=== PATIENT | female | born 1990 | race Caucasian/White ===

== ENCOUNTER 2020-06-15 08:11 | Emergency (ER) | payer MEDICAID ==
[~2020-06-15] VITALS: Ht 152.4 cm; Wt 44.0 kg
[2020-06-15] MEDS ORDERED: OFLOXACIN5 M1 OP (09:07)
== END 2020-06-15 09:15 | disposition home or self-care (01) ==
LOC: ED 08:11
DX: H66.91 Otitis media, unspecified, right ear (principal); H72.90 Unspecified perforation of tympanic membrane, unspecified ear; Z88.2 Allergy status to sulfonamides; Z88.5 Allergy status to narcotic agent; Z88.0 Allergy status to penicillin; Z88.8 Allergy status to other drugs, medicaments and biological substances
CPT/HCPCS: 99282

== ENCOUNTER 2021-02-14 11:44 | Emergency (ER) | payer SELFPAY ==
[~2021-02-14] VITALS: Ht 152.4 cm; Wt 45.4 kg
[~2021-02-14 11:44] MED LIST: OFLOXACIN5 M1 OP
[2021-02-14] MEDS ORDERED: ONDANSETRON ODT8 MG PO (12:28)
== END 2021-02-14 12:37 | disposition home or self-care (01) ==
LOC: ED 11:44
DX: K52.9 Noninfective gastroenteritis and colitis, unspecified (principal); Z88.2 Allergy status to sulfonamides; Z88.8 Allergy status to other drugs, medicaments and biological substances; Z88.0 Allergy status to penicillin; Z88.1 Allergy status to other antibiotic agents; Z88.5 Allergy status to narcotic agent
CPT/HCPCS: 80053; 83690; 84703; 85025; 96374; 96375; 99284-25; J0780; J1200; J7030

== ENCOUNTER 2021-02-18 09:30 | Emergency (ER) | payer SELFPAY ==
[~2021-02-18] VITALS: Ht 152.4 cm; Wt 45.4 kg
[~2021-02-18 09:30] MED LIST changes: +ONDANSETRON ODT8 MG PO
--- OUTSIDE RECORDS SUMMARY | 2021-02-18 09:32 | XMS ---
PreManage Notification: ASPEN HONG Security Philosophy Faculty Events No recent Security Events currently on file CRITERIA MET - [facility] - 2 Visits in 30 Days CARE PROVIDERS There are no care providers on record at this time. Jatin has no Care Guidelines for this patient. Le V[facility] (12 MO.) [facility] NOTE: Visits indicate total known visits. ED/C VISIT TRACKING (12 MO.) 02/18/2021 09:30 [facility] [facility] Emergency COMPLAINT: - VOMITING, UPPER LEFT QUAD PAIN 02/14/2021 11:45 [facility] [place] TYPE: Emergency COMPLAINT: - VOMITTING 06/15/2020 08:12 [facility] [place] TYPE: Emergency COMPLAINT: - EAR PAIN DIAGNOSES: - Allergy status to narcotic agent - Otitis media, unspecified, right ear - Allergy status to other drugs, medicaments and biological substances - Otalgia, right ear - Allergy status to sulfonamides - Unspecified perforation of tympanic membrane, unspecified ear - Allergy status to penicillin INPATIENT VISIT TRACKING (12 MO.) No inpatient visits to display in this time frame [id number]
[2021-02-18] MEDS ORDERED: ONDANSETRON ODT8 MG PO (13:05)
== END 2021-02-18 13:12 | disposition home or self-care (01) ==
LOC: ED 09:30
DX: R10.13 Epigastric pain (principal); R10.12 Left upper quadrant pain; R11.10 Vomiting, unspecified; Z88.2 Allergy status to sulfonamides; Z88.5 Allergy status to narcotic agent; Z88.0 Allergy status to penicillin; Z88.8 Allergy status to other drugs, medicaments and biological substances
CPT/HCPCS: 80053; 81001; 83690; 85025; 96365; 96375; 99284-25; J1200; J1790; J2060; J3411; J7030; J7121

== ENCOUNTER 2021-03-13 09:10 | Emergency (ER) | payer OTHER ==
[~2021-03-13] VITALS: Ht 152.4 cm; Wt 40.4 kg
--- OUTSIDE RECORDS SUMMARY | 2021-03-13 09:12 | XMS ---
PreManage Notification: ASPEN HONG Security Retail Sales Associate Seasonal Events No recent Security Events currently on file CRITERIA MET - Group Notification - [facility] - 2 Visits in 30 Days CARE PROVIDERS There are no care providers on record at this time. Jatin has no Care Guidelines for this patient. Le VISIT COUNT (12 MO.) 4 [facility] [facility]. TOTAL 4 NOTE: Visits indicate total known visits. ED/UCC VISIT TRACKING (12 MO.) 03/13/2021 09:10 [facility] TYPE: Emergency COMPLAINT: - NAUSEA, ABD PAIN 02/18/2021 09:30 [facility] [place] TYPE: Emergency COMPLAINT: - VOMITING, UPPER LEFT QUAD PAIN DIAGNOSES: - Allergy status to other drugs, medicaments and biological substances - Left upper quadrant pain - Allergy status to penicillin - Allergy status to sulfonamides - Allergy status to narcotic agent - Vomiting, unspecified - Epigastric pain 02/14/2021 11:[address] [facility] [address] TYPE: Emergency COMPLAINT: - VOMITTING DIAGNOSES: - Noninfective gastroenteritis and colitis, unspecified - Allergy status to narcotic agent - Vomiting, unspecified - Allergy status to other drugs, medicaments and biological substances - Allergy status to penicillin - Allergy status to sulfonamides - Allergy status to other antibiotic agents 06/15/2020 08:12 [facility] [address] [place] TYPE: Emergency COMPLAINT: - EAR PAIN [...] visits to display in this time frame [id number]
[2021-03-13] MEDS ORDERED: ONDANSETRON ODT8 MG PO (11:24)
== END 2021-03-13 11:55 | disposition home or self-care (01) ==
LOC: ED 09:10
DX: K29.00 Acute gastritis without bleeding (principal); Z88.2 Allergy status to sulfonamides; Z88.8 Allergy status to other drugs, medicaments and biological substances; Z88.0 Allergy status to penicillin; Z88.5 Allergy status to narcotic agent
CPT/HCPCS: 80053; 81001; 83690; 84703; 85025; 96374; 96375; 99284-25; C9113; J1200; J2405; J7030

== ENCOUNTER 2021-03-13 22:50 | Emergency (ER) | payer OTHER ==
[~2021-03-13] VITALS: Ht 152.4 cm; Wt 40.4 kg
--- OUTSIDE RECORDS SUMMARY | 2021-03-13 22:52 | XMS ---
PreManage Notification: ASPEN HONG Security Petrophysicist Events No recent Security Events currently on file CRITERIA MET - Group Notification - [facility] - 2 Visits in 30 Days CARE PROVIDERS There are no care providers on record at this time. Jatin has no Care Guidelines for this patient. [facility] NOTE: Visits indicate total known visits. ED/C VISIT TRACKING (12 MO.) 03/13/2021 22:50 [facility] [place] [facility] COMPLAINT: - VOMITING 03/13/2021 09:[address] [facility] [address] [facility] [place] TYPE: Emergency COMPLAINT: - NAUSEA, ABD PAIN 02/18/2021 09:30 [facility] [place] TYPE: Emergency COMPLAINT: - VOMITING, UPPER LEFT QUAD PAIN DIAGNOSES: - Allergy status to other drugs, medicaments and biological substances - Left upper quadrant pain - Allergy status to penicillin - Allergy status to sulfonamides - Allergy status to narcotic agent - Vomiting, unspecified - Epigastric pain 02/14/2021 11:45 [facility] [place] TYPE: Emergency COMPLAINT: - VOMITTING DIAGNOSES: - Noninfective gastroenteritis and colitis, unspecified - Allergy status to narcotic agent - Vomiting, unspecified - Allergy status to other drugs, medicaments and biological substances - Allergy status to penicillin - Allergy status to sulfonamides - Allergy status to other antibiotic agents 06/15/2020 08:[address] [facility] [address] [facility] [place] TYPE: Emergency COMPLAINT: [...] visits to display in this time frame [id number]
[2021-03-15] MEDS ORDERED: PEPCID20 MG PO (13:14)
== END 2021-03-14 00:54 | disposition home or self-care (01) ==
LOC: ED 22:50
DX: K29.50 Unspecified chronic gastritis without bleeding (principal); Z88.2 Allergy status to sulfonamides; Z88.5 Allergy status to narcotic agent; Z88.8 Allergy status to other drugs, medicaments and biological substances; Z88.0 Allergy status to penicillin
CPT/HCPCS: 80053; 96374; 96375; 96376; 99284-25; J1200; J2405; J7030

== ENCOUNTER 2021-03-15 09:54 | Emergency (ER) | payer OTHER ==
[~2021-03-15] VITALS: Ht 152.4 cm; Wt 40.4 kg
--- OUTSIDE RECORDS SUMMARY | 2021-03-15 09:56 | XMS ---
PreManage Notification: ASPEN HONG Security Office Machines Sales Representative Events No recent Security Events currently on file CRITERIA MET - Group Notification - [facility] - 2 Visits in 30 Days CARE PROVIDERS There are no care providers on record at this time. Jatin has no Care Guidelines for this patient. Care History Medical/Surgical 03/14/2021 [facility] - CONTACT NUMBER [phone] IS NOT A WORKING NUMBER FOR PATIENT- UNABLE TO CONTACT. - SENT NO PCP LETTER WITH PCP LIST TO PATIENT ON 02/19/21. - PLEASE REFER PATIENT TO WALK IN CLINIC TO ESTABLISH CARE FOR NON EMERGENT MEDICAL CONCERNS. E.D. VISIT COUNT (12 MO.) 6 [facility] TOTAL 6 NOTE: Visits indicate total known visits. ED/UCC VISIT TRACKING (12 MO.) 03/15/2021 09:55 [facility] [place] TYPE: Emergency COMPLAINT: - N/V 03/13/2021 22:50 [facility] [place] TYPE: Emergency COMPLAINT: - VOMITING 03/13/2021 09:10 [facility] [place] TYPE: Emergency COMPLAINT: - NAUSEA, ABD PAIN 02/18/2021 09:30 [facility] [place] TYPE: Emergency COMPLAINT: - VOMITING, UPPER LEFT QUAD PAIN DIAGNOSES: - Allergy status to other drugs, medicaments and biological substances - Left upper quadrant pain - Allergy status to penicillin - Allergy status to sulfonamides - Allergy status to narcotic agent - Vomiting, unspecified - Epigastric pain 02/14/2021 11:45 [facility] [place] TYPE: Emergency COMPLAINT: - VOMITTING DIAGNOSES: - Noninfective gastroenteritis and colitis, unspecified - Allergy status to narcotic agent - Vomiting, unspecified - Allergy status to other drugs, medicaments and biological substances - Allergy status to penicillin - Allergy status to sulfonamides - Allergy status to other antibiotic agents 06/15/2020 08:12 [facility] [place] TYPE: Emergency [...] visits to display in this time frame [id number]
[2021-03-15] MEDS ORDERED: PEPCID20 MG PO (13:14)
== END 2021-03-15 13:40 | disposition home or self-care (01) ==
LOC: ED 09:54
DX: K29.00 Acute gastritis without bleeding (principal); Z88.2 Allergy status to sulfonamides; Z88.5 Allergy status to narcotic agent; Z88.8 Allergy status to other drugs, medicaments and biological substances; Z88.0 Allergy status to penicillin
CPT/HCPCS: 74177; 80053; 83690; 85025; 96375; 96376; 99284-25; J1200; J2405; J7030; Q9967

== ENCOUNTER 2021-03-16 04:36 | Emergency (ER) | payer OTHER ==
[~2021-03-16] VITALS: Ht 152.4 cm; Wt 40.4 kg
[~2021-03-16 04:36] MED LIST changes: +PEPCID20 MG PO
--- OUTSIDE RECORDS SUMMARY | 2021-03-16 04:38 | XMS ---
PreManage Notification: ASPEN HONG Security Measurement And Verification Engineer Events No recent Security Events currently on file CRITERIA MET - Group Notification - 6 ED Visits in 6 Months - [facility] - 2 Visits in 30 Days CARE PROVIDERS There are no care providers on record at this time. Jatin has no Care Guidelines for this patient. Care History Medical/Surgical 03/14/2021 [facility] - CONTACT NUMBER [phone] IS NOT A WORKING NUMBER FOR PATIENT- UNABLE TO CONTACT. - SENT NO PCP LETTER WITH PCP LIST TO PATIENT ON 02/19/21. - PLEASE REFER PATIENT TO WALK IN CLINIC TO ESTABLISH CARE FOR NON EMERGENT MEDICAL CONCERNS. E.D. VISIT COUNT (12 MO.) 7 [facility] TOTAL 7 NOTE: Visits indicate total known visits. ED/UCC VISIT TRACKING (12 MO.) 03/16/2021 04:[address] [facility] [address] [facility] TYPE: Emergency COMPLAINT: - NAUSEA 03/15/2021 09:[address] [facility] [address] [facility] TYPE: Emergency COMPLAINT: - N/V 03/13/2021 22:[address] [facility] [address] [facility] TYPE: Emergency COMPLAINT: - VOMITING 03/13/2021 09:[address] [facility] [address] [facility] TYPE: Emergency COMPLAINT: - NAUSEA, ABD PAIN 02/18/2021 09:[address] [facility] [address] [facility] [place] TYPE: Emergency COMPLAINT: - VOMITING, UPPER LEFT QUAD PAIN DIAGNOSES: - Allergy status to other drugs, medicaments and biological substances - Left upper quadrant pain - Allergy status to penicillin - Allergy status to sulfonamides - Allergy status to narcotic agent - Vomiting, unspecified - Epigastric pain 02/14/2021 11:45 [facility] [place] TYPE: Emergency COMPLAINT: - VOMITTING DIAGNOSES: - Noninfective gastroenteritis and colitis, unspecified - Allergy status to narcotic agent - Vomiting, unspecified - Allergy status to other drugs, medicaments and biological substances - Allergy status to penicillin - Allergy status to sulfonamides - Allergy status to other antibiotic agents 06/15/2020 08:12 [facility] [place] TYPE: Emergency COMPLAINT: - EAR [...] visits to display in this time frame [email or web address]
== END 2021-03-16 07:38 | disposition home or self-care (01) ==
LOC: ED 04:36
DX: K29.50 Unspecified chronic gastritis without bleeding (principal); Z88.2 Allergy status to sulfonamides; Z88.5 Allergy status to narcotic agent; Z88.8 Allergy status to other drugs, medicaments and biological substances; Z88.0 Allergy status to penicillin; Z79.899 Other long term (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
CPT/HCPCS: 96374; 96375; 99284-25; J1200; J1630; J7030

== ENCOUNTER 2021-03-22 06:11 | Emergency (ER) | payer OTHER ==
[~2021-03-22] VITALS: Ht 152.4 cm; Wt 40.8 kg
--- OUTSIDE RECORDS SUMMARY | 2021-03-22 06:16 | XMS ---
PreManage Notification: ASPEN HONG Security Road Engineer Events No recent Security Events currently on file CRITERIA MET - 6 ED Visits in 6 Months - [facility] - Has Care Guidelines - [facility] - 2 Visits in 30 Days CARE PROVIDERS JEREMIAH VERA Nurse Practitioner Current PHONE: [phone] GRAHAM BANUELOS Family Medicine 03/19/2021-Current PHONE: [phone] Jatin has no Care Guidelines for this patient. Care History Medical/Surgical 03/19/2021 [facility] - W RECEIVED A PHONE CALL BACK FROM PATIENT- PATIENT WOULD LIKE ASSISTANCE WITH FINDING A LOCAL PCP. - CHW DISCUSSED LOCAL PRIMARY CARE OPTIONS IN THE AREA-PATIENT WOULD LIKE [facility] FOR PR[facility] CARE. - CHW CONTACTED [facility]- AN APT HAS BEEN SET TO ESTABLISH CARE WITH DR BANUELSO 03/22/2021Friday AT 11:30AM. - CHW PROVIDED [facility] TRANSPORTATION NUMBER TO PATIENT FOR FUTURE APTS AND PHARMACY MEDICATION CRISIS WORKER. 03/19/2021 [facility] - CHW CALLED PATIENT AT CONTACT NUMBER [phone] AND LEFT A VOICEMAIL. 03/14/2021 [facility] - CONTACT NUMBER [phone] IS NOT A WORKING NUMBER FOR PATIENT- UNABLE TO CONTACT. - SENT NO PCP LETTER WITH PCP LIST TO PATIENT ON 02/19/21. - PLEASE REFER PATIENT TO WALK IN CLINIC TO ESTABLISH CARE FOR NON EMERGENT MEDICAL CONCERNS. EChencho VISIT COUNT (12 MO.) 1 [facility] (ID) [address] [facility] [address] [facility] TOTAL 9 NOTE: Visits indicate total known visits. 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 - Allergy status to sulfonamides - Nausea with vomiting, unspecified - Allergy status to narcotic agent - Allergy status to other drugs, medicaments and biological substances - Unspecified chronic gastritis without bleeding - Allergy status to penicillin 03/15/2021 09:55 [facility] [place] TYPE: Emergency COMPLAINT: - N/V DIAGNOSES: - Nausea with vomiting, unspecified - Acute gastritis without bleeding - Allergy status to penicillin - Allergy status to other drugs, medicaments and biological substances - Allergy status to narcotic agent - Allergy status to sulfonamides 03/13/2021 22:50 [facility] [place] TYPE: Emergency COMPLAINT: - VOMITING DIAGNOSES: - Allergy status to narcotic agent - Unspecified chronic gastritis without bleeding - Allergy status to sulfonamides - Nausea with vomiting, unspecified - Allergy status to other drugs, medicaments and biological substances - Allergy status to penicillin 03/13/2021 09:[address] [facility] [address] [facility] TYPE: Emergency COMPLAINT: - NAUSEA, ABD PAIN DIAGNOSES: - Acute gastritis without bleeding - Allergy status to other drugs, medicaments and biological substances - Allergy status to narcotic agent - Allergy status to sulfonamides - Nausea with vomiting, unspecified - Allergy status to penicillin 02/18/2021 09:[address] [facility] [address] [facility] TYPE: Emergency COMPLAINT: - VOMITING, UPPER LEFT QUAD PAIN DIAGNOSES: - Allergy status to other drugs, medicaments and biological substances - Left upper quadrant pain - Allergy status to penicillin - Allergy status to sulfonamides - Allergy status to narcotic agent - Vomiting, unspecified - Epigastric pain 02/14/2021 11:[address] [facility] [address] [facility] [place] TYPE: [...] unspecified ear - Allergy status to penicillin 04/03/2020 11:28 [facility] ID (ID) TYPE: Emergency COMPLAINT: - VOMITING DIAGNOSES: 1. Nausea with vomiting, unspecified 2. Vomiting, unspecified INPATIENT VISIT TRACKING (12 MO.) No inpatient visits to display in this time frame [id number]
[2021-03-22] MEDS ORDERED: ZOFRAN4 MG PO (07:47)
== END 2021-03-22 08:02 | disposition home or self-care (01) ==
LOC: ED 06:11
DX: R11.15 Cyclical vomiting syndrome unrelated to migraine (principal); Z88.2 Allergy status to sulfonamides; Z88.8 Allergy status to other drugs, medicaments and biological substances; Z88.5 Allergy status to narcotic agent; Z88.0 Allergy status to penicillin; Z79.899 Other long term (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
CPT/HCPCS: 80053; 83690; 85025; 96374; 96375; 99284-25; J1200; J2405; J7030

== ENCOUNTER 2021-03-24 10:08 | Emergency (ER) | payer OTHER ==
[~2021-03-24] VITALS: Ht 152.4 cm; Wt 40.8 kg
[~2021-03-24 10:08] MED LIST changes: +ZOFRAN4 MG PO
--- OUTSIDE RECORDS SUMMARY | 2021-03-24 10:14 | XMS ---
PreManage Notification: ASPEN HONG Security Sanding Machine Tender Events No recent Security Events currently on file CRITERIA MET - 6 ED Visits in 6 Months - [facility] - Has Care Guidelines - [facility] - 2 Visits in 30 Days CARE PROVIDERS JEREMIAH VERA Nurse Practitioner Current PHONE: [phone] GRAHAM BANUELOS Family Medicine 03/19/2021-Current PHONE: [phone] Jatin has no Care Guidelines for this patient. Care History Medical/Surgical 03/19/2021 [facility] - W RECEIVED A PHONE CALL BACK FROM PATIENT- PATIENT WOULD LIKE ASSISTANCE WITH FINDING A LOCAL PCP. - CHW DISCUSSED LOCAL PRIMARY CARE OPTIONS IN THE AREA-PATIENT WOULD LIKE [facility] FOR PRIMARY CARE. - CHW CONTACTED [facility]- AN APT HAS BEEN SET TO ESTABLISH CARE WITH DR BANUELOS 03/22/2021Friday AT 11:30AM. - CHW PROVIDED [facility] TRANSPORTATION NUMBER TO PATIENT FOR FUTURE APTS AND PHARMACY MEDICATION ASSOCIATE FACULTY. 03/19/2021 [facility] - CHW CALLED PATIENT AT CONTACT NUMBER [phone] AND LEFT A VOICEMAIL. 03/14/2021 [facility] - CONTACT NUMBER [phone] IS NOT A WORKING NUMBER FOR PATIENT- UNABLE TO CONTACT. - SENT NO PCP LETTER WITH PCP LIST TO PATIENT ON 02/19/21. - PLEASE REFER PATIENT TO WALK IN CLINIC TO ESTABLISH CARE FOR NON EMERGENT MEDICAL CONCERNS. EChencho VISIT COUNT (12 MO.) 1 [facility] (ID) [address] [facility] [address] [facility] TOTAL 10 NOTE: Visits indicate total known visits. ED/UCC VISIT TRACKING (12 MO.) 03/24/2021 10:09 [facility] [place] TYPE: Emergency COMPLAINT: - VOMITING, DEHYDRATION 03/22/2021 06:11 [facility] [place] TYPE: Emergency COMPLAINT: - NAUSEA,VOMITING DIAGNOSES: - Allergy status to other drugs, medicaments and biological substances - Allergy status to narcotic agent - Allergy status to penicillin - Cyclical vomiting syndrome unrelated to migraine - Nausea with vomiting, unspecified - Other long term care social worker (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 - Allergy status to sulfonamides 03/16/2021 04:36 [facility] [place] TYPE: Emergency COMPLAINT: - NAUSEA DIAGNOSES: - Other long term care social worker (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 - Allergy status to sulfonamides - Nausea with vomiting, unspecified - Allergy status to narcotic agent - Allergy status to other drugs, medicaments and biological substances - Unspecified chronic gastritis without bleeding - Allergy status to penicillin 03/15/2021 09:55 [facility] [place] TYPE: Emergency COMPLAINT: - N/V DIAGNOSES: - Nausea with vomiting, unspecified - Acute gastritis without bleeding - Allergy status to penicillin - Allergy status to other drugs, medicaments and biological substances - Allergy status to narcotic agent - Allergy status to sulfonamides 03/13/2021 22:50 [facility] [place] TYPE: Emergency COMPLAINT: - VOMITING DIAGNOSES: - Allergy status to narcotic agent - Unspecified chronic gastritis without bleeding - Allergy status to sulfonamides - Nausea with vomiting, unspecified - Allergy status to other drugs, medicaments and biological substances - Allergy status to penicillin 03/13/2021 09:10 [facility] [place] TYPE: Emergency COMPLAINT: - NAUSEA, ABD PAIN DIAGNOSES: - Acute gastritis without bleeding - Allergy status to other drugs, medicaments and biological substances - Allergy status to narcotic agent - Allergy status to sulfonamides - Nausea with vomiting, unspecified - Allergy status to penicillin 02/18/2021 09:30 [facility] [place] TYPE: Emergency COMPLAINT: - VOMITING, UPPER LEFT QUAD PAIN DIAGNOSES: - Allergy status to other drugs, medicaments and biological substances - Left upper quadrant pain - Allergy status to penicillin - Allergy status to sulfonamides - Allergy status to narcotic agent - Vomiting, unspecified - Epigastric pain 02/14/2021 11:[address] [facility] [address] [facility] [place] TYPE: Emergency COMPLAINT: - VOMITTING DIAGNOSES: - Noninfective gastroenteritis and colitis, unspecified - Allergy status to narcotic agent - Vomiting, unspecified - Allergy status to other drugs, medicaments and biological substances - Allergy status to penicillin - Allergy status to sulfonamides - Allergy status to other antibiotic agents 06/15/2020 08:[address] [facility] [address] [facility] [place] TYPE: Emergency COMPLAINT: - EAR PAIN DIAGNOSES: - Allergy status to narcotic agent - Otitis media, unspecified, right ear - Allergy status to other drugs, medicaments and biological substances - Otalgia, right ear - Allergy status to sulfonamides - Unspecified perforation of tympanic membrane, unspecified ear - Allergy status to penicillin [facility]/03/2020 [facility] TYPE: Emergency COMPLAINT: - VOMITING DIAGNOSES: 1. Nausea with vomiting, unspecified 2. Vomiting, unspecified INPATIENT VISIT TRACKING (12 MO.) No inpatient visits to display in this time frame [id number]
[2021-03-24] MEDS ORDERED: PROTONIX20 MG PO (13:24)
[2021-03-24] MEDS ORDERED: CARAFATE1 GM PO (13:24)
== END 2021-03-24 13:40 | disposition home or self-care (01) ==
LOC: ED 10:08
DX: R11.2 Nausea with vomiting, unspecified (principal); E86.0 Dehydration; Z88.2 Allergy status to sulfonamides; Z88.5 Allergy status to narcotic agent; Z88.8 Allergy status to other drugs, medicaments and biological substances; Z88.0 Allergy status to penicillin
CPT/HCPCS: 51798; 80053; 81001; 82550; 83690; 84703; 85025; 99284-25; J2405; J7030

== ENCOUNTER 2021-11-18 09:13 | Emergency (ER) | payer OTHER ==
[~2021-11-18] VITALS: Ht 152.4 cm; Wt 40.8 kg
[~2021-11-18 09:13] MED LIST changes: +CARAFATE1 GM PO; +PROTONIX20 MG PO
--- OUTSIDE RECORDS SUMMARY | 2021-11-18 09:20 | XMS ---
PreManage Notification: ASPEN HONG Security Iron And Steel Work Supervisor Events No recent Security Events currently on file CRITERIA MET - [facility] CARE PROVIDERS JEREMIAH VERA Nurse Practitioner Current PHONE: [phone] [facility] Rohan SULLIVAN PHONE: Unknown [facility] Internal Medicine Current KIMBERLY PHONE: [phone] [facility]-Current PHONE: [phone] Jatin has no Care Guidelines for this patient. Care History Medical/Surgical 03/26/2021 [facility] - PATIENT NO SHOWED TO HER ESTABLISHING CARE APT SCHEDULED WITH DR BANUELOS. - CHW WILL CONTACT [facility] CASE MANAGEMENT TEAM TO DISCUSS FURTHER 03/19/2021 [facility] - CHW RECEIVED A PHONE CALL BACK FROM PATIENT- PATIENT WOULD LIKE ASSISTANCE WITH FINDING A LOCAL PCP. - CHW DISCUSSED LOCAL PRIMARY CARE OPTIONS IN THE AREA-PATIENT WOULD LIKE [facility] FOR PRIMARY CARE. - CHW CONTACTED [facility]- AN APT HAS BEEN SET TO ESTABLISH CARE WITH DR BANUELOS 03/22/2021Friday AT 11:30AM. - CHW PROVIDED [employer] TRANSPORTATION NUMBER TO PATIENT FOR FUTURE APTS AND PHARMACY MEDICATION CASH REGISTER REPAIRER. 03/19/2021 [facility] - CHW CALLED PATIENT AT CONTACT NUMBER [phone] AND LEFT A VOICEMAIL. E.D. VISIT COUNT (12 MO.) 9 [facility]. TOTAL 9 NOTE: Visits indicate total known visits. ED/UCC VISIT TRACKING (12 MO.) 11/18/2021 09:14 [facility] [place] TYPE: Emergency COMPLAINT: - BODY ACHE,SOB,FEVER 03/24/2021 10:09 [facility] [place] TYPE: Emergency COMPLAINT: - VOMITING, DEHYDRATION DIAGNOSES: - Allergy status to other drugs, medicaments and biological substances - Nausea with vomiting, unspecified - Allergy status to penicillin - Allergy status to sulfonamides - Dehydration - Allergy status to narcotic agent 03/22/2021 06:11 [facility] [place] TYPE: Emergency COMPLAINT: - NAUSEA,VOMITING DIAGNOSES: - Allergy status to other drugs, medicaments and biological substances - Allergy status to narcotic agent - Allergy status to penicillin - Cyclical vomiting syndrome unrelated to migraine - Nausea with vomiting, unspecified - Other police pilot (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 - Allergy status to sulfonamides 03/16/2021 04:36 [facility] [place] TYPE: Emergency COMPLAINT: - NAUSEA DIAGNOSES: - Other police pilot (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 - Allergy status to sulfonamides - Nausea with vomiting, unspecified - Allergy status to narcotic agent - Allergy status to other drugs, medicaments and biological substances - Unspecified chronic gastritis without bleeding - Allergy status to penicillin 03/15/2021 09:55 [facility] [place] TYPE: Emergency COMPLAINT: - N/V DIAGNOSES: - Nausea with vomiting, unspecified - Acute gastritis without bleeding - Allergy status to penicillin - Allergy status to other drugs, medicaments and biological substances - Allergy status to narcotic agent - Allergy status to sulfonamides 03/13/2021 22:50 [facility] [place] TYPE: Emergency COMPLAINT: - VOMITING DIAGNOSES: - Allergy status to narcotic agent - Unspecified chronic gastritis without bleeding - Allergy status to sulfonamides - Nausea with vomiting, unspecified - Allergy status to other drugs, medicaments and biological substances - Allergy status to penicillin 03/13/2021 09:10 [facility] Garcia[facility]ose [place] TYPE: Emergency [...] other drugs, medicaments and biological substances - Restlessness and agitation - Left upper quadrant pain - Allergy status to penicillin - Allergy status to sulfonamides - Tachycardia, unspecified - Nausea with vomiting, unspecified - Diarrhea, unspecified - Allergy status to narcotic agent [...] - Allergy status to other antibiotic agents INPATIENT VISIT TRACKING (12 MO.) No inpatient visits to display in this time frame [id number]
== END 2021-11-18 11:15 | disposition home or self-care (01) ==
LOC: ED 09:13
DX: U07.1 COVID-19 (principal); Z88.2 Allergy status to sulfonamides; Z88.5 Allergy status to narcotic agent; Z88.0 Allergy status to penicillin
CPT/HCPCS: 71045; 99285-25; C9803; U0003

== ENCOUNTER 2022-08-08 10:04 | Emergency (ER) | payer OTHER ==
[~2022-08-08] VITALS: Ht 152.4 cm; Wt 47.6 kg
--- OUTSIDE RECORDS SUMMARY | 2022-08-08 10:08 | XMS ---
PreManage Notification: ASPEN HONG Security Patternmaker Apprentice Wood Events No recent Security Events currently on file CRITERIA MET - [facility] – [place], [place] CARE PROVIDERS JEREMIAH VERA Nurse Practitioner Current PHONE: Unknown [facility] Rohan SULLIVAN PHONE: Unknown [facility] Internal Medicine Current KIMBERLY PHONE: [phone] [facility]Current PHONE: Unknown Jatin has no Care Guidelines for this patient. Care History Medical/Surgical 03/26/2021 [facility] - PATIENT NO SHOWED TO HER ESTABLISHING CARE APT SCHEDULED WITH DR BANUELOS. - CHW WILL CONTACT [facility] CASE MANAGEMENT TEAM TO DISCUSS FURTHER 03/19/2021 [facility] - CHW RECEIVED A PHONE CALL BACK FROM PATIENT- PATIENT WOULD LIKE ASSISTANCE WITH FINDING A LOCAL PCP. - CHW DISCUSSED LOCAL PRIMARY CARE OPTIONS IN THE AREA-PATIENT WOULD LIKE [facility] FOR PRIMARY CARE. - CHW CONTACTED [facility]- AN APT HAS BEEN SET TO ESTABLISH CARE WITH DR BANUELOS 03/22/2021Friday AT 11:30AM. - CHW PROVIDED [employer] TRANSPORTATION NUMBER TO PATIENT FOR FUTURE APTS AND PHARMACY MEDICATION IMPORT/EXPORT SPECIALIST. 03/19/2021 [facility] - CHW CALLED PATIENT AT CONTACT NUMBER [phone] AND LEFT A VOICEMAIL. E.D. VISIT COUNT (12 MO.) 2 [facility]. TOTAL 2 NOTE: Visits indicate total known visits. ED/UCC VISIT TRACKING (12 MO.) 08/08/2022 10:04 [facility] [place] TYPE: Emergency COMPLAINT: - VOMITING 11/18/2021 09:14 [facility] [place] TYPE: Emergency COMPLAINT: - BODY ACHE,SOB,FEVER DIAGNOSES: - Allergy status to penicillin - Allergy status to sulfonamides - Allergy status to narcotic agent - COVID-19 - Fever, unspecified INPATIENT VISIT TRACKING (12 MO.) No inpatient visits to display in this time frame [id number]
[2022-08-08] MEDS ORDERED: ONDANSETRON ODT8 MG PO (11:49)
== END 2022-08-08 11:55 | disposition home or self-care (01) ==
LOC: ED 10:04
DX: K29.00 Acute gastritis without bleeding (principal); Z88.2 Allergy status to sulfonamides; Z88.5 Allergy status to narcotic agent; Z88.0 Allergy status to penicillin
CPT/HCPCS: 36415; 80053; 83690; 84703; 85025; 96374; 96375; 99284-25; J2060; J2405; J7030

== ENCOUNTER 2022-08-31 15:22 | Emergency (ER) | payer OTHER ==
[~2022-08-31] VITALS: Ht 152.4 cm; Wt 45.4 kg
--- OUTSIDE RECORDS SUMMARY | 2022-08-31 15:30 | XMS ---
PreManage Notification: ASPEN HONG Security Wood Window And Door Craftsman Events No recent Security Events currently on file CRITERIA MET - [facility] - Has Care Guidelines - [facility] - 2 Visits in 30 Days CARE PROVIDERS JEREMIAH VERA Nurse Practitioner Current PHONE: Unknown [facility] Rohan SULLIVAN PHONE: Unknown [facility] Internal Medicine Rohan HARRIS PHONE: [phone] [facility]-Current PHONE: Unknown Jatin has no Care Guidelines for this patient. Care History Medical/Surgical 03/26/2021 [facility] - PATIENT NO SHOWED TO HER ESTABLISHING CARE APT SCHEDULED WITH DR BANUELOS. - CHW WILL CONTACT [facility] CASE MANAGEMENT TEAM TO DISCUSS FURTHER 03/19/2021 [facility] - CHW RECEIVED A PHONE CALL BACK FROM PATIENT- PATIENT WOULD LIKE ASSISTANCE WITH FINDING A LOCAL PCP. - CHW DISCUSSED LOCAL PRIMARY CARE OPTIONS IN THE AREA-PATIENT WOULD LIKE [facility] FOR PRIMARY CARE. - CHW CONTACTED [facility]- AN APT HAS BEEN SET TO ESTABLISH CARE WITH DR BANUELOS 03/22/2021Friday AT 11:30AM. - CHW PROVIDED [employer] TRANSPORTATION NUMBER TO PATIENT FOR FUTURE APTS AND PHARMACY MEDICATION ACCOUNTS RECEIVABLE ANALYST. 03/19/2021 [facility] - CHW CALLED PATIENT AT CONTACT NUMBER [phone] AND LEFT A VOICEMAIL. E.D. VISIT COUNT (12 MO.) 3 [facility]. TOTAL 3 NOTE: Visits indicate total known visits. ED/UCC VISIT TRACKING (12 MO.) 08/31/2022 15:24 [facility] [place] TYPE: Emergency COMPLAINT: - MULTI COMPLAINTS 08/08/2022 10:04 [facility] [place] TYPE: Emergency COMPLAINT: - VOMITING DIAGNOSES: - Acute gastritis without bleeding - Allergy status to penicillin - Allergy status to narcotic agent - Allergy status to sulfonamides - Vomiting, unspecified 11/18/2021 09:14 [facility] [place] TYPE: Emergency COMPLAINT: - BODY ACHE,SOB,FEVER DIAGNOSES: - Fever, unspecified - Allergy status to penicillin - Allergy status to sulfonamides - Allergy status to narcotic agent - COVID-19 INPATIENT VISIT TRACKING (12 MO.) No inpatient visits to display in this time frame [id number]
== END 2022-08-31 17:47 | disposition left against medical advice (07) ==
LOC: ED 15:22
DX: R11.2 Nausea with vomiting, unspecified (principal); R10.9 Unspecified abdominal pain; Z53.21 Procedure and treatment not carried out due to patient leaving prior to being seen by health care provider
CPT/HCPCS: 36415; 80053; 81001; 83735; 84703; 85025; J2405; J7040

== ENCOUNTER 2022-09-06 09:47 | Emergency (ER) | payer OTHER ==
[~2022-09-06] VITALS: Ht 152.4 cm; Wt 44.5 kg
--- OUTSIDE RECORDS SUMMARY | 2022-09-06 09:54 | XMS ---
PreManage Notification: ASPEN HONG Security Order Manager Events No recent Security Events currently on file CRITERIA MET - [facility] - 2 Visits in 30 Days - [facility] - Has Care Guidelines CARE PROVIDERS JEREMIAH VERA Nurse Practitioner Current PHONE: Unknown [facility] Rohan SULLIVAN PHONE: Unknown [facility] Internal Medicine Rohan HARRIS PHONE: [phone] [facility]-Current PHONE: Unknown Jatin has no Care Guidelines for this patient. Care History Medical/Surgical 03/26/2021 [facility] - PATIENT NO SHOWED TO HER ESTABLISHING CARE APT SCHEDULED WITH DR BANUELOS. - CHW WILL CONTACT [facility] CASE MANAGEMENT TEAM TO DISCUSS FURTHER 03/19/2021 [facility] - CHW RECEIVED A PHONE CALL BACK FROM PATIENT- PATIENT WOULD LIKE ASSISTANCE WITH FINDING A LOCAL PCP. - CHW DISCUSSED LOCAL PRIMARY CARE OPTIONS IN THE AREA-PATIENT WOULD LIKE [facility] FOR PRIMARY CARE. - CHW CONTACTED [facility]- AN APT HAS BEEN SET TO ESTABLISH CARE WITH DR BANUELOS 03/22/2021Friday AT 11:30AM. - CHW PROVIDED [employer] TRANSPORTATION NUMBER TO PATIENT FOR FUTURE APTS AND PHARMACY MEDICATION ORACLE PROGRAMMER ANALYST. 03/19/2021 [facility] - CHW CALLED PATIENT AT CONTACT NUMBER [phone] AND LEFT A VOICEMAIL. E.D. VISIT COUNT (12 MO.) 4 [facility]. TOTAL 4 NOTE: Visits indicate total known visits. ED/UCC VISIT TRACKING (12 MO.) 09/06/2022 09:48 [facility] [place] TYPE: Emergency COMPLAINT: - ABD PAIN 08/31/2022 15:24 [facility] [place] TYPE: Emergency COMPLAINT: - MULTI COMPLAINTS 08/08/2022 10:04 [facility] [place] TYPE: Emergency COMPLAINT: - VOMITING DIAGNOSES: - Allergy status to sulfonamides - Vomiting, unspecified - Acute gastritis without bleeding - Allergy status to penicillin - Allergy status to narcotic agent 11/18/2021 09:14 [facility] [place] TYPE: Emergency COMPLAINT: - BODY ACHE,SOB,FEVER DIAGNOSES: - Allergy status to narcotic agent - COVID-19 - Fever, unspecified - Allergy status to penicillin - Allergy status to sulfonamides INPATIENT VISIT TRACKING (12 MO.) No inpatient visits to display in this time frame [id number]
== END 2022-09-06 12:08 | disposition home or self-care (01) ==
LOC: ED 09:47
DX: N80.9 Endometriosis, unspecified (principal); Z88.2 Allergy status to sulfonamides; Z88.5 Allergy status to narcotic agent; Z88.8 Allergy status to other drugs, medicaments and biological substances; Z88.0 Allergy status to penicillin
CPT/HCPCS: 36415; 76830; 76856; 80048; 81001; 84703; 85025; 96374; 99284-25; J1885; J7030

== ENCOUNTER 2022-09-19 09:56 | Emergency (ER) | payer OTHER ==
[~2022-09-19] VITALS: Ht 152.4 cm; Wt 44.5 kg
--- OUTSIDE RECORDS SUMMARY | 2022-09-19 10:05 | XMS ---
PreManage Notification: ASPEN HONG Security Regulated Program Manager Events 1 event(s) in the past 18 months Most recent security events: Elopement at [facility] 09/06/2022 09:48 - Patient eloped before treatment completed. - Patient with suicidal and/or homicidal ideations eloped. - Patient eloped with IV in place. Details: PATIENT LWBS CRITERIA MET - [facility] - Has Care Guidelines - [facility] - 2 Visits in 30 Days CARE PROVIDERS JEREMIAH VERA Nurse Practitioner Current PHONE: Unknown [facility] Rohan SULLIVAN PHONE: Unknown [facility] Internal Medicine [facility] PHONE: [phone] GRAHAM BANUELOS [facility] 03/19/2021-Current PHONE: Unknown Jatin has no Care [...] CARE OPTIONS IN THE AREA-PATIENT WOULD LIKE [facility] FOR PRIMARY CARE. - CHW CONTACTED [facility]- AN APT HAS BEEN SET TO ESTABLISH CARE WITH DR BANUELOS 03/22/2021Friday AT 11:30AM. - CHW PROVIDED [employer] TRANSPORTATION NUMBER TO PATIENT FOR FUTURE APTS AND PHARMACY MEDICATION WEB ANALYTICS SPECIALIST. 03/19/2021 [facility] - CHW CALLED PATIENT AT CONTACT NUMBER [phone] AND LEFT A VOICEMAIL. E.D. VISIT COUNT (12 MO.) 5 [facility] TOTAL 5 NOTE: Visits indicate total known visits. ED/UCC VISIT TRACKING (12 MO.) 09/19/2022 09:57 [facility] [place] TYPE: Emergency COMPLAINT: - ABD PAIN 09/06/2022 09:48 [facility] [place] TYPE: Emergency COMPLAINT: - ABD PAIN DIAGNOSES: - Allergy status to sulfonamides - Lower abdominal pain, unspecified - Allergy status to other drugs, medicaments and biological substances - Allergy status to penicillin - Allergy status to narcotic agent - Endometriosis, unspecified 08/31/2022 15:24 [facility] [place] TYPE: Emergency COMPLAINT: - MULTI COMPLAINTS DIAGNOSES: - Nausea with vomiting, unspecified - Procedure and treatment not carried out due to patient leaving prior to being seen by health care provider - Unspecified abdominal pain 08/08/2022 10:04 [facility] [place] TYPE: Emergency COMPLAINT: - VOMITING DIAGNOSES: - Allergy status to penicillin - Allergy status to narcotic agent - Allergy status to sulfonamides - Vomiting, unspecified - Acute gastritis without bleeding 11/18/2021 09:14 [facility] [place] TYPE: Emergency COMPLAINT: - BODY ACHE,SOB,FEVER DIAGNOSES: - Allergy status to penicillin - Allergy status to sulfonamides - Allergy status to narcotic agent - COVID-19 - Fever, unspecified INPATIENT VISIT TRACKING (12 MO.) No inpatient visits to display in this time frame [id number]
[2022-09-19] MEDS ORDERED: ESCITALOPRAM OXA5 MG PO (10:30)
[2022-09-19] MEDS ORDERED: MEDROXYPRO150 MG/11 IM (10:30)
[2022-09-19] MEDS ORDERED: OXYCODONE HCL5 MG PO (13:40)
== END 2022-09-19 14:05 | disposition home or self-care (01) ==
LOC: ED 09:56
DX: R10.2 Pelvic and perineal pain (principal); Z88.0 Allergy status to penicillin; Z88.2 Allergy status to sulfonamides; Z88.5 Allergy status to narcotic agent; Z88.8 Allergy status to other drugs, medicaments and biological substances
CPT/HCPCS: 36415; 80048; 81001; 84703; 85025; 96374; 96375; 99284-25; J1885; J2270; J2405; J7030

== ENCOUNTER 2022-09-24 13:49 | Emergency (ER) | payer OTHER ==
[~2022-09-24] VITALS: Ht 152.4 cm; Wt 44.5 kg
[~2022-09-24 13:49] MED LIST changes: +ESCITALOPRAM OXA5 MG PO; +MEDROXYPRO150 MG/11 IM; +OXYCODONE HCL5 MG PO
--- OUTSIDE RECORDS SUMMARY | 2022-09-24 13:53 | XMS ---
PreManage Notification: ASPEN HONG Security Engine Inspector Events 1 event(s) in the past 18 months Most recent security events: Elopement at [facility] 09/06/2022 09:48 - Patient eloped before treatment completed. - Patient with suicidal and/or homicidal ideations eloped. - Patient eloped with IV in place. Details: PATIENT LWBS CRITERIA MET - [facility] - 2 Visits in 30 Days - [facility] - Has Care Guidelines CARE PROVIDERS JEREMIAH VERA Nurse Practitioner Current PHONE: Unknown [facility] Rohan SULLIVAN PHONE: Unknown [facility] Internal Medicine [facility] [employer] PHONE: [phone] GRAHAM BANUELOS [facility] 03/19/2021-Current PHONE: Unknown Jatin has no Care Guidelines for this patient. Care History Medical/Surgical 03/26/2021 [facility] - PATIENT NO SHOWED TO HER ESTABLISHING CARE APT SCHEDULED WITH DR BANUELOS. - CHW WILL CONTACT [facility] CASE MANAGEMENT TEAM TO DISCUSS FURTHER 03/19/2021 [facility] - CHW RECEIVED A PHONE CALL BACK FROM PATIENT- PATIENT WOULD LIKE ASSISTANCE WITH FINDING A LOCAL PCP. - CHW DISCUSSED LOCAL PRIMARY CARE OPTIONS IN THE AREA-PATIENT WOULD LIKE [facility] FOR PRIMARY CARE. - CHW CONTACTED [facility]- AN APT HAS BEEN SET TO ESTABLISH CARE WITH DR BANUELOS 03/22/2021Friday AT 11:30AM. - CHW PROVIDED [employer] TRANSPORTATION NUMBER TO PATIENT FOR FUTURE APTS AND PHARMACY MEDICATION MANAGER HARBOR. 03/19/2021 [facility] - CHW CALLED PATIENT AT CONTACT NUMBER [phone] AND LEFT A VOICEMAIL. E.D. VISIT COUNT (12 MO.) 6 [facility] TOTAL 6 NOTE: Visits indicate total known visits. ED/UCC VISIT TRACKING (12 MO.) 09/24/2022 13:49 [facility] [place] TYPE: Emergency COMPLAINT: - VAGINAL PAIN 09/19/2022 09:57 [facility] [place] TYPE: Emergency COMPLAINT: - ABD PAIN DIAGNOSES: - Lower abdominal pain, unspecified - Pelvic and perineal pain - Allergy status to narcotic agent - Allergy status to sulfonamides - Allergy status to other drugs, medicaments and biological substances - Allergy status to penicillin 09/06/2022 09:48 [facility] [place] TYPE: Emergency COMPLAINT: - ABD PAIN DIAGNOSES: - Endometriosis, unspecified - Allergy status to sulfonamides - Lower abdominal pain, unspecified - Allergy status to other drugs, medicaments and biological substances - Allergy status to penicillin - Allergy status to narcotic agent 08/31/2022 15:24 [facility] TYPE: Emergency COMPLAINT: - MULTI COMPLAINTS [...] sulfonamides - Vomiting, unspecified 11/18/2021 09:14 [facility] [place] TYPE: Emergency COMPLAINT: - BODY ACHE,SOB,FEVER DIAGNOSES: - Fever, unspecified - Allergy status to penicillin - Allergy status to sulfonamides - Allergy status to narcotic agent - COVID-19 INPATIENT VISIT TRACKING (12 MO.) No inpatient visits to display in this time frame [id number]
[2022-09-24] MEDS ORDERED: PROTONIX40 MG PO (20:43)
[2022-09-24] MEDS ORDERED: CARAFATE1 GM PO (20:43)
[2022-09-24] MEDS ORDERED: MACROBID 100 M100 MG PO (21:31)
== END 2022-09-24 21:31 | disposition home or self-care (01) ==
LOC: ED 13:49
DX: K29.70 Gastritis, unspecified, without bleeding (principal); Z88.0 Allergy status to penicillin; Z88.2 Allergy status to sulfonamides; Z88.8 Allergy status to other drugs, medicaments and biological substances; Z79.899 Other long term (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
CPT/HCPCS: 36415; 74177; 80053; 81001; 84703; 85025; 87088; 96375; 96376; 99284-25; A9270; J2270; J2405; J7030; Q9967; U0003

== ENCOUNTER 2022-09-26 06:15 | Emergency (ER) | payer OTHER ==
[~2022-09-26] VITALS: Ht 152.4 cm; Wt 44.5 kg
[~2022-09-26 06:15] MED LIST changes: +MACROBID 100 M100 MG PO; +PROTONIX40 MG PO
--- OUTSIDE RECORDS SUMMARY | 2022-09-26 06:16 | XMS ---
PreManage Notification: ASPEN HONG Security Switchgear Repairer Events 1 event(s) in the past 18 months Most recent security events: Elopement at [facility] 09/06/2022 09:48 - Patient eloped before treatment completed. - Patient with suicidal and/or homicidal ideations eloped. - Patient eloped with IV in place. Details: PATIENT LWBS CRITERIA MET - [facility] - 2 Visits in 30 Days - 6 ED Visits in 6 Months CARE PROVIDERS JEREMIAH VERA Nurse Practitioner Current PHONE: Unknown [facility] Rohan SULLIVAN PHONE: Unknown [facility] Internal Medicine [facility] [employer] PHONE: [phone] GRAHAM BANUELOS [facility] 03/19/2021-Current PHONE: Unknown Jatin has no Care Guidelines for this patient. Care History Medical/Surgical 03/26/2021 [facility] - PATIENT NO SHOWED TO HER ESTABLISHING CARE APT SCHEDULED WITH DR BANUELOS. - CHW WILL CONTACT [facility] CASE MANAGEMENT TEAM TO DISCUSS FURTHER 03/19/2021 [facility] - CHW RECEIVED A PHONE CALL BACK FROM PATIENT- PATIENT WOULD LIKE ASSISTANCE WITH FINDING A LOCAL PCP. - CHW DISCUSSED LOCAL PRIMARY CARE OPTIONS IN THE AREA-PATIENT WOULD LIKE [facility] FOR PRIMARY CARE. - CHW CONTACTED [facility]- AN APT HAS BEEN SET TO ESTABLISH CARE WITH DR BANUELOS 03/22/2021Friday AT 11:30AM. - CHW PROVIDED [employer] TRANSPORTATION NUMBER TO PATIENT FOR FUTURE APTS AND PHARMACY MEDICATION ENERGY MANAGEMENT SPECIALIST. 03/19/2021 [facility] - CHW CALLED PATIENT AT CONTACT NUMBER [phone] AND LEFT A VOICEMAIL. E.D. VISIT COUNT (12 MO.) 7 [facility] TOTAL 7 NOTE: Visits indicate total known visits. ED/UCC VISIT TRACKING (12 MO.) 09/26/2022 06:15 [facility] [place] TYPE: Emergency COMPLAINT: - ABD PAIN, VOMITING 09/24/2022 13:49 [facility] [place] TYPE: Emergency COMPLAINT: - VAGINAL PAIN 09/19/2022 09:57 [facility] [place] TYPE: Emergency COMPLAINT: - ABD PAIN DIAGNOSES: - Allergy status to other drugs, medicaments and biological substances - Allergy status to penicillin - Lower abdominal pain, unspecified - Pelvic and perineal pain - Allergy status to narcotic agent - Allergy status to sulfonamides 09/06/2022 09:48 [facility] [place] TYPE: Emergency COMPLAINT: - ABD PAIN DIAGNOSES: - Allergy status to penicillin - Allergy status to narcotic agent - Endometriosis, unspecified - Allergy status to sulfonamides - Lower abdominal pain, unspecified - Allergy status to other drugs, medicaments and biological substances 08/31/2022 15:24 [facility] [place] TYPE: Emergency COMPLAINT: - MULTI COMPLAINTS DIAGNOSES: - Unspecified abdominal pain - Nausea with vomiting, unspecified - Procedure and treatment not carried out due to patient leaving prior to being seen by health care provider 08/08/2022 10:04 [facility] [place] TYPE: Emergency COMPLAINT: - VOMITING DIAGNOSES: - Vomiting, unspecified - Acute gastritis without bleeding - Allergy status to penicillin - Allergy status to narcotic agent - Allergy status to sulfonamides 11/18/2021 09:[address] [facility] [place] TYPE: Emergency COMPLAINT: - BODY ACHE,SOB,FEVER DIAGNOSES: - COVID-19 - Fever, unspecified - Allergy status to penicillin - Allergy status to sulfonamides - Allergy status to narcotic agent INPATIENT VISIT TRACKING (12 MO.) No inpatient visits to display in this time frame [id number]
[2022-09-26] MEDS ORDERED: HYDROCODON-ACE1 EA10 PO (14:58)
[2022-09-26] MEDS ORDERED: CLEOCIN100 MG VAGINAL (15:02)
== END 2022-09-26 15:17 | disposition home or self-care (01) ==
LOC: ED 06:15
DX: N76.0 Acute vaginitis (principal); F12.10 Cannabis abuse, uncomplicated; K59.00 Constipation, unspecified; N99.85 Post endometrial ablation syndrome; R11.2 Nausea with vomiting, unspecified; Z88.0 Allergy status to penicillin; Z88.8 Allergy status to other drugs, medicaments and biological substances; Z88.2 Allergy status to sulfonamides; Z88.5 Allergy status to narcotic agent; Z79.899 Other long term (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
CPT/HCPCS: 36415; 74018; 80053; 83605; 83690; 85025; 87210; 87491; 96361; 96374; 96375; 96376; 99284-25; J1885; J2060; J2300; J2405; J3360; J7030; J7040

== ENCOUNTER 2022-10-01 07:27 | Emergency (ER) | payer OTHER ==
[~2022-10-01] VITALS: Ht 152.4 cm; Wt 45.4 kg
[~2022-10-01 07:27] MED LIST changes: +CLEOCIN100 MG VAGINAL; +HYDROCODON-ACE1 EA10 PO
--- OUTSIDE RECORDS SUMMARY | 2022-10-01 07:30 | XMS ---
PreManage Notification: ASPEN HONG Security Ammonia Refrigeration Worker Events 1 event(s) in the past 18 months Most recent security events: Elopement at [facility] 09/06/2022 09:48 - Patient eloped before treatment completed. - Patient with suicidal and/or homicidal ideations eloped. - Patient eloped with IV in place. Details: PATIENT LWBS CRITERIA MET - [facility] - 2 Visits in 30 Days - [facility] - 6 ED Visits in 6 Months CARE PROVIDERS JEREMIAH VERA Nurse Practitioner Current PHONE: Unknown [facility] Rohan SULLIVAN PHONE: Unknown [facility] Internal Medicine [facility] [employer] PHONE: [phone] GRAHAM BANUELOS [facility] 03/19/2021-Current PHONE: Unknown Jatin has no Care Guidelines for this patient. Care History Medical/Surgical 03/26/2021 [facility] - PATIENT NO SHOWED TO HER ESTABLISHING CARE APT SCHEDULED WITH DR BANUELOS. - CHW WILL CONTACT [facility] CASE MANAGEMENT TEAM TO DISCUSS FURTHER 03/19/2021 [facility] - CHW RECEIVED A PHONE CALL BACK FROM PATIENT- PATIENT WOULD LIKE ASSISTANCE WITH FINDING A LOCAL PCP. - CHW DISCUSSED LOCAL PRIMARY CARE OPTIONS IN THE AREA-PATIENT WOULD LIKE [facility] FOR PRIMARY CARE. - CHW CONTACTED [facility]- AN APT HAS BEEN SET TO ESTABLISH CARE WITH DR BANUELOS 03/22/2021Friday AT 11:30AM. - CHW PROVIDED [employer] TRANSPORTATION NUMBER TO PATIENT FOR FUTURE APTS AND PHARMACY MEDICATION WOODWORKING BENCH CARPENTER. 03/19/2021 [facility] - CHW CALLED PATIENT AT CONTACT NUMBER [phone] AND LEFT A VOICEMAIL. E.D. VISIT COUNT (12 MO.) [address] [place] [address] TOTAL 8 NOTE: Visits indicate total known visits. ED/UCC VISIT TRACKING (12 MO.) 10/01/2022 07:27 [facility] [place] TYPE: Emergency COMPLAINT: - ABD PAIN 09/26/2022 06:15 [facility] [place] TYPE: Emergency COMPLAINT: - ABD PAIN, VOMITING DIAGNOSES: - Cannabis abuse, uncomplicated - Allergy status to penicillin - Right lower quadrant pain - Allergy status to other drugs, medicaments and biological substances - Nausea with vomiting, unspecified - Constipation, unspecified - Acute vaginitis - Other custodial (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 - Allergy status to narcotic agent - Allergy status to sulfonamides - Post endometrial ablation syndrome 09/24/2022 13:49 [facility] [place] TYPE: Emergency COMPLAINT: - VAGINAL PAIN DIAGNOSES: - Other intermission coordinator (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 - Allergy status to penicillin - Allergy status to other drugs, medicaments and biological substances - Allergy status to sulfonamides - Gastritis, unspecified, without bleeding 09/19/2022 09:57 [facility] [place] TYPE: Emergency COMPLAINT: - ABD PAIN [...] - Allergy status to sulfonamides 11/18/2021 09:14 [facility] [place] TYPE: Emergency COMPLAINT: - BODY ACHE,SOB,FEVER DIAGNOSES: - COVID-19 - Fever, unspecified - Allergy status to penicillin - Allergy status to sulfonamides - Allergy status to narcotic agent INPATIENT VISIT TRACKING (12 MO.) No inpatient visits to display in this time frame [id number]
[2022-10-01] MEDS ORDERED: HYDROCODON-ACE1 EA10 PO (09:05)
[2022-10-02] MEDS ORDERED: ONDANSETRON ODT8 MG PO (23:17)
[2022-10-02] MEDS ORDERED: ESCITALOPRAM OXA5 MG PO (23:19)
[2022-10-02] MEDS ORDERED: MEDROXYPRO150 MG/11 IM (23:20)
== END 2022-10-01 09:16 | disposition home or self-care (01) ==
LOC: ED 07:27
DX: R10.2 Pelvic and perineal pain (principal)
CPT/HCPCS: 99284

== ENCOUNTER 2022-10-02 11:15 | Emergency (ER) | payer OTHER ==
[~2022-10-02] VITALS: Ht 152.4 cm; Wt 48.0 kg
--- OUTSIDE RECORDS SUMMARY | 2022-10-02 11:16 | XMS ---
PreManage Notification: ASPEN HONG Security Steel Barrel Reamer Events 1 event(s) in the past 18 months Most recent security events: Elopement at [facility] 09/06/2022 09:48 - Patient eloped before treatment completed. - Patient with suicidal and/or homicidal ideations eloped. - Patient eloped with IV in place. Details: PATIENT LWBS CRITERIA MET - [facility] - 2 Visits in 30 Days - 6 ED Visits [facility] Months [facility] CARE PROVIDERS JEREMIAH VERA Nurse Practitioner Current PHONE: Unknown [facility] Rohan SULLIVAN PHONE: Unknown [facility] Internal Medicine [facility] [employer] PHONE: [phone] GRAHAM BANUELOS [facility] 03/19/2021-Current PHONE: Unknown Jatin has no Care Guidelines for this patient. Care History Medical/Surgical 03/26/2021 [facility] - PATIENT NO SHOWED TO HER ESTABLISHING CARE APT SCHEDULED WITH DR BANUELOS. - CHW WILL CONTACT [facility] CASE MANAGEMENT TEAM TO DISCUSS FURTHER 03/19/2021 [facility] - CHW RECEIVED A PHONE CALL BACK FROM PATIENT- PATIENT WOULD LIKE ASSISTANCE WITH FINDING A LOCAL PCP. - CHW DISCUSSED LOCAL PRIMARY CARE OPTIONS IN THE AREA-PATIENT WOULD LIKE [facility] FOR PRIMARY CARE. - CHW CONTACTED [facility]- AN APT HAS BEEN SET TO ESTABLISH CARE WITH DR BANUELOS 03/22/2021Friday AT 11:30AM. - CHW PROVIDED [employer] TRANSPORTATION NUMBER TO PATIENT FOR FUTURE APTS AND PHARMACY MEDICATION NURSES AIDE. 03/19/2021 [facility] - CHW CALLED PATIENT AT CONTACT NUMBER [phone] AND LEFT A VOICEMAIL. E.D. VISIT COUNT (12 MO.) 9 [facility] TOTAL 9 NOTE: Visits indicate total known visits. ED/UCC VISIT TRACKING (12 MO.) 10/02/2022 11:15 [facility] [place] TYPE: Emergency COMPLAINT: - ABD/PELVIC PAIN 10/01/2022 07:27 [facility] [place] TYPE: Emergency COMPLAINT: - ABD PAIN 09/26/2022 06:15 [facility] [place] TYPE: Emergency COMPLAINT: - ABD PAIN, VOMITING DIAGNOSES: - Constipation, unspecified - Acute vaginitis - Other longterm (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 - Allergy status to narcotic agent - Allergy status to sulfonamides - Post endometrial ablation syndrome - Cannabis abuse, uncomplicated - Allergy status to penicillin - Right lower quadrant pain - Allergy status to other drugs, medicaments and biological substances - Nausea with vomiting, unspecified 09/24/2022 13:49 [facility] [place] TYPE: Emergency COMPLAINT: - VAGINAL PAIN DIAGNOSES: - Allergy status to other drugs, medicaments and biological substances - Allergy status to sulfonamides - Gastritis, unspecified, without bleeding - Other fee clerk (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 - Allergy status to penicillin 09/19/2022 09:57 [facility] [place] TYPE: Emergency COMPLAINT: - ABD PAIN DIAGNOSES: - Pelvic and perineal pain - Allergy status to narcotic agent - Allergy status to sulfonamides - Allergy status to other drugs, medicaments and biological substances - Allergy status to penicillin - Lower abdominal pain, unspecified 09/06/2022 09:48 [facility] [place] TYPE: Emergency [...] visits to display in this time frame [id number]
[2022-10-02] MEDS ORDERED: ONDANSETRON ODT8 MG PO (23:17)
[2022-10-02] MEDS ORDERED: ESCITALOPRAM OXA5 MG PO (23:19)
[2022-10-02] MEDS ORDERED: MEDROXYPRO150 MG/11 IM (23:20)
[2022-10-03] MEDS ORDERED: SUCRALFATE1 GM PO (00:34)
== END 2022-10-02 15:00 | disposition left against medical advice (07) ==
LOC: ED 11:15
DX: R11.2 Nausea with vomiting, unspecified (principal); R10.32 Left lower quadrant pain
CPT/HCPCS: 36415; 80053; 81001; 83605; 83690; 83735; 84703; 85025; 96361; 96374; 96375; 96376; 99284-25; J1885; J2405; J7030

== ENCOUNTER 2022-10-02 22:22 | Emergency (ER) | payer OTHER ==
[~2022-10-02] VITALS: Ht 152.4 cm; Wt 41.9 kg
--- OUTSIDE RECORDS SUMMARY | 2022-10-02 22:25 | XMS ---
PreManage Notification: ASPEN HONG Security Staff Weapons Officer Events 1 event(s) in the past 18 months Most recent security events: Elopement at [facility] 09/06/2022 09:48 - Patient eloped before treatment completed. - Patient with suicidal and/or homicidal ideations eloped. - Patient eloped with IV in place. Details: PATIENT LWBS CRITERIA MET - [facility] - 2 Visits in 30 Days - PDMP - 6 ED Visits in 6 Months CARE PROVIDERS JEREMIAH VERA Nurse Practitioner Current PHONE: Unknown [facility] Rohan SULLIVAN PHONE: Unknown [facility] Internal Medicine [facility] [employer] PHONE: [phone] GRAHAM BANUELOS [facility] 03/19/2021-Current PHONE: Unknown Jatin has no Care Guidelines for this patient. Care History Medical/Surgical 03/26/2021 [facility] - PATIENT NO SHOWED TO HER ESTABLISHING CARE APT SCHEDULED WITH DR BANUELOS. - CHW WILL CONTACT [facility] CASE MANAGEMENT TEAM TO DISCUSS FURTHER 03/19/2021 [facility] - CHW RECEIVED A PHONE CALL BACK FROM PATIENT- PATIENT WOULD LIKE ASSISTANCE WITH FINDING A LOCAL PCP. - CHW DISCUSSED LOCAL PRIMARY CARE OPTIONS IN THE AREA-PATIENT WOULD LIKE [facility] FOR PRIMARY CARE. - CHW CONTACTED [facility]- AN APT HAS BEEN SET TO ESTABLISH CARE WITH DR BANUELOS 03/22/2021Friday AT 11:30AM. - CHW PROVIDED [employer] TRANSPORTATION NUMBER TO PATIENT FOR FUTURE APTS AND PHARMACY MEDICATION HAND KNITTER. 03/19/2021 [facility] - CHW CALLED PATIENT AT CONTACT NUMBER [phone] AND LEFT A VOICEMAIL. E.D. VISIT COUNT (12 MO.) [address] [place] [address] TOTAL 10 NOTE: Visits indicate total known visits. ED/UCC VISIT TRACKING (12 MO.) 10/02/2022 22:23 [facility] [place] TYPE: Emergency COMPLAINT: - ABDOMINAL PAIN 10/02/2022 11:15 [facility] [place] TYPE: Emergency COMPLAINT: - ABD/PELVIC PAIN 10/01/2022 07:27 [facility] [place] TYPE: Emergency COMPLAINT: - ABD PAIN 09/26/2022 06:15 [facility] [place] TYPE: Emergency COMPLAINT: - ABD PAIN, VOMITING DIAGNOSES: - Allergy status to sulfonamides - Post endometrial ablation syndrome - Cannabis abuse, uncomplicated - Allergy status to penicillin - Right lower quadrant pain - Allergy status to other drugs, medicaments and biological substances - Nausea with vomiting, unspecified - Constipation, unspecified - Acute vaginitis - Other chcf (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 - Allergy status to narcotic agent 09/24/2022 13:49 [facility] [place] TYPE: Emergency COMPLAINT: - VAGINAL PAIN DIAGNOSES: - Gastritis, unspecified, without bleeding - Other terminal operator (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 - Allergy status to penicillin - Allergy status to other drugs, medicaments and biological substances - Allergy status to sulfonamides 09/19/2022 09:57 [facility] [place] TYPE: Emergency COMPLAINT: - ABD PAIN DIAGNOSES: - Allergy status to sulfonamides - Allergy status to other drugs, medicaments and biological substances - Allergy status to penicillin - Lower abdominal pain, unspecified - Pelvic and perineal pain - Allergy status to narcotic agent 09/06/2022 09:48 [facility] [place] TYPE: Emergency COMPLAINT: - ABD PAIN DIAGNOSES: - Allergy status to other drugs, medicaments and biological substances - Allergy status to penicillin - Allergy status to narcotic agent - Endometriosis, unspecified - Allergy status to sulfonamides - Lower abdominal pain, unspecified 08/31/2022 15:24 [facility] [place] TYPE: Emergency COMPLAINT: - MULTI COMPLAINTS DIAGNOSES: - Procedure and treatment not carried out due to patient leaving prior to being seen by health care provider - Unspecified abdominal pain - Nausea with vomiting, unspecified 08/08/2022 10:04 [facility] [place] TYPE: Emergency [...] visits to display in this time frame [email or web address]
[2022-10-02] MEDS ORDERED: ONDANSETRON ODT8 MG PO (23:17)
[2022-10-02] MEDS ORDERED: ESCITALOPRAM OXA5 MG PO (23:19)
[2022-10-02] MEDS ORDERED: MEDROXYPRO150 MG/11 IM (23:20)
[2022-10-03] MEDS ORDERED: SUCRALFATE1 GM PO (00:34)
== END 2022-10-03 00:54 | disposition home or self-care (01) ==
LOC: ED 22:22
DX: K29.70 Gastritis, unspecified, without bleeding (principal); R11.15 Cyclical vomiting syndrome unrelated to migraine; Z88.0 Allergy status to penicillin; Z88.8 Allergy status to other drugs, medicaments and biological substances; Z88.5 Allergy status to narcotic agent; Z88.2 Allergy status to sulfonamides; Z79.899 Other long term (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
CPT/HCPCS: 36415; 80053; 83690; 85025; 96374; 99284-25; J2060

== ENCOUNTER 2022-12-10 05:56 | Day surgery (SDC) | payer OTHER ==
[~2022-12-10] VITALS: Ht 152.4 cm; Wt 43.1 kg
--- NOTE | ~2022-12-10 | OR ---
[facility] [address], [place] [address] Draft DATE OF OPERATION: 12/10/2022 SURGEON: Todd Marsh DO MARINE ELECTRONICS TECHNICIAN: None. PREOPERATIVE DIAGNOSES: Endometriosis, pelvic pain, history of left oophorectomy, cyclic vomiting syndrome. POSTOPERATIVE DIAGNOSES: Endometriosis, history of left oophorectomy. FINDINGS: Normal-appearing uterus, bilateral tubes. Right ovary appears normal with a simple appearing cyst. Left ovary surgically absent, consistent with prior report. Two shannon from prior surgery, likely appendix present, and left ovarian fossa. No evidence of adhesions or the patient's reported chronic pelvic inflammatory disease. Scattered endometriosis, lesions in posterior cul-de-sac between uterosacral ligaments and overlying left ureter. No other endometriosis, lesions visualized. BLOOD LOSS: 25 mL. INDICATIONS: The patient is a 32-year-old female with reported history of chronic pelvic pain. Risks, benefits, alternatives to diagnostic laparoscopy were discussed and she elected to proceed. DESCRIPTION OF PROCEDURE: The patient was taken to the operating room, where she was placed under general anesthesia and positioned in dorsal lithotomy. She was prepped and draped in normal sterile fashion. Weighted speculum was placed in the vagina. Anterior lip of the cervix was grasped with an Allis clamp and Hulka uterine manipulator was placed without difficulty. Surgeons gloves were changed. Attention was turned to the abdomen, where a prior infraumbilical incision, which had scarred poorly was excised with scalpel and carried down to the underlying layer of fascia with blunt and sharp dissection with Metzenbaum scissors. Fascia was grasped with hemostats, elevated and incised with Metzenbaum scissors. Each lip of the fascia was tagged with 0 Vicryl. The peritoneum was entered bluntly. Finger sweep confirmed intraabdominal location free of bowel or PATIENT NAME: ASPEN HONG OPERATIVE REPORT DATE OF : [birth year] REPORT #: [id number] PHYSICIAN: TODD MARSH DO PCP: GRAHAM BANUELOS MD REPORT IS CONFIDENTIAL AND NOT TO BE RELEASED WITHOUT AUTHORIZATION [facility] [address], [place] [address] Draft other adhesions. Mario Alberto trocar was placed without difficulty and pneumoperitoneum was achieved with CO2 gas. Right lateral trocar was placed under direct visualization at the time of placement. Small fluid collection was noted to form without any bleeding. This was monitored and did not continue to expand further nor did it resolve spontaneously. Pelvis was surveyed with generally normal findings as noted above. The patient was placed in Trendelenburg for facilitated visualization. Pelvis was suction irrigated with warm sterile saline. Endometriosis lesions in the posterior cul-de-sac were fulgurated with monopolar spatula device. Endometriosis lesions overlying left ureter were not excised or fulgurated. Instrumentation was removed from the abdomen. Right lateral trocar was removed and several seconds after removal persistent oozing dark red blood was noted at the trocar site. A Mitchell-Mayuri needle was used to pass 0 Vicryl, which was used to close fascia at this location with significant improvement and hemostasis noted. Superficial tissues within the trocar site were cauterized with Bovie cautery with resulting hemostasis. Mario Alberto trocar was then removed. Fascia was closed with 0 Vicryl in a running fashion. Stay sutures on the fascial margins were tied over top of fascial closure. Skin was closed with 4-0 Monocryl. Hulka clamp was removed. Sponge and instrument counts were correct and the patient was taken to recovery in stable and satisfactory condition. Todd Marsh DO EMSonya/MODL /[id number] Copies: ~ PATIENT NAME: ASPEN HONG OPERATIVE REPORT DATE OF : [birth year] REPORT #: [id number] PHYSICIAN: TODD MARSH DO PCP: GRAHAM BANUELOS MD REPORT IS CONFIDENTIAL AND NOT TO BE RELEASED WITHOUT AUTHORIZATION
[~2022-12-10 05:56] MED LIST changes: +SUCRALFATE1 GM PO
[2022-12-10] MEDS ORDERED: NAPROXEN250 MG PO (06:18)
--- NOTE | 2022-12-10 09:00 | NUR ---
12/10/22 0900 Nita Heck 0863-PATIENT ARRIVED TO PACU ON RA RR EVEN. PATIENT IN HIGH FOWLERS POSITION EYES CLOSED. SHAKING WARM BLANKETS PROVIDED. PATIENT ORIENTED TO PACU. ST HR 115. RA 100% RR EVEN. TERE PAWS WARMER PLACED. 2 LAP SITES TO ABDOMEN CDI. IVF INFUSING
--- NOTE | 2022-12-10 09:43 | NUR ---
0930: PT ARRIVES BACK TO DS TREATMENT ROOM FROM PACU VIA STRETCHER WITH EYES CLOSED. PT AROUSES WITH VERBAL STIMULATION AND STATES "I AM IN A LOT OF PAIN, THE WORST CRAMPS EVER." PT DOES NOT GIVE NUMERICAL RATING OF PAIN AND EDUCATED ABOUT EATING PRIOR TO PO PAIN MEDS, PT AGREEABLE NODDING HEAD YES. PT SIGNIFICANT OTHER AT BEDSIDE ON ARRIVAL. TERE HUGGER PLACED ON WARM, CALL LIGHT WITHIN REACH. PT REQUESTS TO HAVE SCD'D REMOVED THEY "ITCH." PT PROVIDED ICED WATER AND PUDDING.
--- NOTE | 2022-12-10 10:34 | NUR ---
[id number]: PT USES CALL LIGHT TO STATE SHE FEELS NAUSEATED AND WOULD LIKE SOMETHING VIA IV FOR PAIN. THIS RN CONTACTS Geraldo AUSTIN CRNA WHO VISITS WITH PT AND WRITES ORDERS, SEE EMAR.
--- NOTE | 2022-12-10 10:46 | NUR ---
1020: PT RESTING IN BED AWAKE AND ALERT WITH SIG OTHER AT BEDSIDE. PT AWARE OF DC CRITERIA AND WILL USE CALL LIGHT WITH ANY FURTHER NEEDS. DR. PARIS CALLED REGARDING IV TORADOL ORDER WHO STATES PT MAY RECEIVE BLEEDING HAS DISSIPATED AT THIS TIME. WILL ASSESS PAIN ONCE IV OFIRMEV IS COMPLETE. CALL LIGHT WITHIN REACH.
--- NOTE | 2022-12-10 11:38 | NUR ---
1123: PT RESTING IN BED SHAKING, STATES "I FEEL SO NAUSEATED... EVERYTIME I GET BILE IN MY STOMACH I FEEL SICK UNTIL I THROW UP." PT ASKS THIS RN "I USE MEDICIANL MARIJUANA AND I THINK JUST GOING HOME AND SMOKING WILL HELP ME." PT STATES URGE TO VOID, AMBULATES TO BATHROOM WITH RN ASSIST AND ABLE TO VOID 150 MLS PINK URINE WITH NO CLOTS. DR. PARIS CALLED WHO IS OKAY WITH PT DC HOME PER HER WISHES.
--- NOTE | 2022-12-10 13:30 | NUR ---
[id number]: DC INSTRUCTIONS PRESENTED VERBALLY AND WRITTEN TO PT AND SIGNIFICANT OTHER. PT TRANSFERRED TO PERSONAL VEHICLE VIA WC TO HOME.
--- NOTE | 2022-12-11 12:54 | NUR ---
12/11/22 AT 1253: CALLBACK PHONE CALL PLACED TO PT. PT REPORTS RETURNING TO ED FOR NAUSEA AFTER DC. RESOLVED TODAY AND ROSMERY PO WELL. REPORTS PAIN, PICKED UP PAIN RX AND HAS TAKEN ONE DOSE. ENCGD TO CONTACT MD OFFICE IF PAIN IS UNCONTROLLED. NO FURTHER QUESTIONS OR CONCERNS AT THIS TIME
--- NOTE | 2022-12-11 13:55 | EKG ---
[facility] [address] [facility] [place], [place] [address] Signed Sinus bradycardia Otherwise normal ECG No previous ECGs available Confirmed by JASON DE LA ROSA MD ([id number]) on 12/11/2022 1:54:45 PM Electronically Signed By: JASON DE LA ROSA MD 12/11/22 1355 PATIENT NAME: ASPEN HONG Electrocardiogram DATE OF : [birth year] PHYSICIAN: JASON DE LA ROSA MD REPORT #: [id number] REPORT IS CONFIDENTIAL AND NOT TO BE RELEASED WITHOUT AUTHORIZATION
== END 2022-12-10 12:00 | disposition home or self-care (01) ==
LOC: OPS 05:56 → DS 05:56 → OPS 07:30
PROVIDERS: ATTEND Obstetrics & Gynecology
PROC: 0W3H4ZZ Control Bleeding in Retroperitoneum, Percutaneous Endoscopic Approach (ICD-10-PCS; principal; 2022-12-10 07:30)
DX: N80.329 Endometriosis of the posterior cul-de-sac, unspecified depth (principal); N80.A62 Endometriosis of left ureter, unspecified depth; R11.15 Cyclical vomiting syndrome unrelated to migraine; Z90.721 Acquired absence of ovaries, unilateral; Z87.42 Personal history of other diseases of the female genital tract; Z79.899 Other long term (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; Z88.0 Allergy status to penicillin; Z88.2 Allergy status to sulfonamides; Z88.8 Allergy status to other drugs, medicaments and biological substances
CPT/HCPCS: 93005; 93010; J0131; J1100; J1200; J2001; J2405; J2704; J3010; J7121

== ENCOUNTER 2022-12-10 15:23 | Emergency (ER) | payer OTHER ==
[~2022-12-10] VITALS: Ht 152.4 cm; Wt 43.3 kg
[~2022-12-10 15:23] MED LIST changes: +NAPROXEN250 MG PO
--- OUTSIDE RECORDS SUMMARY | 2022-12-10 15:26 | XMS ---
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 - Patient with suicidal and/or homicidal ideations eloped. - Patient eloped with IV in place. Details: Patient left AMA. Returned to ED same day. Elopement at [facility] 09/06/2022 09:48 - Patient eloped before treatment completed. - Patient with suicidal and/or homicidal ideations eloped. - Patient eloped with IV in place. Details: PATIENT LWBS CRITERIA MET - 6 ED Visits in 6 Months CARE PROVIDERS JEREMIAH VERA Nurse Practitioner Current PHONE: Unknown [facility] Rohan ONEILLIANA PHONE: Unknown [facility] Internal Medicine [facility] [employer] PHONE: [phone] GRAHAM BANUELOS [facility] 03/19/2021-Current PHONE: Unknown Jatin has no Care Guidelines for this patient. Care History Medical/Surgical 03/26/2021 [facility] - PATIENT NO SHOWED TO HER ESTABLISHING CARE APT SCHEDULED WITH DR BANUELOS. - CHW WILL CONTACT [facility] CASE MANAGEMENT TEAM TO DISCUSS FURTHER 03/19/2021 [facility] - CHW RECEIVED A PHONE CALL BACK FROM PATIENT- PATIENT WOULD LIKE ASSISTANCE WITH FINDING A LOCAL PCP. - CHW DISCUSSED LOCAL PRIMARY CARE OPTIONS IN THE AREA-PATIENT WOULD LIKE [facility] FOR PRIMARY CARE. - CHW CONTACTED [facility]- AN APT HAS BEEN SET TO ESTABLISH CARE WITH DR BANUELOS 03/22/2021Friday AT 11:30AM. - CHW PROVIDED [employer] TRANSPORTATION NUMBER TO PATIENT FOR FUTURE APTS AND PHARMACY MEDICATION COTTON GINNER. 03/19/2021 [facility] - CHW CALLED PATIENT AT CONTACT NUMBER [phone] AND LEFT A VOICEMAIL. E.D. VISIT COUNT (12 MO.) 10 [facility] TOTAL 10 NOTE: Visits indicate total known visits. ED/UCC VISIT TRACKING (12 MO.) 12/10/2022 15:[address] [facility] [place] TYPE: Emergency COMPLAINT: - ABDOMINAL PAIN 10/02/2022 22:[address] [facility] [place] TYPE: Emergency COMPLAINT: - ABDOMINAL PAIN DIAGNOSES: - Allergy status to sulfonamides - Nausea with vomiting, unspecified - Allergy status to other drugs, medicaments and biological substances - Gastritis, unspecified, without bleeding - Cyclical vomiting syndrome unrelated to migraine - Other halfway (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 - Allergy status to narcotic agent - Allergy status to penicillin 10/02/2022 11:15 [facility] [place] TYPE: Emergency COMPLAINT: - ABD/PELVIC PAIN DIAGNOSES: - Left lower quadrant pain - Nausea with vomiting, unspecified 10/01/2022 07:27 [facility] [place] TYPE: Emergency COMPLAINT: - ABD PAIN DIAGNOSES: - Pelvic and perineal pain - Left lower quadrant pain 09/26/2022 06:15 [facility] [place] TYPE: Emergency COMPLAINT: - ABD PAIN, VOMITING DIAGNOSES: - Right lower quadrant pain - Allergy status to other drugs, medicaments and biological substances - Nausea with vomiting, unspecified - Constipation, unspecified - Acute vaginitis - Other halfway (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 - Allergy status to narcotic agent - Allergy status to sulfonamides - Post endometrial ablation syndrome - Cannabis abuse, uncomplicated - Allergy status to penicillin 09/24/2022 13:49 [facility] [place] TYPE: Emergency COMPLAINT: - VAGINAL PAIN DIAGNOSES: - Allergy status to sulfonamides - Gastritis, unspecified, without bleeding - Other halfway (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 - Allergy status to penicillin - Allergy status to other drugs, medicaments and biological substances - Contact with and (suspected) exposure to COVID-19 09/19/2022 09:57 [facility] [place] TYPE: Emergency COMPLAINT: - ABD PAIN DIAGNOSES: - Allergy status to penicillin - Lower abdominal pain, unspecified - Pelvic and perineal pain - Allergy status to narcotic agent - Allergy status to sulfonamides - Allergy status to other drugs, medicaments and biological substances 09/06/2022 09:48 [facility] [place] TYPE: Emergency COMPLAINT: - ABD PAIN DIAGNOSES: - Allergy status to narcotic agent - Endometriosis, unspecified - Allergy status to sulfonamides - Lower abdominal pain, unspecified - Allergy status to other drugs, medicaments and biological substances - Allergy status to penicillin 08/31/2022 15:24 [facility] [place] TYPE: Emergency [...] Allergy status to sulfonamides - Vomiting, unspecified INPATIENT VISIT TRACKING (12 MO.) No inpatient visits to display in this time frame [id number]
== END 2022-12-10 23:17 | disposition home or self-care (01) ==
LOC: ED 15:23
DX: R11.15 Cyclical vomiting syndrome unrelated to migraine (principal); R10.31 Right lower quadrant pain; Z90.49 Acquired absence of other specified parts of digestive tract; Z88.0 Allergy status to penicillin; Z88.2 Allergy status to sulfonamides; Z88.8 Allergy status to other drugs, medicaments and biological substances; Z88.5 Allergy status to narcotic agent; Z79.899 Other long term (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
CPT/HCPCS: 36415; 80053; 85025; 96361; 96374; 96375; 96376; 99284-25; J1200; J2060; J2270; J2405; J7030

== ENCOUNTER 2022-12-24 07:46 | Emergency (ER) | payer OTHER ==
[~2022-12-24] VITALS: Ht 152.4 cm; Wt 43.3 kg
--- OUTSIDE RECORDS SUMMARY | 2022-12-24 07:49 | XMS ---
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 - Patient with suicidal and/or homicidal ideations eloped. - Patient eloped with IV in place. Details: Patient left AMA. Returned to ED same day. Elopement at [facility] 09/06/2022 09:48 - Patient eloped before treatment completed. - Patient with suicidal and/or homicidal ideations eloped. - Patient eloped with IV in place. Details: PATIENT LWBS CRITERIA MET - [facility] [place] [facility] - 2 Visits in 30 Days - PDMP - 6 ED Visits in 6 Months CARE PROVIDERS JEREMIAH VERA Nurse Practitioner Current PHONE: Unknown [facility] Rohan SULLIVAN PHONE: Unknown [facility] Internal Medicine [facility] PHONE: [phone] GRAHAM BANUELOS [facility] 03/19/2021-Current PHONE: Unknown Jatin has no Care Guidelines for this patient. Care History Medical/Surgical 03/26/2021 [facility] - PATIENT NO SHOWED TO HER ESTABLISHING CARE APT SCHEDULED WITH DR BANUELOS. - CHW WILL CONTACT [facility] CASE MANAGEMENT TEAM TO DISCUSS FURTHER 03/19/2021 [facility] - CHW RECEIVED A PHONE CALL BACK FROM PATIENT- PATIENT WOULD LIKE ASSISTANCE WITH FINDING A LOCAL PCP. - CHW DISCUSSED LOCAL PRIMARY CARE OPTIONS IN THE AREA-PATIENT WOULD LIKE [facility] FOR PRIMARY CARE. - CHW CONTACTED [facility]- AN APT HAS BEEN SET TO ESTABLISH CARE WITH DR BANUELOS 03/22/2021Friday AT 11:30AM. 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 03/19/2021 [facility] - CHW CALLED PATIENT AT CONTACT NUMBER [phone] AND LEFT A VOICEMAIL. E.D. VISIT COUNT (12 MO.) [address] [place] [address] TOTAL 11 NOTE: Visits indicate total known visits. ED/UCC VISIT TRACKING (12 MO.) 12/24/2022 07:[address] [facility] [place] TYPE: Emergency COMPLAINT: - N/V 12/10/2022 15:[address] [facility] [place] TYPE: Emergency COMPLAINT: - ABDOMINAL PAIN DIAGNOSES: - Allergy status to sulfonamides - Allergy status to narcotic agent - Right lower quadrant pain - Cyclical vomiting syndrome unrelated to migraine - Acquired absence of other specified parts of digestive tract - Other senior care (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 - Allergy status to penicillin - Allergy status to other drugs, medicaments and biological substances 10/02/2022 22:23 [facility] [place] TYPE: Emergency COMPLAINT: - ABDOMINAL PAIN DIAGNOSES: - Allergy status to other drugs, medicaments and biological substances - Gastritis, unspecified, without bleeding - Cyclical vomiting syndrome unrelated to migraine - Other senior care (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 - Allergy status to narcotic agent - Allergy status to penicillin - Allergy status to sulfonamides - Nausea with vomiting, unspecified 10/02/2022 11:15 [facility] [place] TYPE: Emergency COMPLAINT: - ABD/PELVIC PAIN DIAGNOSES: - Left lower quadrant pain - Nausea with vomiting, unspecified 10/01/2022 07:27 [facility] [place] TYPE: Emergency COMPLAINT: - ABD PAIN DIAGNOSES: - Pelvic and perineal pain - Left lower quadrant pain 09/26/2022 06:[address] [facility] [place] TYPE: Emergency COMPLAINT: - ABD PAIN, VOMITING DIAGNOSES: - Constipation, unspecified - Acute vaginitis - Other watermaster (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 - Allergy status to narcotic agent - Allergy status to sulfonamides - Post endometrial ablation syndrome - Cannabis abuse, uncomplicated - Allergy status to penicillin - Right lower quadrant pain - Allergy status to other drugs, medicaments and biological substances - Nausea with vomiting, unspecified 09/24/2022 13:49 [facility] [place] TYPE: Emergency COMPLAINT: - VAGINAL PAIN DIAGNOSES: - Other senior care (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 - Allergy status to penicillin - Allergy status to other drugs, medicaments and biological substances - Contact with and (suspected) exposure to COVID-19 - Allergy status to sulfonamides - Gastritis, unspecified, without bleeding 09/19/2022 09:[address] [facility] [place] TYPE: Emergency COMPLAINT: - ABD [...] Vomiting, unspecified - Acute gastritis without bleeding INPATIENT VISIT TRACKING (12 MO.) No inpatient visits to display in this time frame [email or web address]
== END 2022-12-24 12:13 | disposition home or self-care (01) ==
LOC: ED 07:46
DX: R11.15 Cyclical vomiting syndrome unrelated to migraine (principal); Z88.0 Allergy status to penicillin; Z88.2 Allergy status to sulfonamides; Z88.8 Allergy status to other drugs, medicaments and biological substances
CPT/HCPCS: 36415; 80053; 83690; 83735; 84703; 85025; 96361; 96374; 96375; 96376; 99284-25; J1200; J2405; J3475; J7030

== ENCOUNTER 2022-12-28 09:38 | Emergency (ER) | payer OTHER ==
[~2022-12-28] VITALS: Ht 152.4 cm; Wt 41.0 kg
--- OUTSIDE RECORDS SUMMARY | 2022-12-28 09:40 | XMS ---
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 - Patient with suicidal and/or homicidal ideations eloped. - Patient eloped with IV in place. Details: Patient left AMA. Returned to ED same day. Elopement at [facility] 09/06/2022 09:48 - Patient eloped before treatment completed. - Patient with suicidal and/or homicidal ideations eloped. - Patient eloped with IV in place. Details: PATIENT LWBS CRITERIA MET - PDMP - 6 ED Visits in 6 Months - [facility] - 2 Visits in 30 Days CARE PROVIDERS JEREMIAH VERA Nurse Practitioner Current PHONE: Unknown REINA Internal Medicine Rohan SULLIVAN PHONE: Unknown [facility] Internal Medicine [facility] PHONE: [phone] GRAHAM BANUELOS [facility] 03/19/2021-Current PHONE: Unknown Jatin has no Care Guidelines for this patient. Care History Medical/Surgical 03/26/2021 [facility] - PATIENT NO SHOWED TO HER ESTABLISHING CARE APT SCHEDULED WITH DR BANUELOS. - CHW WILL CONTACT [facility] CASE MANAGEMENT TEAM TO DISCUSS FURTHER 03/19/2021 [facility] - CHW RECEIVED A PHONE CALL BACK FROM PATIENT- PATIENT WOULD LIKE ASSISTANCE WITH FINDING A LOCAL PCP. - CHW DISCUSSED LOCAL PRIMARY CARE OPTIONS IN THE AREA-PATIENT WOULD LIKE [facility] FOR PRIMARY CARE. - CHW CONTACTED [facility]- AN APT HAS BEEN SET TO ESTABLISH CARE WITH DR BANUELOS 03/22/2021Friday AT 11:30AM. 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 03/19/2021 [facility] - CHW CALLED PATIENT AT CONTACT NUMBER [phone] AND LEFT A VOICEMAIL. E.D. VISIT COUNT (12 MO[address] 12 [facility] TOTAL 12 NOTE: Visits indicate total known visits. ED/UCC VISIT TRACKING (12 MO.) 12/28/2022 09:39 [facility] [place] TYPE: Emergency COMPLAINT: - VOMITING 12/24/2022 07:46 [facility] [place] TYPE: Emergency COMPLAINT: - N/V DIAGNOSES: - Allergy status to other drugs, medicaments and biological substances - Cyclical vomiting syndrome unrelated to migraine - Allergy status to sulfonamides - Nausea with vomiting, unspecified - Allergy status to penicillin 12/10/2022 15:24 [facility] [place] TYPE: Emergency COMPLAINT: - ABDOMINAL PAIN DIAGNOSES: - Right lower quadrant pain - Cyclical vomiting syndrome unrelated to migraine - Acquired absence of other specified parts of digestive tract - Other rodent exterminator (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 - Allergy status to penicillin - Allergy status to other drugs, medicaments and biological substances - Allergy status to sulfonamides - Allergy status to narcotic agent 10/02/2022 22:23 [facility] [place] TYPE: Emergency COMPLAINT: - ABDOMINAL PAIN DIAGNOSES: - Cyclical vomiting syndrome unrelated to migraine - Other rodent exterminator (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 - Allergy status to narcotic agent - Allergy status to penicillin - Allergy status to sulfonamides - Nausea with vomiting, unspecified - Allergy status to other drugs, medicaments and biological substances - Gastritis, unspecified, without bleeding 10/02/2022 11:15 [facility] [place] TYPE: Emergency COMPLAINT: - ABD/PELVIC PAIN DIAGNOSES: - Nausea with vomiting, unspecified - Left lower quadrant pain 10/01/2022 07:27 [facility] [place] TYPE: Emergency COMPLAINT: - ABD PAIN DIAGNOSES: - Left lower quadrant pain - Pelvic and perineal pain 09/26/2022 06:15 [facility] [place] TYPE: Emergency COMPLAINT: - ABD PAIN, VOMITING DIAGNOSES: - Allergy status to narcotic agent - Allergy status to sulfonamides - Post endometrial ablation syndrome - Cannabis abuse, uncomplicated - Allergy status to penicillin - Right lower quadrant pain - Allergy status to other drugs, medicaments and biological substances - Nausea with vomiting, unspecified - Constipation, unspecified - Acute vaginitis - Other snf (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 09/24/2022 13:49 [facility] [place] TYPE: Emergency COMPLAINT: - VAGINAL PAIN DIAGNOSES: - Allergy status to penicillin - Allergy status to other drugs, medicaments and biological substances - Contact with and (suspected) exposure to COVID-19 - Allergy status to sulfonamides - Gastritis, unspecified, without bleeding - Other rodent exterminator (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 09/19/2022 09:57 [facility] [place] TYPE: Emergency COMPLAINT: - ABD PAIN DIAGNOSES: - Allergy status to narcotic agent - Allergy status to sulfonamides - Allergy status to other drugs, medicaments and biological substances - Allergy status to penicillin - Lower abdominal pain, unspecified - Pelvic and perineal pain 09/06/2022 09:48 [facility] [place] TYPE: Emergency COMPLAINT: - ABD PAIN DIAGNOSES: - Lower abdominal pain, unspecified - Allergy status to other drugs, medicaments and biological substances - Allergy status to penicillin - Allergy status to narcotic agent - Endometriosis, unspecified - Allergy status to sulfonamides 08/31/2022 15:24 [facility] [place] TYPE: Emergency COMPLAINT: - MULTI COMPLAINTS DIAGNOSES: - Procedure and treatment not carried out due to patient leaving prior to being seen by health care provider - Unspecified abdominal pain - Nausea with vomiting, unspecified 08/08/2022 10:04 [facility] TYPE: Emergency COMPLAINT: - VOMITING DIAGNOSES: - Allergy status to narcotic agent - Allergy status to sulfonamides - Vomiting, unspecified - Acute gastritis without bleeding - Allergy status to penicillin INPATIENT VISIT TRACKING (12 MO.) No inpatient visits to display in this time frame [id number]
[2022-12-28] MEDS ORDERED: ONDANSETRON ODT8 MG PO (15:15)
== END 2022-12-28 15:32 | disposition home or self-care (01) ==
LOC: ED 09:38
DX: R11.15 Cyclical vomiting syndrome unrelated to migraine (principal); Z88.0 Allergy status to penicillin; Z88.2 Allergy status to sulfonamides; Z88.8 Allergy status to other drugs, medicaments and biological substances
CPT/HCPCS: 36415; 80053; 83690; 83735; 84703; 85025; 96361; 96365; 96375; 99284-25; J1200; J1885; J2060; J2405; J3475; J7121

== ENCOUNTER 2023-01-16 02:27 | Emergency (ER) | payer OTHER ==
[~2023-01-16] VITALS: Ht 152.4 cm; Wt 40.8 kg
--- OUTSIDE RECORDS SUMMARY | 2023-01-16 02:31 | XMS ---
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 - Patient with suicidal and/or homicidal ideations eloped. - Patient eloped with IV in place. Details: Patient left AMA. Returned to ED same day. Elopement at [facility] 09/06/2022 09:48 - Patient eloped before treatment completed. - Patient with suicidal and/or homicidal ideations eloped. - Patient eloped with IV in place. Details: PATIENT LWBS CRITERIA MET - [facility] - 2 Visits in 30 Days - PDMP - 6 ED Visits in 6 Months CARE PROVIDERS -Jesika- Dentist: Criminal Researcher [facility] PHONE: [phone] JEREMIAH VERA Nurse Practitioner Current PHONE: Unknown REINA, Internal Medicine Current LAURIE PHONE: Unknown [facility] PH[facility]: [phone] [facility]Current PHONE: Unknown Jatin has no Care Guidelines for this patient. Care History Medical/Surgical 03/26/2021 [facility] - PATIENT NO SHOWED TO HER ESTABLISHING CARE APT SCHEDULED WITH DR BANUELOS. - CHW WILL CONTACT [facility] CASE MANAGEMENT TEAM TO DISCUSS FURTHER 03/19/2021 [facility] - CHW RECEIVED A PHONE CALL BACK FROM PATIENT- PATIENT WOULD LIKE ASSISTANCE WITH FINDING A LOCAL PCP. - CHW DISCUSSED LOCAL PRIMARY CARE OPTIONS IN THE AREA-PATIENT WOULD LIKE [facility] FOR PRIMARY CARE. - CHW CONTACTED [facility]- AN APT HAS BEEN SET TO ESTABLISH CARE WITH DR BANUELOS 03/22/2021Friday AT 11:30AM. - CHW PROVIDED [employer]HI TRANSPORTATION NUMBER TO PATIENT FOR FUTURE APTS AND PHARMACY MEDICATION WEALTH MANAGEMENT ADVISOR. 03/19/2021 [facility] - CHW CALLED PATIENT AT CONTACT NUMBER [phone] AND LEFT A VOICEMAIL. E.D. VISIT COUNT (12 MO.) 13 [facility] TOTAL 13 NOTE: Visits indicate total known visits. ED/UCC VISIT TRACKING (12 MO.) 01/16/2023 02:29 [facility] [place] TYPE: Emergency COMPLAINT: - ABD PAIN AND VAGINAL PAIN 12/28/2022 09:39 [facility] [place] TYPE: Emergency COMPLAINT: - VOMITING DIAGNOSES: - Vomiting, unspecified - Allergy status to sulfonamides - Allergy status to penicillin - Cyclical vomiting syndrome unrelated to migraine - Allergy status to other drugs, medicaments and biological substances 12/24/2022 07:[address] [facility] [place] TYPE: Emergency COMPLAINT: - N/V DIAGNOSES: - Allergy status to other drugs, medicaments and biological substances - Cyclical vomiting syndrome unrelated to migraine - Allergy status to sulfonamides - Nausea with vomiting, unspecified - Allergy status to penicillin 12/10/2022 15:[address] 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 [place] TYPE: Emergency COMPLAINT: - ABDOMINAL PAIN DIAGNOSES: - Cyclical vomiting syndrome unrelated to migraine - Other group home (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 - Allergy status to narcotic agent - Allergy status to penicillin - Allergy status to sulfonamides - Nausea with vomiting, unspecified - Allergy status to other drugs, medicaments and biological substances - Gastritis, unspecified, without bleeding 10/02/2022 11:15 [facility] [place] TYPE: Emergency COMPLAINT: - ABD/PELVIC PAIN DIAGNOSES: - Nausea with vomiting, unspecified - Left lower quadrant pain 10/01/2022 07:27 [facility] [place] TYPE: Emergency [...] Constipation, unspecified - Acute vaginitis - Other group home (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 09/24/2022 13:49 [facility] [place] TYPE: Emergency COMPLAINT: - VAGINAL PAIN DIAGNOSES: - Allergy status to penicillin - Allergy status to other drugs, medicaments and biological substances - Contact with and (suspected) exposure to COVID-19 - Allergy status to sulfonamides - Gastritis, unspecified, without bleeding - Other group home (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 09/19/2022 09:57 [facility] [place] TYPE: Emergency COMPLAINT: - ABD PAIN DIAGNOSES: - Allergy status to narcotic agent - Allergy status to sulfonamides - Allergy status to other drugs, medicaments and biological substances - Allergy status to penicillin - Lower abdominal pain, unspecified - Pelvic and perineal pain 09/06/2022 09:48 [facility] [place] TYPE: Emergency [...] visits to display in this time frame [email or web address]
[2023-01-16] MEDS ORDERED: NAPROXEN375 MG PO (02:48)
[2023-01-16] MEDS ORDERED: MEDROXYPRO150 MG/11 IM (02:49)
== END 2023-01-16 03:40 | disposition home or self-care (01) ==
LOC: ED 02:27
DX: N80.9 Endometriosis, unspecified (principal); Z88.0 Allergy status to penicillin; Z88.2 Allergy status to sulfonamides; Z88.8 Allergy status to other drugs, medicaments and biological substances; Z79.899 Other long term (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
CPT/HCPCS: 36415; 84703; 99284; A9270

== ENCOUNTER 2023-01-16 08:56 | Emergency (ER) | payer OTHER ==
[~2023-01-16] VITALS: Ht 152.4 cm; Wt 41.0 kg
[~2023-01-16 08:56] MED LIST changes: +NAPROXEN375 MG PO
--- OUTSIDE RECORDS SUMMARY | 2023-01-16 08:58 | XMS ---
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 - Patient with suicidal and/or homicidal ideations eloped. - Patient eloped with IV in place. Details: Patient left AMA. Returned to ED same day. Elopement at [facility] 09/06/2022 09:48 - Patient eloped before treatment completed. - Patient with suicidal and/or homicidal ideations eloped. - Patient eloped with IV in place. Details: PATIENT LWBS CRITERIA MET - [facility] - 2 Visits in 30 Days - 6 ED Visits in 6 Months - [facility] CARE PROVIDERS -Jesika- Dentist: Fiber Glass Worker [facility] PHONE: [phone] JEREMIAH VERA Nurse Practitioner Current PHONE: Unknown REINA, Internal Medicine Current LAURIE PHONE: Unknown [facility]: [phone] [facility]Current PHONE: Unknown Jatin has no Care Guidelines for this patient. Care History Medical/Surgical 03/26/2021 [facility] - PATIENT NO SHOWED TO HER ESTABLISHING CARE APT SCHEDULED WITH DR BANUELOS. - CHW WILL CONTACT [facility] CASE MANAGEMENT TEAM TO DISCUSS FURTHER 03/19/2021 [facility] - CHW RECEIVED A PHONE CALL BACK FROM PATIENT- PATIENT WOULD LIKE ASSISTANCE WITH FINDING A LOCAL PCP. - CHW DISCUSSED LOCAL PRIMARY CARE OPTIONS IN THE AREA-PATIENT WOULD LIKE [facility] FOR PRIMARY CARE. - CHW CONTACTED [facility]- AN APT HAS BEEN SET TO ESTABLISH CARE WITH DR BANUELOS 03/22/2021Friday AT 11:30AM. 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 03/19/2021 [facility] - CHW CALLED PATIENT AT CONTACT NUMBER [phone] AND LEFT A VOICEMAIL. E.D. VISIT COUNT (12 MO.) [address] [facility] TOTAL 14 NOTE: Visits indicate total known visits. ED/UCC VISIT TRACKING (12 MO.) 01/16/2023 08:56 [facility] [place] TYPE: Emergency COMPLAINT: - VOMITING 01/16/2023 02:29 [facility] [place] TYPE: Emergency COMPLAINT: - ABD PAIN AND VAGINAL PAIN 12/28/2022 09:39 [facility] [place] TYPE: Emergency COMPLAINT: - VOMITING DIAGNOSES: - Allergy status to penicillin - Cyclical vomiting syndrome unrelated to migraine - Allergy status to other drugs, medicaments and biological substances - Vomiting, unspecified - Allergy status to sulfonamides 12/24/2022 07:46 [facility] [place] TYPE: Emergency COMPLAINT: - N/V DIAGNOSES: - Allergy status to sulfonamides - Nausea with vomiting, unspecified - Allergy status to penicillin - Allergy status to other drugs, medicaments and biological substances - Cyclical vomiting syndrome unrelated to migraine 12/10/2022 15:24 [facility] [place] TYPE: Emergency COMPLAINT: - ABDOMINAL PAIN DIAGNOSES: - Acquired absence of other specified parts of digestive tract - Other snf (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 - Allergy status to penicillin - Allergy status to other drugs, medicaments and biological substances - Allergy status to sulfonamides - Allergy status to narcotic agent - Right lower quadrant pain - Cyclical vomiting syndrome unrelated to migraine 10/02/2022 22:23 [facility] [place] TYPE: Emergency COMPLAINT: - ABDOMINAL PAIN DIAGNOSES: - Allergy status to narcotic agent - Allergy status to penicillin - Allergy status to sulfonamides - Nausea with vomiting, unspecified - Allergy status to other drugs, medicaments and biological substances - Gastritis, unspecified, without bleeding - Cyclical vomiting syndrome unrelated to migraine - Other snf (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 10/02/2022 11:15 [facility] [place] TYPE: Emergency COMPLAINT: - ABD/PELVIC PAIN DIAGNOSES: - Nausea with vomiting, unspecified - Left lower quadrant pain 10/01/2022 07:27 [facility] [place] TYPE: Emergency COMPLAINT: - ABD PAIN DIAGNOSES: - Left lower quadrant pain - Pelvic and perineal pain 09/26/2022 06:15 [facility] [place] [facility] COMPLAINT: - ABD PAIN, VOMITING DIAGNOSES: - Post endometrial ablation syndrome - Cannabis abuse, uncomplicated - Allergy status to penicillin - Right lower quadrant pain - Allergy status to other drugs, medicaments and biological substances - Nausea with vomiting, unspecified - Constipation, unspecified - Acute vaginitis - Other snf (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 - Allergy status to narcotic agent - Allergy status to sulfonamides 09/24/2022 13:[address] [facility] [place] TYPE: Emergency COMPLAINT: - VAGINAL PAIN DIAGNOSES: - Contact with and (suspected) exposure to COVID-19 - Allergy status to sulfonamides - Gastritis, unspecified, without bleeding - Other snf (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 - Allergy status to penicillin - Allergy status to other drugs, medicaments and biological substances 09/19/2022 09:57 [facility] [place] [place] [facility] COMPLAINT: - ABD [...] narcotic agent - Allergy status to sulfonamides INPATIENT VISIT TRACKING (12 MO.) 12/10/2022 05:56 [facility] [place] TYPE: Surgery COMPLAINT: - DISGNOSTIC LAPAROSCOPY DIAGNOSES: - Allergy status to penicillin - Other terminal carman (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 - Cyclical vomiting syndrome unrelated to migraine - Endometriosis of the posterior cul-de-sac, unspecified depth - Endometriosis, unspecified - Other ovarian cyst, right side - Personal history of other diseases of the female genital tract - Dysmenorrhea, unspecified - Endometriosis of left ureter, unspecified depth - Acquired absence of ovaries, unilateral - Allergy status to other drugs, medicaments and biological substances - Allergy status to sulfonamides [email or web address]
== END 2023-01-16 12:21 | disposition home or self-care (01) ==
LOC: ED 08:56
DX: R11.2 Nausea with vomiting, unspecified (principal); R10.2 Pelvic and perineal pain; G89.29 Other chronic pain; Z88.0 Allergy status to penicillin; Z88.2 Allergy status to sulfonamides; Z88.5 Allergy status to narcotic agent; Z88.8 Allergy status to other drugs, medicaments and biological substances
CPT/HCPCS: 36415; 80053; 81001; 83690; 85025; 96361; 96374; 96375; 99284-25; J1200; J1885; J2405; J7121

== ENCOUNTER 2023-01-21 22:28 | Emergency (ER) | payer OTHER ==
[~2023-01-21] VITALS: Ht 152.4 cm; Wt 43.3 kg
--- OUTSIDE RECORDS SUMMARY | 2023-01-21 22:31 | XMS ---
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 - Patient with suicidal and/or homicidal ideations eloped. - Patient eloped with IV in place. Details: Patient left AMA. Returned to ED same day. Elopement at [facility] 09/06/2022 09:48 - Patient eloped before treatment completed. - Patient with suicidal and/or homicidal ideations eloped. - Patient eloped with IV in place. Details: PATIENT LWBS CRITERIA MET - 6 ED Visits in 6 Months - [facility] - 2 Visits in 30 Days CARE PROVIDERS -Jesika- Dentist: Research Scientist [facility] Dental [facility] PHONE: [phone] JEREMIAH VERA Nurse Practitioner Current PHONE: Unknown REINA, Internal Medicine Current ALURIE PHONE: Unknown [facility] PHONE: [phone] [facility]Current PHONE: Unknown Jatin has no Care Guidelines for this patient. Care History Medical/Surgical 03/26/2021 [facility] - PATIENT NO SHOWED TO HER ESTABLISHING CARE APT SCHEDULED WITH DR BANUELOS. - CHW WILL CONTACT [facility] CASE MANAGEMENT TEAM TO DISCUSS FURTHER 03/19/2021 [facility] - CHW RECEIVED A PHONE CALL BACK FROM PATIENT- PATIENT WOULD LIKE ASSISTANCE WITH FINDING A LOCAL PCP. - CHW DISCUSSED LOCAL PRIMARY CARE OPTIONS IN THE AREA-PATIENT WOULD LIKE [facility] FOR PRIMARY CARE. - CHW CONTACTED [facility]- AN APT HAS BEEN SET TO ESTABLISH CARE WITH DR BANUELOS 03/22/2021Friday AT 11:30AM. - CHW PROVIDED [employer] TRANSPORTATION NUMBER TO PATIENT FOR FUTURE APTS AND PHARMACY MEDICATION MANUFACTURING TECHNOLOGIST. 03/19/2021 [facility] - CHW CALLED PATIENT AT CONTACT NUMBER [phone] AND LEFT A VOICEMAIL. E.D. VISIT COUNT (12 MO.) [address] [facility] TOTAL 15 NOTE: Visits indicate total known visits. ED/UCC VISIT TRACKING (12 MO.) 01/21/2023 22:28 [facility] [place] TYPE: Emergency COMPLAINT: - ABDOMINAL PAIN 01/16/2023 08:56 [facility] [place] TYPE: Emergency COMPLAINT: - VOMITING DIAGNOSES: - Pelvic and perineal pain - Allergy status to sulfonamides - Allergy status to other drugs, medicaments and biological substances - Nausea with vomiting, unspecified - Allergy status to penicillin - Other chronic pain - Allergy status to narcotic agent 01/16/2023 02:29 [facility] [place] TYPE: Emergency COMPLAINT: - ABD PAIN AND VAGINAL PAIN DIAGNOSES: - Abnormal uterine and vaginal bleeding, unspecified - Endometriosis, unspecified - Allergy status to penicillin - Other sales systems engineer (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 - Allergy status to other drugs, medicaments and biological substances - Allergy status to sulfonamides 12/28/2022 09:39 [facility] [place] TYPE: Emergency COMPLAINT: - VOMITING DIAGNOSES: - Cyclical vomiting syndrome unrelated to migraine - Allergy status to other drugs, medicaments and biological substances - Vomiting, unspecified - Allergy status to sulfonamides - Allergy status to penicillin 12/24/2022 07:46 [facility] [place] TYPE: Emergency COMPLAINT: - N/V DIAGNOSES: - Nausea with vomiting, unspecified - Allergy status to penicillin - Allergy status to other drugs, medicaments and biological substances - Cyclical vomiting syndrome unrelated to migraine - Allergy status to sulfonamides 12/10/2022 15:[address] [facility] [place] TYPE: Emergency COMPLAINT: - ABDOMINAL PAIN DIAGNOSES: - Allergy status to other drugs, medicaments and biological substances - Allergy status to sulfonamides - Allergy status to narcotic agent - Right lower quadrant pain - Cyclical vomiting syndrome unrelated to migraine - Acquired absence of other specified parts of digestive tract - Other [place] [facility] (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 - Allergy status to penicillin 10/02/2022 22:23 [facility] [place] TYPE: Emergency COMPLAINT: - ABDOMINAL PAIN DIAGNOSES: - Nausea with vomiting, unspecified - Allergy status to other drugs, medicaments and biological substances - Gastritis, unspecified, without bleeding - Cyclical vomiting syndrome unrelated to migraine - Other sales systems engineer (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 - Allergy status to narcotic agent - Allergy status to penicillin - Allergy status to sulfonamides 10/02/2022 11:[address] [facility] [place] TYPE: Emergency COMPLAINT: - ABD/PELVIC PAIN DIAGNOSES: - Left lower quadrant pain - Nausea with vomiting, unspecified 10/01/2022 07:27 [facility] [place] TYPE: Emergency COMPLAINT: - ABD PAIN DIAGNOSES: - Pelvic and perineal pain - Left lower quadrant pain 09/26/2022 06:15 [facility] [place] TYPE: Emergency COMPLAINT: - ABD PAIN, VOMITING DIAGNOSES: - Allergy status to other drugs, medicaments and biological substances - Nausea with vomiting, unspecified - Constipation, unspecified - Acute vaginitis - Other [place] [facility] (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 - Allergy status to narcotic agent - Allergy status to sulfonamides - Post endometrial ablation syndrome - Cannabis abuse, uncomplicated - Allergy status to penicillin - Right lower quadrant pain 09/24/2022 13:49 [facility] [place] TYPE: Emergency COMPLAINT: - VAGINAL PAIN DIAGNOSES: - Gastritis, unspecified, without bleeding - Other sales systems engineer (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 - Allergy status to penicillin - Allergy status to other drugs, medicaments and biological substances - Contact with and (suspected) exposure to COVID-19 - Allergy status to sulfonamides 09/19/2022 09:57 [...] status to narcotic agent 08/31/2022 15:24 [facility] [place] TYPE: Emergency [...] visits to display in this time frame [email or web address]
[2023-01-21] MEDS ORDERED: BENADRYL25 MG PO (22:36)
[2023-01-22] MEDS ORDERED: ONDANSETRON ODT8 MG PO (19:26)
== END 2023-01-22 01:11 | disposition home or self-care (01) ==
LOC: ED 22:28
DX: K59.00 Constipation, unspecified (principal); R10.32 Left lower quadrant pain; Z88.0 Allergy status to penicillin; Z88.2 Allergy status to sulfonamides; Z88.8 Allergy status to other drugs, medicaments and biological substances; Z88.5 Allergy status to narcotic agent; Z79.899 Other long term (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
CPT/HCPCS: 36415; 74177; 80053; 81003; 83690; 84703; 85025; 99284-25; Q9967

== ENCOUNTER 2023-01-22 05:36 | Emergency (ER) | payer OTHER ==
[~2023-01-22] VITALS: Ht 152.4 cm; Wt 43.3 kg
[~2023-01-22 05:36] MED LIST changes: +BENADRYL25 MG PO
--- OUTSIDE RECORDS SUMMARY | 2023-01-22 05:38 | XMS ---
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 - Patient with suicidal and/or homicidal ideations eloped. - Patient eloped with IV in place. Details: Patient left AMA. Returned to ED same day. Elopement at [facility] 09/06/2022 09:48 - Patient eloped before treatment completed. - Patient with suicidal and/or homicidal ideations eloped. - Patient eloped with IV in place. Details: PATIENT LWBS CRITERIA MET - 6 ED Visits in 6 Months - [facility] - 2 Visits in 30 Days - [facility] CARE PROVIDERS -Jesika- Dentist: Shower Attendant [facility] PHONE: [phone] JEREMIAH VERA Nurse Practitioner Current PHONE: Unknown REINA, Internal Medicine Current LAURIE PHONE: Unknown [facility] PHONE: [phone] [facility] PHONE: Unknown Jatin has no Care Guidelines for this patient. Care History Medical/Surgical 03/26/2021 [facility] - PATIENT NO SHOWED TO HER ESTABLISHING CARE APT SCHEDULED WITH DR BANUELOS. - CHW WILL CONTACT [facility] CASE MANAGEMENT TEAM TO DISCUSS FURTHER 03/19/2021 [facility] - CHW RECEIVED A PHONE CALL BACK FROM PATIENT- PATIENT WOULD LIKE ASSISTANCE WITH FINDING A LOCAL PCP. - CHW DISCUSSED LOCAL PRIMARY CARE OPTIONS IN THE AREA-PATIENT WOULD LIKE [facility] FOR PRIMARY CARE. - CHW CONTACTED [facility]- AN APT HAS BEEN SET TO ESTABLISH CARE WITH DR BANUELOS 03/22/2021Friday AT 11:30AM. 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 03/19/2021 [facility] - CHW CALLED PATIENT AT CONTACT NUMBER [phone] AND LEFT A VOICEMAIL. E.D. VISIT COUNT (12 MO.) [address] [facility] TOTAL 16 NOTE: Visits indicate total known visits. ED/UCC VISIT TRACKING (12 MO.) 01/22/2023 05:36 [facility] [place] TYPE: Emergency COMPLAINT: - ABD PAIN,NAUSEA 01/21/2023 22:28 [facility] [place] TYPE: Emergency COMPLAINT: - ABDOMINAL PAIN 01/16/2023 08:56 [facility] [place] [facility] [place] TYPE: Emergency COMPLAINT: - VOMITING DIAGNOSES: - Allergy status to sulfonamides - Allergy status to other drugs, medicaments and biological substances - Nausea with vomiting, unspecified - Allergy status to penicillin - Other chronic pain - Allergy status to narcotic agent - Pelvic and perineal pain 01/16/2023 02:29 [facility] [place] [facility] [place] TYPE: Emergency COMPLAINT: - ABD PAIN AND VAGINAL PAIN DIAGNOSES: - Endometriosis, unspecified - Allergy status to penicillin - Other fpc (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 - Allergy status to other drugs, medicaments and biological substances - Allergy status to sulfonamides - Abnormal uterine and vaginal bleeding, unspecified 12/28/2022 09:39 [facility] [place] [facility] [place] TYPE: Emergency COMPLAINT: - VOMITING DIAGNOSES: - Allergy status to other drugs, medicaments and biological substances - Vomiting, unspecified - Allergy status to sulfonamides - Allergy status to penicillin - Cyclical vomiting syndrome unrelated to migraine 12/24/2022 07:46 [facility] [place] TYPE: Emergency COMPLAINT: - N/V DIAGNOSES: - Allergy status to penicillin - Allergy status to other drugs, medicaments and biological substances - Cyclical vomiting syndrome unrelated to migraine - Allergy status to sulfonamides - Nausea with vomiting, unspecified 12/10/2022 15:24 [facility] [place] TYPE: Emergency COMPLAINT: - ABDOMINAL PAIN DIAGNOSES: - Allergy status to sulfonamides - Allergy status to narcotic agent - Right lower quadrant pain - Cyclical vomiting syndrome unrelated to migraine - Acquired absence of other specified parts of digestive tract - Other fpc (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 - Allergy status to penicillin - Allergy status to other drugs, medicaments and biological substances 10/02/2022 22:23 [facility] [place] TYPE: Emergency COMPLAINT: - ABDOMINAL PAIN DIAGNOSES: - Allergy status to other drugs, medicaments and biological substances - Gastritis, unspecified, without bleeding - Cyclical vomiting syndrome unrelated to migraine - Other fpc (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 - Allergy status to narcotic agent - Allergy status to penicillin - Allergy status to sulfonamides - Nausea with vomiting, unspecified 10/02/2022 11:15 [facility] [place] TYPE: Emergency COMPLAINT: - ABD/PELVIC PAIN DIAGNOSES: - Left lower quadrant pain - Nausea with vomiting, unspecified 10/01/2022 07:27 [facility] [place] TYPE: Emergency COMPLAINT: - ABD PAIN DIAGNOSES: - Pelvic and perineal pain - Left lower quadrant pain 09/26/2022 06:15 [facility] [place] TYPE: Emergency COMPLAINT: - ABD PAIN, VOMITING DIAGNOSES: - Constipation, unspecified - Acute vaginitis - Other fpc (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 - Allergy status to narcotic agent - Allergy status to sulfonamides - Post endometrial ablation syndrome - Cannabis abuse, uncomplicated - Allergy status to penicillin - Right lower quadrant pain - Allergy status to other drugs, medicaments and biological substances - Nausea with vomiting, unspecified 09/24/2022 13:49 [facility] [place] TYPE: Emergency COMPLAINT: - VAGINAL PAIN DIAGNOSES: - Other fpc (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 - Allergy status to penicillin - Allergy status to other drugs, medicaments and biological substances - Contact with and (suspected) exposure to COVID-19 - Allergy status to sulfonamides - Gastritis, unspecified, without bleeding 09/19/2022 09:57 [facility] [place] TYPE: Emergency [...] visits to display in this time frame [id number]
[2023-01-22] MEDS ORDERED: ONDANSETRON ODT8 MG PO (19:26)
== END 2023-01-22 06:03 | disposition home or self-care (01) ==
LOC: ED 05:36
DX: R10.32 Left lower quadrant pain (principal); R11.2 Nausea with vomiting, unspecified; Z88.0 Allergy status to penicillin; Z88.8 Allergy status to other drugs, medicaments and biological substances; Z88.5 Allergy status to narcotic agent; Z88.2 Allergy status to sulfonamides; Z79.899 Other long term (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
CPT/HCPCS: 99283; A9270; Q0163

== ENCOUNTER 2023-01-22 14:54 | Emergency (ER) | payer OTHER ==
[~2023-01-22] VITALS: Ht 152.4 cm; Wt 43.3 kg
--- OUTSIDE RECORDS SUMMARY | 2023-01-22 14:57 | XMS ---
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 - Patient with suicidal and/or homicidal ideations eloped. - Patient eloped with IV in place. Details: Patient left AMA. Returned to ED same day. Elopement at [facility] 09/06/2022 09:48 - Patient eloped before treatment completed. - Patient with suicidal and/or homicidal ideations eloped. - Patient eloped with IV in place. Details: PATIENT LWBS CRITERIA MET - 6 ED Visits in 6 Months - [facility] - 2 Visits in 30 Days - [facility] CARE PROVIDERS -Jesika- Dentist: Load Mixer [facility] PHONE: [phone] JEREMIAH VERA Nurse Practitioner Current PHONE: Unknown REINA, Internal Medicine Current LAURIE PHONE: Unknown [facility] PHONE: [phone] [facility]Current PHONE: Unknown Jatin has no Care Guidelines for this patient. Care History Medical/Surgical 03/26/2021 [facility] - PATIENT NO SHOWED TO HER ESTABLISHING CARE APT SCHEDULED WITH DR BANUELOS. - CHW WILL CONTACT [facility] CASE MANAGEMENT TEAM TO DISCUSS FURTHER 03/19/2021 [facility] - CHW RECEIVED A PHONE CALL BACK FROM PATIENT- PATIENT WOULD LIKE ASSISTANCE WITH FINDING A LOCAL PCP. - CHW DISCUSSED LOCAL PRIMARY CARE OPTIONS IN THE AREA-PATIENT WOULD LIKE [facility] FOR PRIMARY CARE. - CHW CONTACTED [facility]- AN APT HAS BEEN SET TO ESTABLISH CARE WITH DR BANUELOS 03/22/2021Friday AT 11:30AM. 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 03/19/2021 [facility] - CHW CALLED PATIENT AT CONTACT NUMBER [phone] AND LEFT A VOICEMAIL. E.D. VISIT COUNT ([address] [facility] TOTAL 17 NOTE: Visits indicate total known visits. ED/UCC VISIT TRACKING (12 MO.) 01/22/2023 14:54 [facility] [place] TYPE: Emergency COMPLAINT: - VOMITING 01/22/2023 05:36 [facility] [place] TYPE: Emergency COMPLAINT: - ABD PAIN,NAUSEA 01/21/2023 22:[address] [facility] [address] [place] TYPE: Emergency COMPLAINT: - ABDOMINAL PAIN 01/16/2023 08:56 [facility] [place] TYPE: Emergency COMPLAINT: - VOMITING DIAGNOSES: - Pelvic and perineal pain - Allergy status to sulfonamides - Allergy status to other drugs, medicaments and biological substances - Nausea with vomiting, unspecified - Allergy status to penicillin - Other chronic pain - Allergy status to narcotic agent 01/16/2023 02:29 [facility] [place] [facility] [place] [place] TYPE: Emergency COMPLAINT: - ABD PAIN AND VAGINAL PAIN DIAGNOSES: - Abnormal uterine and vaginal bleeding, unspecified - Endometriosis, unspecified - Allergy status to penicillin - Other longterm (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 - Allergy status to other drugs, medicaments and biological substances - Allergy status to sulfonamides 12/28/2022 09:39 [facility] [place] [place] TYPE: Emergency COMPLAINT: - VOMITING [...] - Allergy status to sulfonamides 12/10/2022 15:24 [facility] [place] TYPE: Emergency COMPLAINT: - ABDOMINAL PAIN DIAGNOSES: - Allergy status to other drugs, medicaments and biological substances - Allergy status to sulfonamides - Allergy status to narcotic agent - Right lower quadrant pain - Cyclical vomiting syndrome unrelated to migraine - Acquired absence of other specified parts of digestive tract - Other longterm (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 - Allergy status to penicillin 10/02/2022 22:23 [facility] [place] TYPE: Emergency COMPLAINT: - ABDOMINAL PAIN DIAGNOSES: - Nausea with vomiting, unspecified - Allergy status to other drugs, medicaments and biological substances - Gastritis, unspecified, without bleeding - Cyclical vomiting syndrome unrelated to migraine - Other longterm (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 - Allergy status to narcotic agent - Allergy status to penicillin - Allergy status to sulfonamides 10/02/2022 11:15 [facility] [place] TYPE: Emergency [...] Right lower quadrant pain 09/24/2022 13:49 [facility] [place] [place] TYPE: Emergency COMPLAINT: - VAGINAL PAIN DIAGNOSES: - Gastritis, unspecified, without bleeding - Other intermodal customer service (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 - Allergy status to penicillin - Allergy status to other drugs, medicaments and biological substances - Contact with and (suspected) exposure to COVID-19 - Allergy status to sulfonamides 09/19/2022 09:57 [facility] [place] TYPE: Emergency COMPLAINT: - ABD PAIN DIAGNOSES: - Lower abdominal pain, unspecified - Pelvic and perineal pain - Allergy status to narcotic agent - Allergy status to sulfonamides - Allergy status to other drugs, medicaments and biological substances - Allergy status to penicillin 09/06/2022 09:48 [facility] [place] TYPE: Emergency COMPLAINT: - ABD [...] visits to display in this time frame [id number]
[2023-01-22] MEDS ORDERED: ONDANSETRON ODT8 MG PO (19:26)
== END 2023-01-22 19:34 | disposition home or self-care (01) ==
LOC: ED 14:54
DX: R11.15 Cyclical vomiting syndrome unrelated to migraine (principal); Z88.0 Allergy status to penicillin; Z88.2 Allergy status to sulfonamides; Z88.8 Allergy status to other drugs, medicaments and biological substances; Z88.5 Allergy status to narcotic agent; Z79.899 Other long term (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
CPT/HCPCS: 36415; 80048; 85025; 96361; 96374; 96375; 96376; 99284-25; J1200; J2405; J7121

== ENCOUNTER 2023-03-21 20:38 | Emergency (ER) | payer OTHER ==
[~2023-03-21] VITALS: Ht 152.4 cm; Wt 44.6 kg
[~2023-03-21 20:38] MED LIST changes: +OLANZAPINE ODT10 MG PO
--- OUTSIDE RECORDS SUMMARY | 2023-03-21 20:40 | XMS ---
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 - Patient with suicidal and/or homicidal ideations eloped. - Patient eloped with IV in place. Details: Patient left AMA. Returned to ED same day. Elopement at [facility] 09/06/2022 09:48 - Patient eloped before treatment completed. - Patient with suicidal and/or homicidal ideations eloped. - Patient eloped with IV in place. Details: PATIENT LWBS CRITERIA MET - 6 ED Visits in 6 Months - [facility] CARE PROVIDERS -, Jesika- Dentist: Concreting Supervisor [facility] PHONE: [phone] JEREMIAH VERA Nurse Practitioner Current PHONE: Unknown REINA Internal Medicine [facility] PHONE: Unknown [facility] Internal Medicine Current [facility] PHONE: [phone] [facility]Current PHONE: Unknown Jatin has no Care Guidelines for this patient. Care History Medical/Surgical 03/26/2021 [facility] - PATIENT NO SHOWED TO HER ESTABLISHING CARE APT SCHEDULED WITH DR BANUELOS. - CHW WILL CONTACT [facility] CASE MANAGEMENT TEAM TO DISCUSS FURTHER 03/19/2021 [facility] - CHW RECEIVED A PHONE CALL BACK FROM PATIENT- PATIENT WOULD LIKE ASSISTANCE WITH FINDING A LOCAL PCP. - CHW DISCUSSED LOCAL PRIMARY CARE OPTIONS IN THE AREA-PATIENT WOULD LIKE [facility] FOR PRIMARY CARE. - CHW CONTACTED [facility]- AN APT HAS BEEN SET TO ESTABLISH CARE WITH DR BANUELOS 03/22/2021Friday AT 11:30AM. 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 03/19/2021 [facility] - CHW CALLED PATIENT AT CONTACT NUMBER [phone] AND LEFT A VOICEMAIL. E.D. VISIT COUNT (12 MO.) [address] [facility] TOTAL 19 NOTE: Visits indicate total known visits. ED/UCC VISIT TRACKING (12 MO.) 03/21/2023 20:39 [facility] [place] TYPE: Emergency COMPLAINT: - VOMITING BLOOD 01/23/2023 15:34 [facility] [place] TYPE: Emergency COMPLAINT: - VOMITING 01/22/2023 14:[address] [facility] [facility] [place] TYPE: Emergency COMPLAINT: - VOMITING DIAGNOSES: - Allergy status to narcotic agent - Allergy status to other drugs, medicaments and biological substances - Allergy status to penicillin - Allergy status to sulfonamides - Cyclical vomiting syndrome unrelated to migraine - Dehydration - Other predatory animal exterminator (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 01/22/2023 05:36 [facility] [place] TYPE: Emergency COMPLAINT: - ABD PAIN,NAUSEA DIAGNOSES: - Allergy status to narcotic agent - Allergy status to other drugs, medicaments and biological substances - Allergy status to penicillin - Allergy status to sulfonamides - Left lower quadrant pain - Nausea with vomiting, unspecified - Other penitentiary (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 01/21/2023 22:[address] [facility] [place] TYPE: Emergency COMPLAINT: - ABDOMINAL PAIN DIAGNOSES: - Allergy status to narcotic agent - Allergy status to other drugs, medicaments and biological substances - Allergy status to penicillin - Allergy status to sulfonamides - Constipation, unspecified - Left lower quadrant pain - Other predatory animal exterminator (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 - Pelvic and perineal pain 01/16/2023 08:56 [facility] [place] TYPE: Emergency COMPLAINT: - VOMITING DIAGNOSES: - Allergy status to narcotic agent - Allergy status to other drugs, medicaments and biological substances - Allergy status to penicillin - Allergy status to sulfonamides - Nausea with vomiting, unspecified - Other chronic pain - Pelvic and perineal pain 01/16/2023 02:29 [facility] [place] TYPE: Emergency COMPLAINT: - ABD PAIN AND VAGINAL PAIN DIAGNOSES: - Abnormal uterine and vaginal bleeding, unspecified - Allergy status to other drugs, medicaments and biological substances - Allergy status to penicillin - Allergy status to sulfonamides - Endometriosis, unspecified - Other predatory animal exterminator (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 12/28/2022 09:39 [facility] [place] [place] TYPE: Emergency COMPLAINT: - VOMITING DIAGNOSES: - Allergy status to other drugs, medicaments and biological substances - Allergy status to penicillin - Allergy status to sulfonamides - Cyclical vomiting syndrome unrelated to migraine - Vomiting, unspecified 12/24/2022 07:46 [facility] [place] TYPE: Emergency COMPLAINT: - N/V DIAGNOSES: - Allergy status to other drugs, medicaments and biological substances - Allergy status to penicillin - Allergy status to sulfonamides - Cyclical vomiting syndrome unrelated to migraine - Nausea with vomiting, unspecified 12/10/2022 15:24 [facility] [place] TYPE: Emergency COMPLAINT: - ABDOMINAL PAIN DIAGNOSES: - Acquired absence of other specified parts of digestive tract - Allergy status to narcotic agent - Allergy status to other drugs, medicaments and biological substances - Allergy status to penicillin - Allergy status to sulfonamides - Cyclical vomiting syndrome unrelated to migraine - Other penitentiary (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 - Right lower quadrant pain 10/02/2022 22:23 [facility] [place] TYPE: Emergency COMPLAINT: - ABDOMINAL PAIN DIAGNOSES: - Allergy status to narcotic agent - Allergy status to other drugs, medicaments and biological substances - Allergy status to penicillin - Allergy status to sulfonamides - Cyclical vomiting syndrome unrelated to migraine - Gastritis, unspecified, without bleeding - Nausea with vomiting, unspecified - Other penitentiary (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 10/02/2022 11:15 [facility] [place] TYPE: Emergency COMPLAINT: - ABD/PELVIC PAIN DIAGNOSES: - Left lower quadrant pain - Nausea with vomiting, unspecified 10/01/2022 07:27 [facility] [place] TYPE: Emergency COMPLAINT: - ABD PAIN DIAGNOSES: - Left lower quadrant pain - Pelvic and perineal pain 09/26/2022 06:15 [facility] [place] TYPE: Emergency COMPLAINT: - ABD PAIN, VOMITING DIAGNOSES: - Acute vaginitis - Allergy status to narcotic agent - Allergy status to other drugs, medicaments and biological substances - Allergy status to penicillin - Allergy status to sulfonamides - Cannabis abuse, uncomplicated - Constipation, unspecified - Nausea with vomiting, unspecified - Other penitentiary (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 - Post endometrial ablation syndrome - Right lower quadrant pain 09/24/2022 13:49 [facility] COMPLAINT: - VAGINAL PAIN DIAGNOSES: - Allergy status to other drugs, medicaments and biological substances - Allergy status to penicillin - Allergy status to sulfonamides - Contact with and (suspected) exposure to COVID-19 - Gastritis, unspecified, without bleeding - Other penitentiary (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 09/19/2022 09:57 [facility] [place] [facility] COMPLAINT: - ABD PAIN DIAGNOSES: - Allergy status to narcotic agent - Allergy status to other drugs, medicaments and biological substances - Allergy status to penicillin - Allergy status to sulfonamides - Lower abdominal pain, unspecified - Pelvic and perineal pain 09/06/2022 09:48 [facility] COMPLAINT: - ABD PAIN DIAGNOSES: - Allergy status to narcotic agent - Allergy status to other drugs, medicaments and biological substances - Allergy status to penicillin - Allergy status to sulfonamides - Endometriosis, unspecified - Lower abdominal pain, unspecified 08/31/2022 15:24 [...] gastritis without bleeding - Allergy status to narcotic agent - Allergy status to penicillin - Allergy status to sulfonamides - Vomiting, unspecified INPATIENT VISIT TRACKING (12 MO.) 01/25/2023 12:53 [facility] [place] TYPE: Medical Surgical COMPLAINT: - CANNABIS INDUCED HYPEREMESIS SYNDROME DIAGNOSES: - Acidosis, unspecified - Acidosis, unspecified - Acquired absence of other specified parts of digestive tract - Acquired absence of other specified parts of digestive tract - Allergy status to other antibiotic agents - Allergy status to other antibiotic agents - Allergy status to other drugs, medicaments and biological substances - Allergy status to other drugs, medicaments and biological substances - Allergy status to penicillin - Allergy status to penicillin - Allergy status to sulfonamides - Allergy status to sulfonamides - Cannabis use, unspecified, uncomplicated - Cannabis use, unspecified, uncomplicated - Cyclical vomiting syndrome unrelated to migraine - Dehydration - Dehydration - Nausea with vomiting, unspecified - Nausea with vomiting, unspecified - Other predatory animal exterminator (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 - Other predatory animal exterminator (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 - Other specified postprocedural states - Other specified postprocedural states - Vomiting, unspecified [email or web address]
[2023-03-22 00:55] VITALS: BP 110/74
== END 2023-03-22 00:40 | disposition home or self-care (01) ==
LOC: ED 20:38
DX: R11.11 Vomiting without nausea (principal); F12.90 Cannabis use, unspecified, uncomplicated; Z88.0 Allergy status to penicillin; Z88.2 Allergy status to sulfonamides; Z88.5 Allergy status to narcotic agent; Z88.8 Allergy status to other drugs, medicaments and biological substances
CPT/HCPCS: 36415; 80053; 84703; 85025; 96361; 96374; 96375; 96376; 99284-25; J1200; J2405; J7030

== ENCOUNTER 2023-03-22 13:54 | Emergency (ER) | payer OTHER ==
[~2023-03-22] VITALS: Ht 152.4 cm; Wt 41.5 kg
--- OUTSIDE RECORDS SUMMARY | 2023-03-22 13:56 | XMS ---
PreManage Notification: ASPEN HONG Security Leadership Program Internship Events 2 event(s) in the past 18 months Most recent security events: Elopement at [facility] 10/02/2022 11:15 - Patient eloped before treatment completed. - Patient with suicidal and/or homicidal ideations eloped. - Patient eloped with IV in place. Details: Patient left AMA. Returned to ED same day. Elopement at [facility] 09/06/2022 09:48 - Patient eloped before treatment completed. - Patient with suicidal and/or homicidal ideations eloped. - Patient eloped with IV in place. Details: PATIENT LWBS CRITERIA MET - [facility] - 2 Visits in 30 Days - 6 ED Visits in 6 Months - [facility] CARE PROVIDERS -Jesika- Dentist: Children'S Nursery Assistant Replaced By [facility] PHONE: [phone] JEREMIAH VREA Nurse Practitioner Current PHONE: Unknown REINA, Internal Medicine Current LAURIE PHONE: Unknown [facility] PHONE: [phone] [facility] PHONE: Unknown Jatin has no Care Guidelines for this patient. Care History Medical/Surgical 03/26/2021 [facility] - PATIENT NO SHOWED TO HER ESTABLISHING CARE APT SCHEDULED WITH DR BANUELOS. - CHW WILL CONTACT [facility] CASE MANAGEMENT TEAM TO DISCUSS FURTHER 03/19/2021 [facility] - CHW RECEIVED A PHONE CALL BACK FROM PATIENT- PATIENT WOULD LIKE ASSISTANCE WITH FINDING A LOCAL PCP. - CHW DISCUSSED LOCAL PRIMARY CARE OPTIONS IN THE AREA-PATIENT WOULD LIKE [facility] FOR PRIMARY CARE. - CHW CONTACTED [facility]- AN APT HAS BEEN SET TO ESTABLISH CARE WITH DR BANUELOS 03/22/2021Friday AT 11:30AM. - CHW PROVIDED [email or web address] TRANSPORTATION NUMBER TO PATIENT FOR FUTURE APTS AND PHARMACY MEDICATION CARROT HARVESTER. 03/19/2021 [facility] - CHW CALLED PATIENT AT CONTACT NUMBER [phone] AND LEFT A VOICEMAIL. E.D. VISIT COUNT (12 MO.) [address] [facility] TOTAL 20 NOTE: Visits indicate total known visits. ED/UCC VISIT TRACKING (12 MO.) 03/22/2023 13:54 [facility] [place] TYPE: Emergency COMPLAINT: - VOMITING BLOOD, NAUSEA, VOMITING 03/21/2023 20:39 [facility] [place] TYPE: Emergency COMPLAINT: - VOMITING BLOOD 01/23/2023 15:34 [facility] [place] TYPE: Emergency COMPLAINT: - VOMITING 01/22/2023 14:54 [facility] [place] TYPE: Emergency COMPLAINT: - VOMITING DIAGNOSES: - Allergy status to narcotic agent - Allergy status to other drugs, medicaments and biological substances - Allergy status to penicillin - Allergy status to sulfonamides - Cyclical vomiting syndrome unrelated to migraine - Dehydration - Other long-term (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 01/22/2023 05:36 [facility] [place] TYPE: Emergency COMPLAINT: - ABD PAIN,NAUSEA DIAGNOSES: - Allergy status to narcotic agent - Allergy status to other drugs, medicaments and biological substances - Allergy status to penicillin - Allergy status to sulfonamides - Left lower quadrant pain - Nausea with vomiting, unspecified - Other long-term (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 01/21/2023 22:28 [facility] [place] TYPE: Emergency COMPLAINT: - ABDOMINAL PAIN DIAGNOSES: - Allergy status to narcotic agent - Allergy status to other drugs, medicaments and biological substances - Allergy status to penicillin - Allergy status to sulfonamides - Constipation, unspecified - Left lower quadrant pain - Other long-term (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 - Pelvic and perineal pain 01/16/2023 08:56 [facility] [place] TYPE: Emergency COMPLAINT: - VOMITING DIAGNOSES: - Allergy status to narcotic agent - Allergy status to other drugs, medicaments and biological substances - Allergy status to penicillin - Allergy status to sulfonamides - Nausea with vomiting, unspecified - Other chronic pain - Pelvic and perineal pain 01/16/2023 02:29 [facility] [place] TYPE: Emergency COMPLAINT: - ABD PAIN AND VAGINAL PAIN DIAGNOSES: - Abnormal uterine and vaginal bleeding, unspecified - Allergy status to other drugs, medicaments and biological substances - Allergy status to penicillin - Allergy status to sulfonamides - Endometriosis, unspecified - Other terminal operator (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 12/28/2022 09:39 [facility] [place] TYPE: Emergency [...] vomiting syndrome unrelated to migraine - Other long-term (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 - Right lower quadrant [...] - Nausea with vomiting, unspecified - Other terminal operator (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 10/02/2022 11:15 [facility] [...] - Nausea with vomiting, unspecified - Other terminal operator (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 - Post endometrial ablation [...] - Other terminal operator (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 09/19/2022 09:57 [facility] [...] INPATIENT VISIT TRACKING (12 MO.) 01/25/2023 12:[address] [facility] [place] TYPE: Medical Surgical COMPLAINT: - CANNABIS [...] - Nausea with vomiting, unspecified - Other long-term (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 - Other terminal operator (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 - Other specified postprocedural states - Other specified postprocedural states - Vomiting, unspecified [email or web address]
[2023-03-22 21:12] VITALS: BP 119/83
== END 2023-03-22 21:12 | disposition home or self-care (01) ==
LOC: ED 13:54
DX: R11.2 Nausea with vomiting, unspecified (principal); Z88.0 Allergy status to penicillin; Z88.2 Allergy status to sulfonamides; Z88.5 Allergy status to narcotic agent; Z88.8 Allergy status to other drugs, medicaments and biological substances
CPT/HCPCS: 36415; 80053; 81001; 83690; 84703; 85025; C9113; J1200; J2060; J2405; J7121

== ENCOUNTER 2023-04-10 04:44 | Emergency (ER) | payer OTHER ==
[~2023-04-10] VITALS: Ht 152.4 cm; Wt 43.1 kg
[~2023-04-10 04:44] MED LIST changes: +MAGNESIUM250 MG PO
--- OUTSIDE RECORDS SUMMARY | 2023-04-10 04:48 | XMS ---
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 - Patient with suicidal and/or homicidal ideations eloped. - Patient eloped with IV in place. Details: Patient left AMA. Returned to ED same day. Elopement at [facility] 09/06/2022 09:48 - Patient eloped before treatment completed. - Patient with suicidal and/or homicidal ideations eloped. - Patient eloped with IV in place. Details: PATIENT LWBS CRITERIA MET - 6 ED Visits in 6 Months - [facility] - 2 Visits in 30 Days CARE PROVIDERS -Jesika- Dentist: Imaging Technologist [facility] PHONE: [phone] JEREMIAH VERA Nurse Practitioner Current PHONE: Unknown REINA, Internal Medicine Current LAURIE PHONE: Unknown [facility] PHONE: [phone] [facility]-Current PHONE: Unknown Jatin has no Care Guidelines for this patient. Care History Medical/Surgical 03/26/2021 [facility] - PATIENT NO SHOWED TO HER ESTABLISHING CARE APT SCHEDULED WITH DR BANUELOS. - CHW WILL CONTACT [facility] CASE MANAGEMENT TEAM TO DISCUSS FURTHER 03/19/2021 [facility] - CHW RECEIVED A PHONE CALL BACK FROM PATIENT- PATIENT WOULD LIKE ASSISTANCE WITH FINDING A LOCAL PCP. - CHW DISCUSSED LOCAL PRIMARY CARE OPTIONS IN THE AREA-PATIENT WOULD LIKE [facility] FOR PRIMARY CARE. - CHW CONTACTED [facility]- AN APT HAS BEEN SET TO ESTABLISH CARE WITH DR BANUELOS 03/22/2021Friday AT 11:30AM. 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 03/19/2021 [facility] - CHW CALLED PATIENT AT CONTACT NUMBER [phone] AND LEFT A VOICEMAIL. E.D. VISIT COUNT ([address] [facility] TOTAL 22 NOTE: Visits indicate total known visits. ED/UCC VISIT TRACKING (12 MO.) 04/10/2023 04:45 [facility] [place] TYPE: Emergency COMPLAINT: - NAUSEA,VOMITING 04/09/2023 06:27 [facility] [place] TYPE: Emergency COMPLAINT: - ABD PAIN 03/22/2023 13:54 [facility] [place] TYPE: Emergency COMPLAINT: - VOMITING BLOOD, NAUSEA, VOMITING DIAGNOSES: - Allergy status to narcotic agent - Allergy status to other drugs, medicaments and biological substances - Allergy status to penicillin - Allergy status to sulfonamides - Hematemesis - Nausea with vomiting, unspecified 03/21/2023 20:39 [facility] [place] TYPE: Emergency COMPLAINT: - VOMITING BLOOD DIAGNOSES: - Allergy status to narcotic agent - Allergy status to other drugs, medicaments and biological substances - Allergy status to penicillin - Allergy status to sulfonamides - Cannabis use, unspecified, uncomplicated - Vomiting without nausea - Vomiting, unspecified 01/23/2023 15:34 [facility] [place] TYPE: Emergency COMPLAINT: - VOMITING 01/22/2023 14:[address] [facility] [place] TYPE: Emergency COMPLAINT: - VOMITING DIAGNOSES: - Allergy status to narcotic agent - Allergy status to other drugs, medicaments and biological substances - Allergy status to penicillin - Allergy status to sulfonamides - Cyclical vomiting syndrome unrelated to migraine - Dehydration - Other ocean transportation intermediary (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 01/22/2023 05:36 [facility] [place] TYPE: Emergency COMPLAINT: - ABD PAIN,NAUSEA DIAGNOSES: - Allergy status to narcotic agent - Allergy status to other drugs, medicaments and biological substances - Allergy status to penicillin - Allergy status to sulfonamides - Left lower quadrant pain - Nausea with vomiting, unspecified - Other detention (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 01/21/2023 22:[address] [facility] [place] TYPE: Emergency COMPLAINT: - ABDOMINAL PAIN DIAGNOSES: - Allergy status to narcotic agent - Allergy status to other drugs, medicaments and biological substances - Allergy status to penicillin - Allergy status to sulfonamides - Constipation, unspecified - Left lower quadrant pain - Other ocean transportation intermediary (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 - Pelvic and perineal pain 01/16/2023 08:56 [facility] [place] TYPE: Emergency COMPLAINT: - VOMITING DIAGNOSES: - Allergy status to narcotic agent - Allergy status to other drugs, medicaments and biological substances - Allergy status to penicillin - Allergy status to sulfonamides - Nausea with vomiting, unspecified - Other chronic pain - Pelvic and perineal pain 01/16/2023 02:29 [facility] [place] TYPE: Emergency COMPLAINT: - ABD PAIN AND VAGINAL PAIN DIAGNOSES: - Abnormal uterine and vaginal bleeding, unspecified - Allergy status to other drugs, medicaments and biological substances - Allergy status to penicillin - Allergy status to sulfonamides - Endometriosis, unspecified - Other ocean transportation intermediary (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 12/28/2022 09:39 [facility] [place] TYPE: Emergency COMPLAINT: - VOMITING DIAGNOSES: - Allergy status to other drugs, medicaments and biological substances - Allergy status to penicillin - Allergy status to sulfonamides - Cyclical vomiting syndrome unrelated to migraine - Vomiting, unspecified 12/24/2022 07:46 [facility] [place] TYPE: Emergency COMPLAINT: - N/V DIAGNOSES: - Allergy status to other drugs, medicaments and biological substances - Allergy status to penicillin - Allergy status to sulfonamides - Cyclical vomiting syndrome unrelated to migraine - Nausea with vomiting, unspecified 12/10/2022 15:[address] [facility] [place] TYPE: Emergency COMPLAINT: - ABDOMINAL PAIN DIAGNOSES: - Acquired absence of other specified parts of digestive tract - Allergy status to narcotic agent - Allergy status to other drugs, medicaments and biological substances - Allergy status to penicillin - Allergy status to sulfonamides - Cyclical vomiting syndrome unrelated to migraine - Other detention (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 - Right lower quadrant pain 10/02/2022 22:[address] [facility] [place] TYPE: Emergency COMPLAINT: - ABDOMINAL PAIN DIAGNOSES: - Allergy status to narcotic agent - Allergy status to other drugs, medicaments and biological substances - Allergy status to penicillin - Allergy status to sulfonamides - Cyclical vomiting syndrome unrelated to migraine - Gastritis, unspecified, without bleeding - Nausea with vomiting, unspecified - Other detention (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 10/02/2022 11:15 [facility] [...] - Nausea with vomiting, unspecified - Other ocean transportation intermediary (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 - Post endometrial ablation syndrome - Right lower quadrant pain 09/24/2022 13:49 [facility] [place] TYPE: Emergency COMPLAINT: - VAGINAL PAIN DIAGNOSES: - Allergy status to other drugs, medicaments and biological substances - Allergy status to penicillin - Allergy status to sulfonamides - Contact with and (suspected) exposure to COVID-19 - Gastritis, unspecified, without bleeding - Other ocean transportation intermediary (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 09/19/2022 09:57 [facility] [...] Endometriosis, unspecified - Lower abdominal pain, unspecified Plus 2 More Visits INPATIENT VISIT TRACKING (12 MO.) 01/25/2023 12:53 [...] - Nausea with vomiting, unspecified - Other ocean transportation intermediary (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 - Other ocean transportation intermediary (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 - Other specified postprocedural states - Other specified postprocedural states - Vomiting, unspecified [email or web address]
[2023-04-10 06:15] VITALS: BP 115/71
[2023-04-10] MEDS ORDERED: AMITRIPTYLINE H25 MG PO (20:09)
[2023-04-10] MEDS ORDERED: ONDANSETRON ODT8 MG PO ×2 (20:48)
== END 2023-04-10 06:15 | disposition home or self-care (01) ==
LOC: ED 04:44
DX: R11.2 Nausea with vomiting, unspecified (principal); Z88.0 Allergy status to penicillin; Z88.2 Allergy status to sulfonamides; Z88.5 Allergy status to narcotic agent; Z88.8 Allergy status to other drugs, medicaments and biological substances
CPT/HCPCS: 96374; 96375; 99284-25; J1200; J2060; J2405

== ENCOUNTER 2023-04-10 15:40 | Emergency (ER) | payer OTHER ==
[~2023-04-10] VITALS: Ht 152.4 cm; Wt 43.1 kg
--- OUTSIDE RECORDS SUMMARY | 2023-04-10 15:42 | XMS ---
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 - Patient with suicidal and/or homicidal ideations eloped. - Patient eloped with IV in place. Details: Patient left AMA. Returned to ED same day. Elopement at [facility] 09/06/2022 09:48 - Patient eloped before treatment completed. - Patient with suicidal and/or homicidal ideations eloped. - Patient eloped with IV in place. Details: PATIENT LWBS CRITERIA MET - 6 ED Visits in 6 Months - [facility] - 2 Visits in 30 Days CARE PROVIDERS -Jesika- Dentist: Director Diabetes [facility] PHONE: [phone] JEREMIAH VERA Nurse Practitioner Current PHONE: Unknown REINA, Internal Medicine Current LAURIE PHONE: Unknown [facility] PH[facility]: [phone] [facility]-Current PHONE: Unknown Jatin has no Care Guidelines for this patient. Care History Medical/Surgical 03/26/2021 [facility] - PATIENT NO SHOWED TO HER ESTABLISHING CARE APT SCHEDULED WITH DR BANUELOS. - CHW WILL CONTACT [facility] CASE MANAGEMENT TEAM TO DISCUSS FURTHER 03/19/2021 [facility] - CHW RECEIVED A PHONE CALL BACK FROM PATIENT- PATIENT WOULD LIKE ASSISTANCE WITH FINDING A LOCAL PCP. - CHW DISCUSSED LOCAL PRIMARY CARE OPTIONS IN THE AREA-PATIENT WOULD LIKE [facility] FOR PRIMARY CARE. - CHW CONTACTED [facility]- AN APT HAS BEEN SET TO ESTABLISH CARE WITH DR BANUELOS 03/22/2021Friday AT 11:30AM. 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 03/19/2021 [facility] - CHW CALLED PATIENT AT CONTACT NUMBER [phone] AND LEFT A VOICEMAIL. E.D. VISIT COUNT (12 MO.) [address] [facility] TOTAL 23 NOTE: Visits indicate total known visits. ED/UCC VISIT TRACKING (12 MO.) 04/10/2023 15:40 [facility] [place] TYPE: Emergency COMPLAINT: - ABD PAIN, VOMITING BLOOD 04/10/2023 04:45 [facility] [place] TYPE: Emergency COMPLAINT: - NAUSEA,VOMITING 04/09/2023 06:[address] [facility] [facility] [place] TYPE: Emergency COMPLAINT: - ABD PAIN 03/22/2023 13:[address] [facility] [address] [facility] [place] TYPE: Emergency COMPLAINT: - VOMITING BLOOD, NAUSEA, VOMITING DIAGNOSES: - Allergy status to narcotic agent - Allergy status to other drugs, medicaments and biological substances - Allergy status to penicillin - Allergy status to sulfonamides - Hematemesis - Nausea with vomiting, unspecified 03/21/2023 20:[address] [facility] [place] TYPE: Emergency COMPLAINT: - VOMITING BLOOD DIAGNOSES: - Allergy status to narcotic agent - Allergy status to other drugs, medicaments and biological substances - Allergy status to penicillin - Allergy status to sulfonamides - Cannabis use, unspecified, uncomplicated - Vomiting without nausea - Vomiting, unspecified 01/23/2023 15:[address] [place] TYPE: Emergency COMPLAINT: - VOMITING 01/22/2023 14:54 [facility] [place] TYPE: Emergency COMPLAINT: - VOMITING DIAGNOSES: - Allergy status to narcotic agent - Allergy status to other drugs, medicaments and biological substances - Allergy status to penicillin - Allergy status to sulfonamides - Cyclical vomiting syndrome unrelated to migraine - Dehydration - Other exterminator termite (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 01/22/2023 05:36 [facility] [place] TYPE: Emergency COMPLAINT: - ABD PAIN,NAUSEA DIAGNOSES: - Allergy status to narcotic agent - Allergy status to other drugs, medicaments and biological substances - Allergy status to penicillin - Allergy status to sulfonamides - Left lower quadrant pain - Nausea with vomiting, unspecified - Other longterm (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 01/21/2023 22:28 [facility] [place] TYPE: Emergency COMPLAINT: - ABDOMINAL PAIN DIAGNOSES: - Allergy status to narcotic agent - Allergy status to other drugs, medicaments and biological substances - Allergy status to penicillin - Allergy status to sulfonamides - Constipation, unspecified - Left lower quadrant pain - Other longterm (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 - Pelvic and perineal pain 01/16/2023 08:56 [facility] [place] TYPE: Emergency COMPLAINT: - VOMITING DIAGNOSES: - Allergy status to narcotic agent - Allergy status to other drugs, medicaments and biological substances - Allergy status to penicillin - Allergy status to sulfonamides - Nausea with vomiting, unspecified - Other chronic pain - Pelvic and perineal pain 01/16/2023 02:29 [facility] [place] TYPE: Emergency COMPLAINT: - ABD PAIN AND VAGINAL PAIN DIAGNOSES: - Abnormal uterine and vaginal bleeding, unspecified - Allergy status to other drugs, medicaments and biological substances - Allergy status to penicillin - Allergy status to sulfonamides - Endometriosis, unspecified - Other longterm (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 12/28/2022 09:39 [facility] [place] TYPE: Emergency COMPLAINT: - VOMITING DIAGNOSES: - Allergy status to other drugs, medicaments and biological substances - Allergy status to penicillin - Allergy status to sulfonamides - Cyclical vomiting syndrome unrelated to migraine - Vomiting, unspecified 12/24/2022 07:[address] [facility] [facility] [place] TYPE: Emergency COMPLAINT: - N/V DIAGNOSES: - Allergy status to other drugs, medicaments and biological substances - Allergy status to penicillin - Allergy status to sulfonamides - Cyclical vomiting syndrome unrelated to migraine - Nausea with vomiting, unspecified 12/10/2022 15:[address] [facility] [facility] [place] TYPE: Emergency COMPLAINT: - ABDOMINAL PAIN DIAGNOSES: - Acquired absence of other specified parts of digestive tract - Allergy status to narcotic agent - Allergy status to other drugs, medicaments and biological substances - Allergy status to penicillin - Allergy status to sulfonamides - Cyclical vomiting syndrome unrelated to migraine - Other exterminator termite (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 - Right lower quadrant pain 10/02/2022 22:[address] [facility] [place] TYPE: Emergency COMPLAINT: - ABDOMINAL PAIN DIAGNOSES: - Allergy status to narcotic agent - Allergy status to other drugs, medicaments and biological substances - Allergy status to penicillin - Allergy status to sulfonamides - Cyclical vomiting syndrome unrelated to migraine - Gastritis, unspecified, without bleeding - Nausea with vomiting, unspecified - Other longterm (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 10/02/2022 11:15 [facility] [place] TYPE: Emergency COMPLAINT: - ABD/PELVIC PAIN DIAGNOSES: - Left lower quadrant pain - Nausea with vomiting, unspecified 10/01/2022 07:27 [facility] [place] TYPE: Emergency COMPLAINT: - ABD PAIN DIAGNOSES: - Left lower quadrant pain - Pelvic and perineal pain 09/26/2022 06:15 [facility] [place] TYPE: Emergency COMPLAINT: - ABD PAIN, VOMITING DIAGNOSES: - Acute vaginitis - Allergy status to narcotic agent - Allergy status to other drugs, medicaments and biological substances - Allergy status to penicillin - Allergy status to sulfonamides - Cannabis abuse, uncomplicated - Constipation, unspecified - Nausea with vomiting, unspecified - Other longterm (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 - Post endometrial ablation syndrome - Right lower quadrant pain 09/24/2022 13:[address] [facility] [place] TYPE: Emergency COMPLAINT: - VAGINAL PAIN DIAGNOSES: - Allergy status to other drugs, medicaments and biological substances - Allergy status to penicillin - Allergy status to sulfonamides - Contact with and (suspected) exposure to COVID-19 - Gastritis, unspecified, without bleeding - Other longterm (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 09/19/2022 09:[address] [facility] [place] TYPE: Emergency COMPLAINT: - ABD PAIN DIAGNOSES: - Allergy status to narcotic agent - Allergy status to other drugs, medicaments and biological substances - Allergy status to penicillin - Allergy status to sulfonamides - Lower abdominal pain, unspecified - Pelvic and perineal pain Plus 3 More Visits INPATIENT VISIT TRACKING (12 MO.) [...] - Nausea with vomiting, unspecified - Other longterm (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 - Other exterminator termite (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 - Other specified postprocedural states - Other specified postprocedural states - Vomiting, unspecified [email or web address]
[2023-04-10] MEDS ORDERED: AMITRIPTYLINE H25 MG PO (20:09)
[2023-04-10] MEDS ORDERED: ONDANSETRON ODT8 MG PO ×2 (20:48)
[2023-04-10 21:00] VITALS: BP 143/104
== END 2023-04-10 21:00 | disposition home or self-care (01) ==
LOC: ED 15:40
DX: R11.2 Nausea with vomiting, unspecified (principal); F12.90 Cannabis use, unspecified, uncomplicated; K22.6 Gastro-esophageal laceration-hemorrhage syndrome; Z88.0 Allergy status to penicillin; Z88.2 Allergy status to sulfonamides; Z88.5 Allergy status to narcotic agent; Z88.8 Allergy status to other drugs, medicaments and biological substances; Z79.899 Other long term (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
CPT/HCPCS: 36415; 80053; 83690; 83735; 85025; 96361; 96374; 96375; 96376; 99284-25; A9270; J1200; J2060; J2405; J7030

== ENCOUNTER 2023-04-11 15:04 | Inpatient (IN) | payer OTHER ==
[~2023-04-11] VITALS: Ht 152.4 cm; Wt 41.2 kg
[~2023-04-11 15:04] MED LIST changes: +AMITRIPTYLINE H25 MG PO
--- OUTSIDE RECORDS SUMMARY | 2023-04-11 15:06 | XMS ---
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 - Patient with suicidal and/or homicidal ideations eloped. - Patient eloped with IV in place. Details: Patient left AMA. Returned to ED same day. Elopement at [facility] 09/06/2022 09:48 - Patient eloped before treatment completed. - Patient with suicidal and/or homicidal ideations eloped. - Patient eloped with IV in place. Details: PATIENT LWBS CRITERIA MET - 6 ED Visits in 6 Months - [facility] - 2 Visits in 30 Days CARE PROVIDERS -Jesika- Dentist: Real Estate Broker Associate [facility] PHONE: [phone] JEREMIAH VERA Nurse Practitioner Current PHONE: Unknown REINA, Internal Medicine Current LAURIE PHONE: Unknown [facility] PH[facility]: [phone] [facility] PHONE: Unknown Jatin has no Care Guidelines for this patient. Care History Medical/Surgical 03/26/2021 [facility] - PATIENT NO SHOWED TO HER ESTABLISHING CARE APT SCHEDULED WITH DR BANUELOS. - CHW WILL CONTACT [facility] CASE MANAGEMENT TEAM TO DISCUSS FURTHER 03/19/2021 [facility] - CHW RECEIVED A PHONE CALL BACK FROM PATIENT- PATIENT WOULD LIKE ASSISTANCE WITH FINDING A LOCAL PCP. - CHW DISCUSSED LOCAL PRIMARY CARE OPTIONS IN THE AREA-PATIENT WOULD LIKE [facility] FOR PRIMARY CARE. - CHW CONTACTED [facility]- AN APT HAS BEEN SET TO ESTABLISH CARE WITH DR BANUELOS 03/22/2021Friday AT 11:30AM. - CHW PROVIDED [employer] TRANSPORTATION NUMBER TO PATIENT FOR FUTURE APTS AND PHARMACY MEDICATION CLINICAL OB. 03/19/2021 [facility] - CHW CALLED PATIENT AT CONTACT NUMBER [phone] AND LEFT A VOICEMAIL. E.D. VISIT COUNT (12 MO.) [address] [facility] TOTAL 24 NOTE: Visits indicate total known visits. ED/UCC VISIT TRACKING (12 MO.) 04/11/2023 15:05 [facility] [place] TYPE: Emergency COMPLAINT: - VOMITING 04/10/2023 15:40 [facility] [place] TYPE: Emergency COMPLAINT: - ABD PAIN, VOMITING BLOOD 04/10/2023 04:[address] [facility] [place] TYPE: Emergency COMPLAINT: - NAUSEA,VOMITING 04/09/2023 06:[address] [facility] [place] TYPE: Emergency COMPLAINT: - ABD PAIN DIAGNOSES: - Allergy status to narcotic agent - Allergy status to other drugs, medicaments and biological substances - Allergy status to penicillin - Allergy status to sulfonamides - Cyclical vomiting syndrome unrelated to migraine - Hypomagnesemia - Nausea with vomiting, unspecified - Other snf (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 03/22/2023 13:[address] [facility] [place] TYPE: Emergency COMPLAINT: - VOMITING BLOOD, [...] Emergency COMPLAINT: - VOMITING 01/22/2023 14:54 [facility] [place] TYPE: Emergency COMPLAINT: - VOMITING DIAGNOSES: - Allergy status to narcotic agent - Allergy status to other drugs, medicaments and biological substances - Allergy status to penicillin - Allergy status to sulfonamides - Cyclical vomiting syndrome unrelated to migraine - Dehydration - Other snf (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 01/22/2023 05:36 [facility] [place] TYPE: Emergency COMPLAINT: - ABD PAIN,NAUSEA DIAGNOSES: - Allergy status to narcotic agent - Allergy status to other drugs, medicaments and biological substances - Allergy status to penicillin - Allergy status to sulfonamides - Left lower quadrant pain - Nausea with vomiting, unspecified - Other long term care administrator (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 01/21/2023 22:28 [facility] [place] TYPE: Emergency COMPLAINT: - ABDOMINAL PAIN DIAGNOSES: - Allergy status to narcotic agent - Allergy status to other drugs, medicaments and biological substances - Allergy status to penicillin - Allergy status to sulfonamides - Constipation, unspecified - Left lower quadrant pain - Other long term care administrator (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 - Pelvic and perineal pain 01/16/2023 08:56 [facility] [place] TYPE: Emergency COMPLAINT: - VOMITING DIAGNOSES: - Allergy status to narcotic agent - Allergy status to other drugs, medicaments and biological substances - Allergy status to penicillin - Allergy status to sulfonamides - Nausea with vomiting, unspecified - Other chronic pain - Pelvic and perineal pain 01/16/2023 02:29 [facility] [place] TYPE: Emergency COMPLAINT: - ABD PAIN AND VAGINAL PAIN DIAGNOSES: - Abnormal uterine and vaginal bleeding, unspecified - Allergy status to other drugs, medicaments and biological substances - Allergy status to penicillin - Allergy status to sulfonamides - Endometriosis, unspecified - Other snf (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 12/28/2022 09:39 [facility] [...] migraine - Other snf (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 - Right lower quadrant pain 10/02/2022 22:23 [facility] [place] COMPLAINT: - ABDOMINAL PAIN DIAGNOSES: - Allergy status to narcotic agent - Allergy status to other drugs, medicaments and biological substances - Allergy status to penicillin - Allergy status to sulfonamides - Cyclical vomiting syndrome unrelated to migraine - Gastritis, unspecified, without bleeding - Nausea with vomiting, unspecified - Other snf (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 10/02/2022 11:15 [facility] [place] COMPLAINT: - ABD/PELVIC PAIN DIAGNOSES: - Left lower quadrant pain - Nausea with vomiting, unspecified 10/01/2022 07:27 [facility] [place] COMPLAINT: - ABD [...] - Nausea with vomiting, unspecified - Other snf (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 - Post endometrial ablation [...] bleeding - Other snf (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 Plus 4 More Visits INPATIENT VISIT TRACKING (12 MO.) [...] - Nausea with vomiting, unspecified - Other snf (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 - Other long term care administrator (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 - Other specified postprocedural states - Other specified postprocedural states - Vomiting, unspecified [email or web address]
[2023-04-11 18:44] VITALS: BP 145/96
[2023-04-11 20:13] VITALS: BP 150/93
[2023-04-12 01:30] VITALS: BP 149/88
[2023-04-12 05:23] VITALS: BP 140/76
[2023-04-12 09:52] VITALS: BP 127/75
[2023-04-12 13:40] VITALS: BP 130/93
[2023-04-12 18:08] VITALS: BP 119/80
[2023-04-12 19:53] VITALS: BP 153/97
[2023-04-13 05:12] VITALS: BP 11/70; BP 111/71
[2023-04-13 09:42] VITALS: BP 147/95
[2023-04-13 10:17] VITALS: BP 118/78
[2023-04-13 13:24] VITALS: BP 118/86
[2023-04-13 18:17] VITALS: BP 147/93
[2023-04-13 20:53] VITALS: BP 161/98
[2023-04-14 05:40] VITALS: BP 146/101
[2023-04-14 10:08] VITALS: BP 141/99
[2023-04-14] MEDS ORDERED: ONDANSETRON ODT8 MG PO (10:08)
[2023-04-14] MEDS ORDERED: MEDROXYPRO150 MG/11 IM (10:08)
[2023-04-14 18:07] VITALS: BP 130/89
[2023-04-14 21:49] VITALS: BP 132/94
[2023-04-15 06:06] VITALS: BP 132/94
[2023-04-15 10:00] VITALS: BP 130/93
[2023-04-15 13:55] VITALS: BP 113/78
[2023-04-15 17:57] VITALS: BP 127/89
[2023-04-15 21:51] VITALS: BP 95/64
[2023-04-16 04:24] VITALS: BP 157/91
[2023-04-16] MEDS ORDERED: ONDANSETRON ODT8 MG PO (08:53)
[2023-04-16 11:49] VITALS: BP 117/98
== END 2023-04-16 11:55 | disposition home or self-care (01) | DRG 392 ==
LOC: ED 15:04 → MS 15:06
PROVIDERS: ADMIT Family Medicine; ATTEND Internal Medicine
DX: R11.2 Nausea with vomiting, unspecified (principal); F12.988 Cannabis use, unspecified with other cannabis-induced disorder; F41.8 Other specified anxiety disorders; K59.00 Constipation, unspecified; K91.5 Postcholecystectomy syndrome; K58.9 Irritable bowel syndrome, unspecified; N80.9 Endometriosis, unspecified; Z88.0 Allergy status to penicillin; Z88.2 Allergy status to sulfonamides; Z88.8 Allergy status to other drugs, medicaments and biological substances; Z79.899 Other long term (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; Z90.49 Acquired absence of other specified parts of digestive tract; Z98.890 Other specified postprocedural states; Z86.69 Personal history of other diseases of the nervous system and sense organs; Z90.721 Acquired absence of ovaries, unilateral
CPT/HCPCS: 36415; 80048; 80053; 81003; 83690; 83735; 84100; 84703; 85025; 96365; 96366; 96367; 96374; 96375; 96376; 99285-25; A9270; C9113; G0378; J1200; J2060; J2405; J3475; J3480; J3490; J7060; J7121

== ENCOUNTER 2023-06-30 22:33 | Emergency (ER) | payer OTHER ==
[~2023-06-30] VITALS: Ht 152.4 cm; Wt 43.3 kg
--- OUTSIDE RECORDS SUMMARY | ~2023-06-30 | XMS | Continuity of Care Document ---
Demographics + + + | Address | [address] [facility] [address] [facility] [address] | | | [place] [address] | + + + | Preferred Language | Unknown | + + + | Marital Status | Polygamous | + + + | Religion Affiliation | Unknown | + + + | Race | White | + + + | Ethnic Group | Not or | + + + Author + + + | Author | [facility] | + + + | Organization | [facility] | + + + | Address | [address] [facility] 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 | Role | Phone | + [...] + | 2022-09-19 00:00 | MEDROXYPROGESTERONE | [facility] | | | ACETATE | | + + + + | 2022-09-24 00:00 | MEDROXYPROGESTERONE | [facility] | | | ACETATE | | + + + + | 2022-09-26 00:00 | MEDROXYPROGESTERONE | [facility] | | | ACETATE | | + + + + | 2022-10-01 00:00 | MEDROXYPROGESTERONE | [facility] | | | ACETATE | | + + + + | 2022-10-03 00:00 | MEDROXYPROGESTERONE | [facility] | | | ACETATE | | + + + + | 2022-12-17 00:00 | MEDROXYPROGESTERONE | [facility] | | | ACETATE | | + + + + | 2022-12-24 00:00 | MEDROXYPROGESTERONE | [facility] | | | ACETATE | | + + + + | 2022-12-28 00:00 | MEDROXYPROGESTERONE | [facility] | | | ACETATE | | + + + + | 2023-01-16 00:00 | MEDROXYPROGESTERONE | [facility] | | | ACETATE | | + + + + | 2023-01-16 00:00 | MEDROXYPROGESTERONE | [facility] | | | ACETATE | | + + + + | 2023-01-22 00:00 | MEDROXYPROGESTERONE | [facility] | | | ACETATE | | + + + + | 2023-01-22 00:00 | MEDROXYPROGESTERONE | [facility] | | | ACETATE | | + + + + | 2023-01-27 00:00 | MEDROXYPROGESTERONE | [facility] | | | ACETATE | | + + + + | 2023-03-22 00:00 | MEDROXYPROGESTERONE | [facility] | | | ACETATE | | + + + + | 2023-03-22 00:00 | MEDROXYPROGESTERONE | [facility] | | | ACETATE | | + + + + | 2023-04-09 00:00 | MEDROXYPROGESTERONE | [facility] | | | ACETATE | | + + + + | 2023-04-10 00:00 | MEDROXYPROGESTERONE | [facility] | | | ACETATE | | + + + + | 2023-04-10 00:00 | MEDROXYPROGESTERONE | [facility] | | | ACETATE | | + + + + | 2021-03-15 00:00 | FAMOTIDINE | [facility] | + + + + | 2021-03-15 00:00 | FAMOTIDINE | [facility] | + + + + | 2021-03-15 00:00 | FAMOTIDINE | [facility] | + + + + | 2021-03-15 00:00 | FAMOTIDINE | [facility] | + + + + | 2021-03-15 00:00 | FAMOTIDINE | [facility] | + + + + | 2021-03-15 00:00 | FAMOTIDINE | [facility] | + + + + | 2021-03-15 00:00 | FAMOTIDINE | [facility] | + + + + | 2021-03-15 00:00 | FAMOTIDINE | [facility] | + + + + | 2021-03-15 00:00 | FAMOTIDINE | [facility] | + + + + | 2021-03-15 00:00 | FAMOTIDINE | [facility] | + + + + | 2021-03-22 00:00 | ONDANSETRON HCL | [facility] | + + + + | 2021-03-22 00:00 | ONDANSETRON HCL | [facility] | + + + + | 2021-03-22 00:00 | ONDANSETRON HCL | [facility] | + + + + | 2021-03-22 00:00 | ONDANSETRON HCL | [facility] | + + + + | 2021-03-22 00:00 | ONDANSETRON HCL | [facility] | + + + + | 2021-03-22 00:00 | ONDANSETRON HCL | [facility] | + + + + | 2021-03-22 00:00 | ONDANSETRON HCL | [facility] | + + + + | 2021-03-22 00:00 | ONDANSETRON HCL | [facility] | + + + + | 2021-03-22 00:00 | ONDANSETRON HCL | [facility] | + + + + | 2021-03-22 00:00 | ONDANSETRON HCL | [facility] | + + + + | 2022-09-19 00:00 | OXYCODONE HCL | [facility] | + + + + | 2022-09-19 00:00 | OXYCODONE HCL | [facility] | + + + + | 2022-09-19 00:00 | OXYCODONE HCL | [facility] | + + + + | 2022-09-19 00:00 | OXYCODONE HCL | [facility] | + + + + | 2022-09-19 00:00 | OXYCODONE HCL | [facility] | + + + + | 2022-09-19 00:00 | OXYCODONE HCL | [facility] | + + + + | 2022-09-19 00:00 | OXYCODONE HCL | [facility] | + + + + | 2022-09-19 00:00 | OXYCODONE HCL | [facility] | + + + + | 2022-09-19 00:00 | OXYCODONE HCL | [facility] | + + + + | 2022-09-19 00:00 | OXYCODONE HCL | [facility] | + + + + | 2023-01-22 00:00 | DIPHENHYDRAMINE HCL | [facility] | + + + + | 2023-01-22 00:00 | DIPHENHYDRAMINE HCL | [facility] | + + + + | 2023-01-27 00:00 | DIPHENHYDRAMINE HCL | [facility] | + + + + | 2023-03-22 00:00 | DIPHENHYDRAMINE HCL | [facility] | + + + + | 2023-03-22 00:00 | DIPHENHYDRAMINE HCL | [facility] | + + + + | 2023-04-09 00:00 | DIPHENHYDRAMINE HCL | [facility] | + + + + | 2023-04-10 00:00 | DIPHENHYDRAMINE HCL | [facility] | + + + + | 2023-04-10 00:00 | DIPHENHYDRAMINE HCL | [facility] | + + + + | 2023-01-16 00:00 | NAPROXEN | [facility] | + + + + | 2023-01-16 00:00 | NAPROXEN | [facility] | + + + + | 2023-01-22 00:00 | NAPROXEN | [facility] | + + + + | 2023-01-22 00:00 | NAPROXEN | [facility] | + + + + | 2022-12-17 00:00 | NAPROXEN | [facility] | + + + + | 2021-03-24 00:00 | SUCRALFATE | [facility] | + + + + | 2021-03-24 00:00 | SUCRALFATE | [facility] | + + + + | 2021-03-24 00:00 | SUCRALFATE | [facility] | + + + + | 2021-03-24 00:00 | SUCRALFATE | [facility] | + + + + | 2021-03-24 00:00 | SUCRALFATE | [facility] | + + + + | 2021-03-24 00:00 | SUCRALFATE | [facility] | + + + + | 2021-03-24 00:00 | SUCRALFATE | [facility] | + + + + | 2021-03-24 00:00 | SUCRALFATE | [facility] | + + + + | 2021-03-24 00:00 | SUCRALFATE | [facility] | + + + + | 2021-03-24 00:00 | SUCRALFATE | [facility] | + + + + | 2022-09-24 00:00 | SUCRALFATE | [facility] | + + + + | 2022-09-24 00:00 | SUCRALFATE | [facility] | + + + + | 2022-09-24 00:00 | PANTOPRAZOLE SODIUM | [facility] | + + + + | 2022-09-24 00:00 | PANTOPRAZOLE SODIUM | [facility] | + + + + | 2023-04-09 00:00 | MAGNESIUM OXIDE | [facility] | + + + + | 2023-04-09 00:00 | MAGNESIUM OXIDE | [facility] | + + + + | 2020-06-15 00:00 | Ofloxacin | [facility] | + + + + | 2020-06-15 00:00 | Ofloxacin | [facility] | + + + + | 2020-06-15 00:00 | Ofloxacin | [facility] | + + + + | 2020-06-15 00:00 | Ofloxacin | [facility] | + + + + | 2020-06-15 00:00 | Ofloxacin | [facility] | + + + + | 2020-06-15 00:00 | Ofloxacin | [facility] | + + + + | 2020-06-15 00:00 | Ofloxacin | [facility] | + + + + | 2020-06-15 00:00 | Ofloxacin | [facility] | + + + + | 2020-06-15 00:00 | Ofloxacin | [facility] | + + + + 2020-06-15 00:00 | Ofloxacin | [facility] | + + + + | 2023-01-27 00:00 | OLANZAPINE | [facility] | + + + + | 2023-01-27 00:00 | OLANZAPINE | [facility] | + + + + | 2023-01-27 00:00 | OLANZAPINE | [facility] | + + + + | 2023-01-27 00:00 | OLANZAPINE | [facility] | + + + + | 2023-01-27 00:00 | OLANZAPINE | [facility] | + + + + | 2021-02-14 00:00 | ONDANSETRON | [facility] | + + + + | 2021-02-14 00:00 | ONDANSETRON | [facility] | + + + + | 2021-02-14 00:00 | ONDANSETRON | [facility] | + + + + | 2021-02-14 00:00 | ONDANSETRON | [facility] | + + + + | 2021-02-14 00:00 | ONDANSETRON | [facility] | + + + + | 2021-02-14 00:00 | ONDANSETRON | [facility] | + + + + | 2021-02-14 00:00 | ONDANSETRON | [facility] | + + + + | 2021-02-14 00:00 | ONDANSETRON | [facility] | + + + + | 2021-02-14 00:00 | ONDANSETRON | [facility] | + + + + | 2021-02-14 00:00 | ONDANSETRON | [facility] | + + + + | 2021-02-18 00:00 | ONDANSETRON | [facility] | + + + + | 2021-02-18 00:00 | ONDANSETRON | [facility] | + + + + | 2021-02-18 00:00 | ONDANSETRON | [facility] | + + + + | 2021-02-18 00:00 | ONDANSETRON | [facility] | + + + + | 2021-02-18 00:00 | ONDANSETRON | [facility] | + + + + | 2021-02-18 00:00 | ONDANSETRON | [facility] | + + + + | 2021-02-18 00:00 | ONDANSETRON | [facility] | + + + + | 2021-02-18 00:00 | ONDANSETRON | [facility] | + + + + | 2021-02-18 00:00 | ONDANSETRON | [facility] | + + + + | 2021-02-18 00:00 | ONDANSETRON | [facility] | + + + + | 2021-03-13 00:00 | ONDANSETRON | [facility] | + + + + | 2021-03-13 00:00 | ONDANSETRON | [facility] | + + + + | 2021-03-13 00:00 | ONDANSETRON | [facility] | + + + + | 2021-03-13 00:00 | ONDANSETRON | [facility] | + + + + | 2021-03-13 00:00 | ONDANSETRON | [facility] | + + + + | 2021-03-13 00:00 | ONDANSETRON | [facility] | + + + + | 2021-03-13 00:00 | ONDANSETRON | [facility] | + + + + | 2021-03-13 00:00 | ONDANSETRON | [facility] | + + + + | 2021-03-13 00:00 | ONDANSETRON | [facility] | + + + + | 2021-03-13 00:00 | ONDANSETRON | [facility] | + + + + | 2022-08-08 00:00 | ONDANSETRON | [facility] | + + + + | 2022-08-08 00:00 | ONDANSETRON | [facility] | + + + + | 2022-10-03 00:00 | ONDANSETRON | [facility] | + + + + | 2022-12-17 00:00 | ONDANSETRON | [facility] | + + + + | 2022-12-24 00:00 | ONDANSETRON | [facility] | + + + + | 2022-12-28 00:00 | ONDANSETRON | [facility] | + + + + | 2022-12-28 00:00 | ONDANSETRON | [facility] | + + + + | 2022-12-28 00:00 | ONDANSETRON | [facility] | + + + + | 2022-12-28 00:00 | ONDANSETRON | [facility] | + + + + | 2022-12-28 00:00 | ONDANSETRON | [facility] | + + + + | 2022-12-28 00:00 | ONDANSETRON | [facility] | + + + + | 2022-12-28 00:00 | ONDANSETRON | [facility] | + + + + | 2023-01-16 00:00 | ONDANSETRON | [facility] | + + + + | 2023-01-16 00:00 | ONDANSETRON | [facility] | + + + + | 2023-01-22 00:00 | ONDANSETRON | [facility] | + + + + | 2023-04-10 00:00 | ONDANSETRON | [facility] | + + + + | 2022-10-03 00:00 | SUCRALFATE | [facility] | + + + + | 2022-10-03 00:00 | SUCRALFATE | [facility] | + + + + | 2022-10-03 00:00 | SUCRALFATE | [facility] | + + + + | 2022-10-03 00:00 | SUCRALFATE | [facility] | + + + + | 2022-10-03 00:00 | SUCRALFATE | [facility] | + + + + | 2022-10-03 00:00 | SUCRALFATE | [facility] | + + + + | 2022-10-03 00:00 | SUCRALFATE | [facility] | + + + + | 2022-10-03 00:00 | SUCRALFATE | [facility] | + + + + | 2022-10-03 00:00 | SUCRALFATE | [facility] | + + + + | 2022-09-19 00:00 | ESCITALOPRAM OXALATE | [facility] | + + + + | 2022-09-24 00:00 | ESCITALOPRAM OXALATE | [facility] | + + + + | 2022-09-26 00:00 | ESCITALOPRAM OXALATE | [facility] | + + + + 2022-10-01 00:00 | ESCITALOPRAM OXALATE | [facility] | + + + + | 2022-10-03 00:00 | ESCITALOPRAM OXALATE | [facility] | + + + + | 2022-12-17 00:00 | ESCITALOPRAM OXALATE | [facility] | + + + + | 2022-12-24 00:00 | ESCITALOPRAM OXALATE | [facility] | + + + + | 2022-12-28 00:00 | ESCITALOPRAM OXALATE | [facility] | + + + + | 2023-01-16 00:00 | ESCITALOPRAM OXALATE | [facility] | + + + + | 2023-01-16 00:00 | ESCITALOPRAM OXALATE | [facility] | + + + + | 2023-01-22 00:00 | ESCITALOPRAM OXALATE | [facility] | + + + + | 2023-01-22 00:00 | ESCITALOPRAM OXALATE | [facility] | + + + + | 2023-01-27 00:00 | ESCITALOPRAM OXALATE | [facility] | + + + + | 2023-03-22 00:00 | ESCITALOPRAM OXALATE | [facility] | + + + + | 2023-03-22 00:00 | ESCITALOPRAM OXALATE | [facility] | + + + + | 2023-04-09 00:00 | ESCITALOPRAM OXALATE | [facility] | + + + + | 2023-04-10 00:00 | ESCITALOPRAM OXALATE | [facility] | + + + + | 2023-04-10 00:00 | ESCITALOPRAM OXALATE | [facility] | + + + + | 2021-03-24 00:00 | PANTOPRAZOLE SODIUM | [facility] | + + + + | 2021-03-24 00:00 | PANTOPRAZOLE SODIUM | [facility] | + + + + | 2021-03-24 00:00 | PANTOPRAZOLE SODIUM | [facility] | + + + + | 2021-03-24 00:00 | PANTOPRAZOLE SODIUM | [facility] | + + + + | 2021-03-24 00:00 | PANTOPRAZOLE SODIUM | [facility] | + + + + | 2021-03-24 00:00 | PANTOPRAZOLE SODIUM | [facility] | + + + + | 2021-03-24 00:00 | PANTOPRAZOLE SODIUM | [facility] | + + + + | 2021-03-24 00:00 | PANTOPRAZOLE SODIUM | [facility] | + + + + | 2021-03-24 00:00 | PANTOPRAZOLE SODIUM | [facility] | + + + + | 2021-03-24 00:00 | PANTOPRAZOLE SODIUM | [facility] | + + + + | 2022-09-24 00:00 | NITROFURANTOIN MONOHYD | [facility] | | | MACROCR | | + + + + | 2022-09-24 00:00 | NITROFURANTOIN MONOHYD | [facility] | | | MACROCR | | + + + + | 2023-04-10 00:00 | AMITRIPTYLINE HCL | [facility] | + + + + | 2022-09-26 00:00 | HYDROCODONE | [facility] | | | BIT/ACETAMINOPHEN | | + + + + | 2022-10-01 00:00 | HYDROCODONE | [facility] | | | BIT/ACETAMINOPHEN | | + + + + | 2022-10-01 00:00 | HYDROCODONE | [facility] | | | BIT/ACETAMINOPHEN | | + + + + | 2022-10-01 00:00 | HYDROCODONE | [facility] | | | BIT/ACETAMINOPHEN | | + + + + | 2022-10-01 00:00 | HYDROCODONE | [facility] | | | BIT/ACETAMINOPHEN | | + + + + | 2022-10-01 00:00 | HYDROCODONE | [facility] | | | BIT/ACETAMINOPHEN | | + + + + | 2022-10-01 00:00 | HYDROCODONE | [facility] | | | BIT/ACETAMINOPHEN | | + + + + | 2022-10-01 00:00 | HYDROCODONE | [facility] | | | BIT/ACETAMINOPHEN | | + + + + | 2022-10-01 00:00 | HYDROCODONE | [facility] | | | BIT/ACETAMINOPHEN | | + + + + | 2022-10-01 00:00 | HYDROCODONE | [facility] | | | BIT/ACETAMINOPHEN | | + + + + | 2022-10-01 00:00 | HYDROCODONE | [facility] | | | BIT/ACETAMINOPHEN | | + + + + | 2022-09-26 00:00 | CLINDAMYCIN PHOSPHATE | [facility] | + + + + | 2022-09-26 00:00 | CLINDAMYCIN PHOSPHATE | [facility] | + + + + Problems + + + + | date | description | facility | + + + + | 2020-06-15 00:00 | Otitis | [facility] | + + + + | 2020-06-15 00:00 | Otitis | [facility] | + + + + | 2020-06-15 00:00 | Otitis | [facility] | + + + + | 2020-06-15 00:00 | Otitis | [facility] | + + + + | 2020-06-15 00:00 | Otitis | [facility] | + + + + | 2020-06-15 00:00 | Otitis | [facility] | + + + + 2020-06-15 00:00 | Otitis | [facility] | + + + + 2020-06-15 00:00 | Otitis | [facility] | + + + + | 2020-06-15 00:00 | Otitis | [facility] | + + + + | 2020-06-15 00:00 | Otitis | [facility] | + + + + | 2020-06-15 00:00 | Encounter for medical | [facility] | | | screening examination | | + + + + | 2020-06-15 00:00 | Encounter for medical | [facility] | | | screening examination | | + + + + | 2020-06-15 00:00 | Encounter for medical | [facility] | | | screening examination | | + + + + | 2020-06-15 00:00 | Encounter for medical | [facility] | | | screening examination | | + + + + | 2020-06-15 00:00 | Encounter for medical | [facility] | | | screening examination | | + + + + | 2020-06-15 00:00 | Encounter for medical | [facility] | | | screening examination | | + + + + | 2020-06-15 00:00 | Encounter for medical | [facility] | | | screening examination | | + + + + | 2020-06-15 00:00 | Encounter for medical | [facility] | | | screening examination | | + + + + | 2020-06-15 00:00 | Encounter for medical | [facility] | | | screening examination | | + + + + | 2020-06-15 00:00 | Encounter for medical | [facility] | | | screening examination | | + + + + | 2021-02-14 00:00 | Acute gastroenteritis | [facility] | + + + + | 2021-02-14 00:00 | Acute gastroenteritis | [facility] | + + + + | 2021-02-14 00:00 | Acute gastroenteritis | [facility] | + + + + | 2021-02-14 00:00 | Acute gastroenteritis | [facility] | + + + + | 2021-02-14 00:00 | Acute gastroenteritis | [facility] | + + + + | 2021-02-14 00:00 | Acute gastroenteritis | [facility] | + + + + | 2021-02-14 00:00 | Acute gastroenteritis | [facility] | + + + + | 2021-02-14 00:00 | Acute gastroenteritis | [facility] | + + + + | 2021-02-14 00:00 | Acute gastroenteritis | [facility] | + + + + | 2021-02-14 00:00 | Acute gastroenteritis | [facility] | + + + + | 2021-03-13 00:00 | Acute gastritis | [facility] | + + + + | 2021-03-13 00:00 | Acute gastritis | [facility] | + + + + | 2021-03-13 00:00 | Acute gastritis | [facility] | + + + + | 2021-03-13 00:00 | Acute gastritis | [facility] | + + + + | 2021-03-13 00:00 | Acute gastritis | [facility] | + + + + | 2021-03-13 00:00 | Acute gastritis | [facility] | + + + + | 2021-03-13 00:00 | Acute gastritis | [facility] | + + + + | 2021-03-13 00:00 | Acute gastritis | [facility] | + + + + | 2021-03-13 00:00 | Acute gastritis | [facility] | + + + + | 2021-03-13 00:00 | Acute gastritis | [facility] | + + + + | 2021-03-22 00:00 | Cyclic vomiting syndrome | [facility] | + + + + | 2021-03-22 00:00 | Cyclic vomiting syndrome | [facility] | + + + + | 2021-03-22 00:00 | Cyclic vomiting syndrome | [facility] | + + + + | 2021-03-22 00:00 | Cyclic vomiting syndrome | [facility] | + + + + | 2021-03-22 00:00 | Cyclic vomiting syndrome | [facility] | + + + + | 2021-03-22 00:00 | Cyclic vomiting syndrome | [facility] | + + + + | 2021-03-22 00:00 | Cyclic vomiting syndrome | [facility] | + + + + | 2021-03-22 00:00 | Cyclic vomiting syndrome | [facility] | + + + + | 2021-03-22 00:00 | Cyclic vomiting syndrome | [facility] | + + + + | 2021-03-22 00:00 | Cyclic vomiting syndrome | [facility] | + + + + | 2021-11-18 00:00 | Infection due to severe | [facility] | | | acute respiratory syndrome | | | | coronavirus 2 (SARS-CoV-2) | | + + + + | 2021-11-18 00:00 | Infection due to severe | [facility] | | | acute respiratory syndrome | | | | coronavirus 2 (SARS-CoV-2) | | + + + + | 2021-11-18 00:00 | Infection due to severe | [facility] | | | acute respiratory syndrome | | | | coronavirus 2 (SARS-CoV-2) | | + + + + | 2021-11-18 00:00 | Infection due to severe | [facility] | | | acute respiratory syndrome | | | | coronavirus 2 (SARS-CoV-2) | | + + + + | 2021-11-18 00:00 | Infection due to severe | [facility] | | | acute respiratory syndrome | | | | coronavirus 2 (SARS-CoV-2) | | + + + + | 2021-11-18 00:00 | Infection due to severe | [facility] | | | acute respiratory syndrome | | | | coronavirus 2 (SARS-CoV-2) | | + + + + | 2021-11-18 00:00 | Infection due to severe | [facility] | | | acute respiratory syndrome | | | | coronavirus 2 (SARS-CoV-2) | | + + + + | 2021-11-18 00:00 | Infection due to severe | [facility] | | | acute respiratory syndrome | | | | coronavirus 2 (SARS-CoV-2) | | + + + + | 2021-11-18 00:00 | Infection due to severe | [facility] | | | acute respiratory syndrome | | | | coronavirus 2 (SARS-CoV-2) | | + + + + | 2021-11-18 00:00 | Infection due to severe | [facility] | | | acute respiratory syndrome | | | | coronavirus 2 (SARS-CoV-2) | | + + + + | 2022-08-31 00:00 | Vomiting | [facility] | + + + + | 2022-08-31 00:00 | Vomiting | [facility] | + + + + | 2022-08-31 00:00 | Vomiting | [facility] | + + + + | 2022-08-31 00:00 | Vomiting | [facility] | + + + + | 2022-08-31 00:00 | Vomiting | [facility] | + + + + | 2022-08-31 00:00 | Vomiting | [facility] | + + + + | 2022-08-31 00:00 | Vomiting | [facility] | + + + + | 2022-08-31 00:00 | Vomiting | [facility] | + + + + | 2022-08-31 00:00 | Vomiting | [facility] | + + + + | 2022-08-31 00:00 | Vomiting | [facility] | + + + + | 2022-09-06 00:00 | Endometriosis | [facility] | + + + + | 2022-09-06 00:00 | Endometriosis | [facility] | + + + + | 2022-09-06 00:00 | Endometriosis | [facility] | + + + + | 2022-09-06 00:00 | Endometriosis | [facility] | + + + + | 2022-09-06 00:00 | Endometriosis | [facility] | + + + + | 2022-09-06 00:00 | Endometriosis | [facility] | + + + + | 2022-09-06 00:00 | Endometriosis | [facility] | + + + + | 2022-09-06 00:00 | Endometriosis | [facility] | + + + + | 2022-09-06 00:00 | Endometriosis | [facility] | + + + + | 2022-09-06 00:00 | Endometriosis | [facility] | + + + + | 2022-09-06 00:00 | Acute pelvic pain | [facility] | + + + + | 2022-09-06 00:00 | Acute pelvic pain | [facility] | + + + + | 2022-09-06 00:00 | Acute pelvic pain | [facility] | + + + + | 2022-09-06 00:00 | Acute pelvic pain | [facility] | + + + + | 2022-09-06 00:00 | Acute pelvic pain | [facility] | + + + + | 2022-09-06 00:00 | Acute pelvic pain | [facility] | + + + + | 2022-09-06 00:00 | Acute pelvic pain | [facility] | + + + + | 2022-09-06 00:00 | Acute pelvic pain | [facility] | + + + + | 2022-09-06 00:00 | Acute pelvic pain | [facility] | + + + + | 2022-09-06 00:00 | Acute pelvic pain | [facility] | + + + + | 2022-09-24 00:00 | Gastritis | [facility] | + + + + | 2022-09-24 00:00 | Gastritis | [facility] | + + + + | 2022-09-24 00:00 | Gastritis | [facility] | + + + + | 2022-09-24 00:00 | Gastritis | [facility] | + + + + | 2022-09-24 00:00 | Gastritis | [facility] | + + + + | 2022-09-24 00:00 | Gastritis | [facility] | + + + + | 2022-09-24 00:00 | Gastritis | [facility] | + + + + | 2022-09-24 00:00 | Gastritis | [facility] | + + + + | 2022-09-24 00:00 | Gastritis | [facility] | + + + + | 2022-09-24 00:00 | Gastritis | [facility] | + + + + | 2022-09-26 00:00 | Cannabis hyperemesis | [facility] | | | syndrome concurrent with | | | | and due to cannabis abuse | | + + + + | 2022-09-26 00:00 | Cannabis hyperemesis | [facility] | | | syndrome concurrent with | | | | and due to cannabis abuse | | + + + + | 2022-09-26 00:00 | Cannabis hyperemesis | [facility] | | | syndrome concurrent with | | | | and due tocannabis abuse | | + + + + | 2022-09-26 00:00 | Cannabis hyperemesis | [facility] | | | syndrome concurrent with | | | | and due tocannabis abuse | | + + + + | 2022-09-26 00:00 | Cannabis hyperemesis | [facility] | | | syndrome concurrent with | | | | and due tocannabis abuse | | + + + + | 2022-09-26 00:00 | Cannabis hyperemesis | [facility] | | | syndrome concurrent with | | | | and due tocannabis abuse | | + + + + | 2022-09-26 00:00 | Cannabis hyperemesis | [facility] | | | syndrome concurrent with | | | | and due tocannabis abuse | | + + + + | 2022-09-26 00:00 | Cannabis hyperemesis | [facility] | | | syndrome concurrent with | | | | and due tocannabis abuse | | + + + + | 2022-09-26 00:00 | Cannabis hyperemesis | [facility] | | | syndrome concurrent with | | | | and due tocannabis abuse | | + + + + | 2022-09-26 00:00 | Cannabis hyperemesis | [facility] | | | syndrome concurrent with | | | | and due tocannabis abuse | | + + + + | 2022-09-26 00:00 | Constipation | [facility] | + + + + | 2022-09-26 00:00 | Constipation | [facility] | + + + + | 2022-09-26 00:00 | Constipation | [facility] | + + + + | 2022-09-26 00:00 | Constipation | [facility] | + + + + | 2022-09-26 00:00 | Constipation | [facility] | + + + + | 2022-09-26 00:00 | Constipation | [facility] | + + + + | 2022-09-26 00:00 | Constipation | [facility] | + + + + | 2022-09-26 00:00 | Constipation | [facility] | + + + + | 2022-09-26 00:00 | Constipation | [facility] | + + + + | 2022-09-26 00:00 | Constipation | [facility] | + + + + | 2022-09-26 00:00 | Bacterial vaginosis | [facility] | + + + + | 2022-09-26 00:00 | Bacterial vaginosis | [facility] | + + + + | 2022-09-26 00:00 | Bacterial vaginosis | [facility] | + + + + | 2022-09-26 00:00 | Bacterial vaginosis | [facility] | + + + + | 2022-09-26 00:00 | Bacterial vaginosis | [facility] | + + + + | 2022-09-26 00:00 | Bacterial vaginosis | [facility] | + + + + | 2022-09-26 00:00 | Bacterial vaginosis | [facility] | + + + + | 2022-09-26 00:00 | Bacterial vaginosis | [facility] | + + + + | 2022-09-26 00:00 | Bacterial vaginosis | [facility] | + + + + | 2022-09-26 00:00 | Bacterial vaginosis | [facility] | + + + + | 2022-09-26 00:00 | Post endometrial ablation | [facility] | | | syndrome | | + + + + | 2022-09-26 00:00 | Post endometrial ablation | [facility] | | | syndrome | | + + + + | 2022-09-26 00:00 | Post endometrial ablation | [facility] | | | syndrome | | + + + + | 2022-09-26 00:00 | Post endometrial ablation | [facility] | | | syndrome | | + + + + | 2022-09-26 00:00 | Post endometrial ablation | [facility] | | | syndrome | | + + + + | 2022-09-26 00:00 | Post endometrial ablation | [facility] | | | syndrome | | + + + + | 2022-09-26 00:00 | Post endometrial ablation | [facility] | | | syndrome | | + + + + | 2022-09-26 00:00 | Post endometrial ablation | [facility] | | | syndrome | | + + + + | 2022-09-26 00:00 | Post endometrial ablation | [facility] | | | syndrome | | + + + + | 2022-09-26 00:00 | Post endometrial ablation | [facility] | | | syndrome | | + + + + | 2022-10-01 00:00 | Pain in pelvis | [facility] | + + + + | 2022-10-01 00:00 | Pain in pelvis | [facility] | + + + + | 2022-10-01 00:00 | Pain in pelvis | [facility] | + + + + | 2022-10-01 00:00 | Pain in pelvis | [facility] | + + + + | 2022-10-01 00:00 | Pain in pelvis | [facility] | + + + + | 2022-10-01 00:00 | Pain in pelvis | [facility] | + + + + | 2022-10-01 00:00 | Pain in pelvis | [facility] | + + + + | 2022-10-01 00:00 | Pain in pelvis | [facility] | + + + + | 2022-10-01 00:00 | Pain in pelvis | [facility] | + + + + | 2022-10-01 00:00 | Pain in pelvis | [facility] | + + + + | 2022-10-01 [...] + + | 2022-10-02 22:23 | OTHER HALF-WAY (CURRENT) | [facility] | | | DRUG [...] | 2022-12-10 00:00 | Abdominal pain | [facility] | + + + + | 2022-12-10 00:00 | Abdominal pain | [facility] | + + + + | 2022-12-10 00:00 | Abdominal pain | [facility] | + + + + | 2022-12-10 00:00 | Abdominal pain | [facility] | + + + + | 2022-12-10 00:00 | Abdominal pain | [facility] | + + + + | 2022-12-10 00:00 | Abdominal pain | [facility] | + + + + | 2022-12-10 00:00 | Abdominal pain | [facility] | + + + + | 2022-12-10 00:00 | Abdominal pain | [facility] | + + + + | 2022-12-10 [...] + + | 2022-12-10 05:56 | 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 (CURRENT) | [facility] | | | DRUG [...] + + | 2022-12-10 15:24 | OTHER HALF-WAY (CURRENT) | [facility] | | | DRUG [...] 2022-12-11 00:00 | Status post laparoscopy | [facility] | + + + + | 2022-12-11 00:00 | Status post laparoscopy | [facility] | + + + + | 2022-12-11 00:00 | Status post laparoscopy | [facility] | + + + + | 2022-12-11 00:00 | Status post laparoscopy | [facility] | + + + + | 2022-12-11 00:00 | Status post laparoscopy | [facility] | + + + + | 2022-12-11 00:00 | Status post laparoscopy | [facility] | + + + + | 2022-12-11 00:00 | Status post laparoscopy | [facility] | + + + + | 2022-12-11 00:00 | Status post laparoscopy | [facility] | + + + + | 2022-12-24 [...] 00:00 | Chronic pelvic pain in | [facility] | | | female | | + + + + | 2023-01-16 00:00 | Chronic pelvic pain in | [facility] | | | female | | + + + + | 2023-01-16 00:00 | Chronic pelvic pain in | [facility] | | | female | | + + + + | 2023-01-16 00:00 | Chronic pelvic pain in | [facility] | | | female | | + + + + | 2023-01-16 00:00 | Chronic pelvic pain in | [facility] | | | female | | + + + + | 2023-01-16 00:00 | Chronic pelvic pain in | [facility] | | | female | | + + + + | 2023-01-16 00:00 | Chronic abdominal pain | [facility] | + + + + | 2023-01-16 00:00 | Chronic abdominal pain | [facility] | + + + + | 2023-01-16 00:00 | Chronic abdominal pain | [facility] | + + + + | 2023-01-16 00:00 | Chronic abdominal pain | [facility] | + + + + | 2023-01-16 00:00 | Chronic abdominal pain | [facility] | + + + + | 2023-01-16 00:00 | Chronic abdominal pain | [facility] | + + + + | 2023-01-16 00:00 | Nausea and vomiting | [facility] | + + + + | 2023-01-16 00:00 | Nausea and vomiting | [facility] | + + + + | 2023-01-16 00:00 | Nausea and vomiting | [facility] | + + + + | 2023-01-16 00:00 | Nausea and vomiting | [facility] | + + + + | 2023-01-16 00:00 | Nausea and vomiting | [facility] | + + + + | 2023-01-16 00:00 | Nausea and vomiting | [facility] | + + + + | 2023-01-16 02:29 | ENDOMETRIOSIS, UNSPECIFIED | [facility] | | | | | + + + + | 2023-01-16 02:29 | ABNORMAL UTERINE AND | [facility] | | | VAGINAL BLEEDING, | | | | UNSPECIFIED | | + + + + | 2023-01-16 02:29 | 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 (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) | [facility] | | | DRUG [...] + + | 2023-01-21 22:28 | OTHER HALF-WAY (CURRENT) | [facility] | | | DRUG [...] + | 2023-01-22 00:00 | Nausea | [facility] | + + + + | 2023-01-22 00:00 | Nausea | [facility] | + + + + | 2023-01-22 00:00 | Nausea | [facility] | + + + + | 2023-01-22 00:00 | Nausea | [facility] | + + + + | 2023-01-22 00:00 | Nausea | [facility] | + + + + | 2023-01-22 00:00 | Nausea | [facility] | + + + + | 2023-01-22 05:36 | LEFT LOWER QUADRANT PAIN | [facility] | + + + + | 2023-01-22 05:36 | NAUSEA WITH VOMITING, | [facility] | | | UNSPECIFIED | | + + + + | 2023-01-22 05:36 | 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 (CURRENT) | [facility] | | | DRUG [...] + + | 2023-01-22 14:54 | 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 (CURRENT) | [facility] | | | DRUG [...] | 2023-01-23 00:00 | Cannabis abuse | [facility] | + + + + | 2023-01-23 00:00 | Cannabis abuse | [facility] | + + + + | 2023-01-23 00:00 | Cannabis abuse | [facility] | + + + + | 2023-01-23 00:00 | Cannabis abuse | [facility] | + + + + | 2023-01-23 00:00 | Cannabis abuse | [facility] | + + + + | 2023-01-23 00:00 | Intractable vomiting with | [facility] | | | nausea | | + + + + | 2023-01-23 00:00 | Intractable vomiting with | [facility] | | | nausea | | + + + + | 2023-01-23 00:00 | Intractable vomiting with | [facility] | | | nausea | | + + + + | 2023-01-23 00:00 | Intractable vomiting with | [facility] | | | nausea | | + + + + | 2023-01-23 00:00 | Intractable vomiting with | [facility] | | | nausea | | + [...] + + | 2023-01-25 12:53 | 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 (CURRENT) | [facility] | | | DRUG [...] | 2023-03-22 00:00 | Cannabinoid hyperemesis | [facility] | | | syndrome | | + + + + | 2023-03-22 00:00 | Cannabinoid hyperemesis | [facility] | | | syndrome | | + + + + | 2023-03-22 00:00 | Cannabinoid hyperemesis | [facility] | | | syndrome | | + + + + | 2023-03-22 00:00 | Cannabinoid hyperemesis | [facility] | | | syndrome | | + [...] + | 2023-04-09 00:00 | Hypomagnesemia | [facility] | + + + + | 2023-04-09 00:00 | Hypomagnesemia | [facility] | + + + + [...] + + | 2023-04-09 06:27 | OTHER HALF-WAY (CURRENT) | [facility] | | | DRUG [...] 2023-04-10 00:00 | 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[facility] | + + + + [...] + + | 2023-04-10 15:40 | OTHER HALF-WAY (CURRENT) | [facility] | | | DRUG [...] + + | 2023-04-13 10:53 | OTHER HALF-WAY (CURRENT) | [facility] | | | DRUG [...] + + | 2023-06-22 02:41 | 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 (CURRENT) | [facility] | | | DRUG [...] + + | 2023-06-22 22:44 | 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 (CURRENT) | [facility] | | | DRUG [...] + + | 2023-06-23 17:38 | OTHER HALF-WAY (CURRENT) | [facility] | | | DRUG [...] + + | 2023-06-27 01:00 | 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 (CURRENT) | [facility] | | | DRUG [...] 2022-12-10 00:00 | CONTROL BLEEDING IN | [facility] | | | RETROPERITONEUM, PERC ENDO | | | | APPROACH | | + + + + | 2022-12-10 00:00 | CONTROL BLEEDING IN | [facility] | | | RETROPERITONEUM, PERC ENDO | | | | APPROACH | | + + + + | 2022-12-10 00:00 | CONTROL BLEEDING IN | [facility] | | | RETROPERITONEUM, PERC ENDO | | | | APPROACH | | + + + + | 2022-12-10 00:00 | LAPAROSCOPY EXCISE LESIONS | [facility] | | | | | + + + + | 2022-12-10 00:00 | LAPAROSCOPY EXCISE LESIONS | [facility] | | | | | + + + + | 2022-12-10 00:00 | LAPAROSCOPY EXCISE LESIONS | [facility] | | | | | + + + + Results/Labs +--------+--------+ +---------+--------+---------+ | test | date | facility | value | unit | notes | +--------+--------+ +---------+--------+---------+ + + | Result panel 1 | + + + + + +-------+ + + | | 2022-08-08 | [facility] | 7.4 | (missing) | (missing) | | (unavailable | 10:40 | [facility] | | | | | ) | [...] (missing) | | (unavailable | 18:25 | [facility] | | | | | [...] (missing) | | (unavailable | 13:00 | [facility] | | | | | [...] (missing) | | (unavailable | 08:07:08 | [facility] | | | | | [...] (missing) | | (unavailable | 16:21:07 | [facility] | | | | | [...]
[~2023-06-30 22:33] MED LIST changes: +ATIVAN0.5 MG PO; +CYCLOBENZAPRINE5 MG PO; +HYDROXYZINE HCL25 MG PO
--- OUTSIDE RECORDS SUMMARY | 2023-06-30 22:37 | XMS ---
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 - Patient with suicidal and/or homicidal ideations eloped. - Patient eloped with IV in place. Details: Patient left AMA Elopement at [facility] 10/02/2022 11:15 - Patient eloped before treatment completed. - Patient with suicidal and/or homicidal ideations eloped. - Patient eloped with IV in place. Details: Patient left AMA. Returned to ED same day. Elopement at [facility] 09/06/2022 09:48 - Patient eloped before treatment completed. - Patient with suicidal and/or homicidal ideations eloped. - Patient eloped with IV in place. 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 Care History Medical/Surgical 03/26/2021 [facility] - PATIENT NO SHOWED TO HER ESTABLISHING CARE APT SCHEDULED WITH DR BANUELOS. - W WILL CONTACT [facility] CASE MANAGEMENT TEAM TO DISCUSS FURTHER 03/19/2021 [facility] - CHW RECEIVED A PHONE CALL BACK FROM PATIENT- PATIENT WOULD LIKE ASSISTANCE WITH FINDING A LOCAL PCP. - CHW DISCUSSED LOCAL PRIMARY CARE OPTIONS IN THE AREA-PATIENT WOULD LIKE [facility] FOR PRIMARY CARE. - CHW CONTACTED [facility]- AN APT HAS BEEN SET TO ESTABLISH CARE WITH DR BANUELOS 03/22/2021Friday AT 11:30AM. 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 03/19/2021 [facility] - CHW CALLED PATIENT AT CONTACT NUMBER [phone] AND LEFT A VOICEMAIL. E.D. VISIT COUNT (12 MO.) [address] T[address] 32 NOTE: Visits indicate total known visits. ED/UCC VISIT TRACKING (12 MO.) 06/30/2023 22:34 [facility] [place] TYPE: Emergency COMPLAINT: - ABDOMINAL PAIN 06/30/2023 03:[address] [facility] [place]: Emergency COMPLAINT: - ABD PAIN 06/27/2023 01:00 [facility] [place] TYPE: Emergency COMPLAINT: - ABDOMINAL PAIN DIAGNOSES: - Allergy status to narcotic agent - Allergy status to other antibiotic agents - Allergy status to other drugs, medicaments and biological substances - Allergy status to penicillin - Allergy status to sulfonamides - Left lower quadrant pain - Other usp (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 06/26/2023 07:53 [facility] [place] TYPE: Emergency COMPLAINT: - LOWER ABD PAIN, VAGINAL BLEEDING DIAGNOSES: - Abnormal uterine and vaginal bleeding, unspecified - Allergy status to analgesic agent - Allergy status to narcotic agent - Allergy status to other drugs, medicaments and biological substances - Allergy status to penicillin - Allergy status to sulfonamides - Pelvic and perineal pain - Unspecified abdominal pain 06[facility]23/2023 17:38 [facility] [place] COMPLAINT: - VOMITING/ABD PAIN DIAGNOSES: - Allergy status to other antibiotic agents - Allergy status to other drugs, medicaments and biological substances - Allergy status to penicillin - Allergy status to sulfonamides - Cannabis use, unspecified, uncomplicated - 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 [place] TYPE: Emergency COMPLAINT: - VOMITING BLOOD DIAGNOSES: - Allergy status to narcotic agent - Allergy status to other drugs, medicaments and biological substances - Allergy status to penicillin - Allergy status to sulfonamides - Cannabis use, unspecified, uncomplicated - Nausea with vomiting, unspecified - Other usp (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 - Patient's noncompliance with other medical treatment and regimen for other reason - Vomiting without nausea [facility] [place] [facility] DIAGNOSES: - Unspecified abdominal pain - constipation 06/22/2023 02:41 [facility] [place] TYPE: Emergency COMPLAINT: - CONSTIPATED DIAGNOSES: - Allergy status to narcotic agent - Allergy status to other drugs, medicaments and biological substances - Allergy status to penicillin - Allergy status to sulfonamides - Constipation, unspecified - Other usp (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 - Procedure and treatment not carried out because of patient's decision for other reasons 04/11/2023 15:05 [facility] [place] TYPE: Emergency COMPLAINT: - VOMITING 04/10/2023 15:40 [facility] [place] TYPE: Emergency COMPLAINT: - ABD PAIN, VOMITING BLOOD DIAGNOSES: - Allergy status to narcotic agent - Allergy status to other drugs, medicaments and biological substances - Allergy status to penicillin - Allergy status to sulfonamides - Cannabis use, unspecified, uncomplicated - Gastro-esophageal laceration-hemorrhage syndrome - Nausea with vomiting, unspecified - 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 04/10/2023 04:45 [facility] [place] TYPE: Emergency COMPLAINT: - NAUSEA,VOMITING DIAGNOSES: - Allergy status to narcotic agent - Allergy status to other drugs, medicaments and biological substances - Allergy status to penicillin - Allergy status to sulfonamides - Nausea with vomiting, unspecified 04/09/2023 06:27 [facility] [place] TYPE: Emergency COMPLAINT: - ABD PAIN DIAGNOSES: - Allergy status to narcotic agent - Allergy status to other drugs, medicaments and biological substances - Allergy status to penicillin - Allergy status to sulfonamides - Cyclical vomiting syndrome unrelated to migraine - Hypomagnesemia - Nausea with vomiting, unspecified - Other usp (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 03/22/2023 13:[address] 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 01/21/2023 22:28 [facility] [place] TYPE: Emergency COMPLAINT: - ABDOMINAL PAIN DIAGNOSES: - Allergy status to narcotic agent - Allergy status to other drugs, medicaments and biological substances - Allergy status to penicillin - Allergy status to sulfonamides - Constipation, unspecified - Left lower quadrant pain - Other usp (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 - Pelvic and perineal pain 01/16/2023 08:56 [facility] [place] COMPLAINT: - VOMITING DIAGNOSES: - Allergy status to narcotic agent - Allergy status to other drugs, medicaments and biological substances - Allergy status to penicillin - Allergy status to sulfonamides - Nausea with vomiting, unspecified - Other chronic pain - Pelvic and perineal pain 01/16/2023 02:29 [facility] [place] TYPE: Emergency COMPLAINT: - ABD PAIN AND VAGINAL PAIN DIAGNOSES: - Abnormal uterine and vaginal bleeding, unspecified - Allergy status to other drugs, medicaments and biological substances - Allergy status to penicillin - Allergy status to sulfonamides - Endometriosis, unspecified - Other usp (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 Plus 12 More Visits INPATIENT VISIT TRACKING (12 MO.) 04/13/2023 10:53 [facility] [place] TYPE: Medical Surgical COMPLAINT: - CANNABIS INDUCED HYPEREMESIS SYNDROME DIAGNOSES: - Acquired absence of other specified parts of digestive tract - Acquired absence of other specified parts of digestive tract - Acquired absence of ovaries, unilateral - Acquired absence of ovaries, unilateral - Allergy status to other drugs, medicaments and biological substances - Allergy status to other drugs, medicaments and biological substances - Allergy status to penicillin - Allergy status to penicillin - Allergy status to sulfonamides - Allergy status to sulfonamides - Cannabis use, unspecified with other cannabis-induced disorder - Cannabis use, unspecified with other cannabis-induced disorder - Constipation, unspecified - Constipation, unspecified - Endometriosis, unspecified - Endometriosis, unspecified - Hematemesis - Irritable bowel syndrome without diarrhea - Irritable bowel syndrome without diarrhea - Nausea with vomiting, unspecified - 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
[2023-07-01 00:17] LABS: BILIRUBIN, URINE POSITIVE (negative); BLOOD/HGB, URINE NEGATIVE (Negative); KETONE, URINE >=80 (Negative); LEUK ESTERASE, URINE NEGATIVE (negative); NITRITE, URINE NEGATIVE (negative); PH, URINE 5.5 (5-7)
[2023-07-01 00:29] LABS: BASOPHILS 0.7 % (0-2); EOSINOPHILS 1.1 % (0-6); HEMATOCRIT 36.9 % (35.0-50.0); HEMOGLOBIN 12.5 g/dL (12.0-18.0); LYMPHOCYTES 23.7 % (24-44); MCH 28.8 (27-36); MCHC 33.8 g/dl (30-36); MCV 85.4 fl (81-99); MONOCYTES 7.2 % (0-12); NEUTROPHILS 67.3 % (39-80); PLATELET COUNT 195 K/uL (140-440); RBC 4.32 M/ul (4.3-5.7); RDW 13.3 (10.5-15.0)
[2023-07-01 00:44] LABS: ALBUMIN 3.9 g/dL (3.4-5.0); ALBUMIN/GLOBULIN RATIO 1.11 (1.1-2.4); ANION GAP 17.7 (7-21); BUN/CREATININE RATIO 17.18 (6.0-28.6); CALCIUM 8.8 mg/dL (8.5-10.1); CREATININE, SERUM 0.64 mg/dL (0.55-1.02); POTASSIUM 3.7 mmol/L (3.5-5.1); PROTEIN, TOTAL 7.4 g/dL (6.4-8.2)
--- OUTSIDE RECORDS SUMMARY | 2023-07-01 03:07 | XMS | Continuity of Care Document ---
Demographics + + + | Address | [address] [facility] [address] | | | [place] [address] | + + + | Preferred Language | Unknown | + + + | Marital Status | Polygamous | + + + | Restorationist Affiliation | Unknown | + + + | Race | White | + + + | Ethnic Group | Not or | + + + Author + + + | Author | [facility] | + + + | Organization | [facility] | + + + | Address | [address] | | | [place] [address] | + + + | Phone | | + + + Care Team Providers + + + + | Care Adaptive Physical Educator Name | Role | Phone | + + + + Unavailable | Unavailable | + + + + Unavailable | Unavailable | + + + + Unavailable | Unavailable | + + + + Unavailable | Unavailable | + + + + Unavailable | Unavailable | + + + + Unavailable | Unavailable | + + + + Unavailable | Unavailable | + + + + Unavailable | Unavailable | + + + + Unavailable | Unavailable | + + + + Unavailable | Unavailable | + + + + Unavailable | Unavailable | + + + + Unavailable | Unavailable | + + + + Allergies and Intolerances + + + + + + | date | description | facility | reaction | severity | + + + + + + | (no date) | Haloperidol | [facility] | (no reaction) | (no severity) | | | [facility] | | | + + + + + + | (no date) | Metronidazole | [facility] | (no reaction) | (no severity) | | | | [facility] | | | + + + + + + | (no date) | Metronidazole | [facility] | (no reaction) | (no severity) | | | | [facility] | | | + + + + + + | (no date) | Abdominal | [facility] | (no reaction) | (no severity) | | | cramps | [facility] | | | + + + + + + | (no date) | Mild | [facility] | (no reaction) | (no severity) | | | | [facility] | | | + + + + + + | (no date) | Hydromorphone | [facility] | (no reaction) | (no severity) | | | | [facility] | | | + + + + + + | (no date) | Metoclopramide | [facility] | (no reaction) | (no severity) | | | | [facility] | | | + + + + + + | (no date) | | [facility] | (no reaction) | (no severity) | | | Prochlorperazin | [facility] | | | + + + + + + | (no date) | Promethazine | [facility] | (no reaction) | (no severity) | | | | [facility] | | | + + + + + + | (no date) | Anaphylaxis | [facility] | (no reaction) | (no severity) | | | | [facility] | | | + + + + + + | (no date) | Hydromorphone | [facility] | (no reaction) | (no severity) | | | | [facility] | | | + + + + + + | (no date) | Vomiting | [facility] | (no reaction) | (no severity) | | | | [facility] | | | + + + + + + | (no date) | Nausea alone | [facility] | (no reaction) | (no severity) | | | | [facility] | | | + + + + + + | (no date) | Anxiety | [facility] | (no reaction) | (no severity) | | | | [facility] | | | + + + + + + | (no date) | Haloperidol | [facility] | (no reaction) | (no severity) | | | | [facility] | | | + + + + + + | (no date) | Metoclopramide | [facility] | (no reaction) | (no severity) | | | | [facility] | | | + + + + + + | (no date) | Metronidazole | [facility] | (no reaction) | (no severity) | | | | [facility] | | | + + + + + + | (no date) | Penicillin | [facility] | (no reaction) | (no severity) | | | | [facility] | | | + + + + + + | (no date) | Penicillin | [facility] | (no reaction) | (no severity) | | | | [facility] | | | + + + + + + | (no date) | | [facility] | (no reaction) | (no severity) | | | Prochlorperazin | [facility] | | | [facility] e | [facility] | | | + + + + + + | (no date) | Promethazine | [facility] | (no reaction) | (no severity) | | | | [facility] | | | + + + + + + | (no date) | Penicillins | [facility] | (no reaction) | (no severity) | + + + + + + | (no date) | Sulfa | [facility] | (no reaction) | (no severity) | | | (Sulfonamide | | | | | | Antibiotics) | | | | + + + + + + | (no date) | | [facility] | (no reaction) | (no severity) | | | prochlorperazin | | | | | | e | | | | + + + + + + | (no date) | haloperidol | [facility] | (no reaction) | (no severity) | + + + + + + | (no date) | metronidazole | [facility] | (no reaction) | (no severity) | + + + + + + | (no date) | promethazine | [facility] | (no reaction) | (no severity) | + + + + + + | (no date) | hydromorphone | [facility] | (no reaction) | (no severity) | + + + + + + | (no date) | metoclopramide | [facility] | (no reaction) | (no severity) | | | | | | | + + + + + + | (no date) | Promethazine | [facility] | (no reaction) | (no severity) | | | | [facility] | | | + + + + + + | (no date) | Haloperidol | [facility] | (no reaction) | (no severity) | | | | [facility] | | | + + + + + + | (no date) | Metoclopramide | [facility] | (no reaction) | (no severity) | | | | [facility] | | | + + + + + + | (no date) | Penicillin | [facility] | (no reaction) | (no severity) | | | | [facility] | | | + + + + + + | (no date) | Penicillin | [facility] | (no reaction) | (no severity) | | | | [facility] | | | + + + + + + | (no date) | Hydromorphone | [facility] | (no reaction) | (no severity) | | | | [facility] | | | + + + + + + | (no date) | | [facility] | (no reaction) | (no severity) | | | Prochlorperazin | [facility] | [facility] | | | + + + + + + Encounters No information. Functional Status No information. Immunizations No information. Medications + + + + | date | description | facility | + + + + | 2022-09-19 00:00 | MEDROXYPROGESTERONE | [facility] | | | ACETATE | | + + + + | 2022-09-24 00:00 | MEDROXYPROGESTERONE | [facility] | | | ACETATE | | + + + + | 2022-09-26 00:00 | MEDROXYPROGESTERONE | [facility] | | | ACETATE | | + + + + | 2022-10-01 00:00 | MEDROXYPROGESTERONE | [facility] | | | ACETATE | | + + + + | 2022-10-03 00:00 | MEDROXYPROGESTERONE | [facility] | | | ACETATE | | + + + + | 2022-12-17 00:00 | MEDROXYPROGESTERONE | [facility] | | | ACETATE | | + + + + | 2022-12-24 00:00 | MEDROXYPROGESTERONE | [facility] | | | ACETATE | | + + + + | 2022-12-28 00:00 | MEDROXYPROGESTERONE | [facility] | | | ACETATE | | + + + + | 2023-01-16 00:00 | MEDROXYPROGESTERONE | [facility] | | | ACETATE | | + + + + | 2023-01-16 00:00 | MEDROXYPROGESTERONE | [facility] | | | ACETATE | | + + + + | 2023-01-22 00:00 | MEDROXYPROGESTERONE | [facility] | | | ACETATE | | + + + + | 2023-01-22 00:00 | MEDROXYPROGESTERONE | [facility] | | | ACETATE | | + + + + | 2023-01-27 00:00 | MEDROXYPROGESTERONE | [facility] | | | ACETATE | | + + + + | 2023-03-22 00:00 | MEDROXYPROGESTERONE | [facility] | | | ACETATE | | + + + + | 2023-03-22 00:00 | MEDROXYPROGESTERONE | [facility] | | | ACETATE | | + + + + | 2023-04-09 00:00 | MEDROXYPROGESTERONE | [facility] | | | ACETATE | | + + + + | 2023-04-10 00:00 | MEDROXYPROGESTERONE | [facility] | | | ACETATE | | + + + + | 2023-04-10 00:00 | MEDROXYPROGESTERONE | [facility] | | | ACETATE | | + + + + | 2021-03-15 00:00 | FAMOTIDINE | [facility] | + + + + | 2021-03-15 00:00 | FAMOTIDINE | [facility] | + + + + | 2021-03-15 00:00 | FAMOTIDINE | [facility] | + + + + | 2021-03-15 00:00 | FAMOTIDINE | [facility] | + + + + | 2021-03-15 00:00 | FAMOTIDINE | [facility] | + + + + | 2021-03-15 00:00 | FAMOTIDINE | [facility] | + + + + | 2021-03-15 00:00 | FAMOTIDINE | [facility] | + + + + | 2021-03-15 00:00 | FAMOTIDINE | [facility] | + + + + | 2021-03-15 00:00 | FAMOTIDINE | [facility] | + + + + | 2021-03-15 00:00 | FAMOTIDINE | [facility] | + + + + | 2021-03-22 00:00 | ONDANSETRON HCL | [facility] | + + + + | 2021-03-22 00:00 | ONDANSETRON HCL | [facility] | + + + + | 2021-03-22 00:00 | ONDANSETRON HCL | [facility] | + + + + | 2021-03-22 00:00 | ONDANSETRON HCL | [facility] | + + + + | 2021-03-22 00:00 | ONDANSETRON HCL | [facility] | + + + + | 2021-03-22 00:00 | ONDANSETRON HCL | [facility] | + + + + | 2021-03-22 00:00 | ONDANSETRON HCL | [facility] | + + + + | 2021-03-22 00:00 | ONDANSETRON HCL | [facility] | + + + + | 2021-03-22 00:00 | ONDANSETRON HCL | [facility] | + + + + | 2021-03-22 00:00 | ONDANSETRON HCL | [facility] | + + + + | 2022-09-19 00:00 | OXYCODONE HCL | [facility] | + + + + | 2022-09-19 00:00 | OXYCODONE HCL | [facility] | + + + + | 2022-09-19 00:00 | OXYCODONE HCL | [facility] | + + + + | 2022-09-19 00:00 | OXYCODONE HCL | [facility] | + + + + | 2022-09-19 00:00 | OXYCODONE HCL | [facility] | + + + + | 2022-09-19 00:00 | OXYCODONE HCL | [facility] | + + + + | 2022-09-19 00:00 | OXYCODONE HCL | [facility] | + + + + | 2022-09-19 00:00 | OXYCODONE HCL | [facility] | + + + + | 2022-09-19 00:00 | OXYCODONE HCL | [facility] | + + + + | 2022-09-19 00:00 | OXYCODONE HCL | [facility] | + + + + | 2023-01-22 00:00 | DIPHENHYDRAMINE HCL | [facility] | + + + + | 2023-01-22 00:00 | DIPHENHYDRAMINE HCL | [facility] | + + + + | 2023-01-27 00:00 | DIPHENHYDRAMINE HCL | [facility] | + + + + | 2023-03-22 00:00 | DIPHENHYDRAMINE HCL | [facility] | + + + + | 2023-03-22 00:00 | DIPHENHYDRAMINE HCL | [facility] | + + + + | 2023-04-09 00:00 | DIPHENHYDRAMINE HCL | [facility] | + + + + | 2023-04-10 00:00 | DIPHENHYDRAMINE HCL | [facility] | + + + + | 2023-04-10 00:00 | DIPHENHYDRAMINE HCL | [facility] | + + + + | 2023-01-16 00:00 | NAPROXEN | [facility] | + + + + | 2023-01-16 00:00 | NAPROXEN | [facility] | + + + + | 2023-01-22 00:00 | NAPROXEN | [facility] | + + + + | 2023-01-22 00:00 | NAPROXEN | [facility] | + + + + | 2022-12-17 00:00 | NAPROXEN | [facility] | + + + + | 2021-03-24 00:00 | SUCRALFATE | [facility] | + + + + | 2021-03-24 00:00 | SUCRALFATE | [facility] | + + + + | 2021-03-24 00:00 | SUCRALFATE | [facility] | + + + + | 2021-03-24 00:00 | SUCRALFATE | [facility] | + + + + | 2021-03-24 00:00 | SUCRALFATE | [facility] | + + + + | 2021-03-24 00:00 | SUCRALFATE | [facility] | + + + + | 2021-03-24 00:00 | SUCRALFATE | [facility] | + + + + | 2021-03-24 00:00 | SUCRALFATE | [facility] | + + + + | 2021-03-24 00:00 | SUCRALFATE | [facility] | + + + + | 2021-03-24 00:00 | SUCRALFATE | [facility] | + + + + | 2022-09-24 00:00 | SUCRALFATE | [facility] | + + + + | 2022-09-24 00:00 | SUCRALFATE | [facility] | + + + + | 2022-09-24 00:00 | PANTOPRAZOLE SODIUM | [facility] | + + + + | 2022-09-24 00:00 | PANTOPRAZOLE SODIUM | [facility] | + + + + | 2023-04-09 00:00 | MAGNESIUM OXIDE | [facility] | + + + + | 2023-04-09 00:00 | MAGNESIUM OXIDE | [facility] | + + + + | 2020-06-15 00:00 | Ofloxacin | [facility] | + + + + | 2020-06-15 00:00 | Ofloxacin | [facility] | + + + + | 2020-06-15 00:00 | Ofloxacin | [facility] | + + + + | 2020-06-15 00:00 | Ofloxacin | [facility] | + + + + | 2020-06-15 00:00 | Ofloxacin | [facility] | + + + + | 2020-06-15 00:00 | Ofloxacin | [facility] | + + + + | 2020-06-15 00:00 | Ofloxacin | [facility] | + + + + | 2020-06-15 00:00 | Ofloxacin | [facility] | + + + + | 2020-06-15 00:00 | Ofloxacin | [facility] | + + + + 2020-06-15 00:00 | Ofloxacin | [facility] | + + + + | 2023-01-27 00:00 | OLANZAPINE | [facility] | + + + + | 2023-01-27 00:00 | OLANZAPINE | [facility] | + + + + | 2023-01-27 00:00 | OLANZAPINE | [facility] | + + + + | 2023-01-27 00:00 | OLANZAPINE | [facility] | + + + + | 2023-01-27 00:00 | OLANZAPINE | [facility] | + + + + | 2021-02-14 00:00 | ONDANSETRON | [facility] | + + + + | 2021-02-14 00:00 | ONDANSETRON | [facility] | + + + + | 2021-02-14 00:00 | ONDANSETRON | [facility] | + + + + | 2021-02-14 00:00 | ONDANSETRON | [facility] | + + + + | 2021-02-14 00:00 | ONDANSETRON | [facility] | + + + + | 2021-02-14 00:00 | ONDANSETRON | [facility] | + + + + | 2021-02-14 00:00 | ONDANSETRON | [facility] | + + + + | 2021-02-14 00:00 | ONDANSETRON | [facility] | + + + + | 2021-02-14 00:00 | ONDANSETRON | [facility] | + + + + | 2021-02-14 00:00 | ONDANSETRON | [facility] | + + + + | 2021-02-18 00:00 | ONDANSETRON | [facility] | + + + + | 2021-02-18 00:00 | ONDANSETRON | [facility] | + + + + | 2021-02-18 00:00 | ONDANSETRON | [facility] | + + + + | 2021-02-18 00:00 | ONDANSETRON | [facility] | + + + + | 2021-02-18 00:00 | ONDANSETRON | [facility] | + + + + | 2021-02-18 00:00 | ONDANSETRON | [facility] | + + + + | 2021-02-18 00:00 | ONDANSETRON | [facility] | + + + + | 2021-02-18 00:00 | ONDANSETRON | [facility] | + + + + | 2021-02-18 00:00 | ONDANSETRON | [facility] | + + + + | 2021-02-18 00:00 | ONDANSETRON | [facility] | + + + + | 2021-03-13 00:00 | ONDANSETRON | [facility] | + + + + | 2021-03-13 00:00 | ONDANSETRON | [facility] | + + + + | 2021-03-13 00:00 | ONDANSETRON | [facility] | + + + + | 2021-03-13 00:00 | ONDANSETRON | [facility] | + + + + | 2021-03-13 00:00 | ONDANSETRON | [facility] | + + + + | 2021-03-13 00:00 | ONDANSETRON | [facility] | + + + + | 2021-03-13 00:00 | ONDANSETRON | [facility] | + + + + | 2021-03-13 00:00 | ONDANSETRON | [facility] | + + + + | 2021-03-13 00:00 | ONDANSETRON | [facility] | + + + + | 2021-03-13 00:00 | ONDANSETRON | [facility] | + + + + | 2022-08-08 00:00 | ONDANSETRON | [facility] | + + + + | 2022-08-08 00:00 | ONDANSETRON | [facility] | + + + + | 2022-10-03 00:00 | ONDANSETRON | [facility] | + + + + | 2022-12-17 00:00 | ONDANSETRON | [facility] | + + + + | 2022-12-24 00:00 | ONDANSETRON | [facility] | + + + + | 2022-12-28 00:00 | ONDANSETRON | [facility] | + + + + | 2022-12-28 00:00 | ONDANSETRON | [facility] | + + + + | 2022-12-28 00:00 | ONDANSETRON | [facility] | + + + + | 2022-12-28 00:00 | ONDANSETRON | [facility] | + + + + | 2022-12-28 00:00 | ONDANSETRON | [facility] | + + + + | 2022-12-28 00:00 | ONDANSETRON | [facility] | + + + + | 2022-12-28 00:00 | ONDANSETRON | [facility] | + + + + | 2023-01-16 00:00 | ONDANSETRON | [facility] | + + + + | 2023-01-16 00:00 | ONDANSETRON | [facility] | + + + + | 2023-01-22 00:00 | ONDANSETRON | [facility] | + + + + | 2023-04-10 00:00 | ONDANSETRON | [facility] | + + + + | 2022-10-03 00:00 | SUCRALFATE | [facility] | + + + + | 2022-10-03 00:00 | SUCRALFATE | [facility] | + + + + | 2022-10-03 00:00 | SUCRALFATE | [facility] | + + + + | 2022-10-03 00:00 | SUCRALFATE | [facility] | + + + + | 2022-10-03 00:00 | SUCRALFATE | [facility] | + + + + | 2022-10-03 00:00 | SUCRALFATE | [facility] | + + + + | 2022-10-03 00:00 | SUCRALFATE | [facility] | + + + + | 2022-10-03 00:00 | SUCRALFATE | [facility] | + + + + | 2022-10-03 00:00 | SUCRALFATE | [facility] | + + + + | 2022-09-19 00:00 | ESCITALOPRAM OXALATE | [facility] | + + + + | 2022-09-24 00:00 | ESCITALOPRAM OXALATE | [facility] | + + + + | 2022-09-26 00:00 | ESCITALOPRAM OXALATE | [facility] | + + + + 2022-10-01 00:00 | ESCITALOPRAM OXALATE | [facility] | + + + + | 2022-10-03 00:00 | ESCITALOPRAM OXALATE | [facility] | + + + + | 2022-12-17 00:00 | ESCITALOPRAM OXALATE | [facility] | + + + + | 2022-12-24 00:00 | ESCITALOPRAM OXALATE | [facility] | + + + + | 2022-12-28 00:00 | ESCITALOPRAM OXALATE | [facility] | + + + + | 2023-01-16 00:00 | ESCITALOPRAM OXALATE | [facility] | + + + + | 2023-01-16 00:00 | ESCITALOPRAM OXALATE | [facility] | + + + + | 2023-01-22 00:00 | ESCITALOPRAM OXALATE | [facility] | + + + + | 2023-01-22 00:00 | ESCITALOPRAM OXALATE | [facility] | + + + + | 2023-01-27 00:00 | ESCITALOPRAM OXALATE | [facility] | + + + + | 2023-03-22 00:00 | ESCITALOPRAM OXALATE | [facility] | + + + + | 2023-03-22 00:00 | ESCITALOPRAM OXALATE | [facility] | + + + + | 2023-04-09 00:00 | ESCITALOPRAM OXALATE | [facility] | + + + + | 2023-04-10 00:00 | ESCITALOPRAM OXALATE | [facility] | + + + + | 2023-04-10 00:00 | ESCITALOPRAM OXALATE | [facility] | + + + + | 2021-03-24 00:00 | PANTOPRAZOLE SODIUM | [facility] | + + + + | 2021-03-24 00:00 | PANTOPRAZOLE SODIUM | [facility] | + + + + | 2021-03-24 00:00 | PANTOPRAZOLE SODIUM | [facility] | + + + + | 2021-03-24 00:00 | PANTOPRAZOLE SODIUM | [facility] | + + + + | 2021-03-24 00:00 | PANTOPRAZOLE SODIUM | [facility] | + + + + | 2021-03-24 00:00 | PANTOPRAZOLE SODIUM | [facility] | + + + + | 2021-03-24 00:00 | PANTOPRAZOLE SODIUM | [facility] | + + + + | 2021-03-24 00:00 | PANTOPRAZOLE SODIUM | [facility] | + + + + | 2021-03-24 00:00 | PANTOPRAZOLE SODIUM | [facility] | + + + + | 2021-03-24 00:00 | PANTOPRAZOLE SODIUM | [facility] | + + + + | 2022-09-24 00:00 | NITROFURANTOIN MONOHYD | [facility] | | | MACROCR | | + + + + | 2022-09-24 00:00 | NITROFURANTOIN MONOHYD | [facility] | | | MACROCR | | + + + + | 2023-04-10 00:00 | AMITRIPTYLINE HCL | [facility] | + + + + | 2022-09-26 00:00 | HYDROCODONE | [facility] | | | BIT/ACETAMINOPHEN | | + + + + | 2022-10-01 00:00 | HYDROCODONE | [facility] | | | BIT/ACETAMINOPHEN | | + + + + | 2022-10-01 00:00 | HYDROCODONE | [facility] | | | BIT/ACETAMINOPHEN | | + + + + | 2022-10-01 00:00 | HYDROCODONE | [facility] | | | BIT/ACETAMINOPHEN | | + + + + | 2022-10-01 00:00 | HYDROCODONE | [facility] | | | BIT/ACETAMINOPHEN | | + + + + | 2022-10-01 00:00 | HYDROCODONE | [facility] | | | BIT/ACETAMINOPHEN | | + + + + | 2022-10-01 00:00 | HYDROCODONE | [facility] | | | BIT/ACETAMINOPHEN | | + + + + | 2022-10-01 00:00 | HYDROCODONE | [facility] | | | BIT/ACETAMINOPHEN | | + + + + | 2022-10-01 00:00 | HYDROCODONE | [facility] | | | BIT/ACETAMINOPHEN | | + + + + | 2022-10-01 00:00 | HYDROCODONE | [facility] | | | BIT/ACETAMINOPHEN | | + + + + | 2022-10-01 00:00 | HYDROCODONE | [facility] | | | BIT/ACETAMINOPHEN | | + + + + | 2022-09-26 00:00 | CLINDAMYCIN PHOSPHATE | [facility] | + + + + | 2022-09-26 00:00 | CLINDAMYCIN PHOSPHATE | [facility] | + + + + Problems + + + + | date | description | facility | + + + + | 2020-06-15 00:00 | Otitis | [facility] | + + + + | 2020-06-15 00:00 | Otitis | [facility] | + + + + | 2020-06-15 00:00 | Otitis | [facility] | + + + + | 2020-06-15 00:00 | Otitis | [facility] | + + + + | 2020-06-15 00:00 | Otitis | [facility] | + + + + | 2020-06-15 00:00 | Otitis | [facility] | + + + + 2020-06-15 00:00 | Otitis | [facility] | + + + + 2020-06-15 00:00 | Otitis | [facility] | + + + + | 2020-06-15 00:00 | Otitis | [facility] | + + + + | 2020-06-15 00:00 | Otitis | [facility] | + + + + | 2020-06-15 00:00 | Encounter for medical | [facility] | | | screening examination | | + + + + | 2020-06-15 00:00 | Encounter for medical | [facility] | | | screening examination | | + + + + | 2020-06-15 00:00 | Encounter for medical | [facility] | | | screening examination | | + + + + | 2020-06-15 00:00 | Encounter for medical | [facility] | | | screening examination | | + + + + | 2020-06-15 00:00 | Encounter for medical | [facility] | | | screening examination | | + + + + | 2020-06-15 00:00 | Encounter for medical | [facility] | | | screening examination | | + + + + | 2020-06-15 00:00 | Encounter for medical | [facility] | | | screening examination | | + + + + | 2020-06-15 00:00 | Encounter for medical | [facility] | | | screening examination | | + + + + | 2020-06-15 00:00 | Encounter for medical | [facility] | | | screening examination | | + + + + | 2020-06-15 00:00 | Encounter for medical | [facility] | | | screening examination | | + + + + | 2021-02-14 00:00 | Acute gastroenteritis | [facility] | + + + + | 2021-02-14 00:00 | Acute gastroenteritis | [facility] | + + + + | 2021-02-14 00:00 | Acute gastroenteritis | [facility] | + + + + | 2021-02-14 00:00 | Acute gastroenteritis | [facility] | + + + + | 2021-02-14 00:00 | Acute gastroenteritis | [facility] | + + + + | 2021-02-14 00:00 | Acute gastroenteritis | [facility] | + + + + | 2021-02-14 00:00 | Acute gastroenteritis | [facility] | + + + + | 2021-02-14 00:00 | Acute gastroenteritis | [facility] | + + + + | 2021-02-14 00:00 | Acute gastroenteritis | [facility] | + + + + | 2021-02-14 00:00 | Acute gastroenteritis | [facility] | + + + + | 2021-03-13 00:00 | Acute gastritis | [facility] | + + + + | 2021-03-13 00:00 | Acute gastritis | [facility] | + + + + | 2021-03-13 00:00 | Acute gastritis | [facility] | + + + + | 2021-03-13 00:00 | Acute gastritis | [facility] | + + + + | 2021-03-13 00:00 | Acute gastritis | [facility] | + + + + | 2021-03-13 00:00 | Acute gastritis | [facility] | + + + + | 2021-03-13 00:00 | Acute gastritis | [facility] | + + + + | 2021-03-13 00:00 | Acute gastritis | [facility] | + + + + | 2021-03-13 00:00 | Acute gastritis | [facility] | + + + + | 2021-03-13 00:00 | Acute gastritis | [facility] | + + + + | 2021-03-22 00:00 | Cyclic vomiting syndrome | [facility] | + + + + | 2021-03-22 00:00 | Cyclic vomiting syndrome | [facility] | + + + + | 2021-03-22 00:00 | Cyclic vomiting syndrome | [facility] | + + + + | 2021-03-22 00:00 | Cyclic vomiting syndrome | [facility] | + + + + | 2021-03-22 00:00 | Cyclic vomiting syndrome | [facility] | + + + + | 2021-03-22 00:00 | Cyclic vomiting syndrome | [facility] | + + + + | 2021-03-22 00:00 | Cyclic vomiting syndrome | [facility] | + + + + | 2021-03-22 00:00 | Cyclic vomiting syndrome | [facility] | + + + + | 2021-03-22 00:00 | Cyclic vomiting syndrome | [facility] | + + + + | 2021-03-22 00:00 | Cyclic vomiting syndrome | [facility] | + + + + | 2021-11-18 00:00 | Infection due to severe | [facility] | | | acute respiratory syndrome | | | | coronavirus 2 (SARS-CoV-2) | | + + + + | 2021-11-18 00:00 | Infection due to severe | [facility] | | | acute respiratory syndrome | | | | coronavirus 2 (SARS-CoV-2) | | + + + + | 2021-11-18 00:00 | Infection due to severe | [facility] | | | acute respiratory syndrome | | | | coronavirus 2 (SARS-CoV-2) | | + + + + | 2021-11-18 00:00 | Infection due to severe | [facility] | | | acute respiratory syndrome | | | | coronavirus 2 (SARS-CoV-2) | | + + + + | 2021-11-18 00:00 | Infection due to severe | [facility] | | | acute respiratory syndrome | | | | coronavirus 2 (SARS-CoV-2) | | + + + + | 2021-11-18 00:00 | Infection due to severe | [facility] | | | acute respiratory syndrome | | | | coronavirus 2 (SARS-CoV-2) | | + + + + | 2021-11-18 00:00 | Infection due to severe | [facility] | | | acute respiratory syndrome | | | | coronavirus 2 (SARS-CoV-2) | | + + + + | 2021-11-18 00:00 | Infection due to severe | [facility] | | | acute respiratory syndrome | | | | coronavirus 2 (SARS-CoV-2) | | + + + + | 2021-11-18 00:00 | Infection due to severe | [facility] | | | acute respiratory syndrome | | | | coronavirus 2 (SARS-CoV-2) | | + + + + | 2021-11-18 00:00 | Infection due to severe | [facility] | | | acute respiratory syndrome | | | | coronavirus 2 (SARS-CoV-2) | | + + + + | 2022-08-31 00:00 | Vomiting | [facility] | + + + + | 2022-08-31 00:00 | Vomiting | [facility] | + + + + | 2022-08-31 00:00 | Vomiting | [facility] | + + + + | 2022-08-31 00:00 | Vomiting | [facility] | + + + + | 2022-08-31 00:00 | Vomiting | [facility] | + + + + | 2022-08-31 00:00 | Vomiting | [facility] | + + + + | 2022-08-31 00:00 | Vomiting | [facility] | + + + + | 2022-08-31 00:00 | Vomiting | [facility] | + + + + | 2022-08-31 00:00 | Vomiting | [facility] | + + + + | 2022-08-31 00:00 | Vomiting | [facility] | + + + + | 2022-09-06 00:00 | Endometriosis | [facility] | + + + + | 2022-09-06 00:00 | Endometriosis | [facility] | + + + + | 2022-09-06 00:00 | Endometriosis | [facility] | + + + + | 2022-09-06 00:00 | Endometriosis | [facility] | + + + + | 2022-09-06 00:00 | Endometriosis | [facility] | + + + + | 2022-09-06 00:00 | Endometriosis | [facility] | + + + + | 2022-09-06 00:00 | Endometriosis | [facility] | + + + + | 2022-09-06 00:00 | Endometriosis | [facility] | + + + + | 2022-09-06 00:00 | Endometriosis | [facility] | + + + + | 2022-09-06 00:00 | Endometriosis | [facility] | + + + + | 2022-09-06 00:00 | Acute pelvic pain | [facility] | + + + + | 2022-09-06 00:00 | Acute pelvic pain | [facility] | + + + + | 2022-09-06 00:00 | Acute pelvic pain | [facility] | + + + + | 2022-09-06 00:00 | Acute pelvic pain | [facility] | + + + + | 2022-09-06 00:00 | Acute pelvic pain | [facility] | + + + + | 2022-09-06 00:00 | Acute pelvic pain | [facility] | + + + + | 2022-09-06 00:00 | Acute pelvic pain | [facility] | + + + + | 2022-09-06 00:00 | Acute pelvic pain | [facility] | + + + + | 2022-09-06 00:00 | Acute pelvic pain | [facility] | + + + + | 2022-09-06 00:00 | Acute pelvic pain | [facility] | + + + + | 2022-09-24 00:00 | Gastritis | [facility] | + + + + | 2022-09-24 00:00 | Gastritis | [facility] | + + + + | 2022-09-24 00:00 | Gastritis | [facility] | + + + + | 2022-09-24 00:00 | Gastritis | [facility] | + + + + | 2022-09-24 00:00 | Gastritis | [facility] | + + + + | 2022-09-24 00:00 | Gastritis | [facility] | + + + + | 2022-09-24 00:00 | Gastritis | [facility] | + + + + | 2022-09-24 00:00 | Gastritis | [facility] | + + + + | 2022-09-24 00:00 | Gastritis | [facility] | + + + + | 2022-09-24 00:00 | Gastritis | [facility] | + + + + | 2022-09-26 00:00 | Cannabis hyperemesis | [facility] | | | syndrome concurrent with | | | | and due to cannabis abuse | | + + + + | 2022-09-26 00:00 | Cannabis hyperemesis | [facility] | | | syndrome concurrent with | | | | and due to cannabis abuse | | + + + + | 2022-09-26 00:00 | Cannabis hyperemesis | [facility] | | | syndrome concurrent with | | | | and due tocannabis abuse | | + + + + | 2022-09-26 00:00 | Cannabis hyperemesis | [facility] | | | syndrome concurrent with | | | | and due tocannabis abuse | | + + + + | 2022-09-26 00:00 | Cannabis hyperemesis | [facility] | | | syndrome concurrent with | | | | and due tocannabis abuse | | + + + + | 2022-09-26 00:00 | Cannabis hyperemesis | [facility] | | | syndrome concurrent with | | | | and due tocannabis abuse | | + + + + | 2022-09-26 00:00 | Cannabis hyperemesis | [facility] | | | syndrome concurrent with | | | | and due tocannabis abuse | | + + + + | 2022-09-26 00:00 | Cannabis hyperemesis | [facility] | | | syndrome concurrent with | | | | and due tocannabis abuse | | + + + + | 2022-09-26 00:00 | Cannabis hyperemesis | [facility] | | | syndrome concurrent with | | | | and due tocannabis abuse | | + + + + | 2022-09-26 00:00 | Cannabis hyperemesis | [facility] | | | syndrome concurrent with | | | | and due tocannabis abuse | | + + + + | 2022-09-26 00:00 | Constipation | [facility] | + + + + | 2022-09-26 00:00 | Constipation | [facility] | + + + + | 2022-09-26 00:00 | Constipation | [facility] | + + + + | 2022-09-26 00:00 | Constipation | [facility] | + + + + | 2022-09-26 00:00 | Constipation | [facility] | + + + + | 2022-09-26 00:00 | Constipation | [facility] | + + + + | 2022-09-26 00:00 | Constipation | [facility] | + + + + | 2022-09-26 00:00 | Constipation | [facility] | + + + + | 2022-09-26 00:00 | Constipation | [facility] | + + + + | 2022-09-26 00:00 | Constipation | [facility] | + + + + | 2022-09-26 00:00 | Bacterial vaginosis | [facility] | + + + + | 2022-09-26 00:00 | Bacterial vaginosis | [facility] | + + + + | 2022-09-26 00:00 | Bacterial vaginosis | [facility] | + + + + | 2022-09-26 00:00 | Bacterial vaginosis | [facility] | + + + + | 2022-09-26 00:00 | Bacterial vaginosis | [facility] | + + + + | 2022-09-26 00:00 | Bacterial vaginosis | [facility] | + + + + | 2022-09-26 00:00 | Bacterial vaginosis | [facility] | + + + + | 2022-09-26 00:00 | Bacterial vaginosis | [facility] | + + + + | 2022-09-26 00:00 | Bacterial vaginosis | [facility] | + + + + | 2022-09-26 00:00 | Bacterial vaginosis | [facility] | + + + + | 2022-09-26 00:00 | Post endometrial ablation | [facility] | | | syndrome | | + + + + | 2022-09-26 00:00 | Post endometrial ablation | [facility] | | | syndrome | | + + + + | 2022-09-26 00:00 | Post endometrial ablation | [facility] | | | syndrome | | + + + + | 2022-09-26 00:00 | Post endometrial ablation | [facility] | | | syndrome | | + + + + | 2022-09-26 00:00 | Post endometrial ablation | [facility] | | | syndrome | | + + + + | 2022-09-26 00:00 | Post endometrial ablation | [facility] | | | syndrome | | + + + + | 2022-09-26 00:00 | Post endometrial ablation | [facility] | | | syndrome | | + + + + | 2022-09-26 00:00 | Post endometrial ablation | [facility] | | | syndrome | | + + + + | 2022-09-26 00:00 | Post endometrial ablation | [facility] | | | syndrome | | + + + + | 2022-09-26 00:00 | Post endometrial ablation | [facility] | | | syndrome | | + + + + | 2022-10-01 00:00 | Pain in pelvis | [facility] | + + + + | 2022-10-01 00:00 | Pain in pelvis | [facility] | + + + + | 2022-10-01 00:00 | Pain in pelvis | [facility] | + + + + | 2022-10-01 00:00 | Pain in pelvis | [facility] | + + + + | 2022-10-01 00:00 | Pain in pelvis | [facility] | + + + + | 2022-10-01 00:00 | Pain in pelvis | [facility] | + + + + | 2022-10-01 00:00 | Pain in pelvis | [facility] | + + + + | 2022-10-01 00:00 | Pain in pelvis | [facility] | + + + + | 2022-10-01 00:00 | Pain in pelvis | [facility] | + + + + | 2022-10-01 00:00 | Pain in pelvis | [facility] | + + + + | 2022-10-01 07:27 | PELVIC AND PERINEAL PAIN | [facility] | + + + + | 2022-10-01 07:27 | LEFT LOWER QUADRANT PAIN | [facility] | + + + + | 2022-10-02 22:23 | GASTRITIS, UNSPECIFIED, | [facility] | | | WITHOUT BLEEDING | | + + + + | 2022-10-02 22:23 | CYCLICAL VOMITING SYNDROME | [facility] | | | UNRELATED TO MIGRAINE | | + + + + | 2022-10-02 22:23 | NAUSEA WITH VOMITING, | [facility] | | | UNSPECIFIED | | + + + + | 2022-10-02 22:23 | OTHER INTERMEDIATE (CURRENT) | [facility] | | | DRUG THERAPY | | + + + + | 2022-10-02 22:23 | ALLERGY STATUS TO | [facility] | | | PENICILLIN | | + + + + | 2022-10-02 22:23 | ALLERGY STATUS TO | [facility] | | | SULFONAMIDES STATUS | | + + + + | 2022-10-02 22:23 | ALLERGY STATUS TO NARCOTIC | [facility] | | | AGENT STATUS | | + + + + | 2022-10-02 22:23 | ALLERGY STATUS TO OTH | [facility] | | | DRUG/MEDS/BIOL SUBST STATUS | | | | | | + + + + | 2022-12-02 13:20 | PELVIC AND PERINEAL PAIN | [facility] | + + + + | 2022-12-02 13:20 | ENCOUNTER FOR | [facility] | | | PREPROCEDURAL LABORATORY | | | | EXAMINATION | | + + + + | 2022-12-10 00:00 | Abdominal pain | [facility] | + + + + | 2022-12-10 00:00 | Abdominal pain | [facility] | + + + + | 2022-12-10 00:00 | Abdominal pain | [facility] | + + + + | 2022-12-10 00:00 | Abdominal pain | [facility] | + + + + | 2022-12-10 00:00 | Abdominal pain | [facility] | + + + + | 2022-12-10 00:00 | Abdominal pain | [facility] | + + + + | 2022-12-10 00:00 | Abdominal pain | [facility] | + + + + | 2022-12-10 00:00 | Abdominal pain | [facility] | + + + + | 2022-12-10 05:56 | ENDOMETRIOSIS OF THE | [facility] | | | POSTERIOR CUL-DE-SAC, | | | | UNSPECI | | + + + + | 2022-12-10 05:56 | ENDOMETRIOSIS, UNSPECIFIED | [facility] | | | | | + + + + | 2022-12-10 05:56 | ENDOMETRIOSIS OF LEFT | [facility] | | | URETER, UNSPECIFIED DEPTH | | + + + + | 2022-12-10 05:56 | OTHER OVARIAN CYST, RIGHT | [facility] | | | SIDE | | + + + + | 2022-12-10 05:56 | DYSMENORRHEA, UNSPECIFIED | [facility] | + + + + | 2022-12-10 05:56 | CYCLICAL VOMITING SYNDROME | [facility] | | | UNRELATED TO MIGRAINE | | + + + + | 2022-12-10 05:56 | OTHER [employer]ATIONS ASSOCIATE (CURRENT) | [facility] | | | DRUG THERAPY | | + + + + | 2022-12-10 05:56 | PERSONAL HISTORY OF OTH | [facility] | | | DISEASES OF THE FEMALE GEN | | + + + + | 2022-12-10 05:56 | ALLERGY STATUS TO | [facility] | | | PENICILLIN | | + + + + | 2022-12-10 05:56 | ALLERGY STATUS TO | [facility] | | | SULFONAMIDES STATUS | | + + + + | 2022-12-10 05:56 | ALLERGY STATUS TO OTH | [facility] | | | DRUG/MEDS/BIOL SUBST STATUS | | | | | | + + + + | 2022-12-10 05:56 | ACQUIRED ABSENCE OF | [facility] | | | OVARIES, UNILATERAL | | + + + + | 2022-12-10 15:24 | RIGHT LOWER QUADRANT PAIN | [facility] | + + + + | 2022-12-10 15:24 | CYCLICAL VOMITING SYNDROME | [facility] | | | UNRELATED TO MIGRAINE | | + + + + | 2022-12-10 15:24 | OTHER INTERMEDIATE (CURRENT) | [facility] | | | DRUG THERAPY | | + + + + | 2022-12-10 15:24 | ALLERGY STATUS TO | [facility] | | | PENICILLIN | | + + + + | 2022-12-10 15:24 | ALLERGY STATUS TO | [facility] | | | SULFONAMIDES STATUS | | + + + + | 2022-12-10 15:24 | ALLERGY STATUS TO NARCOTIC | [facility] | | | AGENT STATUS | | + + + + | 2022-12-10 15:24 | ALLERGY STATUS TO OTH | [facility] | | | DRUG/MEDS/BIOL SUBST STATUS | | | | | | + + + + | 2022-12-10 15:24 | ACQUIRED ABSENCE OF OTHER | [facility] | | | SPECIFIED PARTS OF DIGES | | + + + + | 2022-12-11 00:00 | Status post laparoscopy | [facility] | + + + + | 2022-12-11 00:00 | Status post laparoscopy | [facility] | + + + + | 2022-12-11 00:00 | Status post laparoscopy | [facility] | + + + + | 2022-12-11 00:00 | Status post laparoscopy | [facility] | + + + + | 2022-12-11 00:00 | Status post laparoscopy | [facility] | + + + + | 2022-12-11 00:00 | Status post laparoscopy | [facility] | + + + + | 2022-12-11 00:00 | Status post laparoscopy | [facility] | + + + + | 2022-12-11 00:00 | Status post laparoscopy | [facility] | + + + + | 2022-12-24 07:46 | CYCLICAL VOMITING SYNDROME | [facility] | | | UNRELATED TO MIGRAINE | | + + + + | 2022-12-24 07:46 | NAUSEA WITH VOMITING, | [facility] | | | UNSPECIFIED | | + + + + | 2022-12-24 07:46 | ALLERGY STATUS TO | [facility] | | | PENICILLIN | | + + + + | 2022-12-24 07:46 | ALLERGY STATUS TO | [facility] | | | SULFONAMIDES STATUS | | + + + + | 2022-12-24 07:46 | ALLERGY STATUS TO OTH | [facility] | | | DRUG/MEDS/BIOL SUBST STATUS | | | | | | + + + + | 2022-12-28 09:39 | VOMITING, UNSPECIFIED | [facility] | + + + + | 2022-12-28 09:39 | CYCLICAL VOMITING SYNDROME | [facility] | | | UNRELATED TO MIGRAINE | | + + + + | 2022-12-28 09:39 | ALLERGY STATUS TO | [facility] | | | PENICILLIN | | + + + + | 2022-12-28 09:39 | ALLERGY STATUS TO | [facility] | | | SULFONAMIDES STATUS | | + + + + | 2022-12-28 09:39 | ALLERGY STATUS TO OTH | [facility] | | | DRUG/MEDS/BIOL SUBST STATUS | | | | | | + + + + | 2023-01-16 00:00 | Chronic pelvic pain in | [facility] | | | female | | + + + + | 2023-01-16 00:00 | Chronic pelvic pain in | [facility] | | | female | | + + + + | 2023-01-16 00:00 | Chronic pelvic pain in | [facility] | | | female | | + + + + | 2023-01-16 00:00 | Chronic pelvic pain in | [facility] | | | female | | + + + + | 2023-01-16 00:00 | Chronic pelvic pain in | [facility] | | | female | | + + + + | 2023-01-16 00:00 | Chronic pelvic pain in | [facility] | | | female | | + + + + | 2023-01-16 00:00 | Chronic abdominal pain | [facility] | + + + + | 2023-01-16 00:00 | Chronic abdominal pain | [facility] | + + + + | 2023-01-16 00:00 | Chronic abdominal pain | [facility] | + + + + | 2023-01-16 00:00 | Chronic abdominal pain | [facility] | + + + + | 2023-01-16 00:00 | Chronic abdominal pain | [facility] | + + + + | 2023-01-16 00:00 | Chronic abdominal pain | [facility] | + + + + | 2023-01-16 00:00 | Nausea and vomiting | [facility] | + + + + | 2023-01-16 00:00 | Nausea and vomiting | [facility] | + + + + | 2023-01-16 00:00 | Nausea and vomiting | [facility] | + + + + | 2023-01-16 00:00 | Nausea and vomiting | [facility] | + + + + | 2023-01-16 00:00 | Nausea and vomiting | [facility] | + + + + | 2023-01-16 00:00 | Nausea and vomiting | [facility] | + + + + | 2023-01-16 02:29 | ENDOMETRIOSIS, UNSPECIFIED | [facility] | | | | | + + + + | 2023-01-16 02:29 | ABNORMAL UTERINE AND | [facility] | | | VAGINAL BLEEDING, | | | | UNSPECIFIED | | + + + + | 2023-01-16 02:29 | OTHER [employer] ASSOCIATE (CURRENT) | [facility] | | | DRUG THERAPY | | + + + + | 2023-01-16 02:29 | ALLERGY STATUS TO | [facility] | | | PENICILLIN | | + + + + | 2023-01-16 02:29 | ALLERGY STATUS TO | [facility] | | | SULFONAMIDES STATUS | | + + + + | 2023-01-16 02:29 | ALLERGY STATUS TO OTH | [facility] | | | DRUG/MEDS/BIOL SUBST STATUS | | | | | | + + + + | 2023-01-16 08:56 | OTHER CHRONIC PAIN | [facility] | + + + + | 2023-01-16 08:56 | PELVIC AND PERINEAL PAIN | [facility] | + + + + | 2023-01-16 08:56 | NAUSEA WITH VOMITING, | [facility] | | | UNSPECIFIED | | + + + + | 2023-01-16 08:56 | ALLERGY STATUS TO | [facility] | | | PENICILLIN | | + + + + | 2023-01-16 08:56 | ALLERGY STATUS TO | [facility] | | | SULFONAMIDES STATUS | | + + + + | 2023-01-16 08:56 | ALLERGY STATUS TO NARCOTIC | [facility] | | | AGENT STATUS | | + + + + | 2023-01-16 08:56 | ALLERGY STATUS TO OTH | [facility] | | | DRUG/MEDS/BIOL SUBST STATUS | | | | | | + + + + | 2023-01-21 22:28 | CONSTIPATION, UNSPECIFIED | [facility] | + + + + | 2023-01-21 22:28 | PELVIC AND PERINEAL PAIN | [facility] | + + + + | 2023-01-21 22:28 | LEFT LOWER QUADRANT PAIN | [facility] | + + + + | 2023-01-21 22:28 | OTHER INTERMEDIATE (CURRENT) | [facility] | | | DRUG THERAPY | | + + + + | 2023-01-21 22:28 | ALLERGY STATUS TO | [facility] | | | PENICILLIN | | + + + + | 2023-01-21 22:28 | ALLERGY STATUS TO | [facility] | | | SULFONAMIDES STATUS | | + + + + | 2023-01-21 22:28 | ALLERGY STATUS TO NARCOTIC | [facility] | | | AGENT STATUS | | + + + + | 2023-01-21 22:28 | ALLERGY STATUS TO OTH | [facility] | | | DRUG/MEDS/BIOL SUBST STATUS | | | | | | + + + + | 2023-01-22 00:00 | Nausea | [facility] | + + + + | 2023-01-22 00:00 | Nausea | [facility] | + + + + | 2023-01-22 00:00 | Nausea | [facility] | + + + + | 2023-01-22 00:00 | Nausea | [facility] | + + + + | 2023-01-22 00:00 | Nausea | [facility] | + + + + | 2023-01-22 00:00 | Nausea | [facility] | + + + + | 2023-01-22 05:36 | LEFT LOWER QUADRANT PAIN | [facility] | + + + + | 2023-01-22 05:36 | NAUSEA WITH VOMITING, | [facility] | | | UNSPECIFIED | | + + + + | 2023-01-22 05:36 | OTHER [employer] ASSOCIATE (CURRENT) | [facility] | | | DRUG THERAPY | | + + + + | 2023-01-22 05:36 | ALLERGY STATUS TO | [facility] | | | PENICILLIN | | + + + + | 2023-01-22 05:36 | ALLERGY STATUS TO | [facility] | | | SULFONAMIDES STATUS | | + + + + | 2023-01-22 05:36 | ALLERGY STATUS TO NARCOTIC | [facility] | | | AGENT STATUS | | + + + + | 2023-01-22 05:36 | ALLERGY STATUS TO OTH | [facility] | | | DRUG/MEDS/BIOL SUBST STATUS | | | | | | + + + + | 2023-01-22 14:54 | DEHYDRATION | [facility] | + + + + | 2023-01-22 14:54 | CYCLICAL VOMITING SYNDROME | [facility] | | | UNRELATED TO MIGRAINE | | + + + + | 2023-01-22 14:54 | OTHER [employer] ASSOCIATE (CURRENT) | [facility] | | | DRUG THERAPY | | + + + + | 2023-01-22 14:54 | ALLERGY STATUS TO | [facility] | | | PENICILLIN | | + + + + | 2023-01-22 14:54 | ALLERGY STATUS TO | [facility] | | | SULFONAMIDES STATUS | | + + + + | 2023-01-22 14:54 | ALLERGY STATUS TO NARCOTIC | [facility] | | | AGENT STATUS | | + + + + | 2023-01-22 14:54 | ALLERGY STATUS TO OTH | [facility] | | | DRUG/MEDS/BIOL SUBST STATUS | | | | | | + + + + | 2023-01-23 00:00 | Cannabis abuse | [facility] | + + + + | 2023-01-23 00:00 | Cannabis abuse | [facility] | + + + + | 2023-01-23 00:00 | Cannabis abuse | [facility] | + + + + | 2023-01-23 00:00 | Cannabis abuse | [facility] | + + + + | 2023-01-23 00:00 | Cannabis abuse | [facility] | + + + + | 2023-01-23 00:00 | Intractable vomiting with | [facility] | | | nausea | | + + + + | 2023-01-23 00:00 | Intractable vomiting with | [facility] | | | nausea | | + + + + | 2023-01-23 00:00 | Intractable vomiting with | [facility] | | | nausea | | + + + + | 2023-01-23 00:00 | Intractable vomiting with | [facility] | | | nausea | | + + + + | 2023-01-23 00:00 | Intractable vomiting with | [facility] | | | nausea | | + + + + | 2023-01-25 12:53 | DEHYDRATION | [facility] | + + + + | 2023-01-25 12:53 | ACIDOSIS, UNSPECIFIED | [facility] | + + + + | 2023-01-25 12:53 | CANNABIS USE, UNSPECIFIED, | [facility] | | | UNCOMPLICATED | | + + + + | 2023-01-25 12:53 | VOMITING, UNSPECIFIED | [facility] | + + + + | 2023-01-25 12:53 | NAUSEA WITH VOMITING, | [facility] | | | UNSPECIFIED | | + + + + | 2023-01-25 12:53 | OTHER [employer] ASSOCIATE (CURRENT) | [facility] | | | DRUG THERAPY | | + + + + | 2023-01-25 12:53 | ALLERGY STATUS TO | [facility] | | | PENICILLIN | | + + + + | 2023-01-25 12:53 | ALLERGY STATUS TO OTHER | [facility] | | | ANTIBIOTIC AGENTS STATUS | | + + + + | 2023-01-25 12:53 | ALLERGY STATUS TO | [facility] | | | SULFONAMIDES STATUS | | + + + + | 2023-01-25 12:53 | ALLERGY STATUS TO OTH | [facility] | | | DRUG/MEDS/BIOL SUBST STATUS | | | | | | + + + + | 2023-01-25 12:53 | ACQUIRED ABSENCE OF OTHER | [facility] | | | SPECIFIED PARTS OF DIGES | | + + + + | 2023-01-25 12:53 | OTHER SPECIFIED | [facility] | | | POSTPROCEDURAL STATES | | + + + + | 2023-03-21 20:39 | CANNABIS USE, UNSPECIFIED, | [facility] | | | UNCOMPLICATED | | + + + + | 2023-03-21 20:39 | VOMITING, UNSPECIFIED | [facility] | + + + + | 2023-03-21 20:39 | VOMITING WITHOUT NAUSEA | [facility] | + + + + | 2023-03-21 20:39 | ALLERGY STATUS TO | [facility] | | | PENICILLIN | | + + + + | 2023-03-21 20:39 | ALLERGY STATUS TO | [facility] | | | SULFONAMIDES STATUS | | + + + + | 2023-03-21 20:39 | ALLERGY STATUS TO NARCOTIC | [facility] | | | AGENT STATUS | | + + + + | 2023-03-21 20:39 | ALLERGY STATUS TO OTH | [facility] | | | DRUG/MEDS/BIOL SUBST STATUS | | | | | | + + + + | 2023-03-22 00:00 | Cannabinoid hyperemesis | [facility] | | | syndrome | | + + + + | 2023-03-22 00:00 | Cannabinoid hyperemesis | [facility] | | | syndrome | | + + + + | 2023-03-22 00:00 | Cannabinoid hyperemesis | [facility] | | | syndrome | | + + + + | 2023-03-22 00:00 | Cannabinoid hyperemesis | [facility] | | | syndrome | | + + + + | 2023-03-22 13:54 | HEMATEMESIS | [facility] | + + + + | 2023-03-22 13:54 | NAUSEA WITH VOMITING, | [facility] | | | UNSPECIFIED | | + + + + | 2023-03-22 13:54 | ALLERGY STATUS TO | [facility] | | | PENICILLIN | | + + + + | 2023-03-22 13:54 | ALLERGY STATUS TO | [facility] | | | SULFONAMIDES STATUS | | + + + + | 2023-03-22 13:54 | ALLERGY STATUS TO NARCOTIC | [facility] | | | AGENT STATUS | | + + + + | 2023-03-22 13:54 | ALLERGY STATUS TO OTH | [facility] | | | DRUG/MEDS/BIOL SUBST STATUS | | | | | | + + + + | 2023-04-09 00:00 | Hypomagnesemia | [facility] | + + + + | 2023-04-09 00:00 | Hypomagnesemia | [facility] | + + + + | 2023-04-09 06:27 | HYPOMAGNESEMIA | [facility] | + + + + | 2023-04-09 06:27 | CYCLICAL VOMITING SYNDROME | [facility] | | | UNRELATED TO MIGRAINE | | + + + + | 2023-04-09 06:27 | NAUSEA WITH VOMITING, | [facility] | | | UNSPECIFIED | | + + + + | 2023-04-09 06:27 | OTHER INTERMEDIATE (CURRENT) | [facility] | | | DRUG THERAPY | | + + + + | 2023-04-09 06:27 | ALLERGY STATUS TO | [facility] | | | PENICILLIN | | + + + + | 2023-04-09 06:27 | ALLERGY STATUS TO | [facility] | | | SULFONAMIDES STATUS | | + + + + | 2023-04-09 06:27 | ALLERGY STATUS TO NARCOTIC | [facility] | | | AGENT STATUS | | + + + + | 2023-04-09 06:27 | ALLERGY STATUS TO OTH | [facility] | | | DRUG/MEDS/BIOL SUBST STATUS | | | | | | + + + + | 2023-04-10 00:00 | 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[facility] | + + + + | 2023-04-10 04:45 | NAUSEA WITH VOMITING, | [facility] | | | UNSPECIFIED | | + + + + | 2023-04-10 04:45 | ALLERGY STATUS TO | [facility] | | | PENICILLIN | | + + + + | 2023-04-10 04:45 | ALLERGY STATUS TO | [facility] | | | SULFONAMIDES STATUS | | + + + + | 2023-04-10 04:45 | ALLERGY STATUS TO NARCOTIC | [facility] | | | AGENT STATUS | | + + + + | 2023-04-10 04:45 | ALLERGY STATUS TO OTH | [facility] | | | DRUG/MEDS/BIOL SUBST STATUS | | | | | | + + + + | 2023-04-10 15:40 | CANNABIS USE, UNSPECIFIED, | [facility] | | | UNCOMPLICATED | | + + + + | 2023-04-10 15:40 | 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 | | + + + + | 2023-04-10 15:40 | NAUSEA WITH VOMITING, | [facility] | | | UNSPECIFIED | | + + + + | 2023-04-10 15:40 | OTHER INTERMEDIATE (CURRENT) | [facility] | | | DRUG THERAPY | | + + + + | 2023-04-10 15:40 | ALLERGY STATUS TO | [facility] | | | PENICILLIN | | + + + + | 2023-04-10 15:40 | ALLERGY STATUS TO | [facility] | | | SULFONAMIDES STATUS | | + + + + | 2023-04-10 15:40 | ALLERGY STATUS TO NARCOTIC | [facility] | | | AGENT STATUS | | + + + + | 2023-04-10 15:40 | ALLERGY STATUS TO OTH | [facility] | | | DRUG/MEDS/BIOL SUBST STATUS | | | | | | + + + + | 2023-04-13 10:53 | CANNABIS USE, UNSP WITH | [facility] | | | OTHER CANNABIS-INDUCED DIS | | + + + + | 2023-04-13 10:53 | OTHER SPECIFIED ANXIETY | [facility] | | | DISORDERS | | + + + + | 2023-04-13 10:53 | 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 | | + + + + | 2023-04-13 10:53 | CONSTIPATION, UNSPECIFIED | [facility] | + + + + | 2023-04-13 10:53 | POSTCHOLECYSTECTOMY | [facility] | | | SYNDROME | | + + + + | 2023-04-13 10:53 | ENDOMETRIOSIS, UNSPECIFIED | [facility] | | | | | + + + + | 2023-04-13 10:53 | NAUSEA WITH VOMITING, | [facility] | | | UNSPECIFIED | | + + + + | 2023-04-13 10:53 | OTHER INTERMEDIATE (CURRENT) | [facility] | | | DRUG THERAPY | | + + + + | 2023-04-13 10:53 | PERSONAL HISTORY OF DIS OF | [facility] | | | THE NERVOUS SYS AND SEN | | + + + + | 2023-04-13 10:53 | ALLERGY STATUS TO | [facility] | | | PENICILLIN | | + + + + | 2023-04-13 10:53 | ALLERGY STATUS TO | [facility] | | | SULFONAMIDES STATUS | | + + + + | 2023-04-13 10:53 | ALLERGY STATUS TO OTH | [facility] | | | DRUG/MEDS/BIOL SUBST STATUS | | | | | | + + + + | 2023-04-13 10:53 | ACQUIRED ABSENCE OF OTHER | [facility] | | | SPECIFIED PARTS OF DIGES | | + + + + | 2023-04-13 10:53 | ACQUIRED ABSENCE OF | [facility] | | | OVARIES, UNILATERAL | | + + + + | 2023-04-13 10:53 | OTHER SPECIFIED | [facility] | | | POSTPROCEDURAL STATES | | + + + + | 2023-06-03 09:00 | HYPOMAGNESEMIA | [facility] | + + + + | 2023-06-03 09:00 | OTH DISORDERS OF | [facility] | | | ELECTROLYTE AND FLUID B | | + + + + | 2023-06-03 09:00 | UNDERWEIGHT | [facility] | + + + + | 2023-06-03 09:00 | DIETARY COUNSELING AND | [facility] | | | SURVEILLANCE | | + + + + | 2023-06-22 02:41 | CONSTIPATION, UNSPECIFIED | [facility] | + + + + | 2023-06-22 02:41 | PROC/TRTMT NOT CRD OUT BEC | [facility] | | | PT DECISION FOR OTH AL | | + + + + | 2023-06-22 02:41 | OTHER [employer] ASSOCIATE (CURRENT) | [facility] | | | DRUG THERAPY | | + + + + | 2023-06-22 02:41 | ALLERGY STATUS TO | [facility] | | | PENICILLIN | | + + + + | 2023-06-22 02:41 | ALLERGY STATUS TO | [facility] | | | SULFONAMIDES STATUS | | + + + + | 2023-06-22 02:41 | ALLERGY STATUS TO NARCOTIC | [facility] | | | AGENT STATUS | | + + + + | 2023-06-22 02:41 | ALLERGY STATUS TO OTH | [facility] | | | DRUG/MEDS/BIOL SUBST STATUS | | | | | | + + + + | 2023-06-22 22:44 | CANNABIS USE, UNSPECIFIED, | [facility] | | | UNCOMPLICATED | | + + + + | 2023-06-22 22:44 | VOMITING WITHOUT NAUSEA | [facility] | + + + + | 2023-06-22 22:44 | NAUSEA WITH VOMITING, | [facility] | | | UNSPECIFIED | | + + + + | 2023-06-22 22:44 | OTHER [employer] ASSOCIATE (CURRENT) | [facility] | | | DRUG THERAPY | | + + + + | 2023-06-22 22:44 | ALLERGY STATUS TO | [facility] | | | PENICILLIN | | + + + + | 2023-06-22 22:44 | ALLERGY STATUS TO | [facility] | | | SULFONAMIDES STATUS | | + + + + | 2023-06-22 22:44 | ALLERGY STATUS TO NARCOTIC | [facility] | | | AGENT STATUS | | + + + + | 2023-06-22 22:44 | ALLERGY STATUS TO OTH | [facility] | | | DRUG/MEDS/BIOL SUBST STATUS | | | | | | + + + + | 2023-06-22 22:44 | PT NONCOMPL WITH OTHER MED | [facility] | | | TRTMT AND REGIMEN FOR O | | + + + + | 2023-06-23 17:38 | CANNABIS USE, UNSPECIFIED, | [facility] | | | UNCOMPLICATED | | + + + + | 2023-06-23 17:38 | VOMITING, UNSPECIFIED | [facility] | + + + + | 2023-06-23 17:38 | VOMITING WITHOUT NAUSEA | [facility] | + + + + | 2023-06-23 17:38 | OTHER INTERMEDIATE (CURRENT) | [facility] | | | DRUG THERAPY | | + + + + | 2023-06-23 17:38 | ALLERGY STATUS TO | [facility] | | | PENICILLIN | | + + + + | 2023-06-23 17:38 | ALLERGY STATUS TO OTHER | [facility] | | | ANTIBIOTIC AGENTS STATUS | | + + + + | 2023-06-23 17:38 | ALLERGY STATUS TO | [facility] | | | SULFONAMIDES STATUS | | + + + + | 2023-06-23 17:38 | ALLERGY STATUS TO OTH | [facility] | | | DRUG/MEDS/BIOL SUBST STATUS | | | | | | + + + + | 2023-06-23 17:38 | PT NONCOMPL WITH OTHER MED | [facility] | | | TRTMT AND REGIMEN FOR O | | + + + + | 2023-06-26 07:53 | ABNORMAL UTERINE AND | [facility] | | | VAGINAL BLEEDING, | | | | UNSPECIFIED | | + + + + | 2023-06-26 07:53 | PELVIC AND PERINEAL PAIN | [facility] | + + + + | 2023-06-26 07:53 | UNSPECIFIED ABDOMINAL PAIN | [facility] | | | | | + + + + | 2023-06-26 07:53 | ALLERGY STATUS TO | [facility] | | | PENICILLIN | | + + + + | 2023-06-26 07:53 | ALLERGY STATUS TO | [facility] | | | SULFONAMIDES STATUS | | + + + + | 2023-06-26 07:53 | ALLERGY STATUS TO NARCOTIC | [facility] | | | AGENT STATUS | | + + + + | 2023-06-26 07:53 | ALLERGY STATUS TO | [facility] | | | ANALGESIC AGENT STATUS | | + + + + | 2023-06-26 07:53 | ALLERGY STATUS TO OTH | [facility] | | | DRUG/MEDS/BIOL SUBST STATUS | | | | | | + + + + | 2023-06-27 01:00 | LEFT LOWER QUADRANT PAIN | [facility] | + + + + | 2023-06-27 01:00 | OTHER [employer] ASSOCIATE (CURRENT) | [facility] | | | DRUG THERAPY | | + + + + | 2023-06-27 01:00 | ALLERGY STATUS TO | [facility] | | | PENICILLIN | | + + + + | 2023-06-27 01:00 | ALLERGY STATUS TO OTHER | [facility] | | | ANTIBIOTIC AGENTS STATUS | | + + + + | 2023-06-27 01:00 | ALLERGY STATUS TO | [facility] | | | SULFONAMIDES STATUS | | + + + + | 2023-06-27 01:00 | ALLERGY STATUS TO NARCOTIC | [facility] | | | AGENT STATUS | | + + + + | 2023-06-27 01:00 | ALLERGY STATUS TO OTH | [facility] | | | DRUG/MEDS/BIOL SUBST STATUS | | | | | | + + + + Procedures + + + + | date | description | facility | + + + + | 2022-12-10 00:00 | CONTROL BLEEDING IN | [facility] | | | RETROPERITONEUM, PERC ENDO | | | | APPROACH | | + + + + | 2022-12-10 00:00 | CONTROL BLEEDING IN | [facility] | | | RETROPERITONEUM, PERC ENDO | | | | APPROACH | | + + + + | 2022-12-10 00:00 | CONTROL BLEEDING IN | [facility] | | | RETROPERITONEUM, PERC ENDO | | | | APPROACH | | + + + + | 2022-12-10 00:00 | LAPAROSCOPY EXCISE LESIONS | [facility] | | | | | + + + + | 2022-12-10 00:00 | LAPAROSCOPY EXCISE LESIONS | [facility] | | | | | + + + + | 2022-12-10 00:00 | [facility] LES[facility] | | | | | + + + + Results/Labs +--------+--------+ +---------+--------+---------+ | test | date | facility | value | unit | notes | +--------+--------+ +---------+--------+---------+ + + | Result panel 1 | + + + + + +-------+ + + | | 2022-08-08 | [facility] | 7.4 | (missing) | (missing) | | (unavailable | 10:40 | [place] [facility] | | | | + + + +-------+ + + + + | Result panel 2 | + + + + + +--------+ + + | | 2022-08-08 | [facility] | 4.43 | (missing) | (missing) | | (unavailable | 10:40 | [facility] | [facility] | | | | + + + +--------+ + + + + | Result panel 3 | + + + + + +--------+ + + | | 2022-08-08 | [facility] | 12.7 | (missing) | (missing) | | (unavailable | 10:40 | [facility] | | | [facility] ) | | [facility] | | | | + + + +--------+ + + + + | Result panel 4 | + + + + + +--------+ + + | | 2022-08-08 | [facility] | 38.6 | (missing) | (missing) | | (unavailable | 10:40 | [facility] ) [facility] | | | | + + + +--------+ + + + + | Result panel 5 | + + + + + +--------+ + + | | 2022-08-08 | [facility] | 87.0 | (missing) | (missing) | | (unavailable | 10:40 | [facility] | | [facility] ) | | [facility] | | | | + + + +--------+ + + + + | Result panel 6 | + + + + + +--------+ + + | | 2022-08-08 | [facility] | 28.6 | (missing) | (missing) | | (unavailable | 10:40 | [facility] | | [facility] ) | | [facility] | | | | + + + +--------+ + + + + | Result panel 7 | + + + + + +--------+ + + | | 2022-08-08 | [facility] | 32.9 | (missing) | (missing) | | (unavailable | 10:40 | [facility] | | | | + + + +--------+ + + + + | Result panel 8 | + + + + + +--------+ + + | | 2022-08-08 | [facility] | 13.3 | (missing) | (missing) | | (unavailable | 10:40 | [facility] | | | | + + + +--------+ + + + + | Result panel 9 | + + + + + +-------+ + + | | 2022-08-08 | [facility] | 174 | (missing) | (missing) | | (unavailable | 10:40 | [facility] | | | | + + + +-------+ + + + + | Result panel 10 | + + + + + +--------+ + + | | 2022-08-08 | [facility] | 82.2 | (missing) | (missing) | | (unavailable | 10:40 | [facility] | | | | + + + +--------+ + + + + | Result panel 11 | + + + + + +--------+ + + | | 2022-08-08 | [facility] | 12.4 | (missing) | (missing) | | (unavailable | 10:40 | [facility] | | | | + + + +--------+ + + + + | Result panel 12 | + + + + + +-------+ + + | | 2022-08-08 | [facility] | 3.9 | (missing) | (missing) | | (unavailable | 10:40 | [facility] | | | | + + + +-------+ + + + + | Result panel 13 | + + + + + +-------+ + + | | 2022-08-08 | [facility] | 0.8 | (missing) | (missing) | | (unavailable | 10:40 | [facility] | | | | + + + +-------+ + + + + | Result panel 14 | + + + + + +-------+ + + | | 2022-08-08 | [facility] | 0.7 | (missing) | (missing) | | (unavailable | 10:40 | [facility] | | | | + + + +-------+ + + + + | Result panel 15 | + + + + + +-------+---------+ + | | 2022-08-08 | [facility] | 150 | mg/dL | (missing) | | (unavailable | 10:40 | [facility] | | | | + + + +-------+---------+ + + + | Result panel 16 | + + + + + +-----+---------+ + | | 2022-08-08 | [facility] | 7 | mg/dL | (missing) | | (unavailable | 10:40 | [facility] | | | | + + + +-----+---------+ + + + | Result panel 17 | + + + + + +--------+---------+ + | | 2022-08-08 | [facility] | 0.70 | mg/dL | (missing) | | (unavailable | 10:40 | [facility] | | | | + + + +--------+---------+ + + + | Result panel 18 | + + + + + +-------+ + + | | 2022-08-08 | [facility] | 119 | (missing) | (missing) | | (unavailable | 10:40 | [facility] | | | | + + + +-------+ + + + + | Result panel 19 | + + + + + +---------+ + + | | 2022-08-08 | [facility] | 10.00 | (missing) | (missing) | | (unavailable | 10:40 | [facility] | | | | + + + +---------+ + + + + | Result panel 20 | + + + + + +-------+ + + | | 2022-08-08 | [facility] | 139 | (missing) | (missing) | | (unavailable | 10:40 | [facility] | | | | + + + +-------+ + + + + | Result panel 21 | + + + + + +-------+ + + | | 2022-08-08 | [facility] | 3.2 | (missing) | (missing) | | (unavailable | 10:40 | [facility] | | | | + + + +-------+ + + + + | Result panel 22 | + + + + + +-------+ + + | | 2022-08-08 | [facility] | 104 | (missing) | (missing) | | (unavailable | 10:40 | [facility] | | | | + + + +-------+ + + + + | Result panel 23 | + + + + + +------+ + + | | 2022-08-08 | [facility] | 24 | (missing) | (missing) | | (unavailable | 10:40 | [facility] | | | | + + + +------+ + + + + | Result panel 24 | + + + + + +--------+ + + | | 2022-08-08 | [facility] | 14.2 | (missing) | (missing) | | (unavailable | 10:40 | [facility] | | | | + + + +--------+ + + + + | Result panel 25 | + + + + + +-------+---------+ + | | 2022-08-08 | [facility] | 8.2 | mg/dL | (missing) | | (unavailable | 10:40 | [facility] | | | | + + + +-------+---------+ + + + | Result panel 26 | + + + + + +-------+ + + | | 2022-08-08 | [facility] | 7.4 | (missing) | (missing) | | (unavailable | 10:40 | [facility] | | | | + + + +-------+ + + + + | Result panel 27 | + + + + + +-------+ + + | | 2022-08-08 | [facility] | 3.9 | (missing) | (missing) | | (unavailable | 10:40 | [facility] | | | | + + + +-------+ + + + + | Result panel 28 | + + + + + +-------+ + + | | 2022-08-08 | [facility] | 3.5 | (missing) | (missing) | | (unavailable | 10:40 | [facility] | | | | + + + +-------+ + + + + | Result panel 29 | + + + + + +--------+ + + | | 2022-08-08 | [facility] | 1.11 | (missing) | (missing) | | (unavailable | 10:40 | [facility] | | | | + + + +--------+ + + + + | Result panel 30 | + + + + + +------+ + + | | 2022-08-08 | [facility] | 11 | (missing) | (missing) | | (unavailable | 10:40 | [facility] | | | | + + + +------+ + + + + | Result panel 31 | + + + + + +------+ + + | | 2022-08-08 | [facility] | 14 | (missing) | (missing) | | (unavailable | 10:40 | [facility] | | | | + + + +------+ + + + + | Result panel 32 | + + + + + +------+ + + | | 2022-08-08 | [facility] | 34 | (missing) | (missing) | | (unavailable | 10:40 | [facility] | | | | + + + +------+ + + + + | Result panel 33 | + + + + + +------+ + + | | 2022-08-08 | [facility] | 68 | (missing) | (missing) | | (unavailable | 10:40 | [facility] | | | | + + + +------+ + + + + | Result panel 34 | + + + + + + + + + | | 2022-08-08 | [facility] | NEGATIVE | (missing) | (missing) | | (unavailable | 10:40 | [facility] | | | | + + + + + + + + + | Result panel 35 | + + + + + +------+ + + | | 2022-08-08 | [facility] | 68 | (missing) | (missing) | | (unavailable | 10:40 | [facility] | | | | + + + +------+ + + + + | Result panel 36 | + + + + + +------+ + + | | 2022-08-08 | [facility] | 68 | (missing) | (missing) | | (unavailable | 10:40 | [facility] | | | | + + + +------+ + + + + | Result panel 37 | + + + + + +-------+---------+ + | | 2022-08-31 | [facility] | 1.7 | mg/dL | (missing) | | (unavailable | 15:48 | [facility] | | | | + + + +-------+---------+ + + + | Result panel 38 | + + + + + +-------+---------+ + | | 2022-08-31 | [facility] | 1.7 | mg/dL | (missing) | | (unavailable | 15:48 | [facility] | | | | + + + +-------+---------+ + + + | Result panel 39 | + + + + + +-------+---------+ + | | 2022-08-31 | [facility] | 1.7 | mg/dL | (missing) | | (unavailable | 15:48 | [facility] | | | | + + + +-------+---------+ + + + | Result panel 40 | + + + + + +-------+ + + | | 2022-08-31 | [facility] | 8.4 | (missing) | (missing) | | (unavailable | 15:48 | [facility] | | | | + + + +-------+ + + + + | Result panel 41 | + + + + + +-------+ + + | | 2022-08-31 | [facility] | 4.4 | (missing) | (missing) | | (unavailable | 15:48 | [facility] | | | | + + + +-------+ + + + + | Result panel 42 | + + + + + +-------+ + + | | 2022-08-31 | [facility] | 4.0 | (missing) | (missing) | | (unavailable | 15:48 | [facility] | | | | + + + +-------+ + + + + | Result panel 43 | + + + + + +--------+ + + | | 2022-08-31 | [facility] | 1.10 | (missing) | (missing) | | (unavailable | 15:48 | [facility] | | | | + + + +--------+ + + + + | Result panel 44 | + + + + + +-------+ + + | | 2022-08-31 | [facility] | 0.8 | (missing) | (missing) | | (unavailable | 15:48 | [facility] | | | | + + + +-------+ + + + + | Result panel 45 | + + + + + +------+ + + | | 2022-08-31 | [facility] | 17 | (missing) | (missing) | | (unavailable | 15:48 | [facility] | | | | + + + +------+ + + + + | Result panel 46 | + + + + + +------+ + + | | 2022-08-31 | [facility] | 22 | (missing) | (missing) | | (unavailable | 15:48 | [facility] | | | | + + + +------+ + + + + | Result panel 47 | + + + + + +------+ + + | | 2022-08-31 | [facility] | 40 | (missing) | (missing) | | (unavailable | 15:48 | [facility] | | | | + + + +------+ + + + + | Result panel 48 | + + + + + +-------+---------+ + | | 2022-08-31 | [facility] | 1.7 | mg/dL | (missing) | | (unavailable | 15:48 | [facility] | | | | + + + +-------+---------+ + + + | Result panel 49 | + + + + + +-------+ + + | | 2022-08-31 | [facility] | 8.4 | (missing) | (missing) | | (unavailable | 15:48 | [facility] | | | | + + + +-------+ + + + + | Result panel 50 | + + + + + +-------+ + + | | 2022-08-31 | [facility] | 4.4 | (missing) | (missing) | | (unavailable | 15:48 | [facility] | | | | + + + +-------+ + + + + | Result panel 51 | + + + + + +-------+ + + | | 2022-08-31 | [facility] | 4.0 | (missing) | (missing) | | (unavailable | 15:48 | [facility] | | | | + + + +-------+ + + + + | Result panel 52 | + + + + + +--------+ + + | | 2022-08-31 | [facility] | 1.10 | (missing) | (missing) | | (unavailable | 15:48 | [facility] | | | | + + + +--------+ + + + + | Result panel 53 | + + + + + +-------+ + + | | 2022-08-31 | [facility] | 0.8 | (missing) | (missing) | | (unavailable | 15:48 | [facility] | | | | + + + +-------+ + + + + | Result panel 54 | + + + + + +------+ + + | | 2022-08-31 | [facility] | 17 | (missing) | (missing) | | (unavailable | 15:48 | [facility] | | | | + + + +------+ + + + + | Result panel 55 | + + + + + +------+ + + | | 2022-08-31 | [facility] | 22 | (missing) | (missing) | | (unavailable | 15:48 | [facility] | | | | + + + +------+ + + + + | Result panel 56 | + + + + + +------+ + + | | 2022-08-31 | [facility] | 40 | (missing) | (missing) | | (unavailable | 15:48 | [facility] | | | | + + + +------+ + + + + | Result panel 57 | + + + + + +--------+ + + | | 2022-08-31 | [facility] | 10.7 | (missing) | (missing) | | (unavailable | 15:48 | [facility] | | | | + + + +--------+ + + + + | Result panel 58 | + + + + + +--------+ + + | | 2022-08-31 | [facility] | 4.59 | (missing) | (missing) | | (unavailable | 15:48 | [facility] | | | | + + + +--------+ + + + + | Result panel 59 | + + + + + +--------+ + + | | 2022-08-31 | [facility] | 13.2 | (missing) | (missing) | | (unavailable | 15:48 | [facility] | | | | + + + +--------+ + + + + | Result panel 60 | + + + + + +--------+ + + | | 2022-08-31 | [facility] | 39.5 | (missing) | (missing) | | (unavailable | 15:48 | [facility] | | | | + + + +--------+ + + + + | Result panel 61 | + + + + + +--------+ + + | | 2022-08-31 | [facility] | 86.0 | (missing) | (missing) | | (unavailable | 15:48 | [facility] | | | | + + + +--------+ + + + + | Result panel 62 | + + + + + +--------+ + + | | 2022-08-31 | [facility] | 28.8 | (missing) | (missing) | | (unavailable | 15:48 | [facility] | | | | + + + +--------+ + + + + | Result panel 63 | + + + + + +--------+ + + | | 2022-08-31 | [facility] | 33.5 | (missing) | (missing) | | (unavailable | 15:48 | [facility] | | | | + + + +--------+ + + + + | Result panel 64 | + + + + + +--------+ + + | | 2022-08-31 | [facility] | 13.4 | (missing) | (missing) | | (unavailable | 15:48 | [facility] | | | | + + + +--------+ + + + + | Result panel 65 | + + + + + +-------+ + + | | 2022-08-31 | [facility] | 175 | (missing) | (missing) | | (unavailable | 15:48 | [facility] | | | | + + + +-------+ + + + + | Result panel 66 | + + + + + +--------+ + + | | 2022-08-31 | [facility] | 94.2 | (missing) | (missing) | | (unavailable | 15:48 | [facility] | | | | + + + +--------+ + + + + | Result panel 67 | + + + + + +-------+ + + | | 2022-08-31 | [facility] | 4.1 | (missing) | (missing) | | (unavailable | 15:48 | [facility] | | | | + + + +-------+ + + + + | Result panel 68 | + + + + + +-------+ + + | | 2022-08-31 | [facility] | 1.6 | (missing) | (missing) | | (unavailable | 15:48 | [facility] | | | | + + + +-------+ + + + + | Result panel 69 | + + + + + +-------+ + + | | 2022-08-31 | [facility] | 0.0 | (missing) | (missing) | | (unavailable | 15:48 | [facility] | | | | + + + +-------+ + + + + | Result panel 70 | + + + + + +-------+ + + | | 2022-08-31 | [facility] | 0.1 | (missing) | (missing) | | (unavailable | 15:48 | [facility] | | | | + + + +-------+ + + + + | Result panel 71 | + + + + + +-------+---------+ + | | 2022-08-31 | [facility] | 101 | mg/dL | (missing) | | (unavailable | 15:48 | [facility] | | | | + + + +-------+---------+ + + + | Result panel 72 | + + + + + +------+---------+ + | | 2022-08-31 | [facility] | 13 | mg/dL | (missing) | | (unavailable | 15:48 | [facility] | | | | + + + +------+---------+ + + + | Result panel 73 | + + + + + +--------+---------+ + | | 2022-08-31 | [facility] | 0.76 | mg/dL | (missing) | | (unavailable | 15:48 | [facility] | | | | + + + +--------+---------+ + + + | Result panel 74 | + + + + + +-------+ + + | | 2022-08-31 | [facility] | 108 | (missing) | (missing) | | (unavailable | 15:48 | [facility] | | | | + + + +-------+ + + + + | Result panel 75 | + + + + + +---------+ + + | | 2022-08-31 | [facility] | 17.10 | (missing) | (missing) | | (unavailable | 15:48 | [facility] | | | | + + + +---------+ + + + + | Result panel 76 | + + + + + +-------+ + + | | 2022-08-31 | [facility] | 137 | (missing) | (missing) | | (unavailable | 15:48 | [facility] | | | | + + + +-------+ + + + + | Result panel 77 | + + + + + +-------+ + + | | 2022-08-31 | [facility] | 3.6 | (missing) | (missing) | | (unavailable | 15:48 | [facility] | | | | + + + +-------+ + + + + | Result panel 78 | + + + + + +------+ + + | | 2022-08-31 | [facility] | 99 | (missing) | (missing) | | (unavailable | 15:48 | [facility] | | | | + + + +------+ + + + + | Result panel 79 | + + + + + +------+ + + | | 2022-08-31 | [facility] | 23 | (missing) | (missing) | | (unavailable | 15:48 | [facility] | | | | + + + +------+ + + + + | Result panel 80 | + + + + + +--------+ + + | | 2022-08-31 | [facility] | 18.6 | (missing) | (missing) | | (unavailable | 15:48 | [facility] | | | | + + + +--------+ + + + + | Result panel 81 | + + + + + +-------+---------+ + | | 2022-08-31 | [facility] | 8.6 | mg/dL | (missing) | | (unavailable | 15:48 | [facility] | | | | + + + +-------+---------+ + + + | Result panel 82 | + + + + + +-------+---------+ + | | 2022-08-31 | [facility] | 1.7 | mg/dL | (missing) | | (unavailable | 15:48 | [facility] | | | | + + + +-------+---------+ + + + | Result panel 83 | + + + + + +-------+ + + | | 2022-08-31 | [facility] | 8.4 | (missing) | (missing) | | (unavailable | 15:48 | [facility] | | | | + + + +-------+ + + + + | Result panel 84 | + + + + + +-------+ + + | | 2022-08-31 | [facility] | 4.4 | (missing) | (missing) | | (unavailable | 15:48 | [facility] | | | | + + + +-------+ + + + + | Result panel 85 | + + + + + +-------+ + + | | 2022-08-31 | [facility] | 4.0 | (missing) | (missing) | | (unavailable | 15:48 | [facility] | | | | + + + +-------+ + + + + | Result panel 86 | + + + + + +--------+ + + | | 2022-08-31 | [facility] | 1.10 | (missing) | (missing) | | (unavailable | 15:48 | [facility] | | | | + + + +--------+ + + + + | Result panel 87 | + + + + + +-------+ + + | | 2022-08-31 | [facility] | 0.8 | (missing) | (missing) | | (unavailable | 15:48 | [facility] | | | | + + + +-------+ + + + + | Result panel 88 | + + + + + +------+ + + | | 2022-08-31 | [facility] | 17 | (missing) | (missing) | | (unavailable | 15:48 | [facility] | | | | + + + +------+ + + + + | Result panel 89 | + + + + + +------+ + + | | 2022-08-31 | [facility] | 22 | (missing) | (missing) | | (unavailable | 15:48 | [facility] | | | | + + + +------+ + + + + | Result panel 90 | + + + + + +------+ + + | | 2022-08-31 | [facility] | 40 | (missing) | (missing) | | (unavailable | 15:48 | [facility] | | | | + + + +------+ + + + + | Result panel 91 | + + + + + + + + + | | 2022-08-31 | [facility] | NEGATIVE | (missing) | (missing) | | (unavailable | 15:48 | [facility] | | | | + + + + + + + + + | Result panel 92 | + + + + + + + + + | | 2022-08-31 | [facility] | YELLOW | (missing) | (missing) | | (unavailable | 16:37 | [facility] | | | | + + + + + + + + + | Result panel 93 | + + + + + +---------+ + + | | 2022-08-31 | [facility] | CLEAR | (missing) | (missing) | | (unavailable | 16:37 | [facility] | | | | + + + +---------+ + + + + | Result panel 94 | + + + + + + + + + | | 2022-08-31 | [facility] | NEGATIVE | (missing) | (missing) | | (unavailable | 16:37 | [facility] | | | | + + + + + + + + + | Result panel 95 | + + + + + + + + + | | 2022-08-31 | [facility] | POSITIVE | (missing) | (missing) | | (unavailable | 16:37 | [facility] | | | | + + + + + + + + + | Result panel 96 | + + + + + +--------+ + + | | 2022-08-31 | [facility] | >=80 | (missing) | (missing) | | (unavailable | 16:37 | [facility] | | | | + + + +--------+ + + + + | Result panel 97 | + + + + + + + + + | | 2022-08-31 | [facility] | >=1.030 | (missing) | (missing) | | (unavailable | 16:37 | [facility] | | | | + + + + + + + + + | Result panel 98 | + + + + + + + + + | | 2022-08-31 | [facility] | NEGATIVE | (missing) | (missing) | | (unavailable | 16:37 | [facility] | | | | + + + + + + + + + | Result panel 99 | + + + + + +-------+ + + | | 2022-08-31 | [facility] | 5.5 | (missing) | (missing) | | (unavailable | 16:37 | [facility] | | | | + + + +-------+ + + + + | Result panel 100 | + + + + + +------+ + + | | 2022-08-31 | [facility] | 30 | (missing) | (missing) | | (unavailable | 16:37 | [facility] | [facility] | | | | + + + +------+ + + + + | Result panel 101 | + + + + + + + + + | | 2022-08-31 | [facility] | NORMAL | (missing) | (missing) | | (unavailable | 16:37 | [facility] | | | | + + + + + + + + + | Result panel 102 | + + + + + + + + + | | 2022-08-31 | [facility] | NEGATIVE | (missing) | (missing) | | (unavailable | 16:37 | [facility] | | | | + + + + + + + + + | Result panel 103 | + + + + + + + + + | | 2022-08-31 | [facility] | NEGATIVE | (missing) | (missing) | | (unavailable | 16:37 | [facility] | | | | + + + + + + + + + | Result panel 104 | + + + + + +-------+ + + | | 2022-08-31 | [facility] | 0-1 | (missing) | (missing) | | (unavailable | 16:37 | [facility] | | | | + + + +-------+ + + + + | Result panel 105 | + + + + + +-------+ + + | | 2022-08-31 | [facility] | 4-6 | (missing) | (missing) | | (unavailable | 16:37 | [facility] | | | | + + + +-------+ + + + + | Result panel 106 | + + + + + +-----+ + + | | 2022-08-31 | [facility] | 0 | (missing) | (missing) | | (unavailable | 16:37 | [facility] | | | | + + + +-----+ + + + + | Result panel 107 | + + + + + + + + + | | 2022-08-31 | [facility] | NONE SEEN | (missing) | (missing) | | (unavailable | 16:37 | [facility] | | | | + + + + + + + + + | Result panel 108 | + + + + + +--------+ + + | | 2022-08-31 | [facility] | RARE | (missing) | (missing) | | (unavailable | 16:37 | [facility] | | | | + + + +--------+ + + + + | Result panel 109 | + + + + + + + + + | | 2022-08-31 | [facility] | NONE SEEN | (missing) | (missing) | | (unavailable | 16:37 | [facility] | | | | + + + + + + + + + | Result panel 110 | + + + + + + + + + | | 2022-08-31 | [facility] | CLEAN CATCH | (missing) | (missing) | | (unavailable | 16:37 | [facility] | | | | + + + + + + + + + | Result panel 111 | + + + + + + + + + | | 2022-09-06 | [facility] | YELLOW | (missing) | (missing) | | (unavailable | 10:35 | [facility] | | | | + + + + + + + + + | Result panel 112 | + + + + + +---------+ + + | | 2022-09-06 | [facility] | CLEAR | (missing) | (missing) | | (unavailable | 10:35 | [facility] | | | | + + + +---------+ + + + + | Result panel 113 | + + + + + + + + + | | 2022-09-06 | [facility] | NEGATIVE | (missing) | (missing) | | (unavailable | 10:35 | [facility] | | | | + + + + + + + + + | Result panel 114 | + + + + + + + + + | | 2022-09-06 | [facility] | POSITIVE | (missing) | (missing) | | (unavailable | 10:35 | [facility] | | | | + + + + + + + + + | Result panel 115 | + + + + + +--------+ + + | | 2022-09-06 | [facility] | >=80 | (missing) | (missing) | | (unavailable | 10:35 | [facility] | | | | + + + +--------+ + + + + | Result panel 116 | + + + + + + + + + | | 2022-09-06 | [facility] | >=1.030 | (missing) | (missing) | | (unavailable | 10:35 | [facility] | | | | + + + + + + + + + | Result panel 117 | + + + + + + + + + | | 2022-09-06 | [facility] | TRACE-L | (missing) | (missing) | | (unavailable | 10:35 | [facility] | | | | + + + + + + + + + | Result panel 118 | + + + + + +-------+ + + | | 2022-09-06 | [facility] | 6.0 | (missing) | (missing) | | (unavailable | 10:35 | [facility] | | | | + + + +-------+ + + + + | Result panel 119 | + + + + + + + + + | | 2022-09-06 | [facility] | NEGATIVE | (missing) | (missing) | | (unavailable | 10:35 | [facility] | | | | + + + + + + + + + | Result panel 120 | + + + + + + + + + | | 2022-09-06 | [facility] | NORMAL | (missing) | (missing) | | (unavailable | 10:35 | [facility] | | | | + + + + + + + + + | Result panel 121 | + + + + + + + + + | | 2022-09-06 | [facility] | NEGATIVE | (missing) | (missing) | | (unavailable | 10:35 | [facility] | | | | + + + + + + + + + | Result panel 122 | + + + + + + + + + | | 2022-09-06 | [facility] | NEGATIVE | (missing) | (missing) | | (unavailable | 10:35 | [facility] | | | | + + + + + + + + + | Result panel 123 | + + + + + +-------+ + + | | 2022-09-06 | [facility] | 2-3 | (missing) | (missing) | | (unavailable | 10:35 | [facility] | | | | + + + +-------+ + + + + | Result panel 124 | + + + + + +-------+ + + | | 2022-09-06 | [facility] | 2-3 | (missing) | (missing) | | (unavailable | 10:35 | [facility] | | | | + + + +-------+ + + + + | Result panel 125 | + + + + + + + + + | | 2022-09-06 | [facility] | SQUAMOUS 2+ | (missing) | (missing) | | (unavailable | 10:35 | [facility] | | | | + + + + + + + + + | Result panel 126 | + + + + + + + + + | | 2022-09-06 | [facility] | NONE SEEN | (missing) | (missing) | | (unavailable | 10:35 | [facility] | | | | + + + + + + + + + | Result panel 127 | + + + + + + + + + | | 2022-09-06 | [facility] | NONE SEEN | (missing) | (missing) | | (unavailable | 10:35 | [facility] | | | | + + + + + + + + + | Result panel 128 | + + + + + + + + + | | 2022-09-06 | [facility] | GRANULAR 1+ | (missing) | (missing) | | (unavailable | 10:35 | [facility] | | | | + + + + + + + + + | Result panel 129 | + + + + + + + + + | | 2022-09-06 | [facility] | FATTY 2+ | (missing) | (missing) | | (unavailable | 10:35 | [facility] | | | | + + + + + + + + + | Result panel 130 | + + + + + +------+ + + | | 2022-09-06 | [facility] | No | (missing) | (missing) | | (unavailable | 10:35 | [facility] | | | | + + + +------+ + + + + | Result panel 131 | + + + + + + + + + | | 2022-09-06 | [facility] | CLEAN CATCH | (missing) | (missing) | | (unavailable | 10:35 | [facility] | | | | + + + + + + + + + | Result panel 132 | + + + + + +-------+ + + | | 2022-09-06 | [facility] | 2-3 | (missing) | (missing) | | (unavailable | 10:35 | [facility] | | | | + + + +-------+ + + + + | Result panel 133 | + + + + + +-------+ + + | | 2022-09-06 | [facility] | 2-3 | (missing) | (missing) | | (unavailable | 10:35 | [facility] | | | | + + + +-------+ + + + + | Result panel 134 | + + + + + + + + + | | 2022-09-06 | [facility] | SQUAMOUS 2+ | (missing) | (missing) | | (unavailable | 10:35 | [facility] | | | | + + + + + + + + + | Result panel 135 | + + + + + + + + + | | 2022-09-06 | [facility] | NONE SEEN | (missing) | (missing) | | (unavailable | 10:35 | [facility] | | | | + + + + + + + + + | Result panel 136 | + + + + + + + + + | | 2022-09-06 | [facility] | NONE SEEN | (missing) | (missing) | | (unavailable | 10:35 | [facility] | | | | + + + + + + + + + | Result panel 137 | + + + + + + + + + | | 2022-09-06 | [facility] | GRANULAR 1+ | (missing) | (missing) | | (unavailable | 10:35 | [facility] | | | | + + + + + + + + + | Result panel 138 | + + + + + + + + + | | 2022-09-06 | [facility] | FATTY 2+ | (missing) | (missing) | | (unavailable | 10:35 | [facility] | | | | + + + + + + + + + | Result panel 139 | + + + + + +------+ + + | | 2022-09-06 | [facility] | No | (missing) | (missing) | | (unavailable | 10:35 | [facility] | | | | + + + +------+ + + + + | Result panel 140 | + + + + + + + + + | | 2022-09-06 | [facility] | CLEAN CATCH | (missing) | (missing) | | (unavailable | 10:35 | [facility] | | | | + + + + + + + + + | Result panel 141 | + + + + + +-------+ + + | | 2022-09-06 | [facility] | 7.0 | (missing) | (missing) | | (unavailable | 10:50 | [facility] | | | | + + + +-------+ + + + + | Result panel 142 | + + + + + +--------+ + + | | 2022-09-06 | [facility] | 5.19 | (missing) | (missing) | | (unavailable | 10:50 | [facility] | | | | + + + +--------+ + + + + | Result panel 143 | + + + + + +--------+ + + | | 2022-09-06 | [facility] | 15.1 | (missing) | (missing) | | (unavailable | 10:50 | [facility] | | | | + + + +--------+ + + + + | Result panel 144 | + + + + + +--------+ + + | | 2022-09-06 | [facility] | 43.4 | (missing) | (missing) | | (unavailable | 10:50 | [facility] | | | | + + + +--------+ + + + + | Result panel 145 | + + + + + +--------+ + + | | 2022-09-06 | [facility] | 83.6 | (missing) | (missing) | | (unavailable | 10:50 | [facility] | | | | + + + +--------+ + + + + | Result panel 146 | + + + + + +--------+ + + | | 2022-09-06 | [facility] | 29.2 | (missing) | (missing) | | (unavailable | 10:50 | [facility] | | | | + + + +--------+ + + + + | Result panel 147 | + + + + + +--------+ + + | | 2022-09-06 | [facility] | 34.9 | (missing) | (missing) | | (unavailable | 10:50 | [facility] | | | | + + + +--------+ + + + + | Result panel 148 | + + + + + +--------+ + + | | 2022-09-06 | [facility] | 13.2 | (missing) | (missing) | | (unavailable | 10:50 | [facility] | | | | + + + +--------+ + + + + | Result panel 149 | + + + + + +-------+ + + | | 2022-09-06 | [facility] | 208 | (missing) | (missing) | | (unavailable | 10:50 | [facility] | | | | + + + +-------+ + + + + | Result panel 150 | + + + + + +--------+ + + | | 2022-09-06 | [facility] | 67.9 | (missing) | (missing) | | (unavailable | 10:50 | [facility] | | | | + + + +--------+ + + + + | Result panel 151 | + + + + + +--------+ + + | | 2022-09-06 | [facility] | 22.8 | (missing) | (missing) | | (unavailable | 10:50 | [facility] | | | | + + + +--------+ + + + + | Result panel 152 | + + + + + +-------+ + + | | 2022-09-06 | [facility] | 8.6 | (missing) | (missing) | | (unavailable | 10:50 | [facility] | | | | + + + +-------+ + + + + | Result panel 153 | + + + + + +-------+ + + | | 2022-09-06 | [facility] | 0.3 | (missing) | (missing) | | (unavailable | 10:50 | [facility] | | | | + + + +-------+ + + + + | Result panel 154 | + + + + + +-------+ + + | | 2022-09-06 | [facility] | 0.4 | (missing) | (missing) | | (unavailable | 10:50 | [facility] | | | | + + + +-------+ + + + + | Result panel 155 | + + + + + +------+---------+ + | | 2022-09-06 | [facility] | 91 | mg/dL | (missing) | | (unavailable | 10:50 | [facility] | | | | + + + +------+---------+ + + + | Result panel 156 | + + + + + +------+---------+ + | | 2022-09-06 | [facility] | 12 | mg/dL | (missing) | | (unavailable | 10:50 | [facility] | | | | + + + +------+---------+ + + + | Result panel 157 | + + + + + +--------+---------+ + | | 2022-09-06 | [facility] | 0.54 | mg/dL | (missing) | | (unavailable | 10:50 | [facility] | | | | + + + +--------+---------+ + + + | Result panel 158 | + + + + + +-------+ + + | | 2022-09-06 | [facility] | 127 | (missing) | (missing) | | (unavailable | 10:50 | [facility] | | | | + + + +-------+ + + + + | Result panel 159 | + + + + + +---------+ + + | | 2022-09-06 | [facility] | 22.22 | (missing) | (missing) | | (unavailable | 10:50 | [facility] | | | | + + + +---------+ + + + + | Result panel 160 | + + + + + +-------+ + + | | 2022-09-06 | [facility] | 135 | (missing) | (missing) | | (unavailable | 10:50 | [facility] | | | | + + + +-------+ + + + + | Result panel 161 | + + + + + +-------+ + + | | 2022-09-06 | [facility] | 3.4 | (missing) | (missing) | | (unavailable | 10:50 | [facility] | | | | + + + +-------+ + + + + | Result panel 162 | + + + + + +------+ + + | | 2022-09-06 | [facility] | 96 | (missing) | (missing) | | (unavailable | 10:50 | [facility] | | | | + + + +------+ + + + + | Result panel 163 | + + + + + +------+ + + | | 2022-09-06 | [facility] | 22 | (missing) | (missing) | | (unavailable | 10:50 | [facility] | | | | + + + +------+ + + + + | Result panel 164 | + + + + + +--------+ + + | | 2022-09-06 | [facility] | 20.4 | (missing) | (missing) | | (unavailable | 10:50 | [facility] | | | | + + + +--------+ + + + + | Result panel 165 | + + + + + +-------+---------+ + | | 2022-09-06 | [facility] | 8.9 | mg/dL | (missing) | | (unavailable | 10:50 | [facility] | | | | + + + +-------+---------+ + + + | Result panel 166 | + + + + + + + + + | | 2022-09-06 | [facility] | NEGATIVE | (missing) | (missing) | | (unavailable | 10:50 | [facility] | | | | + + + + + + + + + | Result panel 167 | + + + + + +-------+ + + | | 2022-09-19 | [facility] | 7.7 | (missing) | (missing) | | (unavailable | 10:09 | [facility] | | | | + + + +-------+ + + + + | Result panel 168 | + + + + + +--------+ + + | | 2022-09-19 | [facility] | 4.49 | (missing) | (missing) | | (unavailable | 10:09 | [facility] | | | | + + + +--------+ + + + + | Result panel 169 | + + + + + +--------+ + + | | 2022-09-19 | [facility] | 12.9 | (missing) | (missing) | | (unavailable | 10:09 | [facility] | | | | + + + +--------+ + + + + | Result panel 170 | + + + + + +--------+ + + | | 2022-09-19 | [facility] | 38.7 | (missing) | (missing) | | (unavailable | 10:09 | [facility] | | | | + + + +--------+ + + + + | Result panel 171 | + + + + + +--------+ + + | | 2022-09-19 | [facility] | 86.2 | (missing) | (missing) | | (unavailable | 10:09 | [facility] | | | | + + + +--------+ + + + + | Result panel 172 | + + + + + +--------+ + + | | 2022-09-19 | [facility] | 28.6 | (missing) | (missing) | | (unavailable | 10:09 | [facility] | | | | + + + +--------+ + + + + | Result panel 173 | + + + + + +--------+ + + | | 2022-09-19 | [facility] | 33.2 | (missing) | (missing) | | (unavailable | 10:09 | [facility] | | | | + + + +--------+ + + + + | Result panel 174 | + + + + + +--------+ + + | | 2022-09-19 | [facility] | 13.7 | (missing) | (missing) | | (unavailable | 10:09 | [facility] | | | | + + + +--------+ + + + + | Result panel 175 | + + + + + +-------+ + + | | 2022-09-19 | [facility] | 157 | (missing) | (missing) | | (unavailable | 10:09 | [facility] | | | | + + + +-------+ + + + + | Result panel 176 | + + + + + +--------+ + + | | 2022-09-19 | [facility] | 88.0 | (missing) | (missing) | | (unavailable | 10:09 | [facility] | | | | + + + +--------+ + + + + | Result panel 177 | + + + + + +-------+ + + | | 2022-09-19 | [facility] | 8.4 | (missing) | (missing) | | (unavailable | 10:09 | [facility] | | | | + + + +-------+ + + + + | Result panel 178 | + + + + + +-------+ + + | | 2022-09-19 | [facility] | 2.9 | (missing) | (missing) | | (unavailable | 10:09 | [facility] | | | | + + + +-------+ + + + + | Result panel 179 | + + + + + +-------+ + + | | 2022-09-19 | [facility] | 0.3 | (missing) | (missing) | | (unavailable | 10:09 | [facility] | | | | + + + +-------+ + + + + | Result panel 180 | + + + + + +-------+ + + | | 2022-09-19 | [facility] | 0.4 | (missing) | (missing) | | (unavailable | 10:09 | [facility] | | | | + + + +-------+ + + + + | Result panel 181 | + + + + + +-------+---------+ + | | 2022-09-19 | [facility] | 112 | mg/dL | (missing) | | (unavailable | 10:09 | [facility] | | | | + + + +-------+---------+ + + + | Result panel 182 | + + + + + +-----+---------+ + | | 2022-09-19 | [facility] | 8 | mg/dL | (missing) | | (unavailable | 10:09 | [facility] | | | | + + + +-----+---------+ + + + | Result panel 183 | + + + + + +--------+---------+ + | | 2022-09-19 | [facility] | 0.70 | mg/dL | (missing) | | (unavailable | 10:09 | [facility] | | | | + + + +--------+---------+ + + + | Result panel 184 | + + + + + +-------+ + + | | 2022-09-19 | [facility] | 119 | (missing) | (missing) | | (unavailable | 10:09 | [facility] | | | | + + + +-------+ + + + + | Result panel 185 | + + + + + +---------+ + + | | 2022-09-19 | [facility] | 11.42 | (missing) | (missing) | | (unavailable | 10:09 | [facility] | | | | + + + +---------+ + + + + | Result panel 186 | + + + + + +-------+ + + | | 2022-09-19 | [facility] | 138 | (missing) | (missing) | | (unavailable | 10:09 | [facility] | | | | + + + +-------+ + + + + | Result panel 187 | + + + + + +-------+ + + | | 2022-09-19 | [facility] | 3.3 | (missing) | (missing) | | (unavailable | 10:09 | [facility] | | | | + + + +-------+ + + + + | Result panel 188 | + + + + + +-------+ + + | | 2022-09-19 | [facility] | 103 | (missing) | (missing) | | (unavailable | 10:09 | [facility] | | | | + + + +-------+ + + + + | Result panel 189 | + + + + + +------+ + + | | 2022-09-19 | [facility] | 21 | (missing) | (missing) | | (unavailable | 10:09 | [facility] | | | | + + + +------+ + + + + | Result panel 190 | + + + + + +--------+ + + | | 2022-09-19 | [facility] | 17.3 | (missing) | (missing) | | (unavailable | 10:09 | [facility] | | | | + + + +--------+ + + + + | Result panel 191 | + + + + + +-------+---------+ + | | 2022-09-19 | [facility] | 8.9 | mg/dL | (missing) | | (unavailable | 10:09 | [facility] | | | | + + + +-------+---------+ + + + | Result panel 192 | + + + + + + + + + | | 2022-09-19 | [facility] | NEGATIVE | (missing) | (missing) | | (unavailable | 10:09 | [facility] | | | | + + + + + + + + + | Result panel 193 | + + + + + + + + + | | 2022-09-19 | [facility] | YELLOW | (missing) | (missing) | | (unavailable | 11:35 | [facility] | | | | + + + + + + + + + | Result panel 194 | + + + + + +---------+ + + | | 2022-09-19 | [facility] | CLEAR | (missing) | (missing) | | (unavailable | 11:35 | [facility] | | | | + + + +---------+ + + + + | Result panel 195 | + + + + + + + + + | | 2022-09-19 | [facility] | NEGATIVE | (missing) | (missing) | | (unavailable | 11:35 | [facility] | | | | + + + + + + + + + | Result panel 196 | + + + + + + + + + | | 2022-09-19 | [facility] | NEGATIVE | (missing) | (missing) | | (unavailable | 11:35 | [facility] | | | | + + + + + + + + + | Result panel 197 | + + + + + +---------+ + + | | 2022-09-19 | [facility] | SMALL | (missing) | (missing) | | (unavailable | 11:35 | [facility] | | | | + + + +---------+ + + + + | Result panel 198 | + + + + + +---------+ + + | | 2022-09-19 | [facility] | 1.020 | (missing) | (missing) | | (unavailable | 11:35 | [facility] | | | | + + + +---------+ + + + + | Result panel 199 | + + + + + + + + + | | 2022-09-19 | [facility] | NEGATIVE | (missing) | (missing) | | (unavailable | 11:35 | [facility] | | | | + + + + + + + + + | Result panel 200 | + + + + + +-------+ + + | | 2022-09-19 | [facility] | 7.0 | (missing) | (missing) | | (unavailable | 11:35 | [facility] | | | | + + + +-------+ + + + + | Result panel 201 | + + + + + + + + + | | 2022-09-19 | [facility] | NEGATIVE | (missing) | (missing) | | (unavailable | 11:35 | [facility] | | | | + + + + + + + + + | Result panel 202 | + + + + + + + + + | | 2022-09-19 | [facility] | NORMAL | (missing) | (missing) | | (unavailable | 11:35 | [facility] | | | | + + + + + + + + + | Result panel 203 | + + + + + + + + + | | 2022-09-19 | [facility] | NEGATIVE | (missing) | (missing) | | (unavailable | 11:35 | [facility] | | | | + + + + + + + + + | Result panel 204 | + + + + + + + + + | | 2022-09-19 | [facility] | NEGATIVE | (missing) | (missing) | | (unavailable | 11:35 | [facility] | | | | + + + + + + + + + | Result panel 205 | + + + + + +--------+ + + | | 2022-09-24 | [facility] | 11.5 | (missing) | (missing) | | (unavailable | 17:25 | [facility] | | | | + + + +--------+ + + + + | Result panel 206 | + + + + + +--------+ + + | | 2022-09-24 | [facility] | 4.34 | (missing) | (missing) | | (unavailable | 17:25 | [facility] | | | | + + + +--------+ + + + + | Result panel 207 | + + + + + +--------+ + + | | 2022-09-24 | [facility] | 12.5 | (missing) | (missing) | | (unavailable | 17:25 | [facility] | | | | + + + +--------+ + + + + | Result panel 208 | + + + + + +--------+ + + | | 2022-09-24 | [facility] | 37.1 | (missing) | (missing) | | (unavailable | 17:25 | [facility] | | | | + + + +--------+ + + + + | Result panel 209 | + + + + + +--------+ + + | | 2022-09-24 | [facility] | 85.5 | (missing) | (missing) | | (unavailable | 17:25 | [facility] | | | | + + + +--------+ + + + + | Result panel 210 | + + + + + +--------+ + + | | 2022-09-24 | [facility] | 28.7 | (missing) | (missing) | | (unavailable | 17:25 | [facility] | | | | + + + +--------+ + + + + | Result panel 211 | + + + + + +--------+ + + | | 2022-09-24 | [facility] | 33.6 | (missing) | (missing) | | (unavailable | 17:25 | [facility] | | | | + + + +--------+ + + + + | Result panel 212 | + + + + + +--------+ + + | | 2022-09-24 | [facility] | 13.8 | (missing) | (missing) | | (unavailable | 17:25 | [facility] | | | | + + + +--------+ + + + + | Result panel 213 | + + + + + +-------+ + + | | 2022-09-24 | [facility] | 197 | (missing) | (missing) | | (unavailable | 17:25 | [facility] | | | | + + + +-------+ + + + + | Result panel 214 | + + + + + +--------+ + + | | 2022-09-24 | [facility] | 91.4 | (missing) | (missing) | | (unavailable | 17:25 | [facility] | | | | + + + +--------+ + + + + | Result panel 215 | + + + + + +-------+ + + | | 2022-09-24 | [facility] | 6.1 | (missing) | (missing) | | (unavailable | 17:25 | [facility] | | | | + + + +-------+ + + + + | Result panel 216 | + + + + + +-------+ + + | | 2022-09-24 | [facility] | 2.3 | (missing) | (missing) | | (unavailable | 17:25 | [facility] | | | | + + + +-------+ + + + + | Result panel 217 | + + + + + +-------+ + + | | 2022-09-24 | [facility] | 0.0 | (missing) | (missing) | | (unavailable | 17:25 | [facility] | | | | + + + +-------+ + + + + | Result panel 218 | + + + + + +-------+ + + | | 2022-09-24 | [facility] | 0.2 | (missing) | (missing) | | (unavailable | 17:25 | [facility] | | | | + + + +-------+ + + + + | Result panel 219 | + + + + + +-------+---------+ + | | 2022-09-24 | [facility] | 121 | mg/dL | (missing) | | (unavailable | 17:25 | [facility] | | | | + + + +-------+---------+ + + + | Result panel 220 | + + + + + +-----+---------+ + | | 2022-09-24 | [facility] | 7 | mg/dL | (missing) | | (unavailable | 17:25 | [facility] | | | | + + + +-----+---------+ + + + | Result panel 221 | + + + + + +--------+---------+ + | | 2022-09-24 | [facility] | 0.68 | mg/dL | (missing) | | (unavailable | 17:25 | [facility] | | | | + + + +--------+---------+ + + + | Result panel 222 | + + + + + +-------+ + + | | 2022-09-24 | [facility] | 120 | (missing) | (missing) | | (unavailable | 17:25 | [facility] | | | | + + + +-------+ + + + + | Result panel 223 | + + + + + +---------+ + + | | 2022-09-24 | [facility] | 10.29 | (missing) | (missing) | | (unavailable | 17:25 | [facility] | | | | + + + +---------+ + + + + | Result panel 224 | + + + + + +-------+ + + | | 2022-09-24 | [facility] | 139 | (missing) | (missing) | | (unavailable | 17:25 | [facility] | | | | + + + +-------+ + + + + | Result panel 225 | + + + + + +-------+ + + | | 2022-09-24 | [facility] | 3.7 | (missing) | (missing) | | (unavailable | 17:25 | [facility] | | | | + + + +-------+ + + + + | Result panel 226 | + + + + + +-------+ + + | | 2022-09-24 | [facility] | 104 | (missing) | (missing) | | (unavailable | 17:25 | [facility] | | | | + + + +-------+ + + + + | Result panel 227 | + + + + + +------+ + + | | 2022-09-24 | [facility] | 24 | (missing) | (missing) | | (unavailable | 17:25 | [facility] | | | | + + + +------+ + + + + | Result panel 228 | + + + + + +--------+ + + | | 2022-09-24 | [facility] | 14.7 | (missing) | (missing) | | (unavailable | 17:25 | [facility] | | | | + + + +--------+ + + + + | Result panel 229 | + + + + + +-------+---------+ + | | 2022-09-24 | [facility] | 8.4 | mg/dL | (missing) | | (unavailable | 17:25 | [facility] | | | | + + + +-------+---------+ + + + | Result panel 230 | + + + + + +-------+ + + | | 2022-09-24 | [facility] | 7.7 | (missing) | (missing) | | (unavailable | 17:25 | [facility] | | | | + + + +-------+ + + + + | Result panel 231 | + + + + + +-------+ + + | | 2022-09-24 | [facility] | 3.9 | (missing) | (missing) | | (unavailable | 17:25 | [facility] | | | | + + + +-------+ + + + + | Result panel 232 | + + + + + +-------+ + + | | 2022-09-24 | [facility] | 3.8 | (missing) | (missing) | | (unavailable | 17:25 | [facility] | | | | + + + +-------+ + + + + | Result panel 233 | + + + + + +--------+ + + | | 2022-09-24 | [facility] | 1.03 | (missing) | (missing) | | (unavailable | 17:25 | [facility] | | | | + + + +--------+ + + + + | Result panel 234 | + + + + + +-------+ + + | | 2022-09-24 | [facility] | 0.5 | (missing) | (missing) | | (unavailable | 17:25 | [facility] | | | | + + + +-------+ + + + + | Result panel 235 | + + + + + +------+ + + | | 2022-09-24 | [facility] | 22 | (missing) | (missing) | | (unavailable | 17:25 | [facility] | | | | + + + +------+ + + + + | Result panel 236 | + + + + + +------+ + + | | 2022-09-24 | [facility] | 26 | (missing) | (missing) | | (unavailable | 17:25 | [facility] | | | | + + + +------+ + + + + | Result panel 237 | + + + + + +------+ + + | | 2022-09-24 | [facility] | 39 | (missing) | (missing) | | (unavailable | 17:25 | [facility] | | | | + + + +------+ + + + + | Result panel 238 | + + + + + + + + + | | 2022-09-24 | [facility] | NEGATIVE | (missing) | (missing) | | (unavailable | 17:25 | [facility] | | | | + + + + + + + + + | Result panel 239 | + + + + + + + + + | | 2022-09-24 | [facility] | NEGATIVE | (missing) | (missing) | | (unavailable | 17:25 | [facility] | | | | + + + + + + + + + | Result panel 240 | + + + + + + + + + | | 2022-09-24 | [facility] | NEGATIVE | (missing) | (missing) | | (unavailable | 17:25 | [facility] | | | | + + + + + + + + + | Result panel 241 | + + + + + + + + + | | 2022-09-24 | [facility] | POSITIVE | (missing) | (missing) | | (unavailable | 17:30 | [facility] | | | | + + + + + + + + + | Result panel 242 | + + + + + + + + + | | 2022-09-24 | [facility] | POSITIVE | (missing) | (missing) | | (unavailable | 17:30 | [facility] | | | | + + + + + + + + + | Result panel 243 | + + + + + + + + + | | 2022-09-24 | [facility] | POSITIVE | (missing) | (missing) | | (unavailable | 17:30 | [facility] | | | | + + + + + + + + + | Result panel 244 | + + + + + + + + + | | 2022-09-24 | [facility] | POSITIVE | (missing) | (missing) | | (unavailable | 17:30 | [facility] | | | | + + + + + + + + + | Result panel 245 | + + + + + + + + + | | 2022-09-24 | [facility] | POSITIVE | (missing) | (missing) | | (unavailable | 17:30 | [facility] | | | | + + + + + + + + + | Result panel 246 | + + + + + + + + + | | 2022-09-24 | [facility] | YELLOW | (missing) | (missing) | | (unavailable | 18:25 | [facility] | | | | + + + + + + + + + | Result panel 247 | + + + + + +---------+ + + | | 2022-09-24 | [facility] | CLEAR | (missing) | (missing) | | (unavailable | 18:25 | [facility] | | | | + + + +---------+ + + + + | Result panel 248 | + + + + + + + + + | | 2022-09-24 | [facility] | NEGATIVE | (missing) | (missing) | | (unavailable | 18:25 | [facility] | | | | + + + + + + + + + | Result panel 249 | + + + + + + + + + | | 2022-09-24 | [facility] | NEGATIVE | (missing) | (missing) | | (unavailable | 18:25 | [facility] | | | | + + + + + + + + + | Result panel 250 | + + + + + +--------+ + + | | 2022-09-24 | [facility] | >=80 | (missing) | (missing) | | (unavailable | 18:25 | [facility] | | | | + + + +--------+ + + + + | Result panel 251 | + + + + + +---------+ + + | | 2022-09-24 | [facility] | 1.020 | (missing) | (missing) | | (unavailable | 18:25 | [facility] | | | | + + + +---------+ + + + + | Result panel 252 | + + + + + + + + + | | 2022-09-24 | [facility] | TRACE-I | (missing) | (missing) | | (unavailable | 18:25 | [facility] | | | | + + + + + + + + + | Result panel 253 | + + + + + +-------+ + + | | 2022-09-24 | [facility] | 5.5 | (missing) | (missing) | | (unavailable | 18:25 | [facility] | | | | + + + +-------+ + + + + | Result panel 254 | + + + + + + + + + | | 2022-09-24 | [facility] | NEGATIVE | (missing) | (missing) | | (unavailable | 18:25 | [facility] | | | | + + + + + + + + + | Result panel 255 | + + + + + + + + + | | 2022-09-24 | [facility] | NORMAL | (missing) | (missing) | | (unavailable | 18:25 | [facility] | | | | + + + + + + + + + | Result panel 256 | + + + + + + + + + | | 2022-09-24 | [facility] | NEGATIVE | (missing) | (missing) | | (unavailable | 18:25 | [facility] | | | | + + + + + + + + + | Result panel 257 | + + + + + + + + + | | 2022-09-24 | [facility] | NEGATIVE | (missing) | (missing) | | (unavailable | 18:25 | [facility] | | | | + + + + + + + + + | Result panel 258 | + + + + + +-------+ + + | | 2022-09-24 | [facility] | 2-3 | (missing) | (missing) | | (unavailable | 18:25 | [facility] | | | | + + + +-------+ + + + + | Result panel 259 | + + + + + +---------+ + + | | 2022-09-24 | [facility] | 12-20 | (missing) | (missing) | | (unavailable | 18:25 | [facility] | | | | + + + +---------+ + + + + | Result panel 260 | + + + + + + + + + | | 2022-09-24 | [facility] | SQUAMOUS 1+ | (missing) | (missing) | | (unavailable | 18:25 | [facility] | | | | + + + + + + + + + | Result panel 261 | + + + + + + + + + | | 2022-09-24 | [facility] | NONE SEEN | (missing) | (missing) | | (unavailable | 18:25 | [facility] | | | | + + + + + + + + + | Result panel 262 | + + + + + +------+ + + | | 2022-09-24 | [facility] | 1+ | (missing) | (missing) | | (unavailable | 18:25 | [facility] | | | | + + + +------+ + + + + | Result panel 263 | + + + + + + + + + | | 2022-09-24 | [facility] | NONE SEEN | (missing) | (missing) | | (unavailable | 18:25 | [facility] | | | | + + + + + + + + + | Result panel 264 | + + + + + +-------+ + + | | 2022-09-24 | [facility] | Yes | (missing) | (missing) | | (unavailable | 18:25 | [facility] | | | | + + + +-------+ + + + + | Result panel 265 | + + + + + + + + + | | 2022-09-24 | [facility] | CLEAN CATCH | (missing) | (missing) | | (unavailable | 18:25 | [facility] | | | | + + + + + + + + + | Result panel 266 | + + + + + + + + + | | 2022-09-24 | [facility] | YELLOW | (missing) | (missing) | | (unavailable | 18:25 | [facility] | | | | + + + + + + + + + | Result panel 267 | + + + + + +---------+ + + | | 2022-09-24 | [facility] | CLEAR | (missing) | (missing) | | (unavailable | 18:25 | [facility] | | | | + + + +---------+ + + + + | Result panel 268 | + + + + + + + + + | | 2022-09-24 | [facility] | NEGATIVE | (missing) | (missing) | | (unavailable | 18:25 | [facility] | | | | + + + + + + + + + | Result panel 269 | + + + + + + + + + | | 2022-09-24 | [facility] | NEGATIVE | (missing) | (missing) | | (unavailable | 18:25 | [facility] | | | | + + + + + + + + + | Result panel 270 | + + + + + +--------+ + + | | 2022-09-24 | [facility] | >=80 | (missing) | (missing) | | (unavailable | 18:25 | [facility] | | | | + + + +--------+ + + + + | Result panel 271 | + + + + + +---------+ + + | | 2022-09-24 | [facility] | 1.020 | (missing) | (missing) | | (unavailable | 18:25 | [facility] | | | | + + + +---------+ + + + + | Result panel 272 | + + + + + + + + + | | 2022-09-24 | [facility] | TRACE-I | (missing) | (missing) | | (unavailable | 18:25 | [facility] | | | | + + + + + + + + + | Result panel 273 | + + + + + +-------+ + + | | 2022-09-24 | [facility] | 5.5 | (missing) | (missing) | | (unavailable | 18:25 | [facility] | | | | + + + +-------+ + + + + | Result panel 274 | + + + + + + + + + | | 2022-09-24 | [facility] | NEGATIVE | (missing) | (missing) | | (unavailable | 18:25 | [facility] | | | | + + + + + + + + + | Result panel 275 | + + + + + + + + + | | 2022-09-24 | [facility] | NORMAL | (missing) | (missing) | | (unavailable | 18:25 | [facility] | | | | + + + + + + + + + | Result panel 276 | + + + + + + + + + | | 2022-09-24 | [facility] | NEGATIVE | (missing) | (missing) | | (unavailable | 18:25 | [facility] | | | | + + + + + + + + + | Result panel 277 | + + + + + + + + + | | 2022-09-24 | [facility] | NEGATIVE | (missing) | (missing) | | (unavailable | 18:25 | [facility] | | | | + + + + + + + + + | Result panel 278 | + + + + + +-------+ + + | | 2022-09-24 | [facility] | 2-3 | (missing) | (missing) | | (unavailable | 18:25 | [facility] | | | | + + + +-------+ + + + + | Result panel 279 | + + + + + +---------+ + + | | 2022-09-24 | [facility] | 12-20 | (missing) | (missing) | | (unavailable | 18:25 | [facility] | | | | + + + +---------+ + + + + | Result panel 280 | + + + + + + + + + | | 2022-09-24 | [facility] | SQUAMOUS 1+ | (missing) | (missing) | | (unavailable | 18:25 | [facility] | | | | + + + + + + + + + | Result panel 281 | + + + + + + + + + | | 2022-09-24 | [facility] | NONE SEEN | (missing) | (missing) | | (unavailable | 18:25 | [facility] | | | | + + + + + + + + + | Result panel 282 | + + + + + +------+ + + | | 2022-09-24 | [facility] | 1+ | (missing) | (missing) | | (unavailable | 18:25 | [facility] | | | | + + + +------+ + + + + | Result panel 283 | + + + + + + + + + | | 2022-09-24 | [facility] | NONE SEEN | (missing) | (missing) | | (unavailable | 18:25 | [facility] | | | | + + + + + + + + + | Result panel 284 | + + + + + +-------+ + + | | 2022-09-24 | [facility] | Yes | (missing) | (missing) | | (unavailable | 18:25 | [facility] | | | | + + + +-------+ + + + + | Result panel 285 | + + + + + + + + + | | 2022-09-24 | [facility] | CLEAN CATCH | (missing) | (missing) | | (unavailable | 18:25 | [facility] | | | | + + + + + + + + + | Result panel 286 | + + + + + + + + + | | 2022-09-24 | [facility] | YELLOW | (missing) | (missing) | | (unavailable | 18:25 | [facility] | | | | + + + + + + + + + | Result panel 287 | + + + + + +---------+ + + | | 2022-09-24 | [facility] | CLEAR | (missing) | (missing) | | (unavailable | 18:25 | [facility] | | | | + + + +---------+ + + + + | Result panel 288 | + + + + + + + + + | | 2022-09-24 | [facility] | NEGATIVE | (missing) | (missing) | | (unavailable | 18:25 | [facility] | | | | + + + + + + + + + | Result panel 289 | + + + + + + + + + | | 2022-09-24 | [facility] | NEGATIVE | (missing) | (missing) | | (unavailable | 18:25 | [facility] | | | | + + + + + + + + + | Result panel 290 | + + + + + +--------+ + + | | 2022-09-24 | [facility] | >=80 | (missing) | (missing) | | (unavailable | 18:25 | [facility] | | | | + + + +--------+ + + + + | Result panel 291 | + + + + + +---------+ + + | | 2022-09-24 | [facility] | 1.020 | (missing) | (missing) | | (unavailable | 18:25 | [facility] | | | | + + + +---------+ + + + + | Result panel 292 | + + + + + + + + + | | 2022-09-24 | [facility] | TRACE-I | (missing) | (missing) | | (unavailable | 18:25 | [facility] | | | | + + + + + + + + + | Result panel 293 | + + + + + +-------+ + + | | 2022-09-24 | [facility] | 5.5 | (missing) | (missing) | | (unavailable | 18:25 | [facility] | | | | + + + +-------+ + + + + | Result panel 294 | + + + + + + + + + | | 2022-09-24 | [facility] | NEGATIVE | (missing) | (missing) | | (unavailable | 18:25 | [facility] | | | | + + + + + + + + + | Result panel 295 | + + + + + + + + + | | 2022-09-24 | [facility] | NORMAL | (missing) | (missing) | | (unavailable | 18:25 | [facility] | | | | + + + + + + + + + | Result panel 296 | + + + + + + + + + | | 2022-09-24 | [facility] | NEGATIVE | (missing) | (missing) | | (unavailable | 18:25 | [facility] | | | | + + + + + + + + + | Result panel 297 | + + + + + + + + + | | 2022-09-24 | [facility] | NEGATIVE | (missing) | (missing) | | (unavailable | 18:25 | [facility] | | | | + + + + + + + + + | Result panel 298 | + + + + + +-------+ + + | | 2022-09-24 | [facility] | 2-3 | (missing) | (missing) | | (unavailable | 18:25 | [facility] | | | | + + + +-------+ + + + + | Result panel 299 | + + + + + +---------+ + + | | 2022-09-24 | [facility] | 12-20 | (missing) | (missing) | | (unavailable | 18:25 | [facility] | | | | + + + +---------+ + + + + | Result panel 300 | + + + + + + + + + | | 2022-09-24 | [facility] | SQUAMOUS 1+ | (missing) | (missing) | | (unavailable | 18:25 | [facility] | | | | + + + + + + + + + | Result panel 301 | + + + + + + + + + | | 2022-09-24 | [facility] | NONE SEEN | (missing) | (missing) | | (unavailable | 18:25 | [facility] | | | | + + + + + + + + + | Result panel 302 | + + + + + +------+ + + | | 2022-09-24 | [facility] | 1+ | (missing) | (missing) | | (unavailable | 18:25 | [facility] | | | | + + + +------+ + + + + | Result panel 303 | + + + + + + + + + | | 2022-09-24 | [facility] | NONE SEEN | (missing) | (missing) | | (unavailable | 18:25 | [facility] | | | | + + + + + + + + + | Result panel 304 | + + + + + +-------+ + + | | 2022-09-24 | [facility] | Yes | (missing) | (missing) | | (unavailable | 18:25 | [facility] | | | | + + + +-------+ + + + + | Result panel 305 | + + + + + + + + + | | 2022-09-24 | [facility] | CLEAN CATCH | (missing) | (missing) | | (unavailable | 18:25 | [facility] | | | | + + + + + + + + + | Result panel 306 | + + + + + + + + + | | 2022-09-24 | [facility] | YELLOW | (missing) | (missing) | | (unavailable | 18:25 | [facility] | | | | + + + + + + + + + | Result panel 307 | + + + + + +---------+ + + | | 2022-09-24 | [facility] | CLEAR | (missing) | (missing) | | (unavailable | 18:25 | [facility] | | | | + + + +---------+ + + + + | Result panel 308 | + + + + + + + + + | | 2022-09-24 | [facility] | NEGATIVE | (missing) | (missing) | | (unavailable | 18:25 | [facility] | | | | + + + + + + + + + | Result panel 309 | + + + + + + + + + | | 2022-09-24 | [facility] | NEGATIVE | (missing) | (missing) | | (unavailable | 18:25 | [facility] | | | | + + + + + + + + + | Result panel 310 | + + + + + +--------+ + + | | 2022-09-24 | [facility] | >=80 | (missing) | (missing) | | (unavailable | 18:25 | [facility] | | | | + + + +--------+ + + + + | Result panel 311 | + + + + + +---------+ + + | | 2022-09-24 | [facility] | 1.020 | (missing) | (missing) | | (unavailable | 18:25 | [facility] | | | | + + + +---------+ + + + + | Result panel 312 | + + + + + + + + + | | 2022-09-24 | [facility] | TRACE-I | (missing) | (missing) | | (unavailable | 18:25 | [facility] | | | | + + + + + + + + + | Result panel 313 | + + + + + +-------+ + + | | 2022-09-24 | [facility] | 5.5 | (missing) | (missing) | | (unavailable | 18:25 | [facility] | | | | + + + +-------+ + + + + | Result panel 314 | + + + + + + + + + | | 2022-09-24 | [facility] | NEGATIVE | (missing) | (missing) | | (unavailable | 18:25 | [facility] | | | | + + + + + + + + + | Result panel 315 | + + + + + + + + + | | 2022-09-24 | [facility] | NORMAL | (missing) | (missing) | | (unavailable | 18:25 | [facility] | | | | + + + + + + + + + | Result panel 316 | + + + + + + + + + | | 2022-09-24 | [facility] | NEGATIVE | (missing) | (missing) | | (unavailable | 18:25 | [facility] | | | | + + + + + + + + + | Result panel 317 | + + + + + + + + + | | 2022-09-24 | [facility] | NEGATIVE | (missing) | (missing) | | (unavailable | 18:25 | [facility] | | | | + + + + + + + + + | Result panel 318 | + + + + + +-------+ + + | | 2022-09-24 | [facility] | 2-3 | (missing) | (missing) | | (unavailable | 18:25 | [facility] | | | | + + + +-------+ + + + + | Result panel 319 | + + + + + +---------+ + + | | 2022-09-24 | [facility] | 12-20 | (missing) | (missing) | | (unavailable | 18:25 | [facility] | | | | + + + +---------+ + + + + | Result panel 320 | + + + + + + + + + | | 2022-09-24 | [facility] | SQUAMOUS 1+ | (missing) | (missing) | | (unavailable | 18:25 | [facility] | | | | + + + + + + + + + | Result panel 321 | + + + + + + + + + | | 2022-09-24 | [facility] | NONE SEEN | (missing) | (missing) | | (unavailable | 18:25 | [facility] | | | | + + + + + + + + + | Result panel 322 | + + + + + +------+ + + | | 2022-09-24 | [facility] | 1+ | (missing) | (missing) | | (unavailable | 18:25 | [facility] | | | | + + + +------+ + + + + | Result panel 323 | + + + + + + + + + | | 2022-09-24 | [facility] | NONE SEEN | (missing) | (missing) | | (unavailable | 18:25 | [facility] | | | | + + + + + + + + + | Result panel 324 | + + + + + +-------+ + + | | 2022-09-24 | [facility] | Yes | (missing) | (missing) | | (unavailable | 18:25 | [facility] | | | | + + + +-------+ + + + + | Result panel 325 | + + + + + + + + + | | 2022-09-24 | [facility] | CLEAN CATCH | (missing) | (missing) | | (unavailable | 18:25 | [facility] | | | | + + + + + + + + + | Result panel 326 | + + + + + + + + + | | 2022-09-24 | [facility] | YELLOW | (missing) | (missing) | | (unavailable | 18:25 | [facility] | | | | + + + + + + + + + | Result panel 327 | + + + + + +---------+ + + | | 2022-09-24 | [facility] | CLEAR | (missing) | (missing) | | (unavailable | 18:25 | [facility] | | | | + + + +---------+ + + + + | Result panel 328 | + + + + + + + + + | | 2022-09-24 | [facility] | NEGATIVE | (missing) | (missing) | | (unavailable | 18:25 | [facility] | | | | + + + + + + + + + | Result panel 329 | + + + + + + + + + | | 2022-09-24 | [facility] | NEGATIVE | (missing) | (missing) | | (unavailable | 18:25 | [facility] | | | | + + + + + + + + + | Result panel 330 | + + + + + +--------+ + + | | 2022-09-24 | [facility] | >=80 | (missing) | (missing) | | (unavailable | 18:25 | [facility] | | | | + + + +--------+ + + + + | Result panel 331 | + + + + + +---------+ + + | | 2022-09-24 | [facility] | 1.020 | (missing) | (missing) | | (unavailable | 18:25 | [facility] | | | | + + + +---------+ + + + + | Result panel 332 | + + + + + + + + + | | 2022-09-24 | [facility] | TRACE-I | (missing) | (missing) | | (unavailable | 18:25 | [facility] | | [facility] | | | | + + + + + + + + + | Result panel 333 | + + + + + +-------+ + + | | 2022-09-24 | [facility] | 5.5 | (missing) | (missing) | | (unavailable | 18:25 | [facility] | | | | + + + +-------+ + + + + | Result panel 334 | + + + + + + + + + | | 2022-09-24 | [facility] | NEGATIVE | (missing) | (missing) | | (unavailable | 18:25 | [facility] | | | | + + + + + + + + + | Result panel 335 | + + + + + + + + + | | 2022-09-24 | [facility] | NORMAL | (missing) | (missing) | | (unavailable | 18:25 | [facility] | | | | + + + + + + + + + | Result panel 336 | + + + + + + + + + | | 2022-09-24 | [facility] | NEGATIVE | (missing) | (missing) | | (unavailable | 18:25 | [facility] | | | | + + + + + + + + + | Result panel 337 | + + + + + + + + + | | 2022-09-24 | [facility] | NEGATIVE | (missing) | (missing) | | (unavailable | 18:25 | [facility] | | | | + + + + + + + + + | Result panel 338 | + + + + + +-------+ + + | | 2022-09-24 | [facility] | 2-3 | (missing) | (missing) | | (unavailable | 18:25 | [facility] | | | | + + + +-------+ + + + + | Result panel 339 | + + + + + +---------+ + + | | 2022-09-24 | [facility] | 12-20 | (missing) | (missing) | | (unavailable | 18:25 | [facility] | | | | + + + +---------+ + + + + | Result panel 340 | + + + + + + + + + | | 2022-09-24 | [facility] | SQUAMOUS 1+ | (missing) | (missing) | | (unavailable | 18:25 | [facility] | | | | + + + + + + + + + | Result panel 341 | + + + + + + + + + | | 2022-09-24 | [facility] | NONE SEEN | (missing) | (missing) | | (unavailable | 18:25 | [facility] | | | | + + + + + + + + + | Result panel 342 | + + + + + +------+ + + | | 2022-09-24 | [facility] | 1+ | (missing) | (missing) | | (unavailable | 18:25 | [facility] | | | | + + + +------+ + + + + | Result panel 343 | + + + + + + + + + | | 2022-09-24 | [facility] | NONE SEEN | (missing) | (missing) | | (unavailable | 18:25 | [facility] | | | | + + + + + + + + + | Result panel 344 | + + + + + +-------+ + + | | 2022-09-24 | [facility] | Yes | (missing) | (missing) | | (unavailable | 18:25 | [facility] | | | | + + + +-------+ + + + + | Result panel 345 | + + + + + + + + + | | 2022-09-24 | [facility] | CLEAN CATCH | (missing) | (missing) | | (unavailable | 18:25 | [facility] | | | | + + + + + + + + + | Result panel 346 | + + + + + +--------+ + + | | 2022-09-26 | [facility] | 13.7 | (missing) | (missing) | | (unavailable | 08:28 | [facility] | | | | + + + +--------+ + + + + | Result panel 347 | + + + + + +--------+ + + | | 2022-09-26 | [facility] | 4.13 | (missing) | (missing) | | (unavailable | 08:28 | [facility] | | | | + + + +--------+ + + + + | Result panel 348 | + + + + + +--------+ + + | | 2022-09-26 | [facility] | 11.8 | (missing) | (missing) | | (unavailable | 08:28 | [facility] | | | | + + + +--------+ + + + + | Result panel 349 | + + + + + +--------+ + + | | 2022-09-26 | [facility] | 35.3 | (missing) | (missing) | | (unavailable | 08:28 | [facility] | | | | + + + +--------+ + + + + | Result panel 350 | + + + + + +--------+ + + | | 2022-09-26 | [facility] | 85.4 | (missing) | (missing) | | (unavailable | 08:28 | [facility] | | | | + + + +--------+ + + + + | Result panel 351 | + + + + + +--------+ + + | | 2022-09-26 | [facility] | 28.6 | (missing) | (missing) | | (unavailable | 08:28 | [facility] | | | | + + + +--------+ + + + + | Result panel 352 | + + + + + +--------+ + + | | 2022-09-26 | [facility] | 33.5 | (missing) | (missing) | | (unavailable | 08:28 | [facility] | | | | + + + +--------+ + + + + | Result panel 353 | + + + + + +--------+ + + | | 2022-09-26 | [facility] | 13.8 | (missing) | (missing) | | (unavailable | 08:28 | [facility] | | | | + + + +--------+ + + + + | Result panel 354 | + + + + + +-------+ + + | | 2022-09-26 | [facility] | 219 | (missing) | (missing) | | (unavailable | 08:28 | [facility] | | | | + + + +-------+ + + + + | Result panel 355 | + + + + + +--------+ + + | | 2022-09-26 | [facility] | 91.0 | (missing) | (missing) | | (unavailable | 08:28 | [facility] | | | | + + + +--------+ + + + + | Result panel 356 | + + + + + +-------+ + + | | 2022-09-26 | [facility] | 4.5 | (missing) | (missing) | | (unavailable | 08:28 | [facility] | | | | + + + +-------+ + + + + | Result panel 357 | + + + + + +-------+ + + | | 2022-09-26 | [facility] | 4.5 | (missing) | (missing) | | (unavailable | 08:28 | [facility] | | | | + + + +-------+ + + + + | Result panel 358 | + + + + + +-------+ + + | | 2022-09-26 | [facility] | 0.0 | (missing) | (missing) | | (unavailable | 08:28 | [facility] | | | | + + + +-------+ + + + + | Result panel 359 | + + + + + +-------+ + + | | 2022-09-26 | [facility] | 0.0 | (missing) | (missing) | | (unavailable | 08:28 | [facility] | | | | + + + +-------+ + + + + | Result panel 360 | + + + + + +-------+---------+ + | | 2022-09-26 | [facility] | 146 | mg/dL | (missing) | | (unavailable | 08:28 | [facility] | | | | + + + +-------+---------+ + + + | Result panel 361 | + + + + + +-----+---------+ + | | 2022-09-26 | [facility] | 5 | mg/dL | (missing) | | (unavailable | 08:28 | [facility] | | | | + + + +-----+---------+ + + + | Result panel 362 | + + + + + +--------+---------+ + | | 2022-09-26 | [facility] | 0.68 | mg/dL | (missing) | | (unavailable | 08:28 | [facility] | | | | + + + +--------+---------+ + + + | Result panel 363 | + + + + + +-------+ + + | | 2022-09-26 | [facility] | 120 | (missing) | (missing) | | (unavailable | 08:28 | [facility] | | | | + + + +-------+ + + + + | Result panel 364 | + + + + + +--------+ + + | | 2022-09-26 | [facility] | 7.35 | (missing) | (missing) | | (unavailable | 08:28 | [facility] | | | | + + + +--------+ + + + + | Result panel 365 | + + + + + +-------+ + + | | 2022-09-26 | [facility] | 140 | (missing) | (missing) | | (unavailable | 08:28 | [facility] | | | | + + + +-------+ + + + + | Result panel 366 | + + + + + +-------+ + + | | 2022-09-26 | [facility] | 3.1 | (missing) | (missing) | | (unavailable | 08:28 | [facility] | | | | + + + +-------+ + + + + | Result panel 367 | + + + + + +-------+ + + | | 2022-09-26 | [facility] | 105 | (missing) | (missing) | | (unavailable | 08:28 | [facility] | | | | + + + +-------+ + + + + | Result panel 368 | + + + + + +------+ + + | | 2022-09-26 | [facility] | 23 | (missing) | (missing) | | (unavailable | 08:28 | [facility] | | | | + + + +------+ + + + + | Result panel 369 | + + + + + +--------+ + + | | 2022-09-26 | [facility] | 15.1 | (missing) | (missing) | | (unavailable | 08:28 | [facility] | | | | + + + +--------+ + + + + | Result panel 370 | + + + + + +-------+---------+ + | | 2022-09-26 | [facility] | 8.1 | mg/dL | (missing) | | (unavailable | 08:28 | [facility] | | | | + + + +-------+---------+ + + + | Result panel 371 | + + + + + +-------+ + + | | 2022-09-26 | [facility] | 7.4 | (missing) | (missing) | | (unavailable | 08:28 | [facility] | | | | + + + +-------+ + + + + | Result panel 372 | + + + + + +-------+ + + | | 2022-09-26 | [facility] | 4.0 | (missing) | (missing) | | (unavailable | 08:28 | [facility] | | | | + + + +-------+ + + + + | Result panel 373 | + + + + + +-------+ + + | | 2022-09-26 | [facility] | 3.4 | (missing) | (missing) | | (unavailable | 08:28 | [facility] | | | | + + + +-------+ + + + + | Result panel 374 | + + + + + +--------+ + + | | 2022-09-26 | [facility] | 1.18 | (missing) | (missing) | | (unavailable | 08:28 | [facility] | | | | + + + +--------+ + + + + | Result panel 375 | + + + + + +-------+ + + | | 2022-09-26 | [facility] | 0.5 | (missing) | (missing) | | (unavailable | 08:28 | [facility] | | | | + + + +-------+ + + + + | Result panel 376 | + + + + + +------+ + + | | 2022-09-26 | [facility] | 15 | (missing) | (missing) | | (unavailable | 08:28 | [facility] | | | | + + + +------+ + + + + | Result panel 377 | + + + + + +------+ + + | | 2022-09-26 | [facility] | 29 | (missing) | (missing) | | (unavailable | 08:28 | [facility] | | | | + + + +------+ + + + + | Result panel 378 | + + + + + +------+ + + | | 2022-09-26 | [facility] | 40 | (missing) | (missing) | | (unavailable | 08:28 | [facility] | | | | + + + +------+ + + + + | Result panel 379 | + + + + + +------+ + + | | 2022-09-26 | [facility] | 70 | (missing) | (missing) | | (unavailable | 08:28 | [facility] | | | | + + + +------+ + + + + | Result panel 380 | + + + + + +--------+ + + | | 2022-09-26 | [facility] | 13.7 | (missing) | (missing) | | (unavailable | 08:28 | [facility] | | | | + + + +--------+ + + + + | Result panel 381 | + + + + + +--------+ + + | | 2022-09-26 | [facility] | 4.13 | (missing) | (missing) | | (unavailable | 08:28 | [facility] | | | | + + + +--------+ + + + + | Result panel 382 | + + + + + +--------+ + + | | 2022-09-26 | [facility] | 11.8 | (missing) | (missing) | | (unavailable | 08:28 | [facility] | | | | + + + +--------+ + + + + | Result panel 383 | + + + + + +--------+ + + | | 2022-09-26 | [facility] | 35.3 | (missing) | (missing) | | (unavailable | 08:28 | [facility] | | | | + + + +--------+ + + + + | Result panel 384 | + + + + + +--------+ + + | | 2022-09-26 | [facility] | 85.4 | (missing) | (missing) | | (unavailable | 08:28 | [facility] | | | | + + + +--------+ + + + + | Result panel 385 | + + + + + +--------+ + + | | 2022-09-26 | [facility] | 28.6 | (missing) | (missing) | | (unavailable | 08:28 | [facility] | | | | + + + +--------+ + + + + | Result panel 386 | + + + + + +--------+ + + | | 2022-09-26 | [facility] | 33.5 | (missing) | (missing) | | (unavailable | 08:28 | [facility] | | | | + + + +--------+ + + + + | Result panel 387 | + + + + + +--------+ + + | | 2022-09-26 | [facility] | 13.8 | (missing) | (missing) | | (unavailable | 08:28 | [facility] | | | | + + + +--------+ + + + + | Result panel 388 | + + + + + +-------+ + + | | 2022-09-26 | [facility] | 219 | (missing) | (missing) | | (unavailable | 08:28 | [facility] | | | | + + + +-------+ + + + + | Result panel 389 | + + + + + +--------+ + + | | 2022-09-26 | [facility] | 91.0 | (missing) | (missing) | | (unavailable | 08:28 | [facility] | | | | + + + +--------+ + + + + | Result panel 390 | + + + + + +-------+ + + | | 2022-09-26 | [facility] | 4.5 | (missing) | (missing) | | (unavailable | 08:28 | [facility] | | | | + + + +-------+ + + + + | Result panel 391 | + + + + + +-------+ + + | | 2022-09-26 | [facility] | 4.5 | (missing) | (missing) | | (unavailable | 08:28 | [facility] | | | | + + + +-------+ + + + + | Result panel 392 | + + + + + +-------+ + + | | 2022-09-26 | [facility] | 0.0 | (missing) | (missing) | | (unavailable | 08:28 | [facility] | | | | + + + +-------+ + + + + | Result panel 393 | + + + + + +-------+ + + | | 2022-09-26 | [facility] | 0.0 | (missing) | (missing) | | (unavailable | 08:28 | [facility] | | | | + + + +-------+ + + + + | Result panel 394 | + + + + + +-------+---------+ + | | 2022-09-26 | [facility] | 146 | mg/dL | (missing) | | (unavailable | 08:28 | [facility] | | | | + + + +-------+---------+ + + + | Result panel 395 | + + + + + +-----+---------+ + | | 2022-09-26 | [facility] | 5 | mg/dL | (missing) | | (unavailable | 08:28 | [facility] | | | | + + + +-----+---------+ + + + | Result panel 396 | + + + + + +--------+---------+ + | | 2022-09-26 | [facility] | 0.68 | mg/dL | (missing) | | (unavailable | 08:28 | [facility] | | | | + + + +--------+---------+ + + + | Result panel 397 | + + + + + +-------+ + + | | 2022-09-26 | [facility] | 120 | (missing) | (missing) | | (unavailable | 08:28 | [facility] | | | | + + + +-------+ + + + + | Result panel 398 | + + + + + +--------+ + + | | 2022-09-26 | [facility] | 7.35 | (missing) | (missing) | | (unavailable | 08:28 | [facility] | | | | + + + +--------+ + + + + | Result panel 399 | + + + + + +-------+ + + | | 2022-09-26 | [facility] | 140 | (missing) | (missing) | | (unavailable | 08:28 | [facility] | | | | + + + +-------+ + + + + | Result panel 400 | + + + + + +-------+ + + | | 2022-09-26 | [facility] | 3.1 | (missing) | (missing) | | (unavailable | 08:28 | [facility] | | | | + + + +-------+ + + + + | Result panel 401 | + + + + + +-------+ + + | | 2022-09-26 | [facility] | 105 | (missing) | (missing) | | (unavailable | 08:28 | [facility] | | | | + + + +-------+ + + + + | Result panel 402 | + + + + + +------+ + + | | 2022-09-26 | [facility] | 23 | (missing) | (missing) | | (unavailable | 08:28 | [facility] | | | | + + + +------+ + + + + | Result panel 403 | + + + + + +--------+ + + | | 2022-09-26 | [facility] | 15.1 | (missing) | (missing) | | (unavailable | 08:28 | [facility] | | | | + + + +--------+ + + + + | Result panel 404 | + + + + + +-------+---------+ + | | 2022-09-26 | [facility] | 8.1 | mg/dL | (missing) | | (unavailable | 08:28 | [facility] | | | | + + + +-------+---------+ + + + | Result panel 405 | + + + + + +-------+ + + | | 2022-09-26 | [facility] | 7.4 | (missing) | (missing) | | (unavailable | 08:28 | [facility] | | | | + + + +-------+ + + + + | Result panel 406 | + + + + + +-------+ + + | | 2022-09-26 | [facility] | 4.0 | (missing) | (missing) | | (unavailable | 08:28 | [facility] | | | | + + + +-------+ + + + + | Result panel 407 | + + + + + +-------+ + + | | 2022-09-26 | [facility] | 3.4 | (missing) | (missing) | | (unavailable | 08:28 | [facility] | | | | + + + +-------+ + + + + | Result panel 408 | + + + + + +--------+ + + | | 2022-09-26 | [facility] | 1.18 | (missing) | (missing) | | (unavailable | 08:28 | [facility] | | | | + + + +--------+ + + + + | Result panel 409 | + + + + + +-------+ + + | | 2022-09-26 | [facility] | 0.5 | (missing) | (missing) | | (unavailable | 08:28 | [facility] | | | | + + + +-------+ + + + + | Result panel 410 | + + + + + +------+ + + | | 2022-09-26 | [facility] | 15 | (missing) | (missing) | | (unavailable | 08:28 | [facility] | | | | + + + +------+ + + + + | Result panel 411 | + + + + + +------+ + + | | 2022-09-26 | [facility] | 29 | (missing) | (missing) | | (unavailable | 08:28 | [facility] | | | | + + + +------+ + + + + | Result panel 412 | + + + + + +------+ + + | | 2022-09-26 | [facility] | 40 | (missing) | (missing) | | (unavailable | 08:28 | [facility] | | | | + + + +------+ + + + + | Result panel 413 | + + + + + +------+ + + | | 2022-09-26 | [facility] | 70 | (missing) | (missing) | | (unavailable | 08:28 | [facility] | | | | + + + +------+ + + + + | Result panel 414 | + + + + + +-------+ + + | | 2022-09-26 | [facility] | 0.7 | (missing) | (missing) | | (unavailable | 10:21 | [facility] | | | | + + + +-------+ + + + + | Result panel 415 | + + + + + +-------+ + + | | 2022-09-26 | [facility] | 0.7 | (missing) | (missing) | | (unavailable | 10:21 | [facility] | | | | + + + +-------+ + + + + | Result panel 416 | + + + + + +------+ + + | | 2022-09-26 | [facility] | 2+ | (missing) | (missing) | | (unavailable | 13:00 | [facility] | | | | + + + +------+ + + + + | Result panel 417 | + + + + + + + + + | | 2022-09-26 | [facility] | POSITIVE | (missing) | (missing) | | (unavailable | 13:00 | [facility] | | | | + + + + + + + + + | Result panel 418 | + + + + + + + + + | | 2022-09-26 | [facility] | NEGATIVE | (missing) | (missing) | | (unavailable | 13:00 | [facility] | | | | + + + + + + + + + | Result panel 419 | + + + + + + + + + | | 2022-09-26 | [facility] | NEGATIVE | (missing) | (missing) | | (unavailable | 13:00 | [facility] | | | | + + + + + + + + + | Result panel 420 | + + + + + + + + + | | 2022-09-26 | [facility] | SEE SCANNED | (missing) | (missing) | | (unavailable | 13:00 | [facility] | [facility] | | | | + + + + + + + + + | Result panel 421 | + + + + + + + + + | | 2022-09-26 | [facility] | SEE SCANNED | (missing) | (missing) | | (unavailable | 13:00 | [facility] | | | | + + + + + + + + + | Result panel 422 | + + + + + + + + + | | 2022-09-26 | [facility] | VAGINAL | (missing) | (missing) | | (unavailable | 13:00 | [facility] | | | | + + + + + + + + + | Result panel 423 | + + + + + +------+ + + | | 2022-09-26 | [facility] | 1+ | (missing) | (missing) | | (unavailable | 13:00 | [facility] | | | | + + + +------+ + + + + | Result panel 424 | + + + + + +------+ + + | | 2022-09-26 | [facility] | 2+ | (missing) | (missing) | | (unavailable | 13:00 | [facility] | | | | + + + +------+ + + + + | Result panel 425 | + + + + + +------+ + + | | 2022-09-26 | [facility] | 1+ | (missing) | (missing) | | (unavailable | 13:00 | [facility] | | | | + + + +------+ + + + + | Result panel 426 | + + + + + +------+ + + | | 2022-09-26 | [facility] | 2+ | (missing) | (missing) | | (unavailable | 13:00 | [facility] | | | | + + + +------+ + + + + | Result panel 427 | + + + + + + + + + | | 2022-09-26 | [facility] | POSITIVE | (missing) | (missing) | | (unavailable | 13:00 | [facility] | | | | + + + + + + + + + | Result panel 428 | + + + + + + + + + | | 2022-09-26 | [facility] | NEGATIVE | (missing) | (missing) | | (unavailable | 13:00 | [facility] | | | | + + + + + + + + + | Result panel 429 | + + + + + + + + + | | 2022-09-26 | [facility] | NEGATIVE | (missing) | (missing) | | (unavailable | 13:00 | [facility] | | | | + + + + + + + + + | Result panel 430 | + + + + + + + + + | | 2022-09-26 | [facility] | SEE SCANNED | (missing) | (missing) | | (unavailable | 13:00 | [facility] | [facility] | | | | + + + + + + + + + | Result panel 431 | + + + + + + + + + | | 2022-09-26 | [facility] | SEE SCANNED | (missing) | (missing) | | (unavailable | 13: | [facility] | [facility] | | | | + + + + + + + + + | Result panel 432 | + + + + + + + + + | | 2022-09-26 | [facility] | VAGINAL | (missing) | (missing) | | (unavailable | 13:00 | [facility] | | | | + + + + + + + + + | Result panel 433 | + + + + + +------+ + + | | 2022-09-26 | [facility] | 1+ | (missing) | (missing) | | (unavailable | 13:00 | [facility] | | | | + + + +------+ + + + + | Result panel 434 | + + + + + +------+ + + | | 2022-09-26 | [facility] | 2+ | (missing) | (missing) | | (unavailable | 13:00 | [facility] | | | | + + + +------+ + + + + | Result panel 435 | + + + + + +------+ + + | | 2022-09-26 | [facility] | 1+ | (missing) | (missing) | | (unavailable | 13:00 | [facility] | | | | + + + +------+ + + + + | Result panel 436 | + + + + + +------+ + + | | 2022-09-26 | [facility] | 2+ | (missing) | (missing) | | (unavailable | 13:00 | [facility] | | | | + + + +------+ + + + + | Result panel 437 | + + + + + + + + + | | 2022-09-26 | [facility] | POSITIVE | (missing) | (missing) | | (unavailable | 13:00 | [facility] | | | | + + + + + + + + + | Result panel 438 | + + + + + + + + + | | 2022-09-26 | [facility] | NEGATIVE | (missing) | (missing) | | (unavailable | 13:00 | [facility] | | | | + + + + + + + + + | Result panel 439 | + + + + + + + + + | | 2022-09-26 | [facility] | NEGATIVE | (missing) | (missing) | | (unavailable | 13:00 | [facility] | | | | + + + + + + + + + | Result panel 440 | + + + + + + + + + | | 2022-09-26 | [facility] | VAGINAL | (missing) | (missing) | | (unavailable | 13:00 | [facility] | | | | + + + + + + + + + | Result panel 441 | + + + + + +------+ + + | | 2022-09-26 | [facility] | 1+ | (missing) | (missing) | | (unavailable | 13:00 | [facility] | | | | + + + +------+ + + + + | Result panel 442 | + + + + + +------+ + + | | 2022-09-26 | [facility] | 2+ | (missing) | (missing) | | (unavailable | 13:00 | [facility] | | | | + + + +------+ + + + + | Result panel 443 | + + + + + +------+ + + | | 2022-09-26 | [facility] | 1+ | (missing) | (missing) | | (unavailable | 13:00 | [facility] | | | | + + + +------+ + + + + | Result panel 444 | + + + + + +------+ + + | | 2022-09-26 | [facility] | 2+ | (missing) | (missing) | | (unavailable | 13:00 | [facility] | | | | + + + +------+ + + + + | Result panel 445 | + + + + + + + + + | | 2022-09-26 | [facility] | POSITIVE | (missing) | (missing) | | (unavailable | 13:00 | [facility] | | | | + + + + + + + + + | Result panel 446 | + + + + + + + + + | | 2022-09-26 | [facility] | NEGATIVE | (missing) | (missing) | | (unavailable | 13:00 | [facility] | | | | + + + + + + + + + | Result panel 447 | + + + + + + + + + | | 2022-09-26 | [facility] | NEGATIVE | (missing) | (missing) | | (unavailable | 13:00 | [facility] | | | | + + + + + + + + + | Result panel 448 | + + + + + + + + + | | 2022-09-26 | [facility] | SEE SCANNED | (missing) | (missing) | | (unavailable | 13:00 | [facility] | [facility] | | | | + + + + + + + + + | Result panel 449 | + + + + + + + + + | | 2022-09-26 | [facility] | SEE SCANNED | (missing) | (missing) | | (unavailable | 13:00 | [facility] | [facility] | | | | + + + + + + + + + | Result panel 450 | + + + + + + + + + | | 2022-09-26 | [facility] | VAGINAL | (missing) | (missing) | | (unavailable | 13:00 | [facility] | | | | + + + + + + + + + | Result panel 451 | + + + + + +------+ + + | | 2022-09-26 | [facility] | 1+ | (missing) | (missing) | | (unavailable | 13:00 | [facility] | | | | + + + +------+ + + + + | Result panel 452 | + + + + + +------+ + + | | 2022-09-26 | [facility] | 2+ | (missing) | (missing) | | (unavailable | 13:00 | [facility] | | | | + + + +------+ + + + + | Result panel 453 | + + + + + +------+ + + | | 2022-09-26 | [facility] | 1+ | (missing) | (missing) | | (unavailable | 13:00 | [facility] | | | | + + + +------+ + + + + | Result panel 454 | + + + + + +--------+ + + | | 2022-10-02 | [facility] | 14.8 | (missing) | (missing) | | (unavailable | 11:30 | [facility] | | | | + + + +--------+ + + + + | Result panel 455 | + + + + + +--------+ + + | | 2022-10-02 | [facility] | 4.81 | (missing) | (missing) | | (unavailable | 11:30 | [facility] | | | | + + + +--------+ + + + + | Result panel 456 | + + + + + +--------+ + + | | 2022-10-02 | [facility] | 13.7 | (missing) | (missing) | | (unavailable | 11:30 | [facility] | | | | + + + +--------+ + + + + | Result panel 457 | + + + + + +--------+ + + | | 2022-10-02 | [facility] | 42.2 | (missing) | (missing) | | (unavailable | 11:30 | [facility] | | | | + + + +--------+ + + + + | Result panel 458 | + + + + + +--------+ + + | | 2022-10-02 | [facility] | 87.8 | (missing) | (missing) | | (unavailable | 11:30 | [facility] | | | | + + + +--------+ + + + + | Result panel 459 | + + + + + +--------+ + + | | 2022-10-02 | [facility] | 28.5 | (missing) | (missing) | | (unavailable | 11:30 | [facility] | | | | + + + +--------+ + + + + | Result panel 460 | + + + + + +--------+ + + | | 2022-10-02 | [facility] | 32.4 | (missing) | (missing) | | (unavailable | 11:30 | [facility] | | | | + + + +--------+ + + + + | Result panel 461 | + + + + + +--------+ + + | | 2022-10-02 | [facility] | 14.4 | (missing) | (missing) | | (unavailable | 11:30 | [facility] | | | | + + + +--------+ + + + + | Result panel 462 | + + + + + +-------+ + + | | 2022-10-02 | [facility] | 259 | (missing) | (missing) | | (unavailable | 11:30 | [facility] | | | | + + + +-------+ + + + + | Result panel 463 | + + + + + +--------+ + + | | 2022-10-02 | [facility] | 78.8 | (missing) | (missing) | | (unavailable | 11:30 | [facility] | | | | + + + +--------+ + + + + | Result panel 464 | + + + + + +--------+ + + | | 2022-10-02 | [facility] | 13.3 | (missing) | (missing) | | (unavailable | 11:30 | [facility] | | | | + + + +--------+ + + + + | Result panel 465 | + + + + + +-------+ + + | | 2022-10-02 | [facility] | 6.7 | (missing) | (missing) | | (unavailable | 11:30 | [facility] | | | | + + + +-------+ + + + + | Result panel 466 | + + + + + +-------+ + + | | 2022-10-02 | [facility] | 0.7 | (missing) | (missing) | | (unavailable | 11:30 | [facility] | | | | + + + +-------+ + + + + | Result panel 467 | + + + + + +-------+ + + | | 2022-10-02 | [facility] | 0.5 | (missing) | (missing) | | (unavailable | 11:30 | [facility] | | | | + + + +-------+ + + + + | Result panel 468 | + + + + + +-------+---------+ + | | 2022-10-02 | [facility] | 137 | mg/dL | (missing) | | (unavailable | 11:30 | [facility] | | | | + + + +-------+---------+ + + + | Result panel 469 | + + + + + +-----+---------+ + | | 2022-10-02 | [facility] | 9 | mg/dL | (missing) | | (unavailable | 11:30 | [facility] | | | | + + + +-----+---------+ + + + | Result panel 470 | + + + + + +--------+---------+ + | | 2022-10-02 | [facility] | 0.90 | mg/dL | (missing) | | (unavailable | 11:30 | [facility] | | | | + + + +--------+---------+ + + + | Result panel 471 | + + + + + +------+ + + | | 2022-10-02 | [facility] | 88 | (missing) | (missing) | | (unavailable | 11:30 | [facility] | | | | + + + +------+ + + + + | Result panel 472 | + + + + + +---------+ + + | | 2022-10-02 | [facility] | 10.00 | (missing) | (missing) | | (unavailable | 11:30 | [facility] | | | | + + + +---------+ + + + + | Result panel 473 | + + + + + +-------+ + + | | 2022-10-02 | [facility] | 138 | (missing) | (missing) | | (unavailable | 11:30 | [facility] | | | | + + + +-------+ + + + + | Result panel 474 | + + + + + +-------+ + + | | 2022-10-02 | [facility] | 3.6 | (missing) | (missing) | | (unavailable | 11:30 | [facility] | | | | + + + +-------+ + + + + | Result panel 475 | + + + + + +-------+ + + | | 2022-10-02 | [facility] | 102 | (missing) | (missing) | | (unavailable | 11:30 | [facility] | | | | + + + +-------+ + + + + | Result panel 476 | + + + + + +------+ + + | | 2022-10-02 | [facility] | 19 | (missing) | (missing) | | (unavailable | 11:30 | [facility] | | | | + + + +------+ + + + + | Result panel 477 | + + + + + +--------+ + + | | 2022-10-02 | [facility] | 20.6 | (missing) | (missing) | | (unavailable | 11:30 | [facility] | | | | + + + +--------+ + + + + | Result panel 478 | + + + + + +-------+---------+ + | | 2022-10-02 | [facility] | 9.3 | mg/dL | (missing) | | (unavailable | 11:30 | [facility] | | | | + + + +-------+---------+ + + + | Result panel 479 | + + + + + +-------+---------+ + | | 2022-10-02 | [facility] | 1.9 | mg/dL | (missing) | | (unavailable | 11:30 | [facility] | | | | + + + +-------+---------+ + + + | Result panel 480 | + + + + + +-------+ + + | | 2022-10-02 | [facility] | 8.6 | (missing) | (missing) | | (unavailable | 11:30 | [facility] | | | | + + + +-------+ + + + + | Result panel 481 | + + + + + +-------+ + + | | 2022-10-02 | [facility] | 4.5 | (missing) | (missing) | | (unavailable | 11:30 | [facility] | | | | + + + +-------+ + + + + | Result panel 482 | + + + + + +-------+ + + | | 2022-10-02 | [facility] | 4.1 | (missing) | (missing) | | (unavailable | 11:30 | [facility] | | | | + + + +-------+ + + + + | Result panel 483 | + + + + + +--------+ + + | | 2022-10-02 | [facility] | 1.10 | (missing) | (missing) | | (unavailable | 11:30 | [facility] | | | | + + + +--------+ + + + + | Result panel 484 | + + + + + +-------+ + + | | 2022-10-02 | [facility] | 1.4 | (missing) | (missing) | | (unavailable | 11:30 | [facility] | | | | + + + +-------+ + + + + | Result panel 485 | + + + + + +-------+ + + | | 2022-10-02 | [facility] | 351 | (missing) | (missing) | | (unavailable | 11:30 | [facility] | | | | + + + +-------+ + + + + | Result panel 486 | + + + + + +-------+ + + | | 2022-10-02 | [facility] | 231 | (missing) | (missing) | | (unavailable | 11:30 | [facility] | | | | + + + +-------+ + + + + | Result panel 487 | + + + + + +-------+ + + | | 2022-10-02 | [facility] | 137 | (missing) | (missing) | | (unavailable | 11:30 | [facility] | | | | + + + +-------+ + + + + | Result panel 488 | + + + + + +------+ + + | | 2022-10-02 | [facility] | 80 | (missing) | (missing) | | (unavailable | 11:30 | [facility] | | | | + + + +------+ + + + + | Result panel 489 | + + + + + + + + + | | 2022-10-02 | [facility] | NEGATIVE | (missing) | (missing) | | (unavailable | 11:30 | [facility] | | | | + + + + + + + + + | Result panel 490 | + + + + + +-------+---------+ + | | 2022-10-02 | [facility] | 1.9 | mg/dL | (missing) | | (unavailable | 11:30 | [facility] | | | | + + + +-------+---------+ + + + | Result panel 491 | + + + + + + + + + | | 2022-10-02 | [facility] | NEGATIVE | (missing) | (missing) | | (unavailable | 11:30 | [facility] | | | | + + + + + + + + + | Result panel 492 | + + + + + +-------+ + + | | 2022-10-02 | [facility] | 3.1 | (missing) | (missing) | | (unavailable | 14:35 | [facility] | | | | + + + +-------+ + + + + | Result panel 493 | + + + + + +-------+ + + | | 2022-10-02 | [facility] | 3.1 | (missing) | (missing) | | (unavailable | 14:35 | [facility] | | | | + + + +-------+ + + + + | Result panel 494 | + + + + + +-------+ + + | | 2022-10-02 | [facility] | 7.7 | (missing) | (missing) | | (unavailable | 23:27 | [facility] | | | | + + + +-------+ + + + + | Result panel 495 | + + + + + +--------+ + + | | 2022-10-02 | [facility] | 4.11 | (missing) | (missing) | | (unavailable | 23:27 | [facility] | | | | + + + +--------+ + + + + | Result panel 496 | + + + + + +--------+ + + | | 2022-10-02 | [facility] | 11.9 | (missing) | (missing) | | (unavailable | 23:27 | [facility] | | | | + + + +--------+ + + + + | Result panel 497 | + + + + + +--------+ + + | | 2022-10-02 | [facility] | 36.0 | (missing) | (missing) | | (unavailable | 23:27 | [facility] | | | | + + + +--------+ + + + + | Result panel 498 | + + + + + +--------+ + + | | 2022-10-02 | [facility] | 87.5 | (missing) | (missing) | | (unavailable | 23:27 | [facility] | | | | + + + +--------+ + + + + | Result panel 499 | + + + + + +--------+ + + | | 2022-10-02 | [facility] | 29.0 | (missing) | (missing) | | (unavailable | 23:27 | [facility] | | | | + + + +--------+ + + + + | Result panel 500 | + + + + + +--------+ + + | | 2022-10-02 | [facility] | 33.1 | (missing) | (missing) | | (unavailable | 23:27 | [facility] | | | | + + + +--------+ + + + + | Result panel 501 | + + + + + +--------+ + + | | 2022-10-02 | [facility] | 14.5 | (missing) | (missing) | | (unavailable | 23:27 | [facility] | | | | + + + +--------+ + + + + | Result panel 502 | + + + + + +-------+ + + | | 2022-10-02 | [facility] | 200 | (missing) | (missing) | | (unavailable | 23:27 | [facility] | | | | + + + +-------+ + + + + | Result panel 503 | + + + + + +--------+ + + | | 2022-10-02 | [facility] | 85.9 | (missing) | (missing) | | (unavailable | 23:27 | [facility] | | | | + + + +--------+ + + + + | Result panel 504 | + + + + + +-------+ + + | | 2022-10-02 | [facility] | 8.7 | (missing) | (missing) | | (unavailable | 23:27 | [facility] | | | | + + + +-------+ + + + + | Result panel 505 | + + + + + +-------+ + + | | 2022-10-02 | [facility] | 4.7 | (missing) | (missing) | | (unavailable | 23:27 | [facility] | | | | + + + +-------+ + + + + | Result panel 506 | + + + + + +-------+ + + | | 2022-10-02 | [facility] | 0.0 | (missing) | (missing) | | (unavailable | :27 | [facility] | | | | + + + +-------+ + + + + | Result panel 507 | + + + + + +-------+ + + | | 2022-10-02 | [facility] | 0.7 | (missing) | (missing) | | (unavailable | :27 | [facility] | | | | + + + +-------+ + + + + | Result panel 508 | + + + + + +-------+---------+ + | | 2022-10-02 | [facility] | 116 | mg/dL | (missing) | | (unavailable | 23:27 | [facility] | | | | + + + +-------+---------+ + + + | Result panel 509 | + + + + + +------+---------+ + | | 2022-10-02 | [facility] | 10 | mg/dL | (missing) | | (unavailable | :27 | [facility] | | | | + + + +------+---------+ + + + | Result panel 510 | + + + + + +--------+---------+ + | | 2022-10-02 | [facility] | 0.78 | mg/dL | (missing) | | (unavailable | 23:27 | [facility] | | | | + + + +--------+---------+ + + + | Result panel 511 | + + + + + +-------+ + + | | 2022-10-02 | [facility] | 105 | (missing) | (missing) | | (unavailable | 23:27 | [facility] | | | | + + + +-------+ + + + + | Result panel 512 | + + + + + +---------+ + + | | 2022-10-02 | [facility] | 12.82 | (missing) | (missing) | | (unavailable | 23:27 | [facility] | | | | + + + +---------+ + + + + | Result panel 513 | + + + + + +-------+ + + | | 2022-10-02 | [facility] | 137 | (missing) | (missing) | | (unavailable | 23:27 | [facility] | | | | + + + +-------+ + + + + | Result panel 514 | + + + + + +-------+ + + | | 2022-10-02 | [facility] | 3.6 | (missing) | (missing) | | (unavailable | 23:27 | [facility] | | | | + + + +-------+ + + + + | Result panel 515 | + + + + + +-------+ + + | | 2022-10-02 | [facility] | 103 | (missing) | (missing) | | (unavailable | 23:27 | [facility] | | | | + + + +-------+ + + + + | Result panel 516 | + + + + + +------+ + + | | 2022-10-02 | [facility] | 22 | (missing) | (missing) | | (unavailable | 23:27 | [facility] | | | | + + + +------+ + + + + | Result panel 517 | + + + + + +--------+ + + | | 2022-10-02 | [facility] | 15.6 | (missing) | (missing) | | (unavailable | 23:27 | [facility] | | | | + + + +--------+ + + + + | Result panel 518 | + + + + + +-------+---------+ + | | 2022-10-02 | [facility] | 8.6 | mg/dL | (missing) | | (unavailable | 23:27 | [facility] | | | | + + + +-------+---------+ + + + | Result panel 519 | + + + + + +-------+ + + | | 2022-10-02 | [facility] | 7.7 | (missing) | (missing) | | (unavailable | 23:27 | [facility] | | | | + + + +-------+ + + + + | Result panel 520 | + + + + + +-------+ + + | | 2022-10-02 | [facility] | 4.0 | (missing) | (missing) | | (unavailable | 23:27 | [facility] | | | | + + + +-------+ + + + + | Result panel 521 | + + + + + +-------+ + + | | 2022-10-02 | [facility] | 3.7 | (missing) | (missing) | | (unavailable | 23:27 | [facility] | | | | + + + +-------+ + + + + | Result panel 522 | + + + + + +--------+ + + | | 2022-10-02 | [facility] | 1.08 | (missing) | (missing) | | (unavailable | 23:27 | [facility] | | | | + + + +--------+ + + + + | Result panel 523 | + + + + + +-------+ + + | | 2022-10-02 | [facility] | 0.9 | (missing) | (missing) | | (unavailable | 23:27 | [facility] | | | | + + + +-------+ + + + + | Result panel 524 | + + + + + +------+ + + | | 2022-10-02 | [facility] | 95 | (missing) | (missing) | | (unavailable | 23:27 | [facility] | | | | + + + +------+ + + + + | Result panel 525 | + + + + + +-------+ + + | | 2022-10-02 | [facility] | 172 | (missing) | (missing) | | (unavailable | 23:27 | [facility] | | | | + + + +-------+ + + + + | Result panel 526 | + + + + + +-------+ + + | | 2022-10-02 | [facility] | 104 | (missing) | (missing) | | (unavailable | :27 | [facility] | | | | + + + +-------+ + + + + | Result panel 527 | + + + + + +------+ + + | | 2022-10-02 | [facility] | 61 | (missing) | (missing) | | (unavailable | 23:27 | [facility] | | | | + + + +------+ + + + + | Result panel 528 | + + + + + + + + + | | 2022-12-02 | [facility] | NEGATIVE | (missing) | (missing) | | (unavailable | 14:05:08 | [facility] | | | | + + + + + + + + + | Result panel 529 | + + + + + + + + + | | 2022-12-02 | [facility] | NEGATIVE | (missing) | (missing) | | (unavailable | 14:05:08 | [facility] | | | | + + + + + + + + + | Result panel 530 | + + + + + + + + + | | 2022-12-02 | [facility] | NEGATIVE | (missing) | (missing) | | (unavailable | 14:05:08 | [facility] | | | | + + + + + + + + + | Result panel 531 | + + + + + + + + + | | 2022-12-02 | [facility] | NEGATIVE | (missing) | (missing) | | (unavailable | 14:05:08 | [facility] | | | | + + + + + + + + + | Result panel 532 | + + + + + +--------+ + + | | 2022-12-10 | [facility] | 10.8 | (missing) | (missing) | | (unavailable | 19:16:08 | [facility] | | | | + + + +--------+ + + + + | Result panel 533 | + + + + + +--------+ + + | | 2022-12-10 | [facility] | 4.20 | (missing) | (missing) | | (unavailable | 19:16:08 | [facility] | | | | + + + +--------+ + + + + | Result panel 534 | + + + + + +--------+ + + | | 2022-12-10 | [facility] | 12.1 | (missing) | (missing) | | (unavailable | 19:16:08 | [facility] | | | | + + + +--------+ + + + + | Result panel 535 | + + + + + +--------+ + + | | 2022-12-10 | [facility] | 37.2 | (missing) | (missing) | | (unavailable | 19:16:08 | [facility] | | | | + + + +--------+ + + + + | Result panel 536 | + + + + + +--------+ + + | | 2022-12-10 | [facility] | 88.5 | (missing) | (missing) | | (unavailable | 19:16:08 | [facility] | | | | + + + +--------+ + + + + | Result panel 537 | + + + + + +--------+ + + | | 2022-12-10 | [facility] | 28.8 | (missing) | (missing) | | (unavailable | 19:16:08 | [facility] | | | | + + + +--------+ + + + + | Result panel 538 | + + + + + +--------+ + + | | 2022-12-10 | [facility] | 32.5 | (missing) | (missing) | | (unavailable | 19:16:08 | [facility] | | | | + + + +--------+ + + + + | Result panel 539 | + + + + + +--------+ + + | | 2022-12-10 | [facility] | 13.2 | (missing) | (missing) | | (unavailable | 19:16:08 | [facility] | | | | + + + +--------+ + + + + | Result panel 540 | + + + + + +-------+ + + | | 2022-12-10 | [facility] | 171 | (missing) | (missing) | | (unavailable | 19:16:08 | [facility] | | | | + + + +-------+ + + + + | Result panel 541 | + + + + + +--------+ + + | | 2022-12-10 | [facility] | 93.9 | (missing) | (missing) | | (unavailable | 19:16:08 | [facility] | | | | + + + +--------+ + + + + | Result panel 542 | + + + + + +-------+ + + | | 2022-12-10 | [facility] | 3.6 | (missing) | (missing) | | (unavailable | 19:16:08 | [facility] | | | | + + + +-------+ + + + + | Result panel 543 | + + + + + +-------+ + + | | 2022-12-10 | [facility] | 2.4 | (missing) | (missing) | | (unavailable | 19:16:08 | [facility] | | | | + + + +-------+ + + + + | Result panel 544 | + + + + + +-------+ + + | | 2022-12-10 | [facility] | 0.0 | (missing) | (missing) | | (unavailable | 19:16:08 | [facility] | | | | + + + +-------+ + + + + | Result panel 545 | + + + + + +-------+ + + | | 2022-12-10 | [facility] | 0.1 | (missing) | (missing) | | (unavailable | 19:16:08 | [facility] | | | | + + + +-------+ + + + + | Result panel 546 | + + + + + +-------+---------+ + | | 2022-12-10 | [facility] | 157 | mg/dL | (missing) | | (unavailable | 19:16:08 | [facility] | | | | + + + +-------+---------+ + + + | Result panel 547 | + + + + + +-----+---------+ + | | 2022-12-10 | [facility] | 8 | mg/dL | (missing) | | (unavailable | 19:16:08 | [facility] | | | | + + + +-----+---------+ + + + | Result panel 548 | + + + + + +--------+---------+ + | | 2022-12-10 | [facility] | 0.97 | mg/dL | (missing) | | (unavailable | 19:16:08 | [facility] | | | | + + + +--------+---------+ + + + | Result panel 549 | + + + + + +------+ + + | | 2022-12-10 | [facility] | 81 | (missing) | (missing) | | (unavailable | 19:16:08 | [facility] | | | | + + + +------+ + + + + | Result panel 550 | + + + + + +--------+ + + | | 2022-12-10 | [facility] | 8.24 | (missing) | (missing) | | (unavailable | 19:16:08 | [facility] | | | | + + + +--------+ + + + + | Result panel 551 | + + + + + +-------+ + + | | 2022-12-10 | [facility] | 139 | (missing) | (missing) | | (unavailable | 19:16:08 | [facility] | | | | + + + +-------+ + + + + | Result panel 552 | + + + + + +-------+ + + | | 2022-12-10 | [facility] | 3.7 | (missing) | (missing) | | (unavailable | 19:16:08 | [facility] | | | | + + + +-------+ + + + + | Result panel 553 | + + + + + +-------+ + + | | 2022-12-10 | [facility] | 104 | (missing) | (missing) | | (unavailable | 19:16:08 | [facility] | | | | + + + +-------+ + + + + | Result panel 554 | + + + + + +------+ + + | | 2022-12-10 | [facility] | 22 | (missing) | (missing) | | (unavailable | 19:16:08 | [facility] | | | | + + + +------+ + + + + | Result panel 555 | + + + + + +--------+ + + | | 2022-12-10 | [facility] | 16.7 | (missing) | (missing) | | (unavailable | 19:16:08 | [facility] | | | | + + + +--------+ + + + + | Result panel 556 | + + + + + +-------+---------+ + | | 2022-12-10 | [facility] | 8.5 | mg/dL | (missing) | | (unavailable | 19:16:08 | [facility] | | | | + + + +-------+---------+ + + + | Result panel 557 | + + + + + +-------+ + + | | 2022-12-10 | [facility] | 7.6 | (missing) | (missing) | | (unavailable | 19:16:08 | [facility] | | | | + + + +-------+ + + + + | Result panel 558 | + + + + + +-------+ + + | | 2022-12-10 | [facility] | 4.1 | (missing) | (missing) | | (unavailable | 19:16:08 | [facility] | | | | + + + +-------+ + + + + | Result panel 559 | + + + + + +-------+ + + | | 2022-12-10 | [facility] | 3.5 | (missing) | (missing) | | (unavailable | 19:16:08 | [facility] | | | | + + + +-------+ + + + + | Result panel 560 | + + + + + +--------+ + + | | 2022-12-10 | [facility] | 1.17 | (missing) | (missing) | | (unavailable | 19:16:08 | [facility] | | | | + + + +--------+ + + + + | Result panel 561 | + + + + + +-------+ + + | | 2022-12-10 | [facility] | 0.5 | (missing) | (missing) | | (unavailable | 19:16:08 | [facility] | | | | + + + +-------+ + + + + | Result panel 562 | + + + + + +------+ + + | | 2022-12-10 | [facility] | 22 | (missing) | (missing) | | (unavailable | 19:16:08 | [facility] | | | | + + + +------+ + + + + | Result panel 563 | + + + + + +------+ + + | | 2022-12-10 | [facility] | 21 | (missing) | (missing) | | (unavailable | 19:16:08 | [facility] | | | | + + + +------+ + + + + | Result panel 564 | + + + + + +------+ + + | | 2022-12-10 | [facility] | 39 | (missing) | (missing) | | (unavailable | 19:16:08 | [facility] | | | | + + + +------+ + + + + | Result panel 565 | + + + + + +--------+ + + | | 2022-12-10 | [facility] | 10.8 | (missing) | (missing) | | (unavailable | 19:16:08 | [facility] | | | | + + + +--------+ + + + + | Result panel 566 | + + + + + +--------+ + + | | 2022-12-10 | [facility] | 4.20 | (missing) | (missing) | | (unavailable | 19:16:08 | [facility] | | | | + + + +--------+ + + + + | Result panel 567 | + + + + + +--------+ + + | | 2022-12-10 | [facility] | 12.1 | (missing) | (missing) | | (unavailable | 19:16:08 | [facility] | | | | + + + +--------+ + + + + | Result panel 568 | + + + + + +--------+ + + | | 2022-12-10 | [facility] | 37.2 | (missing) | (missing) | | (unavailable | 19:16:08 | [facility] | | | | + + + +--------+ + + + + | Result panel 569 | + + + + + +--------+ + + | | 2022-12-10 | [facility] | 88.5 | (missing) | (missing) | | (unavailable | 19:16:08 | [facility] | | | | + + + +--------+ + + + + | Result panel 570 | + + + + + +--------+ + + | | 2022-12-10 | [facility] | 28.8 | (missing) | (missing) | | (unavailable | 19:16:08 | [facility] | | | | + + + +--------+ + + + + | Result panel 571 | + + + + + +--------+ + + | | 2022-12-10 | [facility] | 32.5 | (missing) | (missing) | | (unavailable | 19:16:08 | [facility] | | | | + + + +--------+ + + + + | Result panel 572 | + + + + + +--------+ + + | | 2022-12-10 | [facility] | 13.2 | (missing) | (missing) | | (unavailable | 19:16:08 | [facility] | | | | + + + +--------+ + + + + | Result panel 573 | + + + + + +-------+ + + | | 2022-12-10 | [facility] | 171 | (missing) | (missing) | | (unavailable | 19:16:08 | [facility] | | | | + + + +-------+ + + + + | Result panel 574 | + + + + + +--------+ + + | | 2022-12-10 | [facility] | 93.9 | (missing) | (missing) | | (unavailable | 19:16:08 | [facility] | | | | + + + +--------+ + + + + | Result panel 575 | + + + + + +-------+ + + | | 2022-12-10 | [facility] | 3.6 | (missing) | (missing) | | (unavailable | 19:16:08 | [facility] | | | | + + + +-------+ + + + + | Result panel 576 | + + + + + +-------+ + + | | 2022-12-10 | [facility] | 2.4 | (missing) | (missing) | | (unavailable | 19:16:08 | [facility] | | | | + + + +-------+ + + + + | Result panel 577 | + + + + + +-------+ + + | | 2022-12-10 | [facility] | 0.0 | (missing) | (missing) | | (unavailable | 19:16:08 | [facility] | | | | + + + +-------+ + + + + | Result panel 578 | + + + + + +-------+ + + | | 2022-12-10 | [facility] | 0.1 | (missing) | (missing) | | (unavailable | 19:16:08 | [facility] | | | | + + + +-------+ + + + + | Result panel 579 | + + + + + +-------+---------+ + | | 2022-12-10 | [facility] | 157 | mg/dL | (missing) | | (unavailable | 19:16:08 | [facility] | | | | + + + +-------+---------+ + + + | Result panel 580 | + + + + + +-----+---------+ + | | 2022-12-10 | [facility] | 8 | mg/dL | (missing) | | (unavailable | 19:16:08 | [facility] | | | | + + + +-----+---------+ + + + | Result panel 581 | + + + + + +--------+---------+ + | | 2022-12-10 | [facility] | 0.97 | mg/dL | (missing) | | (unavailable | 19:16:08 | [facility] | | | | + + + +--------+---------+ + + + | Result panel 582 | + + + + + +------+ + + | | 2022-12-10 | [facility] | 81 | (missing) | (missing) | | (unavailable | 19:16:08 | [facility] | | | | + + + +------+ + + + + | Result panel 583 | + + + + + +--------+ + + | | 2022-12-10 | [facility] | 8.24 | (missing) | (missing) | | (unavailable | 19:16:08 | [facility] | | | | + + + +--------+ + + + + | Result panel 584 | + + + + + +-------+ + + | | 2022-12-10 | [facility] | 139 | (missing) | (missing) | | (unavailable | 19:16:08 | [facility] | | | | + + + +-------+ + + + + | Result panel 585 | + + + + + +-------+ + + | | 2022-12-10 | [facility] | 3.7 | (missing) | (missing) | | (unavailable | 19:16:08 | [facility] | | | | + + + +-------+ + + + + | Result panel 586 | + + + + + +-------+ + + | | 2022-12-10 | [facility] | 104 | (missing) | (missing) | | (unavailable | 19:16:08 | [facility] | | | | + + + +-------+ + + + + | Result panel 587 | + + + + + +------+ + + | | 2022-12-10 | [facility] | 22 | (missing) | (missing) | | (unavailable | 19:16:08 | [facility] | | | | + + + +------+ + + + + | Result panel 588 | + + + + + +--------+ + + | | 2022-12-10 | [facility] | 16.7 | (missing) | (missing) | | (unavailable | 19:16:08 | [facility] | | | | + + + +--------+ + + + + | Result panel 589 | + + + + + +-------+---------+ + | | 2022-12-10 | [facility] | 8.5 | mg/dL | (missing) | | (unavailable | 19:16:08 | [facility] | | | | + + + +-------+---------+ + + + | Result panel 590 | + + + + + +-------+ + + | | 2022-12-10 | [facility] | 7.6 | (missing) | (missing) | | (unavailable | 19:16:08 | [facility] | | | | + + + +-------+ + + + + | Result panel 591 | + + + + + +-------+ + + | | 2022-12-10 | [facility] | 4.1 | (missing) | (missing) | | (unavailable | 19:16:08 | [facility] | | | | + + + +-------+ + + + + | Result panel 592 | + + + + + +-------+ + + | | 2022-12-10 | [facility] | 3.5 | (missing) | (missing) | | (unavailable | 19:16:08 | [facility] | | | | + + + +-------+ + + + + | Result panel 593 | + + + + + +--------+ + + | | 2022-12-10 | [facility] | 1.17 | (missing) | (missing) | | (unavailable | 19:16:08 | [facility] | | | | + + + +--------+ + + + + | Result panel 594 | + + + + + +-------+ + + | | 2022-12-10 | [facility] | 0.5 | (missing) | (missing) | | (unavailable | 19:16:08 | [facility] | | | | + + + +-------+ + + + + | Result panel 595 | + + + + + +------+ + + | | 2022-12-10 | [facility] | 22 | (missing) | (missing) | | (unavailable | 19:16:08 | [facility] | | | | + + + +------+ + + + + | Result panel 596 | + + + + + +------+ + + | | 2022-12-10 | [facility] | 21 | (missing) | (missing) | | (unavailable | 19:16:08 | [facility] | | | | + + + +------+ + + + + | Result panel 597 | + + + + + +------+ + + | | 2022-12-10 | [facility] | 39 | (missing) | (missing) | | (unavailable | 19:16:08 | [facility] | | | | + + + +------+ + + + + | Result panel 598 | + + + + + +-------+ + + | | 2022-12-24 | [facility] | 7.6 | (missing) | (missing) | | (unavailable | 08:07:08 | [facility] | | | | + + + +-------+ + + + + | Result panel 599 | + + + + + +--------+ + + | | 2022-12-24 | [facility] | 4.38 | (missing) | (missing) | | (unavailable | 08:07:08 | [facility] | | | | + + + +--------+ + + + + | Result panel 600 | + + + + + +--------+ + + | | 2022-12-24 | [facility] | 12.7 | (missing) | (missing) | | (unavailable | 08:07:08 | [facility] | | | | + + + +--------+ + + + + | Result panel 601 | + + + + + +--------+ + + | | 2022-12-24 | [facility] | 37.8 | (missing) | (missing) | | (unavailable | 08:07:08 | [facility] | | | | + + + +--------+ + + + + | Result panel 602 | + + + + + +--------+ + + | | 2022-12-24 | [facility] | 86.4 | (missing) | (missing) | | (unavailable | 08:07:08 | [facility] | | | | + + + +--------+ + + + + | Result panel 603 | + + + + + +--------+ + + | | 2022-12-24 | [facility] | 28.9 | (missing) | (missing) | | (unavailable | 08:07:08 | [facility] | | | | + + + +--------+ + + + + | Result panel 604 | + + + + + +--------+ + + | | 2022-12-24 | [facility] | 33.5 | (missing) | (missing) | | (unavailable | 08:07:08 | [facility] | | | | + + + +--------+ + + + + | Result panel 605 | + + + + + +--------+ + + | | 2022-12-24 | [facility] | 12.6 | (missing) | (missing) | | (unavailable | 08:07:08 | [facility] | | | | + + + +--------+ + + + + | Result panel 606 | + + + + + +-------+ + + | | 2022-12-24 | [facility] | 225 | (missing) | (missing) | | (unavailable | 08:07:08 | [facility] | | | | + + + +-------+ + + + + | Result panel 607 | + + + + + +--------+ + + | | 2022-12-24 | [facility] | 71.2 | (missing) | (missing) | | (unavailable | 08:07:08 | [facility] | | | | + + + +--------+ + + + + | Result panel 608 | + + + + + +--------+ + + | | 2022-12-24 | [facility] | 18.8 | (missing) | (missing) | | (unavailable | 08:07:08 | [facility] | | | | + + + +--------+ + + + + | Result panel 609 | + + + + + +-------+ + + | | 2022-12-24 | [facility] | 4.3 | (missing) | (missing) | | (unavailable | 08:07:08 | [facility] | | | | + + + +-------+ + + + + | Result panel 610 | + + + + + +-------+ + + | | 2022-12-24 | [facility] | 5.1 | (missing) | (missing) | | (unavailable | 08:07:08 | [facility] | | | | + + + +-------+ + + + + | Result panel 611 | + + + + + +-------+ + + | | 2022-12-24 | [facility] | 0.6 | (missing) | (missing) | | (unavailable | 08:07:08 | [facility] | | | | + + + +-------+ + + + + | Result panel 612 | + + + + + +-------+---------+ + | | 2022-12-24 | [facility] | 127 | mg/dL | (missing) | | (unavailable | 08:07:08 | [facility] | | | | + + + +-------+---------+ + + + | Result panel 613 | + + + + + +------+---------+ + | | 2022-12-24 | [facility] | 15 | mg/dL | (missing) | | (unavailable | 08:07:08 | [facility] | | | | + + + +------+---------+ + + + | Result panel 614 | + + + + + +--------+---------+ + | | 2022-12-24 | [facility] | 0.83 | mg/dL | (missing) | | (unavailable | 08:07:08 | [facility] | | | | + + + +--------+---------+ + + + | Result panel 615 | + + + + + +------+ + + | | 2022-12-24 | [facility] | 97 | (missing) | (missing) | | (unavailable | 08:07:08 | [facility] | | | | + + + +------+ + + + + | Result panel 616 | + + + + + +---------+ + + | | 2022-12-24 | [facility] | 18.07 | (missing) | (missing) | | (unavailable | 08:07:08 | [facility] | | | | + + + +---------+ + + + + | Result panel 617 | + + + + + +-------+ + + | | 2022-12-24 | [facility] | 141 | (missing) | (missing) | | (unavailable | 08:07:08 | [facility] | | | | + + + +-------+ + + + + | Result panel 618 | + + + + + +-------+ + + | | 2022-12-24 | [facility] | 3.4 | (missing) | (missing) | | (unavailable | 08:07:08 | [facility] | | | | + + + +-------+ + + + + | Result panel 619 | + + + + + +-------+ + + | | 2022-12-24 | [facility] | 104 | (missing) | (missing) | | (unavailable | 08:07:08 | [facility] | | | | + + + +-------+ + + + + | Result panel 620 | + + + + + +------+ + + | | 2022-12-24 | [facility] | 25 | (missing) | (missing) | | (unavailable | 08:07:08 | [facility] | | | | + + + +------+ + + + + | Result panel 621 | + + + + + +--------+ + + | | 2022-12-24 | [facility] | 15.4 | (missing) | (missing) | | (unavailable | 08:07:08 | [facility] | | | | + + + +--------+ + + + + | Result panel 622 | + + + + + +-------+---------+ + | | 2022-12-24 | [facility] | 9.1 | mg/dL | (missing) | | (unavailable | 08:07:08 | [facility] | | | | + + + +-------+---------+ + + + | Result panel 623 | + + + + + +-------+---------+ + | | 2022-12-24 | [facility] | 1.6 | mg/dL | (missing) | | (unavailable | 08:07:08 | [facility] | | | | + + + +-------+---------+ + + + | Result panel 624 | + + + + + +-------+ + + | | 2022-12-24 | [facility] | 7.5 | (missing) | (missing) | | (unavailable | 08:07:08 | [facility] | | | | + + + +-------+ + + + + | Result panel 625 | + + + + + +-------+ + + | | 2022-12-24 | [facility] | 4.2 | (missing) | (missing) | | (unavailable | 08:07:08 | [facility] | | | | + + + +-------+ + + + + | Result panel 626 | + + + + + +-------+ + + | | 2022-12-24 | [facility] | 3.3 | (missing) | (missing) | | (unavailable | 08:07:08 | [facility] | | | | + + + +-------+ + + + + | Result panel 627 | + + + + + +--------+ + + | | 2022-12-24 | [facility] | 1.27 | (missing) | (missing) | | (unavailable | 08:07:08 | [facility] | | | | + + + +--------+ + + + + | Result panel 628 | + + + + + +-------+ + + | | 2022-12-24 | [facility] | 0.5 | (missing) | (missing) | | (unavailable | 08:07:08 | [facility] | | | | + + + +-------+ + + + + | Result panel 629 | + + + + + +------+ + + | | 2022-12-24 | [facility] | 13 | (missing) | (missing) | | (unavailable | 08:07:08 | [facility] | | | | + + + +------+ + + + + | Result panel 630 | + + + + + +------+ + + | | 2022-12-24 | [facility] | 36 | (missing) | (missing) | | (unavailable | 08:07:08 | [facility] | | | | + + + +------+ + + + + | Result panel 631 | + + + + + +------+ + + | | 2022-12-24 | [facility] | 48 | (missing) | (missing) | | (unavailable | 08:07:08 | [facility] | | | | + + + +------+ + + + + | Result panel 632 | + + + + + +------+ + + | | 2022-12-24 | [facility] | 98 | (missing) | (missing) | | (unavailable | 08:07:08 | [facility] | | | | + + + +------+ + + + + | Result panel 633 | + + + + + + + + + | | 2022-12-24 | [facility] | NEGATIVE | (missing) | (missing) | | (unavailable | 08:07:08 | [facility] | | | | + + + + + + + + + | Result panel 634 | + + + + + +-------+---------+ + | | 2022-12-28 | [facility] | 1.6 | mg/dL | (missing) | | (unavailable | 09:48:08 | [facility] | | | | + + + +-------+---------+ + + + | Result panel 635 | + + + + + +-------+---------+ + | | 2022-12-28 | [facility] | 1.6 | mg/dL | (missing) | | (unavailable | 09:48:08 | [facility] | | | | + + + +-------+---------+ + + + | Result panel 636 | + + + + + +-------+---------+ + | | 2022-12-28 | [facility] | 1.6 | mg/dL | (missing) | | (unavailable | 09:48:08 | [facility] | | | | + + + +-------+---------+ + + + | Result panel 637 | + + + + + +-------+ + + | | 2022-12-28 | [facility] | 7.8 | (missing) | (missing) | | (unavailable | 09:48:08 | [facility] | | | | + + + +-------+ + + + + | Result panel 638 | + + + + + +--------+ + + | | 2022-12-28 | [facility] | 4.29 | (missing) | (missing) | | (unavailable | 09:48:08 | [facility] | | | | + + + +--------+ + + + + | Result panel 639 | + + + + + +--------+ + + | | 2022-12-28 | [facility] | 12.5 | (missing) | (missing) | | (unavailable | 09:48:08 | [facility] | | | | + + + +--------+ + + + + | Result panel 640 | + + + + + +--------+ + + | | 2022-12-28 | [facility] | 37.1 | (missing) | (missing) | | (unavailable | 09:48:08 | [facility] | | | | + + + +--------+ + + + + | Result panel 641 | + + + + + +--------+ + + | | 2022-12-28 | [facility] | 86.5 | (missing) | (missing) | | (unavailable | 09:48:08 | [facility] | | | | + + + +--------+ + + + + | Result panel 642 | + + + + + +--------+ + + | | 2022-12-28 | [facility] | 29.2 | (missing) | (missing) | | (unavailable | 09:48:08 | [facility] | | | | + + + +--------+ + + + + | Result panel 643 | + + + + + +--------+ + + | | 2022-12-28 | [facility] | 33.8 | (missing) | (missing) | | (unavailable | 09:48:08 | [facility] | | | | + + + +--------+ + + + + | Result panel 644 | + + + + + +--------+ + + | | 2022-12-28 | [facility] | 13.0 | (missing) | (missing) | | (unavailable | 09:48:08 | [facility] | | | | + + + +--------+ + + + + | Result panel 645 | + + + + + +-------+ + + | | 2022-12-28 | [facility] | 209 | (missing) | (missing) | | (unavailable | 09:48:08 | [facility] | | | | + + + +-------+ + + + + | Result panel 646 | + + + + + +--------+ + + | | 2022-12-28 | [facility] | 81.3 | (missing) | (missing) | | (unavailable | 09:48:08 | [facility] | | | | + + + +--------+ + + + + | Result panel 647 | + + + + + +--------+ + + | | 2022-12-28 | [facility] | 13.0 | (missing) | (missing) | | (unavailable | 09:48:08 | [facility] | | | | + + + +--------+ + + + + | Result panel 648 | + + + + + +-------+ + + | | 2022-12-28 | [facility] | 5.5 | (missing) | (missing) | | (unavailable | 09:48:08 | [facility] | | | | + + + +-------+ + + + + | Result panel 649 | + + + + + +-------+ + + | | 2022-12-28 | [facility] | 0.0 | (missing) | (missing) | | (unavailable | 09:48:08 | [facility] | | | | + + + +-------+ + + + + | Result panel 650 | + + + + + +-------+ + + | | 2022-12-28 | [facility] | 0.2 | (missing) | (missing) | | (unavailable | 09:48:08 | [facility] | | | | + + + +-------+ + + + + | Result panel 651 | + + + + + +------+---------+ + | | 2022-12-28 | [facility] | 93 | mg/dL | (missing) | | (unavailable | 09:48:08 | [facility] | | | | + + + +------+---------+ + + + | Result panel 652 | + + + + + +------+---------+ + | | 2022-12-28 | [facility] | 12 | mg/dL | (missing) | | (unavailable | 09:48:08 | [facility] | | | | + + + +------+---------+ + + + | Result panel 653 | + + + + + +--------+---------+ + | | 2022-12-28 | [facility] | 0.69 | mg/dL | (missing) | | (unavailable | 09:48:08 | [facility] | | | | + + + +--------+---------+ + + + | Result panel 654 | + + + + + +-------+ + + | | 2022-12-28 | [facility] | 120 | (missing) | (missing) | | (unavailable | 09:48:08 | [facility] | | | | + + + +-------+ + + + + | Result panel 655 | + + + + + +---------+ + + | | 2022-12-28 | [facility] | 17.39 | (missing) | (missing) | | (unavailable | 09:48:08 | [facility] | | | | + + + +---------+ + + + + | Result panel 656 | + + + + + +-------+ + + | | 2022-12-28 | [facility] | 138 | (missing) | (missing) | | (unavailable | 09:48:08 | [facility] | | | | + + + +-------+ + + + + | Result panel 657 | + + + + + +-------+ + + | | 2022-12-28 | [facility] | 4.2 | (missing) | (missing) | | (unavailable | 09:48:08 | [facility] | | | | + + + +-------+ + + + + | Result panel 658 | + + + + + +-------+ + + | | 2022-12-28 | [facility] | 101 | (missing) | (missing) | | (unavailable | 09:48:08 | [facility] | | | | + + + +-------+ + + + + | Result panel 659 | + + + + + +------+ + + | | 2022-12-28 | [facility] | 22 | (missing) | (missing) | | (unavailable | 09:48:08 | [facility] | | | | + + + +------+ + + + + | Result panel 660 | + + + + + +--------+ + + | | 2022-12-28 | [facility] | 19.2 | (missing) | (missing) | | (unavailable | 09:48:08 | [facility] | | | | + + + +--------+ + + + + | Result panel 661 | + + + + + +-------+---------+ + | | 2022-12-28 | [facility] | 9.2 | mg/dL | (missing) | | (unavailable | 09:48:08 | [facility] | | | | + + + +-------+---------+ + + + | Result panel 662 | + + + + + +-------+---------+ + | | 2022-12-28 | [facility] | 1.6 | mg/dL | (missing) | | (unavailable | 09:48:08 | [facility] | | | | + + + +-------+---------+ + + + | Result panel 663 | + + + + + +-------+ + + | | 2022-12-28 | [facility] | 7.7 | (missing) | (missing) | | (unavailable | 09:48:08 | [facility] | | | | + + + +-------+ + + + + | Result panel 664 | + + + + + +-------+ + + | | 2022-12-28 | [facility] | 4.2 | (missing) | (missing) | | (unavailable | 09:48:08 | [facility] | | | | + + + +-------+ + + + + | Result panel 665 | + + + + + +-------+ + + | | 2022-12-28 | [facility] | 3.5 | (missing) | (missing) | | (unavailable | 09:48:08 | [facility] | | | | + + + +-------+ + + + + | Result panel 666 | + + + + + +--------+ + + | | 2022-12-28 | [facility] | 1.20 | (missing) | (missing) | | (unavailable | 09:48:08 | [facility] | | | | + + + +--------+ + + + + | Result panel 667 | + + + + + +-------+ + + | | 2022-12-28 | [facility] | 0.9 | (missing) | (missing) | | (unavailable | 09:48:08 | [facility] | | | | + + + +-------+ + + + + | Result panel 668 | + + + + + +------+ + + | | 2022-12-28 | [facility] | 15 | (missing) | (missing) | | (unavailable | 09:48:08 | [facility] | | | | + + + +------+ + + + + | Result panel 669 | + + + + + +------+ + + | | 2022-12-28 | [facility] | 28 | (missing) | (missing) | | (unavailable | 09:48:08 | [facility] | | | | + + + +------+ + + + + | Result panel 670 | + + + + + +------+ + + | | 2022-12-28 | [facility] | 49 | (missing) | (missing) | | (unavailable | 09:48:08 | [facility] | | | | + + + +------+ + + + + | Result panel 671 | + + + + + +------+ + + | | 2022-12-28 | [facility] | 50 | (missing) | (missing) | | (unavailable | 09:48:08 | [facility] | | | | + + + +------+ + + + + | Result panel 672 | + + + + + +-------+---------+ + | | 2022-12-28 | [facility] | 1.6 | mg/dL | (missing) | | (unavailable | 09:48:08 | [facility] | | | | + + + +-------+---------+ + + + | Result panel 673 | + + + + + +-------+ + + | | 2022-12-28 | [facility] | 7.8 | (missing) | (missing) | | (unavailable | 09:48:08 | [facility] | | | | + + + +-------+ + + + + | Result panel 674 | + + + + + +--------+ + + | | 2022-12-28 | [facility] | 4.29 | (missing) | (missing) | | (unavailable | 09:48:08 | [facility] | | | | + + + +--------+ + + + + | Result panel 675 | + + + + + +--------+ + + | | 2022-12-28 | [facility] | 12.5 | (missing) | (missing) | | (unavailable | 09:48:08 | [facility] | | | | + + + +--------+ + + + + | Result panel 676 | + + + + + +--------+ + + | | 2022-12-28 | [facility] | 37.1 | (missing) | (missing) | | (unavailable | 09:48:08 | [facility] | | | | + + + +--------+ + + + + | Result panel 677 | + + + + + +--------+ + + | | 2022-12-28 | [facility] | 86.5 | (missing) | (missing) | | (unavailable | 09:48:08 | [facility] | | | | + + + +--------+ + + + + | Result panel 678 | + + + + + +--------+ + + | | 2022-12-28 | [facility] | 29.2 | (missing) | (missing) | | (unavailable | 09:48:08 | [facility] | | | | + + + +--------+ + + + + | Result panel 679 | + + + + + +--------+ + + | | 2022-12-28 | [facility] | 33.8 | (missing) | (missing) | | (unavailable | 09:48:08 | [facility] | | | | + + + +--------+ + + + + | Result panel 680 | + + + + + +--------+ + + | | 2022-12-28 | [facility] | 13.0 | (missing) | (missing) | | (unavailable | 09:48:08 | [facility] | | | | + + + +--------+ + + + + | Result panel 681 | + + + + + +-------+ + + | | 2022-12-28 | [facility] | 209 | (missing) | (missing) | | (unavailable | 09:48:08 | [facility] | | | | + + + +-------+ + + + + | Result panel 682 | + + + + + +--------+ + + | | 2022-12-28 | [facility] | 81.3 | (missing) | (missing) | | (unavailable | 09:48:08 | [facility] | | | | + + + +--------+ + + + + | Result panel 683 | + + + + + +--------+ + + | | 2022-12-28 | [facility] | 13.0 | (missing) | (missing) | | (unavailable | 09:48:08 | [facility] | | | | + + + +--------+ + + + + | Result panel 684 | + + + + + +-------+ + + | | 2022-12-28 | [facility] | 5.5 | (missing) | (missing) | | (unavailable | 09:48:08 | [facility] | | | | + + + +-------+ + + + + | Result panel 685 | + + + + + +-------+ + + | | 2022-12-28 | [facility] | 0.0 | (missing) | (missing) | | (unavailable | 09:48:08 | [facility] | | | | + + + +-------+ + + + + | Result panel 686 | + + + + + +-------+ + + | | 2022-12-28 | [facility] | 0.2 | (missing) | (missing) | | (unavailable | 09:48:08 | [facility] | | | | + + + +-------+ + + + + | Result panel 687 | + + + + + +------+---------+ + | | 2022-12-28 | [facility] | 93 | mg/dL | (missing) | | (unavailable | 09:48:08 | [facility] | | | | + + + +------+---------+ + + + | Result panel 688 | + + + + + +------+---------+ + | | 2022-12-28 | [facility] | 12 | mg/dL | (missing) | | (unavailable | 09:48:08 | [facility] | | | | + + + +------+---------+ + + + | Result panel 689 | + + + + + +--------+---------+ + | | 2022-12-28 | [facility] | 0.69 | mg/dL | (missing) | | (unavailable | 09:48:08 | [facility] | | | | + + + +--------+---------+ + + + | Result panel 690 | + + + + + +-------+ + + | | 2022-12-28 | [facility] | 120 | (missing) | (missing) | | (unavailable | 09:48:08 | [facility] | | | | + + + +-------+ + + + + | Result panel 691 | + + + + + +---------+ + + | | 2022-12-28 | [facility] | 17.39 | (missing) | (missing) | | (unavailable | 09:48:08 | [facility] | | | | + + + +---------+ + + + + | Result panel 692 | + + + + + +-------+ + + | | 2022-12-28 | [facility] | 138 | (missing) | (missing) | | (unavailable | 09:48:08 | [facility] | | | | + + + +-------+ + + + + | Result panel 693 | + + + + + +-------+ + + | | 2022-12-28 | [facility] | 4.2 | (missing) | (missing) | | (unavailable | 09:48:08 | [facility] | | | | + + + +-------+ + + + + | Result panel 694 | + + + + + +-------+ + + | | 2022-12-28 | [facility] | 101 | (missing) | (missing) | | (unavailable | 09:48:08 | [facility] | | | | + + + +-------+ + + + + | Result panel 695 | + + + + + +------+ + + | | 2022-12-28 | [facility] | 22 | (missing) | (missing) | | (unavailable | 09:48:08 | [facility] | | | | + + + +------+ + + + + | Result panel 696 | + + + + + +--------+ + + | | 2022-12-28 | [facility] | 19.2 | (missing) | (missing) | | (unavailable | 09:48:08 | [facility] | | | | + + + +--------+ + + + + | Result panel 697 | + + + + + +-------+---------+ + | | 2022-12-28 | [facility] | 9.2 | mg/dL | (missing) | | (unavailable | 09:48:08 | [facility] | | | | + + + +-------+---------+ + + + | Result panel 698 | + + + + + +-------+---------+ + | | 2022-12-28 | [facility] | 1.6 | mg/dL | (missing) | | (unavailable | 09:48:08 | [facility] | | | | + + + +-------+---------+ + + + | Result panel 699 | + + + + + +-------+ + + | | 2022-12-28 | [facility] | 7.7 | (missing) | (missing) | | (unavailable | 09:48:08 | [facility] | | | | + + + +-------+ + + + + | Result panel 700 | + + + + + +-------+ + + | | 2022-12-28 | [facility] | 4.2 | (missing) | (missing) | | (unavailable | 09:48:08 | [facility] | | | | + + + +-------+ + + + + | Result panel 701 | + + + + + +-------+ + + | | 2022-12-28 | [facility] | 3.5 | (missing) | (missing) | | (unavailable | 09:48:08 | [facility] | | | | + + + +-------+ + + + + | Result panel 702 | + + + + + +--------+ + + | | 2022-12-28 | [facility] | 1.20 | (missing) | (missing) | | (unavailable | 09:48:08 | [facility] | | | | + + + +--------+ + + + + | Result panel 703 | + + + + + +-------+ + + | | 2022-12-28 | [facility] | 0.9 | (missing) | (missing) | | (unavailable | 09:48:08 | [facility] | | | | + + + +-------+ + + + + | Result panel 704 | + + + + + +------+ + + | | 2022-12-28 | [facility] | 15 | (missing) | (missing) | | (unavailable | 09:48:08 | [facility] | | | | + + + +------+ + + + + | Result panel 705 | + + + + + +------+ + + | | 2022-12-28 | [facility] | 28 | (missing) | (missing) | | (unavailable | 09:48:08 | [facility] | | | | + + + +------+ + + + + | Result panel 706 | + + + + + +------+ + + | | 2022-12-28 | [facility] | 49 | (missing) | (missing) | | (unavailable | 09:48:08 | [facility] | | | | + + + +------+ + + + + | Result panel 707 | + + + + + +------+ + + | | 2022-12-28 | [facility] | 50 | (missing) | (missing) | | (unavailable | 09:48:08 | [facility] | | | | + + + +------+ + + + + | Result panel 708 | + + + + + + + + + | | 2022-12-28 | [facility] | NEGATIVE | (missing) | (missing) | | (unavailable | 10:32:08 | [facility] | | | | + + + + + + + + + | Result panel 709 | + + + + + + + + + | | 2023-01-16 | [facility] | NEGATIVE | (missing) | (missing) | | (unavailable | 03:05:08 | [facility] | | | | + + + + + + + + + | Result panel 710 | + + + + + + + + + | | 2023-01-16 | [facility] | NEGATIVE | (missing) | (missing) | | (unavailable | 03:05:08 | [facility] | | | | + + + + + + + + + | Result panel 711 | + + + + + +-------+ + + | | 2023-01-16 | [facility] | 7.2 | (missing) | (missing) | | (unavailable | 09:56:08 | [facility] | | | | + + + +-------+ + + + + | Result panel 712 | + + + + + +--------+ + + | | 2023-01-16 | [facility] | 4.36 | (missing) | (missing) | | (unavailable | 09:56:08 | [facility] | | | | + + + +--------+ + + + + | Result panel 713 | + + + + + +--------+ + + | | 2023-01-16 | [facility] | 12.8 | (missing) | (missing) | | (unavailable | 09:56:08 | [facility] | | | | + + + +--------+ + + + + | Result panel 714 | + + + + + +--------+ + + | | 2023-01-16 | [facility] | 37.5 | (missing) | (missing) | | (unavailable | 09:56:08 | [facility] | | | | + + + +--------+ + + + + | Result panel 715 | + + + + + +--------+ + + | | 2023-01-16 | [facility] | 86.0 | (missing) | (missing) | | (unavailable | 09:56:08 | [facility] | [facility] | | | | + + + +--------+ + + + + | Result panel 716 | + + + + + +--------+ + + | | 2023-01-16 | [facility] | 29.3 | (missing) | (missing) | | (unavailable | 09:56:08 | [facility] | | | | + + + +--------+ + + + + | Result panel 717 | + + + + + +--------+ + + | | 2023-01-16 | [facility] | 34.1 | (missing) | (missing) | | (unavailable | 09:56:08 | [facility] | | | | + + + +--------+ + + + + | Result panel 718 | + + + + + +--------+ + + | | 2023-01-16 | [facility] | 13.1 | (missing) | (missing) | | (unavailable | 09:56:08 | [facility] | | | | + + + +--------+ + + + + | Result panel 719 | + + + + + +-------+ + + | | 2023-01-16 | [facility] | 183 | (missing) | (missing) | | (unavailable | 09:56:08 | [facility] | | | | + + + +-------+ + + + + | Result panel 720 | + + + + + +--------+ + + | | 2023-01-16 | [facility] | 86.6 | (missing) | (missing) | | (unavailable | 09:56:08 | [facility] | | | | + + + +--------+ + + + + | Result panel 721 | + + + + + +--------+ + + | | 2023-01-16 | [facility] | 10.3 | (missing) | (missing) | | (unavailable | 09:56:08 | [facility] | | | | + + + +--------+ + + + + | Result panel 722 | + + + + + +-------+ + + | | 2023-01-16 | [facility] | 2.8 | (missing) | (missing) | | (unavailable | 09:56:08 | [facility] | | | | + + + +-------+ + + + + | Result panel 723 | + + + + + +-------+ + + | | 2023-01-16 | [facility] | 0.1 | (missing) | (missing) | | (unavailable | 09:56:08 | [facility] | | | | + + + +-------+ + + + + | Result panel 724 | + + + + + +-------+ + + | | 2023-01-16 | [facility] | 0.2 | (missing) | (missing) | | (unavailable | 09:56:08 | [facility] | | | | + + + +-------+ + + + + | Result panel 725 | + + + + + +-------+---------+ + | | 2023-01-16 | [facility] | 102 | mg/dL | (missing) | | (unavailable | 09:56:08 | [facility] | | | | + + + +-------+---------+ + + + | Result panel 726 | + + + + + +-----+---------+ + | | 2023-01-16 | [facility] | 7 | mg/dL | (missing) | | (unavailable | 09:56:08 | [facility] | | | | + + + +-----+---------+ + + + | Result panel 727 | + + + + + +--------+---------+ + | | 2023-01-16 | [facility] | 0.73 | mg/dL | (missing) | | (unavailable | 09:56:08 | [facility] | | | | + + + +--------+---------+ + + + | Result panel 728 | + + + + + +-------+ + + | | 2023-01-16 | [facility] | 113 | (missing) | (missing) | | (unavailable | 09:56:08 | [facility] | | | | + + + +-------+ + + + + | Result panel 729 | + + + + + +--------+ + + | | 2023-01-16 | [facility] | 9.58 | (missing) | (missing) | | (unavailable | 09:56:08 | [facility] | | | | + + + +--------+ + + + + | Result panel 730 | + + + + + +-------+ + + | | 2023-01-16 | [facility] | 140 | (missing) | (missing) | | (unavailable | 09:56:08 | [facility] | | | | + + + +-------+ + + + + | Result panel 731 | + + + + + +-------+ + + | | 2023-01-16 | [facility] | 4.1 | (missing) | (missing) | | (unavailable | 09:56:08 | [facility] | | | | + + + +-------+ + + + + | Result panel 732 | + + + + + +-------+ + + | | 2023-01-16 | [facility] | 106 | (missing) | (missing) | | (unavailable | 09:56:08 | [facility] | | | | + + + +-------+ + + + + | Result panel 733 | + + + + + +------+ + + | | 2023-01-16 | [facility] | 23 | (missing) | (missing) | | (unavailable | 09:56:08 | [facility] | | | | + + + +------+ + + + + | Result panel 734 | + + + + + +--------+ + + | | 2023-01-16 | [facility] | 15.1 | (missing) | (missing) | | (unavailable | 09:56:08 | [facility] | | | | + + + +--------+ + + + + | Result panel 735 | + + + + + +-------+---------+ + | | 2023-01-16 | [facility] | 9.2 | mg/dL | (missing) | | (unavailable | 09:56:08 | [facility] | | | | + + + +-------+---------+ + + + | Result panel 736 | + + + + + +-------+ + + | | 2023-01-16 | [facility] | 7.8 | (missing) | (missing) | | (unavailable | 09:56:08 | [facility] | | | | + + + +-------+ + + + + | Result panel 737 | + + + + + +-------+ + + | | 2023-01-16 | [facility] | 4.2 | (missing) | (missing) | | (unavailable | 09:56:08 | [facility] | | | | + + + +-------+ + + + + | Result panel 738 | + + + + + +-------+ + + | | 2023-01-16 | [facility] | 3.6 | (missing) | (missing) | | (unavailable | 09:56:08 | [facility] | | | | + + + +-------+ + + + + | Result panel 739 | + + + + + +--------+ + + | | 2023-01-16 | [facility] | 1.17 | (missing) | (missing) | | (unavailable | 09:56:08 | [facility] | | | | + + + +--------+ + + + + | Result panel 740 | + + + + + +-------+ + + | | 2023-01-16 | [facility] | 0.5 | (missing) | (missing) | | (unavailable | 09:56:08 | [facility] | | | | + + + +-------+ + + + + | Result panel 741 | + + + + + +------+ + + | | 2023-01-16 | [facility] | 14 | (missing) | (missing) | | (unavailable | 09:56:08 | [facility] | | | | + + + +------+ + + + + | Result panel 742 | + + + + + +------+ + + | | 2023-01-16 | [facility] | 22 | (missing) | (missing) | | (unavailable | 09:56:08 | [facility] | | | | + + + +------+ + + + + | Result panel 743 | + + + + + +------+ + + | | 2023-01-16 | [facility] | 43 | (missing) | (missing) | | (unavailable | 09:56:08 | [facility] | | | | + + + +------+ + + + + | Result panel 744 | + + + + + +------+ + + | | 2023-01-16 | [facility] | 72 | (missing) | (missing) | | (unavailable | 09:56:08 | [facility] | | | | + + + +------+ + + + + | Result panel 745 | + + + + + +-------+ + + | | 2023-01-16 | [facility] | 0-1 | (missing) | (missing) | | (unavailable | 11:46:08 | [facility] | | | | + + + +-------+ + + + + | Result panel 746 | + + + + + +-------+ + + | | 2023-01-16 | [facility] | 0-1 | (missing) | (missing) | | (unavailable | 11:46:08 | [facility] | | | | + + + +-------+ + + + + | Result panel 747 | + + + + + +-----+ + + | | 2023-01-16 | [facility] | 0 | (missing) | (missing) | | (unavailable | 11:46:08 | [facility] | | | | + + + +-----+ + + + + | Result panel 748 | + + + + + + + + + | | 2023-01-16 | [facility] | NONE SEEN | (missing) | (missing) | | (unavailable | 11:46:08 | [facility] | | | | + + + + + + + + + | Result panel 749 | + + + + + +--------+ + + | | 2023-01-16 | [facility] | RARE | (missing) | (missing) | | (unavailable | 11:46:08 | [facility] | | | | + + + +--------+ + + + + | Result panel 750 | + + + + + + + + + | | 2023-01-16 | [facility] | NONE SEEN | (missing) | (missing) | | (unavailable | 11:46:08 | [facility] | | | | + + + + + + + + + | Result panel 751 | + + + + + +------+ + + | | 2023-01-16 | [facility] | No | (missing) | (missing) | | (unavailable | 11:46:08 | [facility] | | | | + + + +------+ + + + + | Result panel 752 | + + + + + + + + + | | 2023-01-16 | [facility] | CLEAN CATCH | (missing) | (missing) | | (unavailable | 11:46:08 | [facility] | | | | + + + + + + + + + | Result panel 753 | + + + + + +-------+ + + | | 2023-01-16 | [facility] | 0-1 | (missing) | (missing) | | (unavailable | 11:46:08 | [facility] | | | | + + + +-------+ + + + + | Result panel 754 | + + + + + +-------+ + + | | 2023-01-16 | [facility] | 0-1 | (missing) | (missing) | | (unavailable | 11:46:08 | [facility] | | | | + + + +-------+ + + + + | Result panel 755 | + + + + + +-----+ + + | | 2023-01-16 | [facility] | 0 | (missing) | (missing) | | (unavailable | 11:46:08 | [facility] | | | | + + + +-----+ + + + + | Result panel 756 | + + + + + + + + + | | 2023-01-16 | [facility] | NONE SEEN | (missing) | (missing) | | (unavailable | 11:46:08 | [facility] | | | | + + + + + + + + + | Result panel 757 | + + + + + +--------+ + + | | 2023-01-16 | [facility] | RARE | (missing) | (missing) | | (unavailable | 11:46:08 | [facility] | | | | + + + +--------+ + + + + | Result panel 758 | + + + + + + + + + | | 2023-01-16 | [facility] | NONE SEEN | (missing) | (missing) | | (unavailable | 11:46:08 | [facility] | | | | + + + + + + + + + | Result panel 759 | + + + + + +------+ + + | | 2023-01-16 | [facility] | No | (missing) | (missing) | | (unavailable | 11:46:08 | [facility] | | | | + + + +------+ + + + + | Result panel 760 | + + + + + + + + + | | 2023-01-16 | [facility] | CLEAN CATCH | (missing) | (missing) | | (unavailable | 11:46:08 | [facility] | | | | + + + + + + + + + | Result panel 761 | + + + + + +-------+ + + | | 2023-01-16 | [facility] | 0-1 | (missing) | (missing) | | (unavailable | 11:46:08 | [facility] | | | | + + + +-------+ + + + + | Result panel 762 | + + + + + +-------+ + + | | 2023-01-16 | [facility] | 0-1 | (missing) | (missing) | | (unavailable | 11:46:08 | [facility] | | | | + + + +-------+ + + + + | Result panel 763 | + + + + + +-----+ + + | | 2023-01-16 | [facility] | 0 | (missing) | (missing) | | (unavailable | 11:46:08 | [facility] | | | | + + + +-----+ + + + + | Result panel 764 | + + + + + + + + + | | 2023-01-16 | [facility] | NONE SEEN | (missing) | (missing) | | (unavailable | 11:46:08 | [facility] | | | | + + + + + + + + + | Result panel 765 | + + + + + +--------+ + + | | 2023-01-16 | [facility] | RARE | (missing) | (missing) | | (unavailable | 11:46:08 | [facility] | | | | + + + +--------+ + + + + | Result panel 766 | + + + + + + + + + | | 2023-01-16 | [facility] | NONE SEEN | (missing) | (missing) | | (unavailable | 11:46:08 | [facility] | | | | + + + + + + + + + | Result panel 767 | + + + + + +------+ + + | | 2023-01-16 | [facility] | No | (missing) | (missing) | | (unavailable | 11:46:08 | [facility] | | | | + + + +------+ + + + + | Result panel 768 | + + + + + + + + + | | 2023-01-16 | [facility] | CLEAN CATCH | (missing) | (missing) | | (unavailable | 11:46:08 | [facility] | | | | + + + + + + + + + | Result panel 769 | + + + + + +-------+ + + | | 2023-01-16 | [facility] | 0-1 | (missing) | (missing) | | (unavailable | 11:46:08 | [facility] | | | | + + + +-------+ + + + + | Result panel 770 | + + + + + +-------+ + + | | 2023-01-16 | [facility] | 0-1 | (missing) | (missing) | | (unavailable | 11:46:08 | [facility] | | | | + + + +-------+ + + + + | Result panel 771 | + + + + + +-----+ + + | | 2023-01-16 | [facility] | 0 | (missing) | (missing) | | (unavailable | 11:46:08 | [facility] | | | | + + + +-----+ + + + + | Result panel 772 | + + + + + + + + + | | 2023-01-16 | [facility] | NONE SEEN | (missing) | (missing) | | (unavailable | 11:46:08 | [facility] | | | | + + + + + + + + + | Result panel 773 | + + + + + +--------+ + + | | 2023-01-16 | [facility] | RARE | (missing) | (missing) | | (unavailable | 11:46:08 | [facility] | | | | + + + +--------+ + + + + | Result panel 774 | + + + + + + + + + | | 2023-01-16 | [facility] | NONE SEEN | (missing) | (missing) | | (unavailable | 11:46:08 | [facility] | | | | + + + + + + + + + | Result panel 775 | + + + + + +------+ + + | | 2023-01-16 | [facility] | No | (missing) | (missing) | | (unavailable | 11:46:08 | [facility] | | | | + + + +------+ + + + + | Result panel 776 | + + + + + + + + + | | 2023-01-16 | [facility] | CLEAN CATCH | (missing) | (missing) | | (unavailable | 11:46:08 | [facility] | | | | + + + + + + + + + | Result panel 777 | + + + + + + + + + | | 2023-01-16 | [facility] | YELLOW | (missing) | (missing) | | (unavailable | 11:46:08 | [facility] | | | | + + + + + + + + + | Result panel 778 | + + + + + +---------+ + + | | 2023-01-16 | [facility] | CLEAR | (missing) | (missing) | | (unavailable | 11:46:08 | [facility] | | | | + + + +---------+ + + + + | Result panel 779 | + + + + + + + + + | | 2023-01-16 | [facility] | NEGATIVE | (missing) | (missing) | | (unavailable | 11:46:08 | [facility] | | | | + + + + + + + + + | Result panel 780 | + + + + + + + + + | | 2023-01-16 | [facility] | NEGATIVE | (missing) | (missing) | | (unavailable | 11:46:08 | [facility] | | | | + + + + + + + + + | Result panel 781 | + + + + + +---------+ + + | | 2023-01-16 | [facility] | TRACE | (missing) | (missing) | | (unavailable | 11:46:08 | [facility] | | | | + + + +---------+ + + + + | Result panel 782 | + + + + + +---------+ + + | | 2023-01-16 | [facility] | 1.020 | (missing) | (missing) | | (unavailable | 11:46:08 | [facility] | | | | + + + +---------+ + + + + | Result panel 783 | + + + + + + + + + | | 2023-01-16 | [facility] | NEGATIVE | (missing) | (missing) | | (unavailable | 11:46:08 | [facility] | | | | + + + + + + + + + | Result panel 784 | + + + + + +-------+ + + | | 2023-01-16 | [facility] | 6.0 | (missing) | (missing) | | (unavailable | 11:46:08 | [facility] | | | | + + + +-------+ + + + + | Result panel 785 | + + + + + + + + + | | 2023-01-16 | [facility] | NEGATIVE | (missing) | (missing) | | (unavailable | 11:46:08 | [facility] | | | | + + + + + + + + + | Result panel 786 | + + + + + + + + + | | 2023-01-16 | [facility] | NORMAL | (missing) | (missing) | | (unavailable | 11:46:08 | [facility] | | | | + + + + + + + + + | Result panel 787 | + + + + + + + + + | | 2023-01-16 | [facility] | NEGATIVE | (missing) | (missing) | | (unavailable | 11:46:08 | [facility] | | | | + + + + + + + + + | Result panel 788 | + + + + + + + + + | | 2023-01-16 | [facility] | NEGATIVE | (missing) | (missing) | | (unavailable | 11:46:08 | [facility] | | | | + + + + + + + + + | Result panel 789 | + + + + + +-------+ + + | | 2023-01-16 | [facility] | 0-1 | (missing) | (missing) | | (unavailable | 11:46:08 | [facility] | | | | + + + +-------+ + + + + | Result panel 790 | + + + + + +-------+ + + | | 2023-01-16 | [facility] | 0-1 | (missing) | (missing) | | (unavailable | 11:46:08 | [facility] | | | | + + + +-------+ + + + + | Result panel 791 | + + + + + +-----+ + + | | 2023-01-16 | [facility] | 0 | (missing) | (missing) | | (unavailable | 11:46:08 | [facility] | | | | + + + +-----+ + + + + | Result panel 792 | + + + + + + + + + | | 2023-01-16 | [facility] | NONE SEEN | (missing) | (missing) | | (unavailable | 11:46:08 | [facility] | | | | + + + + + + + + + | Result panel 793 | + + + + + +--------+ + + | | 2023-01-16 | [facility] | RARE | (missing) | (missing) | | (unavailable | 11:46:08 | [facility] | | | | + + + +--------+ + + + + | Result panel 794 | + + + + + + + + + | | 2023-01-16 | [facility] | NONE SEEN | (missing) | (missing) | | (unavailable | 11:46:08 | [facility] | | | | + + + + + + + + + | Result panel 795 | + + + + + +------+ + + | | 2023-01-16 | [facility] | No | (missing) | (missing) | | (unavailable | 11:46:08 | [facility] | | | | + + + +------+ + + + + | Result panel 796 | + + + + + + + + + | | 2023-01-16 | [facility] | CLEAN CATCH | (missing) | (missing) | | (unavailable | 11:46:08 | [facility] | | | | + + + + + + + + + | Result panel 797 | + + + + + + + + + | | 2023-01-21 | [facility] | YELLOW | (missing) | (missing) | | (unavailable | 22:43:08 | [facility] | | | | + + + + + + + + + | Result panel 798 | + + + + + +---------+ + + | | 2023-01-21 | [facility] | CLEAR | (missing) | (missing) | | (unavailable | 22:43:08 | [facility] | | | | + + + +---------+ + + + + | Result panel 799 | + + + + + + + + + | | 2023-01-21 | [facility] | NEGATIVE | (missing) | (missing) | | (unavailable | 22:43:08 | [facility] | | | | + + + + + + + + + | Result panel 800 | + + + + + + + + + | | 2023-01-21 | [facility] | NEGATIVE | (missing) | (missing) | | (unavailable | 22:43:08 | [facility] | | | | + + + + + + + + + | Result panel 801 | + + + + + +---------+ + + | | 2023-01-21 | [facility] | SMALL | (missing) | (missing) | | (unavailable | 22:43:08 | [facility] | | | | + + + +---------+ + + + + | Result panel 802 | + + + + + + + + + | | 2023-01-21 | [facility] | >=1.030 | (missing) | (missing) | | (unavailable | 22:43:08 | [facility] | | | | + + + + + + + + + | Result panel 803 | + + + + + + + + + | | 2023-01-21 | [facility] | NEGATIVE | (missing) | (missing) | | (unavailable | 22:43:08 | [facility] | | | | + + + + + + + + + | Result panel 804 | + + + + + +-------+ + + | | 2023-01-21 | [facility] | 5.5 | (missing) | (missing) | | (unavailable | 22:43:08 | [facility] | | | | + + + +-------+ + + + + | Result panel 805 | + + + + + + + + + | | 2023-01-21 | [facility] | NEGATIVE | (missing) | (missing) | | (unavailable | 22:43:08 | [facility] | | | | + + + + + + + + + | Result panel 806 | + + + + + + + + + | | 2023-01-21 | [facility] | NORMAL | (missing) | (missing) | | (unavailable | 22:43:08 | [facility] | | | | + + + + + + + + + | Result panel 807 | + + + + + + + + + | | 2023-01-21 | [facility] | NEGATIVE | (missing) | (missing) | | (unavailable | 22:43:08 | [facility] | | | | + + + + + + + + + | Result panel 808 | + + + + + + + + + | | 2023-01-21 | [facility] | NEGATIVE | (missing) | (missing) | | (unavailable | 22:43:08 | [facility] | | | | + + + + + + + + + | Result panel 809 | + + + + + + + + + | | 2023-01-21 | [facility] | YELLOW | (missing) | (missing) | | (unavailable | 22:43:08 | [facility] | | | | + + + + + + + + + | Result panel 810 | + + + + + +---------+ + + | | 2023-01-21 | [facility] | CLEAR | (missing) | (missing) | | (unavailable | 22:43:08 | [facility] | | | | + + + +---------+ + + + + | Result panel 811 | + + + + + + + + + | | 2023-01-21 | [facility] | NEGATIVE | (missing) | (missing) | | (unavailable | 22:43:08 | [facility] | | | | + + + + + + + + + | Result panel 812 | + + + + + + + + + | | 2023-01-21 | [facility] | NEGATIVE | (missing) | (missing) | | (unavailable | 22:43:08 | [facility] | | | | + + + + + + + + + | Result panel 813 | + + + + + +---------+ + + | | 2023-01-21 | [facility] | SMALL | (missing) | (missing) | | (unavailable | 22:43:08 | [facility] | | | | + + + +---------+ + + + + | Result panel 814 | + + + + + + + + + | | 2023-01-21 | [facility] | >=1.030 | (missing) | (missing) | | (unavailable | 22:43:08 | [facility] | | | | + + + + + + + + + | Result panel 815 | + + + + + + + + + | | 2023-01-21 | [facility] | NEGATIVE | (missing) | (missing) | | (unavailable | 22:43:08 | [facility] | | | | + + + + + + + + + | Result panel 816 | + + + + + +-------+ + + | | 2023-01-21 | [facility] | 5.5 | (missing) | (missing) | | (unavailable | 22:43:08 | [facility] | | | | + + + +-------+ + + + + | Result panel 817 | + + + + + + + + + | | 2023-01-21 | [facility] | NEGATIVE | (missing) | (missing) | | (unavailable | 22:43:08 | [facility] | | | | + + + + + + + + + | Result panel 818 | + + + + + + + + + | | 2023-01-21 | [facility] | NORMAL | (missing) | (missing) | | (unavailable | 22:43:08 | [facility] | | | | + + + + + + + + + | Result panel 819 | + + + + + + + + + | | 2023-01-21 | [facility] | NEGATIVE | (missing) | (missing) | | (unavailable | 22:43:08 | [facility] | | | | + + + + + + + + + | Result panel 820 | + + + + + + + + + | | 2023-01-21 | [facility] | NEGATIVE | (missing) | (missing) | | (unavailable | 22:43:08 | [facility] | | | | + + + + + + + + + | Result panel 821 | + + + + + + + + + | | 2023-01-21 | [facility] | YELLOW | (missing) | (missing) | | (unavailable | 22:43:08 | [facility] | | | | + + + + + + + + + | Result panel 822 | + + + + + +---------+ + + | | 2023-01-21 | [facility] | CLEAR | (missing) | (missing) | | (unavailable | 22:43:08 | [facility] | | | | + + + +---------+ + + + + | Result panel 823 | + + + + + + + + + | | 2023-01-21 | [facility] | NEGATIVE | (missing) | (missing) | | (unavailable | 22:43:08 | [facility] | | | | + + + + + + + + + | Result panel 824 | + + + + + + + + + | | 2023-01-21 | [facility] | NEGATIVE | (missing) | (missing) | | (unavailable | 22:43:08 | [facility] | | | | + + + + + + + + + | Result panel 825 | + + + + + +---------+ + + | | 2023-01-21 | [facility] | SMALL | (missing) | (missing) | | (unavailable | 22:43:08 | [facility] | | | | + + + +---------+ + + + + | Result panel 826 | + + + + + + + + + | | 2023-01-21 | [facility] | >=1.030 | (missing) | (missing) | | (unavailable | 22:43:08 | [facility] | | | | + + + + + + + + + | Result panel 827 | + + + + + + + + + | | 2023-01-21 | [facility] | NEGATIVE | (missing) | (missing) | | (unavailable | 22:43:08 | [facility] | | | | + + + + + + + + + | Result panel 828 | + + + + + +-------+ + + | | 2023-01-21 | [facility] | 5.5 | (missing) | (missing) | | (unavailable | 22:43:08 | [facility] | | | | + + + +-------+ + + + + | Result panel 829 | + + + + + + + + + | | 2023-01-21 | [facility] | NEGATIVE | (missing) | (missing) | | (unavailable | 22:43:08 | [facility] | | | | + + + + + + + + + | Result panel 830 | + + + + + + + + + | | 2023-01-21 | [facility] | NORMAL | (missing) | (missing) | | (unavailable | 22:43:08 | [facility] | | | | + + + + + + + + + | Result panel 831 | + + + + + + + + + | | 2023-01-21 | [facility] | NEGATIVE | (missing) | (missing) | | (unavailable | 22:43:08 | [facility] | | | | + + + + + + + + + | Result panel 832 | + + + + + + + + + | | 2023-01-21 | [facility] | NEGATIVE | (missing) | (missing) | | (unavailable | 22:43:08 | [facility] | | | | + + + + + + + + + | Result panel 833 | + + + + + +-------+ + + | | 2023-01-21 | [facility] | 6.3 | (missing) | (missing) | | (unavailable | 22:55:08 | [facility] | | | | + + + +-------+ + + + + | Result panel 834 | + + + + + +--------+ + + | | 2023-01-21 | [facility] | 4.38 | (missing) | (missing) | | (unavailable | 22:55:08 | [facility] | | | | + + + +--------+ + + + + | Result panel 835 | + + + + + +--------+ + + | | 2023-01-21 | [facility] | 12.5 | (missing) | (missing) | | (unavailable | 22:55:08 | [facility] | | | | + + + +--------+ + + + + | Result panel 836 | + + + + + +--------+ + + | | 2023-01-21 | [facility] | 38.1 | (missing) | (missing) | | (unavailable | 22:55:08 | [facility] | | | | + + + +--------+ + + + + | Result panel 837 | + + + + + +--------+ + + | | 2023-01-21 | [facility] | 87.0 | (missing) | (missing) | | (unavailable | 22:55:08 | [facility] | | | | + + + +--------+ + + + + | Result panel 838 | + + + + + +--------+ + + | | 2023-01-21 | [facility] | 28.6 | (missing) | (missing) | | (unavailable | 22:55:08 | [facility] | | | | | ) | | [facility] | | | | + + + +--------+ + + + + | Result panel 839 | + + + + + +--------+ + + | | 2023-01-21 | [facility] | 32.9 | (missing) | (missing) | | (unavailable | 22:55:08 | [facility] | | | | + + + +--------+ + + + + | Result panel 840 | + + + + + +--------+ + + | | 2023-01-21 | [facility] | 13.3 | (missing) | (missing) | | (unavailable | 22:55:08 | [facility] | | | | + + + +--------+ + + + + | Result panel 841 | + + + + + +-------+ + + | | 2023-01-21 | [facility] | 195 | (missing) | (missing) | | (unavailable | 22:55:08 | [facility] | | | | + + + +-------+ + + + + | Result panel 842 | + + + + + +--------+ + + | | 2023-01-21 | [facility] | 45.3 | (missing) | (missing) | | (unavailable | 22:55:08 | [facility] | | | | + + + +--------+ + + + + | Result panel 843 | + + + + + +--------+ + + | | 2023-01-21 | [facility] | 41.1 | (missing) | (missing) | | (unavailable | 22:55:08 | [facility] | | | | + + + +--------+ + + + + | Result panel 844 | + + + + + +-------+ + + | | 2023-01-21 | [facility] | 6.5 | (missing) | (missing) | | (unavailable | 22:55:08 | [facility] | | | | + + + +-------+ + + + + | Result panel 845 | + + + + + +-------+ + + | | 2023-01-21 | [facility] | 5.7 | (missing) | (missing) | | (unavailable | :55:08 | [facility] | | | | + + + +-------+ + + + + | Result panel 846 | + + + + + +-------+ + + | | 2023-01-21 | [facility] | 1.4 | (missing) | (missing) | | (unavailable | :55:08 | [facility] | | | | + + + +-------+ + + + + | Result panel 847 | + + + + + +------+---------+ + | | 2023-01-21 | [facility] | 98 | mg/dL | (missing) | | (unavailable | :55:08 | [facility] | | | | + + + +------+---------+ + + + | Result panel 848 | + + + + + +------+---------+ + | | 2023-01-21 | [facility] | 16 | mg/dL | (missing) | | (unavailable | 22:55:08 | [facility] | | | | + + + +------+---------+ + + + | Result panel 849 | + + + + + +--------+---------+ + | | 2023-01-21 | [facility] | 1.00 | mg/dL | (missing) | | (unavailable | :55:08 | [facility] | | | | + + + +--------+---------+ + + + | Result panel 850 | + + + + + +------+ + + | | 2023-01-21 | [facility] | 78 | (missing) | (missing) | | (unavailable | 22:55:08 | [facility] | | | | + + + +------+ + + + + | Result panel 851 | + + + + + +---------+ + + | | 2023-01-21 | [facility] | 16.00 | (missing) | (missing) | | (unavailable | 22:55:08 | [facility] | | | | + + + +---------+ + + + + | Result panel 852 | + + + + + +-------+ + + | | 2023-01-21 | [facility] | 142 | (missing) | (missing) | | (unavailable | 22:55:08 | [facility] | | | | + + + +-------+ + + + + | Result panel 853 | + + + + + +-------+ + + | | 2023-01-21 | [facility] | 3.5 | (missing) | (missing) | | (unavailable | 22:55:08 | [facility] | | | | + + + +-------+ + + + + | Result panel 854 | + + + + + +-------+ + + | | 2023-01-21 | [facility] | 104 | (missing) | (missing) | | (unavailable | 22:55:08 | [facility] | | | | + + + +-------+ + + + + | Result panel 855 | + + + + + +------+ + + | | 2023-01-21 | [facility] | 24 | (missing) | (missing) | | (unavailable | 22:55:08 | [facility] | | | | + + + +------+ + + + + | Result panel 856 | + + + + + +--------+ + + | | 2023-01-21 | [facility] | 17.5 | (missing) | (missing) | | (unavailable | 22:55:08 | [facility] | | | | + + + +--------+ + + + + | Result panel 857 | + + + + + +-------+---------+ + | | 2023-01-21 | [facility] | 9.0 | mg/dL | (missing) | | (unavailable | 22:55:08 | [facility] | | | | + + + +-------+---------+ + + + | Result panel 858 | + + + + + +-------+ + + | | 2023-01-21 | [facility] | 7.5 | (missing) | (missing) | | (unavailable | 22:55:08 | [facility] | | | | + + + +-------+ + + + + | Result panel 859 | + + + + + +-------+ + + | | 2023-01-21 | [facility] | 4.4 | (missing) | (missing) | | (unavailable | 22:55:08 | [facility] | | | | + + + +-------+ + + + + | Result panel 860 | + + + + + +-------+ + + | | 2023-01-21 | [facility] | 3.1 | (missing) | (missing) | | (unavailable | 22:55:08 | [facility] | | | | + + + +-------+ + + + + | Result panel 861 | + + + + + +--------+ + + | | 2023-01-21 | [facility] | 1.42 | (missing) | (missing) | | (unavailable | 22:55:08 | [facility] | | | | + + + +--------+ + + + + | Result panel 862 | + + + + + +-------+ + + | | 2023-01-21 | [facility] | 0.5 | (missing) | (missing) | | (unavailable | 22:55:08 | [facility] | | | | + + + +-------+ + + + + | Result panel 863 | + + + + + +------+ + + | | 2023-01-21 | [facility] | 15 | (missing) | (missing) | | (unavailable | 22:55:08 | [facility] | | | | + + + +------+ + + + + | Result panel 864 | + + + + + +------+ + + | | 2023-01-21 | [facility] | 17 | (missing) | (missing) | | (unavailable | 22:55:08 | [facility] | | | | + + + +------+ + + + + | Result panel 865 | + + + + + +------+ + + | | 2023-01-21 | [facility] | 45 | (missing) | (missing) | | (unavailable | 22:55:08 | [facility] | | | | + + + +------+ + + + + | Result panel 866 | + + + + + +-------+ + + | | 2023-01-21 | [facility] | 156 | (missing) | (missing) | | (unavailable | 22:55:08 | [facility] | | | | + + + +-------+ + + + + | Result panel 867 | + + + + + + + + + | | 2023-01-21 | [facility] | NEGATIVE | (missing) | (missing) | | (unavailable | 22:55:08 | [facility] | | | | + + + + + + + + + | Result panel 868 | + + + + + +-------+ + + | | 2023-01-21 | [facility] | 6.3 | (missing) | (missing) | | (unavailable | 22:55:08 | [facility] | | | | + + + +-------+ + + + + | Result panel 869 | + + + + + +--------+ + + | | 2023-01-21 | [facility] | 4.38 | (missing) | (missing) | | (unavailable | 22:55:08 | [facility] | | | | + + + +--------+ + + + + | Result panel 870 | + + + + + +--------+ + + | | 2023-01-21 | [facility] | 12.5 | (missing) | (missing) | | (unavailable | 22:55:08 | [facility] | | | | + + + +--------+ + + + + | Result panel 871 | + + + + + +--------+ + + | | 2023-01-21 | [facility] | 38.1 | (missing) | (missing) | | (unavailable | 22:55:08 | [facility] | | | | + + + +--------+ + + + + | Result panel 872 | + + + + + +--------+ + + | | 2023-01-21 | [facility] | 87.0 | (missing) | (missing) | | (unavailable | 22:55:08 | [facility] | | | | + + + +--------+ + + + + | Result panel 873 | + + + + + +--------+ + + | | 2023-01-21 | [facility] | 28.6 | (missing) | (missing) | | (unavailable | 22:55:08 | [facility] | | | | + + + +--------+ + + + + | Result panel 874 | + + + + + +--------+ + + | | 2023-01-21 | [facility] | 32.9 | (missing) | (missing) | | (unavailable | 22:55:08 | [facility] | | | | + + + +--------+ + + + + | Result panel 875 | + + + + + +--------+ + + | | 2023-01-21 | [facility] | 13.3 | (missing) | (missing) | | (unavailable | 22:55:08 | [facility] | | | | + + + +--------+ + + + + | Result panel 876 | + + + + + +-------+ + + | | 2023-01-21 | [facility] | 195 | (missing) | (missing) | | (unavailable | 22:55:08 | [facility] | | | | + + + +-------+ + + + + | Result panel 877 | + + + + + +--------+ + + | | 2023-01-21 | [facility] | 45.3 | (missing) | (missing) | | (unavailable | 22:55:08 | [facility] | | | | + + + +--------+ + + + + | Result panel 878 | + + + + + +--------+ + + | | 2023-01-21 | [facility] | 41.1 | (missing) | (missing) | | (unavailable | 22:55:08 | [facility] | | | | + + + +--------+ + + + + | Result panel 879 | + + + + + +-------+ + + | | 2023-01-21 | [facility] | 6.5 | (missing) | (missing) | | (unavailable | 22:55:08 | [facility] | | | | + + + +-------+ + + + + | Result panel 880 | + + + + + +-------+ + + | | 2023-01-21 | [facility] | 5.7 | (missing) | (missing) | | (unavailable | 22:55:08 | [facility] | | | | + + + +-------+ + + + + | Result panel 881 | + + + + + +-------+ + + | | 2023-01-21 | [facility] | 1.4 | (missing) | (missing) | | (unavailable | :55:08 | [facility] | | | | + + + +-------+ + + + + | Result panel 882 | + + + + + +------+---------+ + | | 2023-01-21 | [facility] | 98 | mg/dL | (missing) | | (unavailable | :55:08 | [facility] | | | | + + + +------+---------+ + + + | Result panel 883 | + + + + + +------+---------+ + | | 2023-01-21 | [facility] | 16 | mg/dL | (missing) | | (unavailable | 22:55:08 | [facility] | | | | + + + +------+---------+ + + + | Result panel 884 | + + + + + +--------+---------+ + | | 2023-01-21 | [facility] | 1.00 | mg/dL | (missing) | | (unavailable | 22:55:08 | [facility] | | | | + + + +--------+---------+ + + + | Result panel 885 | + + + + + +------+ + + | | 2023-01-21 | [facility] | 78 | (missing) | (missing) | | (unavailable | 22:55:08 | [facility] | | | | + + + +------+ + + + + | Result panel 886 | + + + + + +---------+ + + | | 2023-01-21 | [facility] | 16.00 | (missing) | (missing) | | (unavailable | 22:55:08 | [facility] | | | | + + + +---------+ + + + + | Result panel 887 | + + + + + +-------+ + + | | 2023-01-21 | [facility] | 142 | (missing) | (missing) | | (unavailable | 22:55:08 | [facility] | | | | + + + +-------+ + + + + | Result panel 888 | + + + + + +-------+ + + | | 2023-01-21 | [facility] | 3.5 | (missing) | (missing) | | (unavailable | 22:55:08 | [facility] | | | | + + + +-------+ + + + + | Result panel 889 | + + + + + +-------+ + + | | 2023-01-21 | [facility] | 104 | (missing) | (missing) | | (unavailable | 22:55:08 | [facility] | | | | + + + +-------+ + + + + | Result panel 890 | + + + + + +------+ + + | | 2023-01-21 | [facility] | 24 | (missing) | (missing) | | (unavailable | 22:55:08 | [facility] | | | | + + + +------+ + + + + | Result panel 891 | + + + + + +--------+ + + | | 2023-01-21 | [facility] | 17.5 | (missing) | (missing) | | (unavailable | 22:55:08 | [facility] | | | | + + + +--------+ + + + + | Result panel 892 | + + + + + +-------+---------+ + | | 2023-01-21 | [facility] | 9.0 | mg/dL | (missing) | | (unavailable | 22:55:08 | [facility] | | | | + + + +-------+---------+ + + + | Result panel 893 | + + + + + +-------+ + + | | 2023-01-21 | [facility] | 7.5 | (missing) | (missing) | | (unavailable | 22:55:08 | [facility] | | | | + + + +-------+ + + + + | Result panel 894 | + + + + + +-------+ + + | | 2023-01-21 | [facility] | 4.4 | (missing) | (missing) | | (unavailable | 22:55:08 | [facility] | | | | + + + +-------+ + + + + | Result panel 895 | + + + + + +-------+ + + | | 2023-01-21 | [facility] | 3.1 | (missing) | (missing) | | (unavailable | 22:55:08 | [facility] | | | | + + + +-------+ + + + + | Result panel 896 | + + + + + +--------+ + + | | 2023-01-21 | [facility] | 1.42 | (missing) | (missing) | | (unavailable | 22:55:08 | [facility] | | | | + + + +--------+ + + + + | Result panel 897 | + + + + + +-------+ + + | | 2023-01-21 | [facility] | 0.5 | (missing) | (missing) | | (unavailable | 22:55:08 | [facility] | | | | + + + +-------+ + + + + | Result panel 898 | + + + + + +------+ + + | | 2023-01-21 | [facility] | 15 | (missing) | (missing) | | (unavailable | 22:55:08 | [facility] | | | | + + + +------+ + + + + | Result panel 899 | + + + + + +------+ + + | | 2023-01-21 | [facility] | 17 | (missing) | (missing) | | (unavailable | 22:55:08 | [facility] | | | | + + + +------+ + + + + | Result panel 900 | + + + + + +------+ + + | | 2023-01-21 | [facility] | 45 | (missing) | (missing) | | (unavailable | 22:55:08 | [facility] | | | | + + + +------+ + + + + | Result panel 901 | + + + + + +-------+ + + | | 2023-01-21 | [facility] | 156 | (missing) | (missing) | | (unavailable | 22:55:08 | [facility] | | | | + + + +-------+ + + + + | Result panel 902 | + + + + + + + + + | | 2023-01-21 | [facility] | NEGATIVE | (missing) | (missing) | | (unavailable | 22:55:08 | [facility] | | | | + + + + + + + + + | Result panel 903 | + + + + + +-------+ + + | | 2023-01-21 | [facility] | 7.5 | (missing) | (missing) | | (unavailable | 22:55:08 | [facility] | | | | + + + +-------+ + + + + | Result panel 904 | + + + + + +-------+ + + | | 2023-01-21 | [facility] | 4.4 | (missing) | (missing) | | (unavailable | 22:55:08 | [facility] | | | | + + + +-------+ + + + + | Result panel 905 | + + + + + +-------+ + + | | 2023-01-21 | [facility] | 3.1 | (missing) | (missing) | | (unavailable | 22:55:08 | [facility] | | | | + + + +-------+ + + + + | Result panel 906 | + + + + + +--------+ + + | | 2023-01-21 | [facility] | 1.42 | (missing) | (missing) | | (unavailable | 22:55:08 | [facility] | | | | + + + +--------+ + + + + | Result panel 907 | + + + + + +-------+ + + | | 2023-01-21 | [facility] | 0.5 | (missing) | (missing) | | (unavailable | 22:55:08 | [facility] | | | | + + + +-------+ + + + + | Result panel 908 | + + + + + +------+ + + | | 2023-01-21 | [facility] | 15 | (missing) | (missing) | | (unavailable | 22:55:08 | [facility] | | | | + + + +------+ + + + + | Result panel 909 | + + + + + +------+ + + | | 2023-01-21 | [facility] | 17 | (missing) | (missing) | | (unavailable | 22:55:08 | [facility] | | | | + + + +------+ + + + + | Result panel 910 | + + + + + +------+ + + | | 2023-01-21 | [facility] | 45 | (missing) | (missing) | | (unavailable | 22:55:08 | [facility] | | | | + + + +------+ + + + + | Result panel 911 | + + + + + +-------+ + + | | 2023-01-21 | [facility] | 156 | (missing) | (missing) | | (unavailable | 22:55:08 | [facility] | | | | + + + +-------+ + + + + | Result panel 912 | + + + + + + + + + | | 2023-01-21 | [facility] | NEGATIVE | (missing) | (missing) | | (unavailable | 22:55:08 | [facility] | | | | + + + + + + + + + | Result panel 913 | + + + + + + + + + | | 2023-01-21 | [facility] | NEGATIVE | (missing) | (missing) | | (unavailable | 22:55:08 | [facility] | | | | + + + + + + + + + | Result panel 91 | + + + + + +-------+ + + | | 2023-01-22 | [facility] | 9.0 | (missing) | (missing) | | (unavailable | 15:30:08 | [facility] | | | | + + + +-------+ + + + + | Result panel 915 | + + + + + +--------+ + + | | 2023-01-22 | [facility] | 3.89 | (missing) | (missing) | | (unavailable | 15:30:08 | [facility] | | | | + + + +--------+ + + + + | Result panel 916 | + + + + + +--------+ + + | | 2023-01-22 | [facility] | 11.1 | (missing) | (missing) | | (unavailable | 15:30:08 | [facility] | | | | + + + +--------+ + + + + | Result panel 917 | + + + + + +--------+ + + | | 2023-01-22 | [facility] | 33.8 | (missing) | (missing) | | (unavailable | 15:30:08 | [facility] | | | | + + + +--------+ + + + + | Result panel 918 | + + + + + +--------+ + + | | 2023-01-22 | [facility] | 87.0 | (missing) | (missing) | | (unavailable | 15:30:08 | [facility] | | | | + + + +--------+ + + + + | Result panel 919 | + + + + + +--------+ + + | | 2023-01-22 | [facility] | 28.6 | (missing) | (missing) | | (unavailable | 15:30:08 | [facility] | | | | + + + +--------+ + + + + | Result panel 920 | + + + + + +--------+ + + | | 2023-01-22 | [facility] | 32.9 | (missing) | (missing) | | (unavailable | 15:30:08 | [facility] | | | | + + + +--------+ + + + + | Result panel 921 | + + + + + +--------+ + + | | 2023-01-22 | [facility] | 13.2 | (missing) | (missing) | | (unavailable | 15:30:08 | [facility] | | | | + + + +--------+ + + + + | Result panel 922 | + + + + + +-------+ + + | | 2023-01-22 | [facility] | 171 | (missing) | (missing) | | (unavailable | 15:30:08 | [facility] | | | | + + + +-------+ + + + + | Result panel 923 | + + + + + +--------+ + + | | 2023-01-22 | [facility] | 92.5 | (missing) | (missing) | | (unavailable | 15:30:08 | [facility] | | | | + + + +--------+ + + + + | Result panel 924 | + + + + + +-------+ + + | | 2023-01-22 | [facility] | 4.9 | (missing) | (missing) | | (unavailable | 15:30:08 | [facility] | | | | + + + +-------+ + + + + | Result panel 925 | + + + + + +-------+ + + | | 2023-01-22 | [facility] | 2.3 | (missing) | (missing) | | (unavailable | 15:30:08 | [facility] | | | | + + + +-------+ + + + + | Result panel 926 | + + + + + +-------+ + + | | 2023-01-22 | [facility] | 0.0 | (missing) | (missing) | | (unavailable | 15:30:08 | [facility] | | | | + + + +-------+ + + + + | Result panel 927 | + + + + + +-------+ + + | | 2023-01-22 | [facility] | 0.3 | (missing) | (missing) | | (unavailable | 15:30:08 | [facility] | | | | + + + +-------+ + + + + | Result panel 928 | + + + + + +------+---------+ + | | 2023-01-22 | [facility] | 92 | mg/dL | (missing) | | (unavailable | 15:30:08 | [facility] | | | | + + + +------+---------+ + + + | Result panel 929 | + + + + + +------+---------+ + | | 2023-01-22 | [facility] | 12 | mg/dL | (missing) | | (unavailable | 15:30:08 | [facility] | | | | + + + +------+---------+ + + + | Result panel 930 | + + + + + +--------+---------+ + | | 2023-01-22 | [facility] | 0.69 | mg/dL | (missing) | | (unavailable | 15:30:08 | [facility] | | | | + + + +--------+---------+ + + + | Result panel 931 | + + + + + +-------+ + + | | 2023-01-22 | [facility] | 120 | (missing) | (missing) | | (unavailable | 15:30:08 | [facility] | | | | + + + +-------+ + + + + | Result panel 932 | + + + + + +---------+ + + | | 2023-01-22 | [facility] | 17.39 | (missing) | (missing) | | (unavailable | 15:30:08 | [facility] | | | | + + + +---------+ + + + + | Result panel 933 | + + + + + +-------+ + + | | 2023-01-22 | [facility] | 143 | (missing) | (missing) | | (unavailable | 15:30:08 | [facility] | | | | + + + +-------+ + + + + | Result panel 934 | + + + + + +-------+ + + | | 2023-01-22 | [facility] | 4.1 | (missing) | (missing) | | (unavailable | 15:30:08 | [facility] | | | | + + + +-------+ + + + + | Result panel 935 | + + + + + +-------+ + + | | 2023-01-22 | [facility] | 110 | (missing) | (missing) | | (unavailable | 15:30:08 | [facility] | | | | + + + +-------+ + + + + | Result panel 936 | + + + + + +------+ + + | | 2023-01-22 | [facility] | 20 | (missing) | (missing) | | (unavailable | 15:30:08 | [facility] | | | | + + + +------+ + + + + | Result panel 937 | + + + + + +--------+ + + | | 2023-01-22 | [facility] | 17.1 | (missing) | (missing) | | (unavailable | 15:30:08 | [facility] | | | | + + + +--------+ + + + + | Result panel 938 | + + + + + +-------+---------+ + | | 2023-01-22 | [facility] | 8.2 | mg/dL | (missing) | | (unavailable | 15:30:08 | [facility] | | | | + + + +-------+---------+ + + + | Result panel 939 | + + + + + +--------+ + + | | 2023-01-23 | [facility] | 14.8 | (missing) | (missing) | | (unavailable | 14:45:08 | [facility] | | | | + + + +--------+ + + + + | Result panel 940 | + + + + + +--------+ + + | | 2023-01-23 | [facility] | 1.22 | (missing) | (missing) | | (unavailable | 14:45:08 | [facility] | | | | + + + +--------+ + + + + | Result panel 941 | + + + + + +-------+ + + | | 2023-01-23 | [facility] | 7.1 | (missing) | (missing) | | (unavailable | 14:45:08 | [facility] | | | | + + + +-------+ + + + + | Result panel 942 | + + + + + +-------+ + + | | 2023-01-23 | [facility] | 4.1 | (missing) | (missing) | | (unavailable | 14:45:08 | [facility] | | | | + + + +-------+ + + + + | Result panel 943 | + + + + + +-------+ + + | | 2023-01-23 | [facility] | 3.0 | (missing) | (missing) | | (unavailable | 14:45:08 | [facility] | | | | + + + +-------+ + + + + | Result panel 944 | + + + + + +--------+ + + | | 2023-01-23 | [facility] | 1.37 | (missing) | (missing) | | (unavailable | 14:45:08 | [facility] | | | | + + + +--------+ + + + + | Result panel 945 | + + + + + +-------+ + + | | 2023-01-23 | [facility] | 0.9 | (missing) | (missing) | | (unavailable | 14:45:08 | [facility] | | | | + + + +-------+ + + + + | Result panel 946 | + + + + + +------+ + + | | 2023-01-23 | [facility] | 20 | (missing) | (missing) | | (unavailable | 14:45:08 | [facility] | | | | + + + +------+ + + + + | Result panel 947 | + + + + + +------+ + + | | 2023-01-23 | [facility] | 18 | (missing) | (missing) | | (unavailable | 14:45:08 | [facility] | | | | + + + +------+ + + + + | Result panel 948 | + + + + + +------+ + + | | 2023-01-23 | [facility] | 36 | (missing) | (missing) | | (unavailable | 14:45:08 | [facility] | | | | + + + +------+ + + + + | Result panel 949 | + + + + + +------+ + + | | 2023-01-23 | [facility] | 68 | (missing) | (missing) | | (unavailable | 14:45:08 | [facility] | | | | + + + +------+ + + + + | Result panel 950 | + + + + + + + + + | | 2023-01-23 | [facility] | YELLOW | (missing) | (missing) | | (unavailable | 18:30:08 | [facility] | | | | + + + + + + + + + | Result panel 951 | + + + + + +---------+ + + | | 2023-01-23 | [facility] | CLEAR | (missing) | (missing) | | (unavailable | 18:30:08 | [facility] | | | | + + + +---------+ + + + + | Result panel 952 | + + + + + + + + + | | 2023-01-23 | [facility] | NEGATIVE | (missing) | (missing) | | (unavailable | 18:30:08 | [facility] | | | | + + + + + + + + + | Result panel 953 | + + + + + + + + + | | 2023-01-23 | [facility] | NEGATIVE | (missing) | (missing) | | (unavailable | 18:30:08 | [facility] | | | | + + + + + + + + + | Result panel 954 | + + + + + +--------+ + + | | 2023-01-23 | [facility] | >=80 | (missing) | (missing) | | (unavailable | 18:30:08 | [facility] | | | | + + + +--------+ + + + + | Result panel 955 | + + + + + +---------+ + + | | 2023-01-23 | [facility] | 1.025 | (missing) | (missing) | | (unavailable | 18:30:08 | [facility] | | | | + + + +---------+ + + + + | Result panel 956 | + + + + + + + + + | | 2023-01-23 | [facility] | NEGATIVE | (missing) | (missing) | | (unavailable | 18:30:08 | [facility] | | | | + + + + + + + + + | Result panel 957 | + + + + + +-------+ + + | | 2023-01-23 | [facility] | 6.0 | (missing) | (missing) | | (unavailable | 18:30:08 | [facility] | | | | + + + +-------+ + + + + | Result panel 958 | + + + + + + + + + | | 2023-01-23 | [facility] | NEGATIVE | (missing) | (missing) | | (unavailable | 18:30:08 | [facility] | | | | + + + + + + + + + | Result panel 959 | + + + + + + + + + | | 2023-01-23 | [facility] | NORMAL | (missing) | (missing) | | (unavailable | 18:30:08 | [facility] | | | | + + + + + + + + + | Result panel 960 | + + + + + + + + + | | 2023-01-23 | [facility] | NEGATIVE | (missing) | (missing) | | (unavailable | 18:30:08 | [facility] | | | | + + + + + + + + + | Result panel 961 | + + + + + + + + + | | 2023-01-23 | [facility] | NEGATIVE | (missing) | (missing) | | (unavailable | 18:30:08 | [facility] | | | | + + + + + + + + + | Result panel 962 | + + + + + + + + + | | 2023-01-23 | [facility] | POSITIVE | (missing) | (missing) | | (unavailable | 18:30:08 | [facility] | | | | + + + + + + + + + | Result panel 963 | + + + + + + + + + | | 2023-01-23 | [facility] | NEGATIVE | (missing) | (missing) | | (unavailable | 18:30:08 | [facility] | | | | + + + + + + + + + | Result panel 964 | + + + + + + + + + | | 2023-01-23 | [facility] | NEGATIVE | (missing) | (missing) | | (unavailable | 18:30:08 | [facility] | | | | + + + + + + + + + | Result panel 965 | + + + + + + + + + | | 2023-01-23 | [facility] | NEGATIVE | (missing) | (missing) | | (unavailable | 18:30:08 | [facility] | | | | + + + + + + + + + | Result panel 966 | + + + + + + + + + | | 2023-01-23 | [facility] | NEGATIVE | (missing) | (missing) | | (unavailable | 18:30:08 | [facility] | | | | + + + + + + + + + | Result panel 967 | + + + + + + + + + | | 2023-01-23 | [facility] | NEGATIVE | (missing) | (missing) | | (unavailable | 18:30:08 | [facility] | | | | + + + + + + + + + | Result panel 968 | + + + + + + + + + | | 2023-01-23 | [facility] | NEGATIVE | (missing) | (missing) | | (unavailable | 18:30:08 | [facility] | | | | + + + + + + + + + | Result panel 969 | + + + + + + + + + | | 2023-01-23 | [facility] | NEGATIVE | (missing) | (missing) | | (unavailable | 18:30:08 | [facility] | | | | + + + + + + + + + | Result panel 970 | + + + + + + + + + | | 2023-01-23 | [facility] | NEGATIVE | (missing) | (missing) | | (unavailable | 18:30:08 | [facility] | | | | + + + + + + + + + | Result panel 971 | + + + + + + + + + | | 2023-01-23 | [facility] | NEGATIVE | (missing) | (missing) | | (unavailable | 18:30:08 | [facility] | | | | + + + + + + + + + | Result panel 972 | + + + + + + + + + | | 2023-01-23 | [facility] | NEGATIVE | (missing) | (missing) | | (unavailable | 18:30:08 | [facility] | | | | + + + + + + + + + | Result panel 973 | + + + + + + + + + | | 2023-01-23 | [facility] | NEGATIVE | (missing) | (missing) | | (unavailable | 18:30:08 | [facility] | | | | + + + + + + + + + | Result panel 974 | + + + + + + + + + | | 2023-01-23 | [facility] | NEGATIVE | (missing) | (missing) | | (unavailable | 18:30:08 | [facility] | | | | + + + + + + + + + | Result panel 975 | + + + + + + + + + | | 2023-01-23 | [facility] | NEGATIVE | (missing) | (missing) | | (unavailable | 18:30:08 | [facility] | | | | + + + + + + + + + | Result panel 976 | + + + + + + + + + | | 2023-01-23 | [facility] | NEGATIVE | (missing) | (missing) | | (unavailable | 18:30:08 | [facility] | | | | + + + + + + + + + | Result panel 977 | + + + + + + + + + | | 2023-01-23 | [facility] | NEGATIVE | (missing) | (missing) | | (unavailable | 18:30:08 | [facility] | | | | + + + + + + + + + | Result panel 978 | + + + + + + + + + | | 2023-01-23 | [facility] | NEGATIVE | (missing) | (missing) | | (unavailable | 18:30:08 | [facility] | | | | + + + + + + + + + | Result panel 979 | + + + + + +-------+---------+ + | | 2023-01-26 | [facility] | 2.1 | mg/dL | (missing) | | (unavailable | 05:35:08 | [facility] | | | | + + + +-------+---------+ + + + | Result panel 980 | + + + + + +-------+ + + | | 2023-01-27 | [facility] | 4.7 | (missing) | (missing) | | (unavailable | 05:09:08 | [facility] | | | | + + + +-------+ + + + + | Result panel 981 | + + + + + +--------+ + + | | 2023-01-27 | [facility] | 4.25 | (missing) | (missing) | | (unavailable | 05:09:08 | [facility] | | | | + + + +--------+ + + + + | Result panel 982 | + + + + + +--------+ + + | | 2023-01-27 | [facility] | 12.3 | (missing) | (missing) | | (unavailable | 05:09:08 | [facility] | | | | + + + +--------+ + + + + | Result panel 983 | + + + + + +--------+ + + | | 2023-01-27 | [facility] | 36.0 | (missing) | (missing) | | (unavailable | 05:09:08 | [facility] | | | | + + + +--------+ + + + + | Result panel 984 | + + + + + +--------+ + + | | 2023-01-27 | [facility] | 84.8 | (missing) | (missing) | | (unavailable | 05:09:08 | [facility] | | | | + + + +--------+ + + + + | Result panel 985 | + + + + + +--------+ + + | | 2023-01-27 | [facility] | 29.0 | (missing) | (missing) | | (unavailable | 05:09:08 | [facility] | | | | + + + +--------+ + + + + | Result panel 986 | + + + + + +--------+ + + | | 2023-01-27 | [facility] | 34.2 | (missing) | (missing) | | (unavailable | 05:09:08 | [facility] | | | | + + + +--------+ + + + + | Result panel 987 | + + + + + +--------+ + + | | 2023-01-27 | [facility] | 13.3 | (missing) | (missing) | | (unavailable | 05:09:08 | [facility] | | | | + + + +--------+ + + + + | Result panel 988 | + + + + + +-------+ + + | | 2023-01-27 | [facility] | 163 | (missing) | (missing) | | (unavailable | 05:09:08 | [facility] | | | | + + + +-------+ + + + + | Result panel 989 | + + + + + +--------+ + + | | 2023-01-27 | [facility] | 59.2 | (missing) | (missing) | | (unavailable | 05:09:08 | [facility] | | | | + + + +--------+ + + + + | Result panel 990 | + + + + + +--------+ + + | | 2023-01-27 | [facility] | 33.4 | (missing) | (missing) | | (unavailable | 05::08 | [facility] | | | | + + + +--------+ + + + + | Result panel 991 | + + + + + +-------+ + + | | 2023-01-27 | [facility] | 6.3 | (missing) | (missing) | | (unavailable | 05::08 | [facility] | | | | + + + +-------+ + + + + | Result panel 992 | + + + + + +-------+ + + | | 2023-01-27 | [facility] | 0.5 | (missing) | (missing) | | (unavailable | 05:09:08 | [facility] | | | | + + + +-------+ + + + + | Result panel 993 | + + + + + +-------+ + + | | 2023-01-27 | [facility] | 0.6 | (missing) | (missing) | | (unavailable | 05:09:08 | [facility] | | | | + + + +-------+ + + + + | Result panel 994 | + + + + + +-------+---------+ + | | 2023-01-27 | [facility] | 112 | mg/dL | (missing) | | (unavailable | 05:09:08 | [facility] | | | | + + + +-------+---------+ + + + | Result panel 995 | + + + + + +-----+---------+ + | | 2023-01-27 | [facility] | 2 | mg/dL | (missing) | | (unavailable | 05:09:08 | [facility] | | | | + + + +-----+---------+ + + + | Result panel 996 | + + + + + +--------+---------+ + | | 2023-01-27 | [facility] | 0.65 | mg/dL | (missing) | | (unavailable | 05:09:08 | [facility] | | | | + + + +--------+---------+ + + + | Result panel 997 | + + + + + +-------+ + + | | 2023-01-27 | [facility] | 121 | (missing) | (missing) | | (unavailable | 05:09:08 | [facility] | | | | + + + +-------+ + + + + | Result panel 998 | + + + + + +--------+ + + | | 2023-01-27 | [facility] | 3.07 | (missing) | (missing) | | (unavailable | 05:09:08 | [facility] | | | | + + + +--------+ + + + + | Result panel 999 | + + + + + +-------+ + + | | 2023-01-27 | [facility] | 138 | (missing) | (missing) | | (unavailable | 05:09:08 | [facility] | | | | + + + +-------+ + + + + | Result panel 1000 | + + + + + +-------+ + + | | 2023-01-27 | [facility] | 3.1 | (missing) | (missing) | | (unavailable | 05:09:08 | [facility] | | | | + + + +-------+ + + + + | Result panel 1001 | + + + + + +-------+ + + | | 2023-01-27 | [facility] | 102 | (missing) | (missing) | | (unavailable | 05:09:08 | [facility] | | | | + + + +-------+ + + + + | Result panel 1002 | + + + + + +------+ + + | | 2023-01-27 | [facility] | 28 | (missing) | (missing) | | (unavailable | 05:09:08 | [facility] | | | | + + + +------+ + + + + | Result panel 1003 | + + + + + +--------+ + + | | 2023-01-27 | [facility] | 11.1 | (missing) | (missing) | | (unavailable | 05:09:08 | [facility] | | | | + + + +--------+ + + + + | Result panel 1004 | + + + + + +-------+---------+ + | | 2023-01-27 | [facility] | 8.7 | mg/dL | (missing) | | (unavailable | 05:09:08 | [facility] | | | | + + + +-------+---------+ + + + | Result panel 1005 | + + + + + +-------+ + + | | 2023-03-21 | [facility] | 6.6 | (missing) | (missing) | | (unavailable | 21:25:07 | [facility] | | | | + + + +-------+ + + + + | Result panel 1006 | + + + + + +--------+ + + | | 2023-03-21 | [facility] | 4.48 | (missing) | (missing) | | (unavailable | 21:25:07 | [facility] | | | | + + + +--------+ + + + + | Result panel 1007 | + + + + + +--------+ + + | | 2023-03-21 | [facility] | 13.0 | (missing) | (missing) | | (unavailable | 21:25:07 | [facility] | | | | + + + +--------+ + + + + | Result panel 1008 | + + + + + +--------+ + + | | 2023-03-21 | [facility] | 38.4 | (missing) | (missing) | | (unavailable | 21:25:07 | [facility] | | | | + + + +--------+ + + + + | Result panel 1009 | + + + + + +--------+ + + | | 2023-03-21 | [facility] | 85.7 | (missing) | (missing) | | (unavailable | 21:25:07 | [facility] | | | | + + + +--------+ + + + + | Result panel 1010 | + + + + + +--------+ + + | | 2023-03-21 | [facility] | 28.9 | (missing) | (missing) | | (unavailable | 21:25:07 | [facility] | | | | + + + +--------+ + + + + | Result panel 1011 | + + + + + +--------+ + + | | 2023-03-21 | [facility] | 33.8 | (missing) | (missing) | | (unavailable | 21:25:07 | [facility] | | | | + + + +--------+ + + + + | Result panel 1012 | + + + + + +--------+ + + | | 2023-03-21 | [facility] | 13.9 | (missing) | (missing) | | (unavailable | 21:25:07 | [facility] | | | | + + + +--------+ + + + + | Result panel 1013 | + + + + + +-------+ + + | | 2023-03-21 | [facility] | 194 | (missing) | (missing) | | (unavailable | 21:25:07 | [facility] | | | | + + + +-------+ + + + + | Result panel 1014 | + + + + + +--------+ + + | | 2023-03-21 | [facility] | 70.4 | (missing) | (missing) | | (unavailable | 21:25:07 | [facility] | | | | + + + +--------+ + + + + | Result panel 1015 | + + + + + +--------+ + + | | 2023-03-21 | [facility] | 23.1 | (missing) | (missing) | | (unavailable | 21:25:07 | [facility] | | | | + + + +--------+ + + + + | Result panel 1016 | + + + + + +-------+ + + | | 2023-03-21 | [facility] | 5.8 | (missing) | (missing) | | (unavailable | 21:25:07 | [facility] | | | | + + + +-------+ + + + + | Result panel 1017 | + + + + + +-------+ + + | | 2023-03-21 | [facility] | 0.2 | (missing) | (missing) | | (unavailable | 21:25:07 | [facility] | | | | + + + +-------+ + + + + | Result panel 101 | + + + + + +-------+ + + | | 2023-03-21 | [facility] | 0.5 | (missing) | (missing) | | (unavailable | :25:07 | [facility] | | | | + + + +-------+ + + + + | Result panel 1019 | + + + + + +-------+---------+ + | | 2023-03-21 | [facility] | 102 | mg/dL | (missing) | | (unavailable | :25:07 | [facility] | | | | + + + +-------+---------+ + + + | Result panel 1020 | + + + + + +-----+---------+ + | | 2023-03-21 | [facility] | 8 | mg/dL | (missing) | | (unavailable | 21:25:07 | [facility] | | | | + + + +-----+---------+ + + + | Result panel 1021 | + + + + + +--------+---------+ + | | 2023-03-21 | [facility] | 0.72 | mg/dL | (missing) | | (unavailable | 21:25:07 | [facility] | | | | + + + +--------+---------+ + + + | Result panel 1022 | + + + + + +-------+ + + | | 2023-03-21 | [facility] | 115 | (missing) | (missing) | | (unavailable | ::07 | [facility] | | | | + + + +-------+ + + + + | Result panel 1023 | + + + + + +---------+ + + | | 2023-03-21 | [facility] | 11.11 | (missing) | (missing) | | (unavailable | ::07 | [facility] | | | | + + + +---------+ + + + + | Result panel 1024 | + + + + + +-------+ + + | | 2023-03-21 | [facility] | 140 | (missing) | (missing) | | (unavailable | ::07 | [facility] | | | | + + + +-------+ + + + + | Result panel 1025 | + + + + + +-------+ + + | | 2023-03-21 | [facility] | 3.4 | (missing) | (missing) | | (unavailable | ::07 | [facility] | | | | + + + +-------+ + + + + | Result panel 1026 | + + + + + +-------+ + + | | 2023-03-21 | [facility] | 104 | (missing) | (missing) | | (unavailable | 21:25:07 | [facility] | | | | + + + +-------+ + + + + | Result panel 1027 | + + + + + +------+ + + | | 2023-03-21 | [facility] | 23 | (missing) | (missing) | | (unavailable | 21:25:07 | [facility] | | | | + + + +------+ + + + + | Result panel 1028 | + + + + + +--------+ + + | | 2023-03-21 | [facility] | 16.4 | (missing) | (missing) | | (unavailable | 21:25:07 | [facility] | | | | + + + +--------+ + + + + | Result panel 1029 | + + + + + +-------+---------+ + | | 2023-03-21 | [facility] | 9.0 | mg/dL | (missing) | | (unavailable | ::07 | [facility] | | | | + + + +-------+---------+ + + + | Result panel 1030 | + + + + + +-------+ + + | | 2023-03-21 | [facility] | 8.1 | (missing) | (missing) | | (unavailable | ::07 | [facility] | | | | + + + +-------+ + + + + | Result panel 1031 | + + + + + +-------+ + + | | 2023-03-21 | [facility] | 4.3 | (missing) | (missing) | | (unavailable | ::07 | [facility] | | | | + + + +-------+ + + + + | Result panel 1032 | + + + + + +-------+ + + | | 2023-03-21 | [facility] | 3.8 | (missing) | (missing) | | (unavailable | 21:25:07 | [facility] | | | | + + + +-------+ + + + + | Result panel 1033 | + + + + + +--------+ + + | | 2023-03-21 | [facility] | 1.13 | (missing) | (missing) | | (unavailable | 21:25:07 | [facility] | | | | + + + +--------+ + + + + | Result panel 1034 | + + + + + +-------+ + + | | 2023-03-21 | [facility] | 0.7 | (missing) | (missing) | | (unavailable | 21:25:07 | [facility] | | | | + + + +-------+ + + + + | Result panel 1035 | + + + + + +------+ + + | | 2023-03-21 | [facility] | 25 | (missing) | (missing) | | (unavailable | 21:25:07 | [facility] | | | | + + + +------+ + + + + | Result panel 1036 | + + + + + +------+ + + | | 2023-03-21 | [facility] | 35 | (missing) | (missing) | | (unavailable | 21:25:07 | [facility] | | | | + + + +------+ + + + + | Result panel 1037 | + + + + + +------+ + + | | 2023-03-21 | [facility] | 50 | (missing) | (missing) | | (unavailable | 21:25:07 | [facility] | | | | + + + +------+ + + + + | Result panel 1038 | + + + + + + + + + | | 2023-03-21 | [facility] | NEGATIVE | (missing) | (missing) | | (unavailable | 21:25:07 | [facility] | | | | + + + + + + + + + | Result panel 1039 | + + + + + +------+ + + | | 2023-03-22 | [facility] | 68 | (missing) | (missing) | | (unavailable | 17:33:07 | [facility] | | | | + + + +------+ + + + + | Result panel 1040 | + + + + + + + + + | | 2023-03-22 | [facility] | NEGATIVE | (missing) | (missing) | | (unavailable | 17:33:07 | [facility] | | | | + + + + + + + + + | Result panel 1041 | + + + + + + + + + | | 2023-03-22 | [facility] | NEGATIVE | (missing) | (missing) | | (unavailable | 17:33:07 | [facility] | | | | + + + + + + + + + | Result panel 1042 | + + + + + +-------+ + + | | 2023-03-22 | [facility] | 9.0 | (missing) | (missing) | | (unavailable | 17:33:07 | [facility] | | | | + + + +-------+ + + + + | Result panel 1043 | + + + + + +--------+ + + | | 2023-03-22 | [facility] | 4.20 | (missing) | (missing) | | (unavailable | 17:33:07 | [facility] | | | | + + + +--------+ + + + + | Result panel 1044 | + + + + + +--------+ + + | | 2023-03-22 | [facility] | 12.3 | (missing) | (missing) | | (unavailable | 17:33:07 | [facility] | | | | + + + +--------+ + + + + | Result panel 1045 | + + + + + +--------+ + + | | 2023-03-22 | [facility] | 35.6 | (missing) | (missing) | | (unavailable | 17:33:07 | [facility] | | | | + + + +--------+ + + + + | Result panel 1046 | + + + + + +--------+ + + | | 2023-03-22 | [facility] | 84.7 | (missing) | (missing) | | (unavailable | 17:33:07 | [facility] | | | | + + + +--------+ + + + + | Result panel 1047 | + + + + + +--------+ + + | | 2023-03-22 | [facility] | 29.4 | (missing) | (missing) | | (unavailable | 17:33:07 | [facility] | | | | + + + +--------+ + + + + | Result panel 1048 | + + + + + +--------+ + + | | 2023-03-22 | [facility] | 34.7 | (missing) | (missing) | | (unavailable | 17:33:07 | [facility] | | | | + + + +--------+ + + + + | Result panel 1049 | + + + + + +--------+ + + | | 2023-03-22 | [facility] | 13.8 | (missing) | (missing) | | (unavailable | 17:33:07 | [facility] | | | | + + + +--------+ + + + + | Result panel 1050 | + + + + + +-------+ + + | | 2023-03-22 | [facility] | 164 | (missing) | (missing) | | (unavailable | 17:33:07 | [facility] | | | | + + + +-------+ + + + + | Result panel 1051 | + + + + + +--------+ + + | | 2023-03-22 | [facility] | 86.8 | (missing) | (missing) | | (unavailable | 17:33:07 | [facility] | | | | + + + +--------+ + + + + | Result panel 1052 | + + + + + +-------+ + + | | 2023-03-22 | [facility] | 9.6 | (missing) | (missing) | | (unavailable | 17:33:07 | [facility] | | | | + + + +-------+ + + + + | Result panel 1053 | + + + + + +-------+ + + | | 2023-03-22 | [facility] | 3.4 | (missing) | (missing) | | (unavailable | 17:33:07 | [facility] | | | | + + + +-------+ + + + + | Result panel 1054 | + + + + + +-------+ + + | | 2023-03-22 | [facility] | 0.0 | (missing) | (missing) | | (unavailable | 17:33:07 | [facility] | | | | + + + +-------+ + + + + | Result panel 1055 | + + + + + +-------+ + + | | 2023-03-22 | [facility] | 0.2 | (missing) | (missing) | | (unavailable | 17:33:07 | [facility] | | | | + + + +-------+ + + + + | Result panel 1056 | + + + + + +-------+---------+ + | | 2023-03-22 | [facility] | 100 | mg/dL | (missing) | | (unavailable | 17:33:07 | [facility] | | | | + + + +-------+---------+ + + + | Result panel 1057 | + + + + + +-----+---------+ + | | 2023-03-22 | [facility] | 7 | mg/dL | (missing) | | (unavailable | 17:33:07 | [facility] | | | | + + + +-----+---------+ + + + | Result panel 1058 | + + + + + +--------+---------+ + | | 2023-03-22 | [facility] | 0.67 | mg/dL | (missing) | | (unavailable | 17:33:07 | [facility] | | | | + + + +--------+---------+ + + + | Result panel 1059 | + + + + + +-------+ + + | | 2023-03-22 | [facility] | 121 | (missing) | (missing) | | (unavailable | 17:33:07 | [facility] | | | | + + + +-------+ + + + + | Result panel 1060 | + + + + + +---------+ + + | | 2023-03-22 | [facility] | 10.44 | (missing) | (missing) | | (unavailable | 17:33:07 | [facility] | | | | + + + +---------+ + + + + | Result panel 1061 | + + + + + +-------+ + + | | 2023-03-22 | [facility] | 138 | (missing) | (missing) | | (unavailable | 17:33:07 | [facility] | | | | + + + +-------+ + + + + | Result panel 1062 | + + + + + +-------+ + + | | 2023-03-22 | [facility] | 3.5 | (missing) | (missing) | | (unavailable | 17:33:07 | [facility] | | | | + + + +-------+ + + + + | Result panel 1063 | + + + + + +-------+ + + | | 2023-03-22 | [facility] | 101 | (missing) | (missing) | | (unavailable | 17:33:07 | [facility] | | | | + + + +-------+ + + + + | Result panel 1064 | + + + + + +------+ + + | | 2023-03-22 | [facility] | 23 | (missing) | (missing) | | (unavailable | 17:33:07 | [facility] | | | | + + + +------+ + + + + | Result panel 1065 | + + + + + +--------+ + + | | 2023-03-22 | [facility] | 17.5 | (missing) | (missing) | | (unavailable | 17:33:07 | [facility] | | | | + + + +--------+ + + + + | Result panel 1066 | + + + + + +-------+---------+ + | | 2023-03-22 | [facility] | 9.3 | mg/dL | (missing) | | (unavailable | 17:33:07 | [facility] | | | | + + + +-------+---------+ + + + | Result panel 1067 | + + + + + +-------+ + + | | 2023-03-22 | [facility] | 8.1 | (missing) | (missing) | | (unavailable | 17:33:07 | [facility] | | | | + + + +-------+ + + + + | Result panel 1068 | + + + + + +-------+ + + | | 2023-03-22 | [facility] | 4.3 | (missing) | (missing) | | (unavailable | 17:33:07 | [facility] | | | | + + + +-------+ + + + + | Result panel 1069 | + + + + + +-------+ + + | | 2023-03-22 | [facility] | 3.8 | (missing) | (missing) | | (unavailable | 17:33:07 | [facility] | | | | + + + +-------+ + + + + | Result panel 1070 | + + + + + +--------+ + + | | 2023-03-22 | [facility] | 1.13 | (missing) | (missing) | | (unavailable | 17:33:07 | [facility] | | | | + + + +--------+ + + + + | Result panel 1071 | + + + + + +-------+ + + | | 2023-03-22 | [facility] | 0.7 | (missing) | (missing) | | (unavailable | [facility]:33:07 | [facility] | | | | + + + +-------+ + + + + | Result panel 1072 | + + + + + +------+ + + | | 2023-03-22 | [facility] | 12 | (missing) | (missing) | | (unavailable | 17:33:07 | [facility] | | | | + + + +------+ + + + + | Result panel 1073 | + + + + + +------+ + + | | 2023-03-22 | [facility] | 30 | (missing) | (missing) | | (unavailable | 17:33:07 | [facility] | | | | + + + +------+ + + + + | Result panel 1074 | + + + + + +------+ + + | | 2023-03-22 | [facility] | 50 | (missing) | (missing) | | (unavailable | 17:33:07 | [facility] | | | | + + + +------+ + + + + | Result panel 1075 | + + + + + +------+ + + | | 2023-03-22 | [facility] | 68 | (missing) | (missing) | | (unavailable | 17:33:07 | [facility] | | | | + + + +------+ + + + + | Result panel 1076 | + + + + + + + + + | | 2023-03-22 | [facility] | NEGATIVE | (missing) | (missing) | | (unavailable | 17:33:07 | [facility] | | | | + + + + + + + + + | Result panel 1077 | + + + + + +------+ + + | | 2023-03-22 | [facility] | 68 | (missing) | (missing) | | (unavailable | 17:33:07 | [facility] | | | | + + + +------+ + + + + | Result panel 1078 | + + + + + + + + + | | 2023-03-22 | [facility] | NEGATIVE | (missing) | (missing) | | (unavailable | 17:33:07 | [facility] | | | | + + + + + + + + + | Result panel 1079 | + + + + + + + + + | | 2023-03-22 | [facility] | NORMAL | (missing) | (missing) | | (unavailable | 18:08:07 | [facility] | | | | + + + + + + + + + | Result panel 1080 | + + + + + + + + + | | 2023-03-22 | [facility] | NEGATIVE | (missing) | (missing) | | (unavailable | 18:08:07 | [facility] | | | | + + + + + + + + + | Result panel 1081 | + + + + + + + + + | | 2023-03-22 | [facility] | NEGATIVE | (missing) | (missing) | | (unavailable | 18:08:07 | [facility] | | | | + + + + + + + + + | Result panel 1082 | + + + + + +-------+ + + | | 2023-03-22 | [facility] | 0-1 | (missing) | (missing) | | (unavailable | 18:08:07 | [facility] | | | | + + + +-------+ + + + + | Result panel 1083 | + + + + + +-------+ + + | | 2023-03-22 | [facility] | 0-1 | (missing) | (missing) | | (unavailable | 18:08:07 | [facility] | | | | + + + +-------+ + + + + | Result panel 1084 | + + + + + + + + + | | 2023-03-22 | [facility] | SQUAMOUS 2+ | (missing) | (missing) | | (unavailable | 18:08:07 | [facility] | | | | + + + + + + + + + | Result panel 1085 | + + + + + + + + + | | 2023-03-22 | [facility] | NONE SEEN | (missing) | (missing) | | (unavailable | 18:08:07 | [facility] | | | | + + + + + + + + + | Result panel 1086 | + + + + + + + + + | | 2023-03-22 | [facility] | NONE SEEN | (missing) | (missing) | | (unavailable | 18:08:07 | [facility] | | | | + + + + + + + + + | Result panel 1087 | + + + + + + + + + | | 2023-03-22 | [facility] | NONE SEEN | (missing) | (missing) | | (unavailable | 18:08:07 | [facility] | | | | + + + + + + + + + | Result panel 1088 | + + + + + +------+ + + | | 2023-03-22 | [facility] | No | (missing) | (missing) | | (unavailable | 18:08:07 | [facility] | | | | + + + +------+ + + + + | Result panel 1089 | + + + + + + + + + | | 2023-03-22 | [facility] | CLEAN CATCH | (missing) | (missing) | | (unavailable | 18:08:07 | [facility] | | | | + + + + + + + + + | Result panel 1090 | + + + + + + + + + | | 2023-03-22 | [facility] | YELLOW | (missing) | (missing) | | (unavailable | 18:08:07 | [facility] | | | | + + + + + + + + + | Result panel 1091 | + + + + + +---------+ + + | | 2023-03-22 | [facility] | CLEAR | (missing) | (missing) | | (unavailable | 18:08:07 | [facility] | | | | + + + +---------+ + + + + | Result panel 1092 | + + + + + + + + + | | 2023-03-22 | [facility] | NEGATIVE | (missing) | (missing) | | (unavailable | 18:08:07 | [facility] | | | | + + + + + + + + + | Result panel 1093 | + + + + + + + + + | | 2023-03-22 | [facility] | NEGATIVE | (missing) | (missing) | | (unavailable | 18:08:07 | [facility] | | | | + + + + + + + + + | Result panel 1094 | + + + + + +---------+ + + | | 2023-03-22 | [facility] | SMALL | (missing) | (missing) | | (unavailable | 18:08:07 | [facility] | | | | + + + +---------+ + + + + | Result panel 1095 | + + + + + + + + + | | 2023-03-22 | [facility] | >=1.030 | (missing) | (missing) | | (unavailable | 18:08:07 | [facility] | | | | + + + + + + + + + | Result panel 1096 | + + + + + + + + + | | 2023-03-22 | [facility] | NEGATIVE | (missing) | (missing) | | (unavailable | 18:08:07 | [facility] | | | | + + + + + + + + + | Result panel 1097 | + + + + + +-------+ + + | | 2023-03-22 | [facility] | 5.5 | (missing) | (missing) | | (unavailable | 18:08:07 | [facility] | | | | + + + +-------+ + + + + | Result panel 1098 | + + + + + +------+ + + | | 2023-03-22 | [facility] | 30 | (missing) | (missing) | | (unavailable | 18:08:07 | [facility] | | | | + + + +------+ + + + + | Result panel 1099 | + + + + + + + + + | | 2023-03-22 | [facility] | NORMAL | (missing) | (missing) | | (unavailable | 18:08:07 | [facility] | | | | + + + + + + + + + | Result panel 1100 | + + + + + + + + + | | 2023-03-22 | [facility] | NEGATIVE | (missing) | (missing) | | (unavailable | 18:08:07 | [facility] | | | | + + + + + + + + + | Result panel 1101 | + + + + + + + + + | | 2023-03-22 | [facility] | NEGATIVE | (missing) | (missing) | | (unavailable | 18:08:07 | [facility] | | | | + + + + + + + + + | Result panel 1102 | + + + + + +-------+ + + | | 2023-03-22 | [facility] | 0-1 | (missing) | (missing) | | (unavailable | 18:08:07 | [facility] | | | | + + + +-------+ + + + + | Result panel 1103 | + + + + + +-------+ + + | | 2023-03-22 | [facility] | 0-1 | (missing) | (missing) | | (unavailable | 18:08:07 | [facility] | | | | + + + +-------+ + + + + | Result panel 1104 | + + + + + + + + + | | 2023-03-22 | [facility] | SQUAMOUS 2+ | (missing) | (missing) | | (unavailable | 18:08:07 | [facility] | | | | + + + + + + + + + | Result panel 1105 | + + + + + + + + + | | 2023-03-22 | [facility] | NONE SEEN | (missing) | (missing) | | (unavailable | 18:08:07 | [facility] | | | | + + + + + + + + + | Result panel 1106 | + + + + + + + + + | | 2023-03-22 | [facility] | NONE SEEN | (missing) | (missing) | | (unavailable | 18:08:07 | [facility] | | | | + + + + + + + + + | Result panel 1107 | + + + + + + + + + | | 2023-03-22 | [facility] | NONE SEEN | (missing) | (missing) | | (unavailable | 18:08:07 | [facility] | | | | + + + + + + + + + | Result panel 1108 | + + + + + +------+ + + | | 2023-03-22 | [facility] | No | (missing) | (missing) | | (unavailable | 18:: | [facility] | | | | + + + +------+ + + + + | Result panel 1109 | + + + + + + + + + | | 2023-03-22 | [facility] | CLEAN CATCH | (missing) | (missing) | | (unavailable | 18::07 | [facility] | | | | + + + + + + + + + | Result panel 1110 | + + + + + + + + + | | 2023-03-22 | [facility] | YELLOW | (missing) | (missing) | | (unavailable | 18:08:07 | [facility] | | | | + + + + + + + + + | Result panel 1111 | + + + + + +---------+ + + | | 2023-03-22 | [facility] | CLEAR | (missing) | (missing) | | (unavailable | 18:08:07 | [facility] | | | | + + + +---------+ + + + + | Result panel 1112 | + + + + + + + + + | | 2023-03-22 | [facility] | NEGATIVE | (missing) | (missing) | | (unavailable | 18:08:07 | [facility] | | | | + + + + + + + + + | Result panel 1113 | + + + + + + + + + | | 2023-03-22 | [facility] | NEGATIVE | (missing) | (missing) | | (unavailable | 18:08:07 | [facility] | | | | + + + + + + + + + | Result panel 1114 | + + + + + +---------+ + + | | 2023-03-22 | [facility] | SMALL | (missing) | (missing) | | (unavailable | 18:08:07 | [facility] | | | | + + + +---------+ + + + + | Result panel 1115 | + + + + + + + + + | | 2023-03-22 | [facility] | >=1.030 | (missing) | (missing) | | (unavailable | 18:08:07 | [facility] | | | | + + + + + + + + + | Result panel 1116 | + + + + + + + + + | | 2023-03-22 | [facility] | NEGATIVE | (missing) | (missing) | | (unavailable | 18:08:07 | [facility] | | | | + + + + + + + + + | Result panel 1117 | + + + + + +-------+ + + | | 2023-03-22 | [facility] | 5.5 | (missing) | (missing) | | (unavailable | 18:08:07 | [facility] | | | | + + + +-------+ + + + + | Result panel 1118 | + + + + + +------+ + + | | 2023-03-22 | [facility] | 30 | (missing) | (missing) | | (unavailable | 18:08:07 | [facility] | | | | + + + +------+ + + + + | Result panel 1119 | + + + + + + + + + | | 2023-03-22 | [facility] | NORMAL | (missing) | (missing) | | (unavailable | 18:08:07 | [facility] | | | | + + + + + + + + + | Result panel 1120 | + + + + + + + + + | | 2023-03-22 | [facility] | NEGATIVE | (missing) | (missing) | | (unavailable | 18:08:07 | [facility] | | | | + + + + + + + + + | Result panel 1121 | + + + + + + + + + | | 2023-03-22 | [facility] | NEGATIVE | (missing) | (missing) | | (unavailable | 18:08:07 | [facility] | | | | + + + + + + + + + | Result panel 1122 | + + + + + +-------+ + + | | 2023-03-22 | [facility] | 0-1 | (missing) | (missing) | | (unavailable | 18:08:07 | [facility] | | | | + + + +-------+ + + + + | Result panel 1123 | + + + + + +-------+ + + | | 2023-03-22 | [facility] | 0-1 | (missing) | (missing) | | (unavailable | 18:08:07 | [facility] | | | | + + + +-------+ + + + + | Result panel 1124 | + + + + + + + + + | | 2023-03-22 | [facility] | SQUAMOUS 2+ | (missing) | (missing) | | (unavailable | 18:08:07 | [facility] | | | | + + + + + + + + + | Result panel 1125 | + + + + + + + + + | | 2023-03-22 | [facility] | NONE SEEN | (missing) | (missing) | | (unavailable | 18:08:07 | [facility] | | | | + + + + + + + + + | Result panel 1126 | + + + + + + + + + | | 2023-03-22 | [facility] | NONE SEEN | (missing) | (missing) | | (unavailable | 18:08:07 | [facility] | | | | + + + + + + + + + | Result panel 1127 | + + + + + + + + + | | 2023-03-22 | [facility] | NONE SEEN | (missing) | (missing) | | (unavailable | 18:08:07 | [facility] | | | | + + + + + + + + + | Result panel 1128 | + + + + + +------+ + + | | 2023-03-22 | [facility] | No | (missing) | (missing) | | (unavailable | 18:08:07 | [facility] | | | | + + + +------+ + + + + | Result panel 1129 | + + + + + + + + + | | 2023-03-22 | [facility] | CLEAN CATCH | (missing) | (missing) | | (unavailable | 18:08:07 | [facility] | | | | + + + + + + + + + | Result panel 1130 | + + + + + + + + + | | 2023-03-22 | [facility] | YELLOW | (missing) | (missing) | | (unavailable | 18:08:07 | [facility] | | | | + + + + + + + + + | Result panel 1131 | + + + + + +---------+ + + | | 2023-03-22 | [facility] | CLEAR | (missing) | (missing) | | (unavailable | 18:08:07 | [facility] | | | | + + + +---------+ + + + + | Result panel 1132 | + + + + + + + + + | | 2023-03-22 | [facility] | NEGATIVE | (missing) | (missing) | | (unavailable | 18:08:07 | [facility] | | | | + + + + + + + + + | Result panel 1133 | + + + + + + + + + | | 2023-03-22 | [facility] | NEGATIVE | (missing) | (missing) | | (unavailable | 18:08:07 | [facility] | | | | + + + + + + + + + | Result panel 1134 | + + + + + +---------+ + + | | 2023-03-22 | [facility] | SMALL | (missing) | (missing) | | (unavailable | 18:08:07 | [facility] | | | | + + + +---------+ + + + + | Result panel 1135 | + + + + + + + + + | | 2023-03-22 | [facility] | >=1.030 | (missing) | (missing) | | (unavailable | 18:08:07 | [facility] | | | | + + + + + + + + + | Result panel 1136 | + + + + + + + + + | | 2023-03-22 | [facility] | NEGATIVE | (missing) | (missing) | | (unavailable | 18:08:07 | [facility] | | | | + + + + + + + + + | Result panel 1137 | + + + + + +-------+ + + | | 2023-03-22 | [facility] | 5.5 | (missing) | (missing) | | (unavailable | 18:08:07 | [facility] | | | | + + + +-------+ + + + + | Result panel 1138 | + + + + + +------+ + + | | 2023-03-22 | [facility] | 30 | (missing) | (missing) | | (unavailable | 18:08:07 | [facility] | | | | + + + +------+ + + + + | Result panel 1139 | + + + + + + + + + | | 2023-03-22 | [facility] | NORMAL | (missing) | (missing) | | (unavailable | 18:08:07 | [facility] | | | | + + + + + + + + + | Result panel 1140 | + + + + + + + + + | | 2023-03-22 | [facility] | NEGATIVE | (missing) | (missing) | | (unavailable | 18:08:07 | [facility] | | | | + + + + + + + + + | Result panel 1141 | + + + + + + + + + | | 2023-03-22 | [facility] | NEGATIVE | (missing) | (missing) | | (unavailable | 18:08:07 | [facility] | | | | + + + + + + + + + | Result panel 1142 | + + + + + +-------+ + + | | 2023-03-22 | [facility] | 0-1 | (missing) | (missing) | | (unavailable | 18:08:07 | [facility] | | | | + + + +-------+ + + + + | Result panel 1143 | + + + + + +-------+ + + | | 2023-03-22 | [facility] | 0-1 | (missing) | (missing) | | (unavailable | 18:08:07 | [facility] | | | | + + + +-------+ + + + + | Result panel 1144 | + + + + + + + + + | | 2023-03-22 | [facility] | SQUAMOUS 2+ | (missing) | (missing) | | (unavailable | 18:08:07 | [facility] | | | | + + + + + + + + + | Result panel 1145 | + + + + + + + + + | | 2023-03-22 | [facility] | NONE SEEN | (missing) | (missing) | | (unavailable | 18:08:07 | [facility] | | | | + + + + + + + + + | Result panel 1146 | + + + + + + + + + | | 2023-03-22 | [facility] | NONE SEEN | (missing) | (missing) | | (unavailable | 18:08:07 | [facility] | | | | + + + + + + + + + | Result panel 1147 | + + + + + + + + + | | 2023-03-22 | [facility] | NONE SEEN | (missing) | (missing) | | (unavailable | 18:08:07 | [facility] | | | | + + + + + + + + + | Result panel 1148 | + + + + + +------+ + + | | 2023-03-22 | [facility] | No | (missing) | (missing) | | (unavailable | 18:08:07 | [facility] | | | | + + + +------+ + + + + | Result panel 1149 | + + + + + + + + + | | 2023-03-22 | [facility] | CLEAN CATCH | (missing) | (missing) | | (unavailable | 18:08:07 | [facility] | | | | + + + + + + + + + | Result panel 1150 | + + + + + + + + + | | 2023-03-22 | [facility] | YELLOW | (missing) | (missing) | | (unavailable | 18:08:07 | [facility] | | | | + + + + + + + + + | Result panel 1151 | + + + + + +---------+ + + | | 2023-03-22 | [facility] | CLEAR | (missing) | (missing) | | (unavailable | 18:08:07 | [facility] | | | | + + + +---------+ + + + + | Result panel 1152 | + + + + + + + + + | | 2023-03-22 | [facility] | NEGATIVE | (missing) | (missing) | | (unavailable | 18:08:07 | [facility] | | | | + + + + + + + + + | Result panel 1153 | + + + + + + + + + | | 2023-03-22 | [facility] | NEGATIVE | (missing) | (missing) | | (unavailable | 18:08:07 | [facility] | | | | + + + + + + + + + | Result panel 1154 | + + + + + +---------+ + + | | 2023-03-22 | [facility] | SMALL | (missing) | (missing) | | (unavailable | 18:08:07 | [facility] | | | | + + + +---------+ + + + + | Result panel 1155 | + + + + + + + + + | | 2023-03-22 | [facility] | >=1.030 | (missing) | (missing) | | (unavailable | 18:08:07 | [facility] | | | | + + + + + + + + + | Result panel 1156 | + + + + + + + + + | | 2023-03-22 | [facility] | NEGATIVE | (missing) | (missing) | | (unavailable | 18:08:07 | [facility] | | | | + + + + + + + + + | Result panel 1157 | + + + + + +-------+ + + | | 2023-03-22 | [facility] | 5.5 | (missing) | (missing) | | (unavailable | 18:08:07 | [facility] | | | | + + + +-------+ + + + + | Result panel 1158 | + + + + + +------+ + + | | 2023-03-22 | [facility] | 30 | (missing) | (missing) | | (unavailable | 18:08:07 | [facility] | | | | + + + +------+ + + + + | Result panel 1159 | + + + + + +-------+ + + | | 2023-04-09 | [facility] | 9.5 | (missing) | (missing) | | (unavailable | 06:54:07 | [facility] | | | | + + + +-------+ + + + + | Result panel 1160 | + + + + + +--------+ + + | | 2023-04-09 | [facility] | 88.3 | (missing) | (missing) | | (unavailable | 06:54:07 | [facility] | | | | + + + +--------+ + + + + | Result panel 1161 | + + + + + +-------+ + + | | 2023-04-09 | [facility] | 8.6 | (missing) | (missing) | | (unavailable | 06:54:07 | [facility] | | | | + + + +-------+ + + + + | Result panel 1162 | + + + + + +-------+ + + | | 2023-04-09 | [facility] | 2.6 | (missing) | (missing) | | (unavailable | 06:54:07 | [facility] | | | | + + + +-------+ + + + + | Result panel 1163 | + + + + + +-------+ + + | | 2023-04-09 | [facility] | 0.2 | (missing) | (missing) | | (unavailable | 06:54:07 | [facility] | | | | + + + +-------+ + + + + | Result panel 1164 | + + + + + +-------+ + + | | 2023-04-09 | [facility] | 0.3 | (missing) | (missing) | | (unavailable | 06:54:07 | [facility] | | | | + + + +-------+ + + + + | Result panel 1165 | + + + + + +-------+---------+ + | | 2023-04-09 | [facility] | 169 | mg/dL | (missing) | | (unavailable | 06:54:07 | [facility] | | | | + + + +-------+---------+ + + + | Result panel 1166 | + + + + + +-----+---------+ + | | 2023-04-09 | [facility] | 8 | mg/dL | (missing) | | (unavailable | 06:54:07 | [facility] | | | | + + + +-----+---------+ + + + | Result panel 1167 | + + + + + +--------+---------+ + | | 2023-04-09 | [facility] | 0.86 | mg/dL | (missing) | | (unavailable | 06:54:07 | [facility] | | | | + + + +--------+---------+ + + + | Result panel 1168 | + + + + + +------+ + + | | 2023-04-09 | [facility] | 93 | (missing) | (missing) | | (unavailable | 06:54:07 | [facility] | | | | + + + +------+ + + + + | Result panel 1169 | + + + + + +--------+ + + | | 2023-04-09 | [facility] | 9.30 | (missing) | (missing) | | (unavailable | 06:54:07 | [facility] | | | | + + + +--------+ + + + + | Result panel 1170 | + + + + + +--------+ + + | | 2023-04-09 | [facility] | 4.66 | (missing) | (missing) | | (unavailable | 06:54:07 | [facility] | | | | + + + +--------+ + + + + | Result panel 1171 | + + + + + +-------+ + + | | 2023-04-09 | [facility] | 141 | (missing) | (missing) | | (unavailable | 06:54:07 | [facility] | | | | + + + +-------+ + + + + | Result panel 1172 | + + + + + +-------+ + + | | 2023-04-09 | [facility] | 3.4 | (missing) | (missing) | | (unavailable | 06:54:07 | [facility] | | | | + + + +-------+ + + + + | Result panel 1173 | + + + + + +-------+ + + | | 2023-04-09 | [facility] | 104 | (missing) | (missing) | | (unavailable | 06:54:07 | [facility] | | | | + + + +-------+ + + + + | Result panel 1174 | + + + + + +------+ + + | | 2023-04-09 | [facility] | 23 | (missing) | (missing) | | (unavailable | 06:54:07 | [facility] | | | | + + + +------+ + + + + | Result panel 1175 | + + + + + +--------+ + + | | 2023-04-09 | [facility] | 17.4 | (missing) | (missing) | | (unavailable | 06:54:07 | [facility] | | | | + + + +--------+ + + + + | Result panel 1176 | + + + + + +-------+---------+ + | | 2023-04-09 | [facility] | 8.8 | mg/dL | (missing) | | (unavailable | 06:54:07 | [facility] | | | | + + + +-------+---------+ + + + | Result panel 1177 | + + + + + +-------+---------+ + | | 2023-04-09 | [facility] | 1.6 | mg/dL | (missing) | | (unavailable | 06:54:07 | [facility] | | | | + + + +-------+---------+ + + + | Result panel 1178 | + + + + + +-------+ + + | | 2023-04-09 | [facility] | 8.2 | (missing) | (missing) | | (unavailable | 06:54:07 | [facility] | | | | + + + +-------+ + + + + | Result panel 1179 | + + + + + +-------+ + + | | 2023-04-09 | [facility] | 4.4 | (missing) | (missing) | | (unavailable | 06:54:07 | [facility] | | | | + + + +-------+ + + + + | Result panel 1180 | + + + + + +-------+ + + | | 2023-04-09 | [facility] | 3.8 | (missing) | (missing) | | (unavailable | 06:54:07 | [facility] | | | | + + + +-------+ + + + + | Result panel 1181 | + + + + + +--------+ + + | | 2023-04-09 | [facility] | 13.5 | (missing) | (missing) | | (unavailable | 06:54:07 | [facility] | | | | + + + +--------+ + + + + | Result panel 1182 | + + + + + +--------+ + + | | 2023-04-09 | [facility] | 1.16 | (missing) | (missing) | | (unavailable | 06:54:07 | [facility] | | | | + + + +--------+ + + + + | Result panel 1183 | + + + + + +-------+ + + | | 2023-04-09 | [facility] | 0.5 | (missing) | (missing) | | (unavailable | 06:54:07 | [facility] | | | | + + + +-------+ + + + + | Result panel 1184 | + + + + + +------+ + + | | 2023-04-09 | [facility] | 14 | (missing) | (missing) | | (unavailable | 06:54:07 | [facility] | | | | + + + +------+ + + + + | Result panel 1185 | + + + + + +------+ + + | | 2023-04-09 | [facility] | 20 | (missing) | (missing) | | (unavailable | 06:54:07 | [facility] | | | | + + + +------+ + + + + | Result panel 1186 | + + + + + +------+ + + | | 2023-04-09 | [facility] | 50 | (missing) | (missing) | | (unavailable | 06:54:07 | [facility] | | | | + + + +------+ + + + + | Result panel 1187 | + + + + + +--------+ + + | | 2023-04-09 | [facility] | 39.7 | (missing) | (missing) | | (unavailable | 06:54:07 | [facility] | | | | + + + +--------+ + + + + | Result panel 1188 | + + + + + +--------+ + + | | 2023-04-09 | [facility] | 85.2 | (missing) | (missing) | | (unavailable | 06:54:07 | [facility] | | | | + + + +--------+ + + + + | Result panel 1189 | + + + + + +-------+ + + | | 2023-04-09 | [facility] | 9.5 | (missing) | (missing) | | (unavailable | 06:54:07 | [facility] | | | | + + + +-------+ + + + + | Result panel 1190 | + + + + + +--------+ + + | | 2023-04-09 | [facility] | 4.66 | (missing) | (missing) | | (unavailable | 06:54:07 | [facility] | | | | + + + +--------+ + + + + | Result panel 1191 | + + + + + +--------+ + + | | 2023-04-09 | [facility] | 13.5 | (missing) | (missing) | | (unavailable | 06:54:07 | [facility] | | | | + + + +--------+ + + + + | Result panel 1192 | + + + + + +--------+ + + | | 2023-04-09 | [facility] | 28.9 | (missing) | (missing) | | (unavailable | 06:54:07 | [facility] | | | | + + + +--------+ + + + + | Result panel 1193 | + + + + + +--------+ + + | | 2023-04-09 | [facility] | 39.7 | (missing) | (missing) | | (unavailable | 06:54:07 | [facility] | | | | + + + +--------+ + + + + | Result panel 1194 | + + + + + +--------+ + + | | 2023-04-09 | [facility] | 85.2 | (missing) | (missing) | | (unavailable | 06:54:07 | [facility] | | | | + + + +--------+ + + + + | Result panel 1195 | + + + + + +--------+ + + | | 2023-04-09 | [facility] | 28.9 | (missing) | (missing) | | (unavailable | 06:54:07 | [facility] | | | | + + + +--------+ + + + + | Result panel 1196 | + + + + + +--------+ + + | | 2023-04-09 | [facility] | 33.9 | (missing) | (missing) | | (unavailable | 06:54:07 | [facility] | | | | + + + +--------+ + + + + | Result panel 1197 | + + + + + +--------+ + + | | 2023-04-09 | [facility] | 13.8 | (missing) | (missing) | | (unavailable | 06:54:07 | [facility] | | | | + + + +--------+ + + + + | Result panel 1198 | + + + + + +-------+ + + | | 2023-04-09 | [facility] | 206 | (missing) | (missing) | | (unavailable | 06:54:07 | [facility] | | | | + + + +-------+ + + + + | Result panel 1199 | + + + + + +--------+ + + | | 2023-04-09 | [facility] | 88.3 | (missing) | (missing) | | (unavailable | 06:54:07 | [facility] | | | | + + + +--------+ + + + + | Result panel 1200 | + + + + + +-------+ + + | | 2023-04-09 | [facility] | 8.6 | (missing) | (missing) | | (unavailable | 06:54:07 | [facility] | | | | + + + +-------+ + + + + | Result panel 1201 | + + + + + +-------+ + + | | 2023-04-09 | [facility] | 2.6 | (missing) | (missing) | | (unavailable | 06:54:07 | [facility] | | | | + + + +-------+ + + + + | Result panel 1202 | + + + + + +-------+ + + | | 2023-04-09 | [facility] | 0.2 | (missing) | (missing) | | (unavailable | 06:54:07 | [facility] | | | | + + + +-------+ + + + + | Result panel 1203 | + + + + + +--------+ + + | | 2023-04-09 | [facility] | 33.9 | (missing) | (missing) | | (unavailable | 06:54:07 | [facility] [facility] | | [facility] | | [facility] | | | | + + + +--------+ + + + + | Result panel 1204 | + + + + + +-------+ + + | | 2023-04-09 | [facility] | 0.3 | (missing) | (missing) | | (unavailable | 06:54:07 | [facility] | | | | + + + +-------+ + + + + | Result panel 1205 | + + + + + +-------+---------+ + | | 2023-04-09 | [facility] | 169 | mg/dL | (missing) | | (unavailable | 06:54:07 | [facility] | | | | + + + +-------+---------+ + + + | Result panel 1206 | + + + + + +-----+---------+ + | | 2023-04-09 | [facility] | 8 | mg/dL | (missing) | | (unavailable | :54:07 | [facility] | | | | + + + +-----+---------+ + + + | Result panel 1207 | + + + + + +--------+---------+ + | | 2023-04-09 | [facility] | 0.86 | mg/dL | (missing) | | (unavailable | :54:07 | [facility] | | | | + + + +--------+---------+ + + + | Result panel 1208 | + + + + + +------+ + + | | 2023-04-09 | [facility] | 93 | (missing) | (missing) | | (unavailable | 06:54:07 | [facility] | | | | + + + +------+ + + + + | Result panel 1209 | + + + + + +--------+ + + | | 2023-04-09 | [facility] | 9.30 | (missing) | (missing) | | (unavailable | 06:54:07 | [facility] | | | | + + + +--------+ + + + + | Result panel 1210 | + + + + + +-------+ + + | | 2023-04-09 | [facility] | 141 | (missing) | (missing) | | (unavailable | 06:54:07 | [facility] | | | | + + + +-------+ + + + + | Result panel 121 | + + + + + +-------+ + + | | 2023-04-09 | [facility] | 3.4 | (missing) | (missing) | | (unavailable | 06:54:07 | [facility] | | | | + + + +-------+ + + + + | Result panel 121 | + + + + + +-------+ + + | | 2023-04-09 | [facility] | 104 | (missing) | (missing) | | (unavailable | 06:54:07 | [facility] | | | | + + + +-------+ + + + + | Result panel 121 | + + + + + +------+ + + | | 2023-04-09 | [facility] | 23 | (missing) | (missing) | | (unavailable | 06:54:07 | [facility] | | | | + + + +------+ + + + + | Result panel 1214 | + + + + + +--------+ + + | | 2023-04-09 | [facility] | 13.8 | (missing) | (missing) | | (unavailable | 06:54:07 | [facility] | | | | + + + +--------+ + + + + | Result panel 1215 | + + + + + +--------+ + + | | 2023-04-09 | [facility] | 17.4 | (missing) | (missing) | | (unavailable | 06:54:07 | [facility] | | | | + + + +--------+ + + + + | Result panel 1216 | + + + + + +-------+---------+ + | | 2023-04-09 | [facility] | 8.8 | mg/dL | (missing) | | (unavailable | 06:54:07 | [facility] | | | | + + + +-------+---------+ + + + | Result panel 1217 | + + + + + +-------+---------+ + | | 2023-04-09 | [facility] | 1.6 | mg/dL | (missing) | | (unavailable | 06:54:07 | [facility] | | | | + + + +-------+---------+ + + + | Result panel 1218 | + + + + + +-------+ + + | | 2023-04-09 | [facility] | 8.2 | (missing) | (missing) | | (unavailable | :54:07 | [facility] | | | | + + + +-------+ + + + + | Result panel 1219 | + + + + + +-------+ + + | | 2023-04-09 | [facility] | 4.4 | (missing) | (missing) | | (unavailable | 06:54:07 | [facility] | | | | + + + +-------+ + + + + | Result panel 1220 | + + + + + +-------+ + + | | 2023-04-09 | [facility] | 3.8 | (missing) | (missing) | | (unavailable | 06:54:07 | [facility] | | | | + + + +-------+ + + + + | Result panel 1221 | + + + + + +--------+ + + | | 2023-04-09 | [facility] | 1.16 | (missing) | (missing) | | (unavailable | 06:54:07 | [facility] | | | | + + + +--------+ + + + + | Result panel 1222 | + + + + + +-------+ + + | | 2023-04-09 | [facility] | 0.5 | (missing) | (missing) | | (unavailable | 06:54:07 | [facility] | | | | + + + +-------+ + + + + | Result panel 1223 | + + + + + +------+ + + | | 2023-04-09 | [facility] | 14 | (missing) | (missing) | | (unavailable | 06:54:07 | [facility] | | | | + + + +------+ + + + + | Result panel 1224 | + + + + + +------+ + + | | 2023-04-09 | [facility] | 20 | (missing) | (missing) | | (unavailable | 06:54:07 | [facility] | | | | + + + +------+ + + + + | Result panel 1225 | + + + + + +-------+ + + | | 2023-04-09 | [facility] | 206 | (missing) | (missing) | | (unavailable | 06:54:07 | [facility] | | | | + + + +-------+ + + + + | Result panel 1226 | + + + + + +------+ + + | | 2023-04-09 | [facility] | 50 | (missing) | (missing) | | (unavailable | 06:54:07 | [facility] | | | | + + + +------+ + + + + | Result panel 1227 | + + + + + +-------+ + + | | 2023-04-10 | [facility] | 6.8 | (missing) | (missing) | | (unavailable | 16:21:07 | [facility] | | | | + + + +-------+ + + + + | Result panel 1228 | + + + + + +--------+ + + | | 2023-04-10 | [facility] | 4.56 | (missing) | (missing) | | (unavailable | 16:21:07 | [facility] | | | | + + + +--------+ + + + + | Result panel 1229 | + + + + + +--------+ + + | | 2023-04-10 | [facility] | 13.1 | (missing) | (missing) | | (unavailable | 16:21:07 | [facility] | | | | + + + +--------+ + + + + | Result panel 1230 | + + + + + +--------+ + + | | 2023-04-10 | [facility] | 39.4 | (missing) | (missing) | | (unavailable | 16:21:07 | [facility] | | | | + + + +--------+ + + + + | Result panel 1231 | + + + + + +--------+ + + | | 2023-04-10 | [facility] | 86.4 | (missing) | (missing) | | (unavailable | 16:21:07 | [facility] | | | | + + + +--------+ + + + + | Result panel 1232 | + + + + + +--------+ + + | | 2023-04-10 | [facility] | 28.7 | (missing) | (missing) | | (unavailable | 16:21:07 | [facility] | | | | + + + +--------+ + + + + | Result panel 1233 | + + + + + +--------+ + + | | 2023-04-10 | [facility] | 33.3 | (missing) | (missing) | | (unavailable | 16:21:07 | [facility] | | | | + + + +--------+ + + + + | Result panel 1234 | + + + + + +--------+ + + | | 2023-04-10 | [facility] | 13.9 | (missing) | (missing) | | (unavailable | 16:21:07 | [facility] | | | | + + + +--------+ + + + + | Result panel 1235 | + + + + + +-------+ + + | | 2023-04-10 | [facility] | 199 | (missing) | (missing) | | (unavailable | 16:21:07 | [facility] | | | | + + + +-------+ + + + + | Result panel 1236 | + + + + + +--------+ + + | | 2023-04-10 | [facility] | 70.3 | (missing) | (missing) | | (unavailable | 16:21:07 | [facility] | | | | + + + +--------+ + + + + | Result panel 1237 | + + + + + +--------+ + + | | 2023-04-10 | [facility] | 21.8 | (missing) | (missing) | | (unavailable | 16:21:07 | [facility] | | | | + + + +--------+ + + + + | Result panel 1238 | + + + + + +-------+ + + | | 2023-04-10 | [facility] | 7.1 | (missing) | (missing) | | (unavailable | 16:21:07 | [facility] | | | | + + + +-------+ + + + + | Result panel 1239 | + + + + + +-------+ + + | | 2023-04-10 | [facility] | 0.2 | (missing) | (missing) | | (unavailable | 16:21:07 | [facility] | | | | + + + +-------+ + + + + | Result panel 1240 | + + + + + +-------+ + + | | 2023-04-10 | [facility] | 0.6 | (missing) | (missing) | | (unavailable | 16::07 | [facility] | | | | + + + +-------+ + + + + | Result panel 1241 | + + + + + +-------+---------+ + | | 2023-04-10 | [facility] | 102 | mg/dL | (missing) | | (unavailable | 16: | [facility] | | | | + + + +-------+---------+ + + + | Result panel 1242 | + + + + + +------+---------+ + | | 2023-04-10 | [facility] | 10 | mg/dL | (missing) | | (unavailable | 16:: | [facility] | | | | + + + +------+---------+ + + + | Result panel 1243 | + + + + + +--------+---------+ + | | 2023-04-10 | [facility] | 0.82 | mg/dL | (missing) | | (unavailable | 16: | [facility] | | | | + + + +--------+---------+ + + + | Result panel 1244 | + + + + + +------+ + + | | 2023-04-10 | [facility] | 99 | (missing) | (missing) | | (unavailable | 16:21:07 | [facility] | | | | + + + +------+ + + + + | Result panel 1245 | + + + + + +---------+ + + | | 2023-04-10 | [facility] | 12.19 | (missing) | (missing) | | (unavailable | 16:21:07 | [facility] | | | | + + + +---------+ + + + + | Result panel 1246 | + + + + + +-------+ + + | | 2023-04-10 | [facility] | 139 | (missing) | (missing) | | (unavailable | 16:21:07 | [facility] | | | | + + + +-------+ + + + + | Result panel 1247 | + + + + + +-------+ + + | | 2023-04-10 | [facility] | 3.4 | (missing) | (missing) | | (unavailable | 16:21:07 | [facility] | | | | + + + +-------+ + + + + | Result panel 1248 | + + + + + +-------+ + + | | 2023-04-10 | [facility] | 100 | (missing) | (missing) | | (unavailable | 16:21:07 | [facility] | | | | + + + +-------+ + + + + | Result panel 1249 | + + + + + +------+ + + | | 2023-04-10 | [facility] | 25 | (missing) | (missing) | | (unavailable | 16:21:07 | [facility] | | | | + + + +------+ + + + + | Result panel 1250 | + + + + + +--------+ + + | | 2023-04-10 | [facility] | 17.4 | (missing) | (missing) | | (unavailable | 16:21:07 | [facility] | | | | + + + +--------+ + + + + | Result panel 1251 | + + + + + +-------+---------+ + | | 2023-04-10 | [facility] | 9.0 | mg/dL | (missing) | | (unavailable | 16::07 | [facility] | | | | + + + +-------+---------+ + + + | Result panel 1252 | + + + + + +-------+---------+ + | | 2023-04-10 | [facility] | 1.9 | mg/dL | (missing) | | (unavailable | 16:21:07 | [facility] | | | | + + + +-------+---------+ + + + | Result panel 1253 | + + + + + +-------+ + + | | 2023-04-10 | [facility] | 8.2 | (missing) | (missing) | | (unavailable | 16:21:07 | [facility] | | | | + + + +-------+ + + + + | Result panel 1254 | + + + + + +-------+ + + | | 2023-04-10 | [facility] | 4.5 | (missing) | (missing) | | (unavailable | 16:21:07 | [facility] | | | | + + + +-------+ + + + + | Result panel 1255 | + + + + + +-------+ + + | | 2023-04-10 | [facility] | 3.7 | (missing) | (missing) | | (unavailable | 16:21:07 | [facility] | | | | + + + +-------+ + + + + | Result panel 1256 | + + + + + +--------+ + + | | 2023-04-10 | [facility] | 1.22 | (missing) | (missing) | | (unavailable | 16:21:07 | [facility] | | | | + + + +--------+ + + + + | Result panel 1257 | + + + + + +-------+ + + | | 2023-04-10 | [facility] | 0.7 | (missing) | (missing) | | (unavailable | 16:21:07 | [facility] | | | | + + + +-------+ + + + + | Result panel 1258 | + + + + + +------+ + + | | 2023-04-10 | [facility] | 17 | (missing) | (missing) | | (unavailable | 16:21:07 | [facility] | | | | + + + +------+ + + + + | Result panel 1259 | + + + + + +------+ + + | | 2023-04-10 | [facility] | 22 | (missing) | (missing) | | (unavailable | 16:21:07 | [facility] | | | | + + + +------+ + + + + | Result panel 1260 | + + + + + +------+ + + | | 2023-04-10 | [facility] | 56 | (missing) | (missing) | | (unavailable | 16:21:07 | [facility] | | | | + + + +------+ + + + + | Result panel 1261 | + + + + + +------+ + + | | 2023-04-10 | [facility] | 56 | (missing) | (missing) | | (unavailable | 16:21:07 | [facility] | | | | + + + +------+ + + Social History No information. Vital Signs + + + +---------+ | date | measurement | value | units | + + + +---------+ | 2022-08-08 00:00 | BMI | 20.5 | kg/m2 | + + + +---------+ | 2022-08-08 00:00 | BP_diastolic | 88 | mmHg | + + + +---------+ | 2022-08-08 00:00 | BP_systolic | 126 | mmHg | + + + +---------+ | 2022-08-08 00:00 | heart_rate | 93 | /min | + + + +---------+ | 2022-08-08 00:00 | height_metric | 152.4 | cm | + + + +---------+ | 2022-08-08 00:00 | height_standard | 60 | in | + + + +---------+ | 2022-08-08 00:00 | o2_saturation | 100 | % | + + + +---------+ | 2022-08-08 00:00 | respiration_rate | 16 | /min | + + + +---------+ | 2022-08-08 00:00 | temperature_metric | 36.94 | C | | | | | | + + + +---------+ | 2022-08-08 00:00 | | 98.5 | F | | | temperature_standar | | | | | d | | | + + + +---------+ | 2022-08-08 00:00 | weight_metric | 47.63 | kg | + + + +---------+ | 2022-08-08 00:00 | weight_standard | 105 | lb | + + + +---------+ | 2022-08-31 00:00 | BMI | 19.5 | kg/m2 | + + + +---------+ | 2022-08-31 00:00 | BP_diastolic | 66 | mmHg | + + + +---------+ | 2022-08-31 00:00 | BP_systolic | 107 | mmHg | + + + +---------+ | 2022-08-31 00:00 | heart_rate | 78 | /min | + + + +---------+ | 2022-08-31 00:00 | height_metric | 152.4 | cm | + + + +---------+ | 2022-08-31 00:00 | height_standard | 60 | in | + + + +---------+ | 2022-08-31 00:00 | o2_saturation | 96 | % | + + + +---------+ | 2022-08-31 00:00 | respiration_rate | 18 | /min | + + + +---------+ | 2022-08-31 00:00 | temperature_metric | 37 | C | | | | | | + + + +---------+ | 2022-08-31 00:00 | | 98.6 | F | | | temperature_standar | | | | | d | | | + + + +---------+ | 2022-08-31 00:00 | weight_metric | 45.36 | kg | + + + +---------+ | 2022-08-31 00:00 | weight_standard | 100 | lb | + + + +---------+ | 2022-09-06 00:00 | BMI | 19.1 | kg/m2 | + + + +---------+ | 2022-09-06 00:00 | BP_diastolic | 84 | mmHg | + + + +---------+ | 2022-09-06 00:00 | BP_systolic | 124 | mmHg | + + + +---------+ | 2022-09-06 00:00 | heart_rate | 94 | /min | + + + +---------+ | 2022-09-06 00:00 | height_metric | 152.4 | cm | + + + +---------+ | 2022-09-06 00:00 | height_standard | 60 | in | + + + +---------+ | 2022-09-06 00:00 | o2_saturation | 100 | % | + + + +---------+ | 2022-09-06 00:00 | respiration_rate | 18 | /min | + + + +---------+ | 2022-09-06 00:00 | temperature_metric | 36.89 | C | | | | | | + + + +---------+ | 2022-09-06 00:00 | | 98.4 | F | | | temperature_standar | | | | | d | | | + + + +---------+ | 2022-09-06 00:00 | weight_metric | 44.45 | kg | + + + +---------+ | 2022-09-06 00:00 | weight_standard | 98 | lb | + + + +---------+ | 2022-09-19 00:00 | BMI | 19.1 | kg/m2 | + + + +---------+ | 2022-09-19 00:00 | BP_diastolic | 87 | mmHg | + + + +---------+ | 2022-09-19 00:00 | BP_systolic | 128 | mmHg | + + + +---------+ | 2022-09-19 00:00 | heart_rate | 92 | /min | + + + +---------+ | 2022-09-19 00:00 | height_metric | 152.4 | cm | + + + +---------+ | 2022-09-19 00:00 | height_standard | 60 | in | + + + +---------+ | 2022-09-19 00:00 | o2_saturation | 98 | % | + + + +---------+ | 2022-09-19 00:00 | respiration_rate | 19 | /min | + + + +---------+ | 2022-09-19 00:00 | temperature_metric | 36.78 | C | | | | | | + + + +---------+ | 2022-09-19 00:00 | | 98.2 | F | | | temperature_standar | | | | | d | | | + + + +---------+ | 2022-09-19 00:00 | weight_metric | 44.45 | kg | + + + +---------+ | 2022-09-19 00:00 | weight_standard | 98 | lb | + + + +---------+ | 2022-09-24 00:00 | BMI | 19.1 | kg/m2 | + + + +---------+ | 2022-09-24 00:00 | BP_diastolic | 77 | mmHg | + + + +---------+ | 2022-09-24 00:00 | BP_systolic | 109 | mmHg | + + + +---------+ | 2022-09-24 00:00 | heart_rate | 84 | /min | + + + +---------+ | 2022-09-24 00:00 | height_metric | 152.4 | cm | + + + +---------+ | 2022-09-24 00:00 | height_standard | 60 | in | + + + +---------+ | 2022-09-24 00:00 | o2_saturation | 96 | % | + + + +---------+ | 2022-09-24 00:00 | respiration_rate | 22 | /min | + + + +---------+ | 2022-09-24 00:00 | temperature_metric | 36.72 | C | | | | | | + + + +---------+ | 2022-09-24 00:00 | | 98.1 | F | | | temperature_standar | | | | | d | | | + + + +---------+ | 2022-09-24 00:00 | weight_metric | 44.45 | kg | + + + +---------+ | 2022-09-24 00:00 | weight_standard | 98 | lb | + + + +---------+ | 2022-09-26 00:00 | BMI | 19.1 | kg/m2 | + + + +---------+ | 2022-09-26 00:00 | BP_diastolic | 104 | mmHg | + + + +---------+ | 2022-09-26 00:00 | BP_systolic | 148 | mmHg | + + + +---------+ | 2022-09-26 00:00 | heart_rate | 97 | /min | + + + +---------+ | 2022-09-26 00:00 | height_metric | 152.4 | cm | + + + +---------+ | 2022-09-26 00:00 | height_standard | 60 | in | + + + +---------+ | 2022-09-26 00:00 | o2_saturation | 98 | % | + + + +---------+ | 2022-09-26 00:00 | respiration_rate | 16 | /min | + + + +---------+ | 2022-09-26 00:00 | temperature_metric | 37.61 | C | | | | | | + + + +---------+ | 2022-09-26 00:00 | | 99.7 | F | | | temperature_standar | | | | | d | | | + + + +---------+ | 2022-09-26 00:00 | weight_metric | 44.45 | kg | + + + +---------+ | 2022-09-26 00:00 | weight_standard | 98 | lb | + + + +---------+ | 2022-10-01 00:00 | BMI | 19.5 | kg/m2 | + + + +---------+ | 2022-10-01 00:00 | BP_diastolic | 88 | mmHg | + + + +---------+ | 2022-10-01 00:00 | BP_systolic | 140 | mmHg | + + + +---------+ | 2022-10-01 00:00 | heart_rate | 76 | /min | + + + +---------+ | 2022-10-01 00:00 | height_metric | 152.4 | cm | + + + +---------+ | 2022-10-01 00:00 | height_standard | 60 | in | + + + +---------+ | 2022-10-01 00:00 | o2_saturation | 96 | % | + + + +---------+ | 2022-10-01 00:00 | respiration_rate | 17 | /min | + + + +---------+ | 2022-10-01 00:00 | temperature_metric | 36.78 | C | | | | | | + + + +---------+ | 2022-10-01 00:00 | | 98.2 | F | | | temperature_standar | | | | | d | | | + + + +---------+ | 2022-10-01 00:00 | weight_metric | 45.36 | kg | + + + +---------+ | 2022-10-01 00:00 | weight_standard | 100 | lb | + + + +---------+ | 2022-10-02 00:00 | BMI | 18.0 | kg/m2 | + + + +---------+ | 2022-10-02 00:00 | BMI | 20.7 | kg/m2 | + + + +---------+ | 2022-10-02 00:00 | BP_diastolic | 106 | mmHg | + + + +---------+ | 2022-10-02 00:00 | BP_systolic | 154 | mmHg | + + + +---------+ | 2022-10-02 00:00 | heart_rate | 87 | /min | + + + +---------+ | 2022-10-02 00:00 | height_metric | 152.4 | cm | + + + +---------+ | 2022-10-02 00:00 | height_standard | 60 | in | + + + +---------+ | 2022-10-02 00:00 | o2_saturation | 100 | % | + + + +---------+ | 2022-10-02 00:00 | respiration_rate | 27 | /min | + + + +---------+ | 2022-10-02 00:00 | temperature_metric | 36.72 | C | | | | | | + + + +---------+ | 2022-10-02 00:00 | | 98.1 | F | | | temperature_standar | | | | | d | | | + + + +---------+ | 2022-10-02 00:00 | weight_metric | 41.9 | kg | + + + +---------+ | 2022-10-02 00:00 | weight_metric | 48 | kg | + + + +---------+ | 2022-10-02 00:00 | weight_standard | 105.82 | lb | + + + +---------+ | 2022-10-02 00:00 | weight_standard | 105.83 | lb | + + + +---------+ | 2022-10-02 00:00 | weight_standard | 92.37 | lb | + + + +---------+ | 2022-10-02 00:00 | weight_standard | 92.38 | lb | + + + +---------+ | 2022-10-03 00:00 | BP_diastolic | 70 | mmHg | + + + +---------+ | 2022-10-03 00:00 | BP_systolic | 110 | mmHg | + + + +---------+ | 2022-10-03 00:00 | heart_rate | 76 | /min | + + + +---------+ | 2022-10-03 00:00 | o2_saturation | 100 | % | + + + +---------+ | 2022-10-03 00:00 | respiration_rate | 16 | /min | + + + +---------+ | 2022-10-03 00:00 | temperature_metric | 37.39 | C | | | | | | + + + +---------+ | 2022-10-03 00:00 | | 99.3 | F | | | temperature_standar | | | | | d | | | + + + +---------+ | 2022-12-02 00:00 | BMI | 18.6 | kg/m2 | + + + +---------+ | 2022-12-02 00:00 | height_metric | 152.4 | cm | + + + +---------+ | 2022-12-02 00:00 | height_standard | 60 | in | + + + +---------+ | 2022-12-02 00:00 | weight_metric | 43.1 | kg | + + + +---------+ | 2022-12-02 00:00 | weight_standard | 95.02 | lb | + + + +---------+ | 2022-12-10 00:00 | BMI | 18.6 | kg/m2 | + + + +---------+ | 2022-12-10 00:00 | BP_diastolic | 80 | mmHg | + + + +---------+ | 2022-12-10 00:00 | BP_diastolic | 93 | mmHg | + + + +---------+ | 2022-12-10 00:00 | BP_systolic | 122 | mmHg | + + + +---------+ | 2022-12-10 00:00 | BP_systolic | 143 | mmHg | + + + +---------+ | 2022-12-10 00:00 | heart_rate | 108 | /min | + + + +---------+ | 2022-12-10 00:00 | heart_rate | 114 | /min | + + + +---------+ | 2022-12-10 00:00 | height_metric | 152.4 | cm | + + + +---------+ | 2022-12-10 00:00 | height_standard | 60 | in | + + + +---------+ | 2022-12-10 00:00 | o2_saturation | 100 | % | + + + +---------+ | 2022-12-10 00:00 | o2_saturation | 99 | % | + + + +---------+ | 2022-12-10 00:00 | respiration_rate | 20 | /min | + + + +---------+ | 2022-12-10 00:00 | temperature_metric | 37.11 | C | | | | | | + + + +---------+ | 2022-12-10 00:00 | temperature_metric | 37.28 | C | | | | | | + + + +---------+ | 2022-12-10 00:00 | | 98.8 | F | | | temperature_standar | | | | | d | | | + + + +---------+ | 2022-12-10 00:00 | | 99.1 | F | | | temperature_standar | | | | | d | | | + + + +---------+ | 2022-12-10 00:00 | weight_metric | 43.26 | kg | + + + +---------+ | 2022-12-10 00:00 | weight_standard | 95.37 | lb | + + + +---------+ | 2022-12-10 00:00 | weight_standard | 95.38 | lb | + + + +---------+ | 2022-12-24 00:00 | BMI | 18.6 | kg/m2 | + + + +---------+ | 2022-12-24 00:00 | BP_diastolic | 101 | mmHg | + + + +---------+ | 2022-12-24 00:00 | BP_systolic | 145 | mmHg | + + + +---------+ | 2022-12-24 00:00 | heart_rate | 94 | /min | + + + +---------+ | 2022-12-24 00:00 | height_metric | 152.4 | cm | + + + +---------+ | 2022-12-24 00:00 | height_standard | 60 | in | + + + +---------+ | 2022-12-24 00:00 | o2_saturation | 100 | % | + + + +---------+ | 2022-12-24 00:00 | respiration_rate | 20 | /min | + + + +---------+ | 2022-12-24 00:00 | temperature_metric | 36.78 | C | | | | | | + + + +---------+ | 2022-12-24 00:00 | | 98.2 | F | | | temperature_standar | | | | | d | | | + + + +---------+ | 2022-12-24 00:00 | weight_metric | 43.26 | kg | + + + +---------+ | 2022-12-24 00:00 | weight_standard | 95.37 | lb | + + + +---------+ | 2022-12-24 00:00 | weight_standard | 95.38 | lb | + + + +---------+ | 2022-12-28 00:00 | BMI | 17.6 | kg/m2 | + + + +---------+ | 2022-12-28 00:00 | BP_diastolic | 86 | mmHg | + + + +---------+ | 2022-12-28 00:00 | BP_systolic | 130 | mmHg | + + + +---------+ | 2022-12-28 00:00 | heart_rate | 92 | /min | + + + +---------+ | 2022-12-28 00:00 | height_metric | 152.4 | cm | + + + +---------+ | 2022-12-28 00:00 | height_standard | 60 | in | + + + +---------+ | 2022-12-28 00:00 | o2_saturation | 97 | % | + + + +---------+ | 2022-12-28 00:00 | respiration_rate | 16 | /min | + + + +---------+ | 2022-12-28 00:00 | temperature_metric | 37.17 | C | | | | | | + + + +---------+ | 2022-12-28 00:00 | | 98.9 | F | | | temperature_standar | | | | | d | | | + + + +---------+ | 2022-12-28 00:00 | weight_metric | 40.99 | kg | + + + +---------+ | 2022-12-28 00:00 | weight_metric | 41 | kg | + + + +---------+ | 2022-12-28 00:00 | weight_standard | 90.37 | lb | + + + +---------+ | 2022-12-28 00:00 | weight_standard | 90.38 | lb | + + + +---------+ | 2023-01-16 00:00 | BMI | 17.6 | kg/m2 | + + + +---------+ | 2023-01-16 00:00 | BP_diastolic | 74 | mmHg | + + + +---------+ | 2023-01-16 00:00 | BP_diastolic | 89 | mmHg | + + + +---------+ | 2023-01-16 00:00 | BP_systolic | 115 | mmHg | + + + +---------+ | 2023-01-16 00:00 | BP_systolic | 131 | mmHg | + + + +---------+ | 2023-01-16 00:00 | heart_rate | 107 | /min | + + + +---------+ | 2023-01-16 00:00 | heart_rate | 72 | /min | + + + +---------+ | 2023-01-16 00:00 | height_metric | 152.4 | cm | + + + +---------+ | 2023-01-16 00:00 | height_standard | 60 | in | + + + +---------+ | 2023-01-16 00:00 | o2_saturation | 98 | % | + + + +---------+ | 2023-01-16 00:00 | o2_saturation | 99 | % | + + + +---------+ | 2023-01-16 00:00 | respiration_rate | 16 | /min | + + + +---------+ | 2023-01-16 00:00 | respiration_rate | 17 | /min | + + + +---------+ | 2023-01-16 00:00 | temperature_metric | 36.89 | C | | | | | | + + + +---------+ | 2023-01-16 00:00 | temperature_metric | 37.5 | C | | | | | | + + + +---------+ | 2023-01-16 00:00 | | 98.4 | F | | | temperature_standar | | | | | d | | | + + + +---------+ | 2023-01-16 00:00 | | 99.5 | F | | | temperature_standar | | | | | d | | | + + + +---------+ | 2023-01-16 00:00 | weight_metric | 40.82 | kg | + + + +---------+ | 2023-01-16 00:00 | weight_metric | 40.99 | kg | + + + +---------+ | 2023-01-16 00:00 | weight_metric | 41 | kg | + + + +---------+ | 2023-01-16 00:00 | weight_standard | 90 | lb | + + + +---------+ | 2023-01-16 00:00 | weight_standard | 90.37 | lb | + + + +---------+ | 2023-01-16 00:00 | weight_standard | 90.38 | lb | + + + +---------+ | 2023-01-21 00:00 | BMI | 18.6 | kg/m2 | + + + +---------+ | 2023-01-21 00:00 | height_metric | 152.4 | cm | + + + +---------+ | 2023-01-21 00:00 | height_standard | 60 | in | + + + +---------+ | 2023-01-21 00:00 | weight_metric | 43.26 | kg | + + + +---------+ | 2023-01-21 00:00 | weight_standard | 95.37 | lb | + + + +---------+ | 2023-01-21 00:00 | weight_standard | 95.38 | lb | + + + +---------+ | 2023-01-22 00:00 | BMI | 18.6 | kg/m2 | + + + +---------+ | 2023-01-22 00:00 | BP_diastolic | 76 | mmHg | + + + +---------+ | 2023-01-22 00:00 | BP_diastolic | 89 | mmHg | + + + +---------+ | 2023-01-22 00:00 | BP_systolic | 121 | mmHg | + + + +---------+ | 2023-01-22 00:00 | BP_systolic | 130 | mmHg | + + + +---------+ | 2023-01-22 00:00 | BP_systolic | 144 | mmHg | + + + +---------+ | 2023-01-22 00:00 | heart_rate | 110 | /min | + + + +---------+ | 2023-01-22 00:00 | heart_rate | 115 | /min | + + + +---------+ | 2023-01-22 00:00 | heart_rate | 72 | /min | + + + +---------+ | 2023-01-22 00:00 | height_metric | 152.4 | cm | + + + +---------+ | 2023-01-22 00:00 | height_standard | 60 | in | + + + +---------+ | 2023-01-22 00:00 | o2_saturation | 97 | % | + + + +---------+ | 2023-01-22 00:00 | o2_saturation | 98 | % | + + + +---------+ | 2023-01-22 00:00 | respiration_rate | 18 | /min | + + + +---------+ | 2023-01-22 00:00 | respiration_rate | 20 | /min | + + + +---------+ | 2023-01-22 00:00 | temperature_metric | 36.33 | C | | | | | | + + + +---------+ | 2023-01-22 00:00 | temperature_metric | 36.78 | C | | | | | | + + + +---------+ | 2023-01-22 00:00 | | 97.4 | F | | | temperature_standar | | | | | d | | | + + + +---------+ | 2023-01-22 00:00 | | 98.2 | F | | | temperature_standar | | | | | d | | | + + + +---------+ | 2023-01-22 00:00 | weight_metric | 43.26 | kg | + + + +---------+ | 2023-01-22 00:00 | weight_standard | 95.37 | lb | + + + +---------+ | 2023-01-22 00:00 | weight_standard | 95.38 | lb | + + + +---------+ | 2023-01-23 00:00 | BMI | 19.3 | kg/m2 | + + + +---------+ | 2023-01-23 00:00 | height_metric | 152.4 | cm | + + + +---------+ | 2023-01-23 00:00 | height_standard | 60 | in | + + + +---------+ | 2023-01-23 00:00 | weight_metric | 44.9 | kg | + + + +---------+ | 2023-01-23 00:00 | weight_standard | 98.99 | lb | + + + +---------+ | 2023-01-27 00:00 | BP_diastolic | 93 | mmHg | + + + +---------+ | 2023-01-27 00:00 | BP_systolic | 151 | mmHg | + + + +---------+ | 2023-01-27 00:00 | heart_rate | 94 | /min | + + + +---------+ | 2023-01-27 00:00 | o2_saturation | 100 | % | + + + +---------+ | 2023-01-27 00:00 | respiration_rate | 18 | /min | + + + +---------+ | 2023-01-27 00:00 | temperature_metric | 37.5 | C | | | | | | + + + +---------+ | 2023-01-27 00:00 | | 99.5 | F | | | temperature_standar | | | | | d | | | + + + +---------+ | 2023-03-21 00:00 | BMI | 19.2 | kg/m2 | + + + +---------+ | 2023-03-21 00:00 | height_metric | 152.4 | cm | + + + +---------+ | 2023-03-21 00:00 | height_standard | 60 | in | + + + +---------+ | 2023-03-21 00:00 | weight_metric | 44.62 | kg | + + + +---------+ | 2023-03-21 00:00 | weight_standard | 98.37 | lb | + + + +---------+ | 2023-03-21 00:00 | weight_standard | 98.38 | lb | + + + +---------+ | 2023-03-22 00:00 | BMI | 17.9 | kg/m2 | + + + +---------+ | 2023-03-22 00:00 | BP_diastolic | 74 | mmHg | + + + +---------+ | 2023-03-22 00:00 | BP_diastolic | 83 | mmHg | + + + +---------+ | 2023-03-22 00:00 | BP_diastolic | 93 | mmHg | + + + +---------+ | 2023-03-22 00:00 | BP_systolic | 110 | mmHg | + + + +---------+ | 2023-03-22 00:00 | BP_systolic | 119 | mmHg | + + + +---------+ | 2023-03-22 00:00 | BP_systolic | 134 | mmHg | + + + +---------+ | 2023-03-22 00:00 | heart_rate | 114 | /min | + + + +---------+ | 2023-03-22 00:00 | heart_rate | 120 | /min | + + + +---------+ | 2023-03-22 00:00 | heart_rate | 83 | /min | + + + +---------+ | 2023-03-22 00:00 | height_metric | 152.4 | cm | + + + +---------+ | 2023-03-22 00:00 | height_standard | 60 | in | + + + +---------+ | 2023-03-22 00:00 | o2_saturation | 96 | % | + + + +---------+ | 2023-03-22 00:00 | o2_saturation | 97 | % | + + + +---------+ | 2023-03-22 00:00 | o2_saturation | 99 | % | + + + +---------+ | 2023-03-22 00:00 | respiration_rate | 16 | /min | + + + +---------+ | 2023-03-22 00:00 | respiration_rate | 17 | /min | + + + +---------+ | 2023-03-22 00:00 | respiration_rate | 18 | /min | + + + +---------+ | 2023-03-22 00:00 | temperature_metric | 36.83 | C | | | | | | + + + +---------+ | 2023-03-22 00:00 | temperature_metric | 37 | C | | | | | | + + + +---------+ | 2023-03-22 00:00 | | 98.3 | F | | | temperature_standar | | | | | d | | | + + + +---------+ | 2023-03-22 00:00 | | 98.6 | F | | | temperature_standar | | | | | d | | | + + + +---------+ | 2023-03-22 00:00 | weight_metric | 41.5 | kg | + + + +---------+ | 2023-03-22 00:00 | weight_standard | 91.49 | lb | + + + +---------+ | 2023-04-09 00:00 | BMI | 17.8 | kg/m2 | + + + +---------+ | 2023-04-09 00:00 | BP_diastolic | 109 | mmHg | + + + +---------+ | 2023-04-09 00:00 | BP_systolic | 140 | mmHg | + + + +---------+ | 2023-04-09 00:00 | heart_rate | 113 | /min | + + + +---------+ | 2023-04-09 00:00 | height_metric | 152.4 | cm | + + + +---------+ | 2023-04-09 00:00 | height_standard | 60 | in | + + + +---------+ | 2023-04-09 00:00 | o2_saturation | 98 | % | + + + +---------+ | 2023-04-09 00:00 | respiration_rate | 16 | /min | + + + +---------+ | 2023-04-09 00:00 | temperature_metric | 36.78 | C | | | | | | + + + +---------+ | 2023-04-09 00:00 | | 98.2 | F | | | temperature_standar | | | | | d | | | + + + +---------+ | 2023-04-09 00:00 | weight_metric | 41.28 | kg | + + + +---------+ | 2023-04-09 00:00 | weight_standard | 91 | lb | + + + +---------+ | 2023-04-10 00:00 | BMI | 18.6 | kg/m2 | + + + +---------+ | 2023-04-10 00:00 | BP_diastolic | 104 | mmHg | + + + +---------+ | 2023-04-10 00:00 | BP_diastolic | 71 | mmHg | + + + +---------+ | 2023-04-10 00:00 | BP_systolic | 115 | mmHg | + + + +---------+ | 2023-04-10 00:00 | BP_systolic | 143 | mmHg | + + + +---------+ | 2023-04-10 00:00 | heart_rate | 95 | /min | + + + +---------+ | 2023-04-10 00:00 | heart_rate | 97 | /min | + + + +---------+ | 2023-04-10 00:00 | height_metric | 152.4 | cm | + + + +---------+ | 2023-04-10 00:00 | height_standard | 60 | in | + + + +---------+ | 2023-04-10 00:00 | o2_saturation | 96 | % | + + + +---------+ | 2023-04-10 00:00 | respiration_rate | 14 | /min | + + + +---------+ | 2023-04-10 00:00 | respiration_rate | 17 | /min | + + + +---------+ | 2023-04-10 00:00 | temperature_metric | 37 | C | | | | | | + + + +---------+ | 2023-04-10 00:00 | | 98.6 | F | | | temperature_standar | | | | | d | | | + + + +---------+ | 2023-04-10 00:00 | weight_metric | 43.09 | kg | + + + +---------+ | 2023-04-10 00:00 | weight_standard | 95 | lb | + + + +---------+"
[2023-07-01 03:23] VITALS: BP 132/80
== END 2023-07-01 03:31 | disposition home or self-care (01) ==
LOC: ED 22:33
PROVIDERS: Emergency Medicine
DX: R11.15 Cyclical vomiting syndrome unrelated to migraine (principal); R11.0 Nausea; Z88.0 Allergy status to penicillin; Z88.2 Allergy status to sulfonamides; Z88.5 Allergy status to narcotic agent; Z88.8 Allergy status to other drugs, medicaments and biological substances
CPT/HCPCS: 36415; 80053; 81003; 83690; 85025; 96361; 96374; 96375; 96376; 99284-25; A9270; J1885; J2405; J7030

== ENCOUNTER 2023-10-21 06:52 | Emergency (ER) | payer OTHER ==
[~2023-10-21] VITALS: Ht 152.4 cm; Wt 43.3 kg
--- OUTSIDE RECORDS SUMMARY | 2023-10-21 06:54 | XMS ---
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 - Patient with suicidal and/or homicidal ideations eloped. - Patient eloped with IV in place. Details: Patient left AMA Elopement at [facility] 10/02/2022 11:15 - Patient eloped before treatment completed. - Patient with suicidal and/or homicidal ideations eloped. - Patient eloped with IV in place. Details: Patient left AMA. Returned to ED same day. Elopement at [facility] 09/06/2022 09:48 - Patient eloped before treatment completed. - Patient with suicidal and/or homicidal ideations eloped. - Patient eloped with IV in place. Details: PATIENT LWBS CRITERIA MET - 6 ED Visits in 6 Months - Group Notification [facility]-Current PHONE: Unknown -Jesika- Dentist: [employer] [facility] Dental [facility] PHONE: [phone] JEREMIAH VERA Nurse Practitioner Current PHONE: Unknown REINA, Internal Medicine [facility] LAURIE PHONE: Unknown [facility] Internal Medicine [facility] [employer] PHONE: [phone] Jatin has no Care Guidelines for this patient. Care History Medical/Surgical 03/26/2021 [facility] - PATIENT NO SHOWED TO HER ESTABLISHING CARE APT SCHEDULED WITH DR BANUELOS. - CHW WILL CONTACT [facility] CASE MANAGEMENT TEAM TO DISCUSS FURTHER 03/19/2021 [facility] - CHW RECEIVED A PHONE CALL BACK FROM PATIENT- PATIENT WOULD LIKE ASSISTANCE WITH FINDING A LOCAL PCP. - CHW DISCUSSED LOCAL PRIMARY CARE OPTIONS IN THE AREA-PATIENT WOULD LIKE [facility] FOR PRIMARY CARE. - CHW CONTACTED [facility]- AN APT HAS BEEN SET TO ESTABLISH CARE WITH DR BANUELOS 03/22/2021Friday AT 11:30AM. 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 03/19/2021 [facility] - W CALLED PATIENT AT CONTACT NUMBER [phone] AND LEFT A VOICEMAIL. Le VISIT COUNT (12 MO.) 23 [facility] Han Amezcua [facility] Deondre (Donna Thompson) TOTAL 24 NOTE: Visits indicate total known visits. ED/UCC VISIT TRACKING (12 MO.) 10/21/2023 06:52 [facility] [place] TYPE: Emergency COMPLAINT: - VOMITING, ABD PAIN 06/30/2023 22:34 [facility]ony [place] TYPE: Emergency COMPLAINT: - ABDOMINAL PAIN DIAGNOSES: - Allergy status to narcotic agent - Allergy status to other drugs, medicaments and biological substances - Allergy status to penicillin - Allergy status to sulfonamides - Cyclical vomiting syndrome unrelated to migraine - Left lower quadrant pain - Nausea 06/30/2023 03:14 [facility] [place] TYPE: Emergency COMPLAINT: - ABD PAIN DIAGNOSES: - Allergy status to narcotic agent - Allergy status to other drugs, medicaments and biological substances - Allergy status to penicillin - Allergy status to sulfonamides - Cyclical vomiting syndrome unrelated to migraine - Other penitentiary (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 - Unspecified abdominal pain 06/27/2023 01:00 [facility] [place] TYPE: Emergency COMPLAINT: - ABDOMINAL PAIN DIAGNOSES: - Allergy status to narcotic agent - Allergy status to other antibiotic agents - Allergy status to other drugs, medicaments and biological substances - Allergy status to penicillin - Allergy status to sulfonamides - Left lower quadrant pain - Other penitentiary (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 06/26/2023 07:53 [facility] [place] TYPE: Emergency COMPLAINT: - LOWER ABD PAIN, VAGINAL BLEEDING DIAGNOSES: - Abnormal uterine and vaginal bleeding, unspecified - Allergy status to analgesic agent - Allergy status to narcotic agent - Allergy status to other drugs, medicaments and biological substances - Allergy status to penicillin - Allergy status to sulfonamides - Pelvic and perineal pain - Unspecified abdominal pain 06/23/2023 17:38 [facility] [place] TYPE: Emergency COMPLAINT: - VOMITING/ABD PAIN DIAGNOSES: - Allergy status to other antibiotic agents - Allergy status to other drugs, medicaments and biological substances - Allergy status to penicillin - Allergy status to sulfonamides - Cannabis use, unspecified, uncomplicated - 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 - Patient's noncompliance with other medical treatment and regimen for other reason - Vomiting without nausea - Vomiting, unspecified 06/22/2023 22:44 [facility] [place] TYPE: Emergency COMPLAINT: - VOMITING BLOOD DIAGNOSES: - Allergy status to narcotic agent - Allergy status to other drugs, medicaments and biological substances - Allergy status to penicillin - Allergy status to sulfonamides - Cannabis use, unspecified, uncomplicated - Nausea with vomiting, unspecified - 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 - Patient's noncompliance with other medical treatment and regimen for other reason - Vomiting without nausea 06/22/2023 10:54 [facility] Deondre Thompson) TYPE: Emergency DIAGNOSES: - Unspecified abdominal pain - constipation 06/22/2023 02:41 [facility] [place] TYPE: Emergency COMPLAINT: - CONSTIPATED DIAGNOSES: - Allergy status to narcotic agent - Allergy status to other drugs, medicaments and biological substances - Allergy status to penicillin - Allergy status to sulfonamides - Constipation, unspecified - Other penitentiary (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 - Procedure and treatment not carried out because of patient's decision for other reasons 04/11/2023 15:05 [facility] TYPE: Emergency COMPLAINT: - [facility] [place] [facility] COMPLAINT: - ABD PAIN, VOMITING BLOOD DIAGNOSES: - Allergy status to narcotic agent - Allergy status to other drugs, medicaments and biological substances - Allergy status to penicillin - Allergy status to sulfonamides - Cannabis use, unspecified, uncomplicated - Gastro-esophageal laceration-hemorrhage syndrome - Nausea with vomiting, unspecified - 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 04/10/2023 04:45 [facility] [place] [facility] COMPLAINT: - NAUSEA,VOMITING DIAGNOSES: - Allergy status to narcotic agent - Allergy status to other drugs, medicaments and biological substances - Allergy status to penicillin - Allergy status to sulfonamides - Nausea with vomiting, unspecified 04/09/2023 06:27 [facility] [place] [facility] COMPLAINT: - ABD PAIN DIAGNOSES: - Allergy status to narcotic agent - Allergy status to other drugs, medicaments and biological substances - Allergy status to penicillin - Allergy status to sulfonamides - Cyclical vomiting syndrome unrelated to migraine - Hypomagnesemia - Nausea with vomiting, unspecified - 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 03/22/2023 13:[address] [facility] [place] TYPE: Emergency COMPLAINT: - VOMITING BLOOD, NAUSEA, VOMITING DIAGNOSES: - Allergy status to narcotic agent - Allergy status to other drugs, medicaments and biological substances - Allergy status to penicillin - Allergy status to sulfonamides - Hematemesis - Nausea with vomiting, unspecified 03/21/2023 20:[address] [facility] [place] TYPE: Emergency COMPLAINT: - VOMITING BLOOD DIAGNOSES: - Allergy status to narcotic agent - Allergy status to other drugs, medicaments and biological substances - Allergy status to penicillin - Allergy status to sulfonamides - Cannabis use, unspecified, uncomplicated - Vomiting without nausea - Vomiting, unspecified 01/23/2023 15:[address] [facility] [place] TYPE: Emergency COMPLAINT: - VOMITING 01/22/2023 14:54 [facility] [place] TYPE: Emergency COMPLAINT: - VOMITING DIAGNOSES: - Allergy status to narcotic agent - Allergy status to other drugs, medicaments and biological substances - Allergy status to penicillin - Allergy status to sulfonamides - Cyclical vomiting syndrome unrelated to migraine - Dehydration - 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 01/22/2023 05:36 [facility] [place] TYPE: Emergency COMPLAINT: - ABD PAIN,NAUSEA DIAGNOSES: - Allergy status to narcotic agent - Allergy status to other drugs, medicaments and biological substances - Allergy status to penicillin - Allergy status to sulfonamides - Left lower quadrant pain - Nausea with vomiting, unspecified - 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 01/21/2023 22:28 [facility] [place] COMPLAINT: - ABDOMINAL PAIN DIAGNOSES: - Allergy status to narcotic agent - Allergy status to other drugs, medicaments and biological substances - Allergy status to penicillin - Allergy status to sulfonamides - Constipation, unspecified - Left lower quadrant pain - 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 - Pelvic and perineal pain 01/16/2023 08:56 [facility] [place] Emergency COMPLAINT: - VOMITING DIAGNOSES: - Allergy status to narcotic agent - Allergy status to other drugs, medicaments and biological substances - Allergy status to penicillin - Allergy status to sulfonamides - Nausea with vomiting, unspecified - Other chronic pain - Pelvic and perineal pain Plus 4 More Visits INPATIENT VISIT TRACKING (12 MO.) 04/13/2023 10:[address] [facility] [place] TYPE: Medical [...] - Other penitentiary (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 - Other penitentiary (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 - Other specified anxiety [...] - Other penitentiary (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 - Other penitentiary (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 - Other specified postprocedural states - Other specified postprocedural states - Vomiting, unspecified [email or web address]
[2023-10-21 07:21] LABS: BASOPHILS 1.1 % (0-2); EOSINOPHILS 2.6 % (0-6); HEMATOCRIT 39.6 % (35.0-50.0); HEMOGLOBIN 13.5 g/dL (12.0-18.0); LYMPHOCYTES 17.9 % (24-44); MCH 29.2 (27-36); MCHC 34.1 g/dl (30-36); MCV 85.8 fl (81-99); MONOCYTES 4.3 % (0-12); NEUTROPHILS 74.1 % (39-80); PLATELET COUNT 217 K/uL (140-440); RBC 4.61 M/ul (4.3-5.7); RDW 13.1 (10.5-15.0)
[2023-10-21] MEDS ORDERED: ONDANSETRON ODT4 MG PO (07:24)
[2023-10-21 07:36] LABS: ALBUMIN 4.5 g/dL (3.4-5.0); ALBUMIN/GLOBULIN RATIO 1.22 (1.1-2.4); ANION GAP 14.5 (7-21); BILIRUBIN, TOTAL 0.4 ng/dL (0.2-1.0); BUN/CREATININE RATIO 9.41 (6.0-28.6); CALCIUM 8.8 mg/dL (8.5-10.1); CREATININE, SERUM 0.85 mg/dL (0.55-1.02); POTASSIUM 3.5 mmol/L (3.5-5.1); PROTEIN, TOTAL 8.2 g/dL (6.4-8.2)
[2023-10-21] MEDS ORDERED: HYDROXYZINE HCL25 MG PO (08:44)
[2023-10-21 11:15] VITALS: BP 105/87
== END 2023-10-21 11:20 | disposition home or self-care (01) ==
LOC: ED 06:52
PROVIDERS: Emergency Medicine
DX: R11.10 Vomiting, unspecified (principal); Z88.0 Allergy status to penicillin; Z88.2 Allergy status to sulfonamides; Z88.5 Allergy status to narcotic agent; Z88.8 Allergy status to other drugs, medicaments and biological substances
CPT/HCPCS: 36415; 80053; 83690; 84703; 85025; J1200; J1885; J2060; J2405; J7030

== ENCOUNTER 2023-10-24 04:57 | Emergency (ER) | payer OTHER ==
[~2023-10-24] VITALS: Ht 152.4 cm; Wt 43.3 kg
[~2023-10-24 04:57] MED LIST changes: +ONDANSETRON ODT4 MG PO
--- OUTSIDE RECORDS SUMMARY | 2023-10-24 05:01 | XMS ---
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 - Patient with suicidal and/or homicidal ideations eloped. - Patient eloped with IV in place. Details: Patient left AMA Elopement at [facility] 10/02/2022 11:15 - Patient eloped before treatment completed. - Patient with suicidal and/or homicidal ideations eloped. - Patient eloped with IV in place. Details: Patient left AMA. Returned to ED same day. Elopement at [facility] 09/06/2022 09:48 - Patient eloped before treatment completed. - Patient with suicidal and/or homicidal ideations eloped. - Patient eloped with IV in place. 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 Care History Medical/Surgical 03/26/2021 [facility] - PATIENT NO SHOWED TO HER ESTABLISHING CARE APT SCHEDULED WITH DR BANUELOS. - W WILL CONTACT [facility] CASE MANAGEMENT TEAM TO DISCUSS FURTHER 03/19/2021 [facility] - CHW RECEIVED A PHONE CALL BACK FROM PATIENT- PATIENT WOULD LIKE ASSISTANCE WITH FINDING A LOCAL PCP. - CHW DISCUSSED LOCAL PRIMARY CARE OPTIONS IN THE AREA-PATIENT WOULD LIKE [facility] FOR PRIMARY CARE. - CHW CONTACTED [facility]- AN APT HAS BEEN SET TO ESTABLISH CARE WITH DR BANUELOS 03/22/2021Friday AT 11:30AM. 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 03/19/2021 [facility] - CHW CALLED PATIENT AT CONTACT NUMBER [phone] AND LEFT A VOICEMAIL. Le VISIT COUNT (12 MO.) 24 [facility] Han Amezc[address] Kim Mendosa (Donna Thompson) TOTAL 25 NOTE: Visits indicate total known visits. ED/UCC VISIT TRACKING (12 MO.) [facility] [place] [facility] COMPLAINT: - ABD PAIN 10/21/2023 06:52 [facility] [place] TYPE: Emergency COMPLAINT: - VOMITING, ABD PAIN DIAGNOSES: - Allergy status to narcotic agent - Allergy status to other drugs, medicaments and biological substances - Allergy status to penicillin - Allergy status to sulfonamides - Vomiting, unspecified 06/30/2023 22:34 [facility] [place] TYPE: Emergency COMPLAINT: - [...] vomiting syndrome unrelated to migraine - Other fci (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 - Unspecified abdominal pain 06/27/2023 01:00 [facility] [place] TYPE: Emergency COMPLAINT: - ABDOMINAL PAIN DIAGNOSES: - Allergy status to narcotic agent - Allergy status to other antibiotic agents - Allergy status to other drugs, medicaments and biological substances - Allergy status to penicillin - Allergy status to sulfonamides - Left lower quadrant pain - 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 DIAGNOSES: - Unspecified abdominal pain - constipation 06/22/2023 02:41 [facility] [place] TYPE: Emergency COMPLAINT: - CONSTIPATED DIAGNOSES: - Allergy status to narcotic agent - Allergy status to other drugs, medicaments and biological substances - Allergy status to penicillin - Allergy status to sulfonamides - Constipation, unspecified - Other fci (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 - Procedure and treatment not carried out because of patient's decision for other reasons 04/11/2023 15:[address] [facility] [address] [facility] [place] TYPE: Emergency COMPLAINT: - VOMITING 04/10/2023 15:[address] [facility] [address] 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 [facility] [place] TYPE: Emergency COMPLAINT: - NAUSEA,VOMITING DIAGNOSES: - Allergy status to narcotic agent - Allergy status to other drugs, medicaments and biological substances - Allergy status to penicillin - Allergy status to sulfonamides - Nausea with vomiting, unspecified 04/09/2023 06[facility]27 [facility] [place] [facility]: [facility] COMPLAINT: - ABD PAIN DIAGNOSES: - Allergy status to narcotic agent - Allergy status to other drugs, medicaments and biological substances - Allergy status to penicillin - Allergy status to sulfonamides - Cyclical vomiting syndrome unrelated to migraine - Hypomagnesemia - Nausea with vomiting, unspecified - Other fci (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 03/22/2023 13:54 [facility] [place] TYPE: Emergency COMPLAINT: - VOMITING BLOOD, NAUSEA, VOMITING DIAGNOSES: - Allergy status to narcotic agent - Allergy status to other drugs, medicaments and biological substances - Allergy status to penicillin - Allergy status to sulfonamides - Hematemesis - Nausea with vomiting, unspecified 03/21/2023 20:39 [facility] [place] TYPE: Emergency COMPLAINT: - VOMITING BLOOD DIAGNOSES: - Allergy status to narcotic agent - Allergy status to other drugs, medicaments and biological substances - Allergy status to penicillin - Allergy status to sulfonamides - Cannabis use, unspecified, uncomplicated - Vomiting without nausea - Vomiting, unspecified 01/23/2023 15:34 [facility] Pablo Pena HArmando [place] TYPE: Emergency COMPLAINT: - VOMITING 01/22/2023 14:54 [facility] Pablo Pena HArmando [place] TYPE: Emergency COMPLAINT: - VOMITING DIAGNOSES: - Allergy status to narcotic agent - Allergy status to other drugs, medicaments and biological substances - Allergy status to penicillin - Allergy status to sulfonamides - Cyclical vomiting syndrome unrelated to migraine - Dehydration - Other 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 (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 01/22/2023 05:36 [facility] Pablo Pena [place]rmando [place] TYPE: Emergency COMPLAINT: - ABD PAIN,NAUSEA DIAGNOSES: - Allergy status to narcotic agent - Allergy status to other drugs, medicaments and biological substances - Allergy status to penicillin - Allergy status to sulfonamides - Left lower quadrant pain - Nausea with vomiting, unspecified - Other fci (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 01/21/2023 22:28 [facility] Pablo Pena HArmando [place] TYPE: Emergency COMPLAINT: - ABDOMINAL PAIN DIAGNOSES: - Allergy status to narcotic agent - Allergy status to other drugs, medicaments and biological substances - Allergy status to penicillin - Allergy status to sulfonamides - Constipation, unspecified - Left lower quadrant pain - Other 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
[2023-10-24 05:30] LABS: BASOPHILS 0.5 % (0-2); EOSINOPHILS 0.2 % (0-6); HEMATOCRIT 44.6 % (35.0-50.0); HEMOGLOBIN 14.6 g/dL (12.0-18.0); LYMPHOCYTES 19.4 % (24-44); MCH 28.4 (27-36); MCHC 32.7 g/dl (30-36); MCV 86.8 fl (81-99); MONOCYTES 5.3 % (0-12); NEUTROPHILS 74.6 % (39-80); PLATELET COUNT 215 K/uL (140-440); RBC 5.14 M/ul (4.3-5.7); RDW 13.1 (10.5-15.0)
[2023-10-24 06:09] LABS: ALBUMIN 4.7 g/dL (3.4-5.0); ALBUMIN/GLOBULIN RATIO 1.18 (1.1-2.4); ANION GAP 18.9 (7-21); BILIRUBIN, TOTAL 1.1 ng/dL (0.2-1.0); CALCIUM 9.1 mg/dL (8.5-10.1); CREATININE, SERUM 0.8 mg/dL (0.55-1.02); POTASSIUM 3.9 mmol/L (3.5-5.1); PROTEIN, TOTAL 8.7 g/dL (6.4-8.2)
[2023-10-24 06:12] LABS: BILIRUBIN, URINE POSITIVE (negative); BLOOD/HGB, URINE MODERATE (Negative); KETONE, URINE >=80 (Negative); LEUK ESTERASE, URINE NEGATIVE (negative); NITRITE, URINE NEGATIVE (negative); PH, URINE 5.5 (5-7)
[2023-10-24 06:24] LABS: EPITHELIAL CELLS, URINE SQUAMOUS 2+ /lpf (0-1+); REFLEX CULTURE, URINE No (No)
[2023-10-24 06:25] VITALS: BP 156/115
== END 2023-10-24 06:25 | disposition home or self-care (01) ==
LOC: ED 04:57
PROVIDERS: Emergency Medicine
DX: R11.15 Cyclical vomiting syndrome unrelated to migraine (principal); Z88.0 Allergy status to penicillin; Z88.2 Allergy status to sulfonamides; Z88.5 Allergy status to narcotic agent; Z88.8 Allergy status to other drugs, medicaments and biological substances; Z79.899 Other long term (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
CPT/HCPCS: 36415; 80053; 81001; 83690; 85025; 96374; 96375; 99284-25; J1200; J2405; J7030

== ENCOUNTER 2023-10-24 09:43 | Emergency (ER) | payer OTHER ==
[~2023-10-24] VITALS: Ht 152.4 cm; Wt 43.3 kg
--- OUTSIDE RECORDS SUMMARY | 2023-10-24 09:47 | XMS ---
PreManage Notification: ASPEN HONG Security Distance Learning Coordinator Events 3 event(s) in the past 18 months Most recent security events: Elopement at [facility] 06/22/2023 02:41 - Patient eloped before treatment completed. - Patient with suicidal and/or homicidal ideations eloped. - Patient eloped with IV in place. 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 Care History Medical/Surgical 03/26/2021 [facility] - PATIENT NO SHOWED TO HER ESTABLISHING CARE APT SCHEDULED WITH DR BANUELOS. - W WILL CONTACT [facility] CASE MANAGEMENT TEAM TO DISCUSS FURTHER 03/19/2021 [facility] - CHW RECEIVED A PHONE CALL BACK FROM PATIENT- PATIENT WOULD LIKE ASSISTANCE WITH FINDING A LOCAL PCP. - CHW DISCUSSED LOCAL PRIMARY CARE OPTIONS IN THE AREA-PATIENT WOULD LIKE [facility] FOR PRIMARY CARE. - CHW CONTACTED [facility]- AN APT HAS BEEN SET TO ESTABLISH CARE WITH DR BANUELOS 03/22/2021Friday AT 11:30AM. - CHW PROVIDED [employer] TRANSPORTATION NUMBER TO PATIENT FOR FUTURE APTS AND PHARMACY MEDICATION PRESIDENT [employer]. 03/19/2021 [facility] - CHW CALLED PATIENT AT CONTACT NUMBER [phone] AND LEFT A VOICEMAIL. Le VISIT COUNT (12 MO.) [facility] [address] [address] Kim Mendosa (Donna Thompson) TOTAL 26 NOTE: Visits indicate total known visits. ED/UCC VISIT TRACKING (12 MO.) 10/24/2023 09:44 [facility] [place] [facility]: Emergency COMPLAINT: - VOMITING 10/24/2023 04:58 [facility] [place] TYPE: Emergency COMPLAINT: - ABD [...] vomiting syndrome unrelated to migraine - Other residential (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 - Unspecified abdominal pain 06/27/2023 01:00 [facility] [place] TYPE: Emergency COMPLAINT: - ABDOMINAL PAIN DIAGNOSES: - Allergy status to narcotic agent - Allergy status to other antibiotic agents - Allergy status to other drugs, medicaments and biological substances - Allergy status to penicillin - Allergy status to sulfonamides - Left lower quadrant pain - Other residential (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 06/26/2023 07:53 ZEFERINO Sinclair [...] - Unspecified abdominal pain 06/23/2023 17:38 [facility] [place] TYPE: Emergency COMPLAINT: - VOMITING/ABD PAIN DIAGNOSES: - Allergy status to other antibiotic agents - Allergy status to other drugs, medicaments and biological substances - Allergy status to penicillin - Allergy status to sulfonamides - Cannabis use, unspecified, uncomplicated - Other terminal carman (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 - Patient's noncompliance with other medical treatment and regimen for other reason - Vomiting without nausea - Vomiting, unspecified 06/22/2023 22:[address] [facility] [address] [facility] Trev[place]Armando [place] TYPE: Emergency COMPLAINT: - VOMITING BLOOD DIAGNOSES: - Allergy status to narcotic agent - Allergy status to other drugs, medicaments and biological substances - Allergy status to penicillin - Allergy status to sulfonamides - Cannabis use, unspecified, uncomplicated - Nausea with vomiting, unspecified - Other residential (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 - Patient's noncompliance with other medical treatment and regimen for other reason - Vomiting without nausea 06/22/2023 10:54 [facility]: Emergency DIAGNOSES: - Unspecified abdominal pain - constipation 06/22/2023 02:41 [facility] [place]rmando [place] TYPE: Emergency COMPLAINT: - CONSTIPATED DIAGNOSES: - Allergy status to narcotic agent - Allergy status to other drugs, medicaments and biological substances - Allergy status to penicillin - Allergy status to sulfonamides - Constipation, unspecified - Other terminal carman (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 - Procedure and treatment not carried out because of patient's decision for other reasons 04/11/2023 15:05 [facility] [place] HArmando [place] TYPE: Emergency COMPLAINT: - [...] Nausea with vomiting, unspecified - Other terminal carman (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 04/10/2023 04:45 [facility] [place] TYPE: Emergency COMPLAINT: - NAUSEA,VOMITING DIAGNOSES: - Allergy status to narcotic agent - Allergy status to other drugs, medicaments and biological substances - Allergy status to penicillin - Allergy status to sulfonamides - Nausea with vomiting, unspecified 04/09/2023 06:27 [facility] [place] Han [place] TYPE: Emergency COMPLAINT: - ABD PAIN DIAGNOSES: - Allergy status to narcotic agent - Allergy status to other drugs, medicaments and biological substances - Allergy status to penicillin - Allergy status to sulfonamides - Cyclical vomiting syndrome unrelated to migraine - Hypomagnesemia - Nausea with vomiting, unspecified - Other residential (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 03/22/2023 13:54 [facility] [place] Han [place] TYPE: Emergency COMPLAINT: - VOMITING BLOOD, NAUSEA, VOMITING DIAGNOSES: - Allergy status to narcotic agent - Allergy status to other drugs, medicaments and biological substances - Allergy status to penicillin - Allergy status to sulfonamides - Hematemesis - Nausea with vomiting, unspecified 03/21/2023 20:39 [facility] [place]rmando [place] TYPE: Emergency COMPLAINT: - VOMITING BLOOD DIAGNOSES: - Allergy status to narcotic agent - Allergy status to other drugs, medicaments and biological substances - Allergy status to penicillin - Allergy status to sulfonamides - Cannabis use, unspecified, uncomplicated - Vomiting without nausea - Vomiting, unspecified 01/23/2023 15:[address] [facility] [address] [facility] [place] TYPE: Emergency COMPLAINT: - VOMITING 01/22/2023 14:[address] [facility] [address] [facility] [place] TYPE: Emergency COMPLAINT: - VOMITING DIAGNOSES: - Allergy status to narcotic agent - Allergy status to other drugs, medicaments and biological substances - Allergy status to penicillin - Allergy status to sulfonamides - Cyclical vomiting syndrome unrelated to migraine - Dehydration - Other residential (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 01/22/2023 05:[address] [facility] [address] [facility] [place] TYPE: Emergency COMPLAINT: - ABD PAIN,NAUSEA DIAGNOSES: - Allergy status to narcotic agent - Allergy status to other drugs, medicaments and biological substances - Allergy status to penicillin - Allergy status to sulfonamides - Left lower quadrant pain - Nausea with vomiting, unspecified - Other residential (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 Plus 6 More Visits INPATIENT VISIT TRACKING (12 MO.) [...] Nausea with vomiting, unspecified - Other terminal carman (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 - Other residential (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 - Other specified anxiety [...] - Nausea with vomiting, unspecified - Other residential (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 - Other terminal carman (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 - Other specified postprocedural states - Other specified postprocedural states - Vomiting, unspecified [email or web address]
[2023-10-24 11:00] VITALS: BP 00/00
== END 2023-10-24 11:00 | disposition other institution, planned readmission (95) ==
LOC: ED 09:43
DX: R11.2 Nausea with vomiting, unspecified (principal); F12.90 Cannabis use, unspecified, uncomplicated; Z53.29 Procedure and treatment not carried out because of patient's decision for other reasons; Z88.0 Allergy status to penicillin; Z88.2 Allergy status to sulfonamides; Z88.5 Allergy status to narcotic agent; Z88.8 Allergy status to other drugs, medicaments and biological substances
CPT/HCPCS: 99284; A9270

== ENCOUNTER 2023-10-26 01:05 | Emergency (ER) | payer OTHER ==
[~2023-10-26] VITALS: Ht 152.4 cm; Wt 41.0 kg
--- OUTSIDE RECORDS SUMMARY | 2023-10-26 01:06 | XMS ---
PreManage Notification: ASPEN HONG Security Social Worker Health Services Events 3 event(s) in the past 18 months Most recent security events: Elopement at [facility] 06/22/2023 02:41 - Patient eloped before treatment completed. - Patient with suicidal and/or homicidal ideations eloped. - Patient eloped with IV in place. Details: Patient left AMA Elopement at [facility] 10/02/2022 11:15 - Patient eloped before treatment completed. - Patient with suicidal and/or homicidal ideations eloped. - Patient eloped with IV in place. Details: Patient left AMA. Returned to ED same day. Elopement at [facility] 09/06/2022 09:48 - Patient eloped before treatment completed. - Patient with suicidal and/or homicidal ideations eloped. - Patient eloped with IV in place. 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 Care History Medical/Surgical 03/26/2021 [facility] - PATIENT NO SHOWED TO HER ESTABLISHING CARE APT SCHEDULED WITH DR BANUELOS. 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 03/19/2021 [facility] - CHW CALLED PATIENT AT CONTACT NUMBER [phone] AND LEFT A VOICEMAIL. Le VISIT COUNT (12 MO.) [facility] Han [facility]ua [facility] (Donna Thompson) TOTAL 27 NOTE: Visits indicate total known visits. ED/UCC VISIT TRACKING (12 MO.) 10/26/2023 01:05 [facility] [place] [facility] COMPLAINT: - ABD PAIN 10/24/2023 09:44 [facility] [place] TYPE: Emergency COMPLAINT: - VOMITING 10/24/2023 04:58 [facility] [place] TYPE: Emergency COMPLAINT: - ABD PAIN 10/21/2023 06:52 [facility] [place] TYPE: Emergency COMPLAINT: - VOMITING, ABD PAIN DIAGNOSES: - Allergy status to narcotic agent - Allergy status to other drugs, medicaments and biological substances - Allergy status to penicillin - Allergy status to sulfonamides - Vomiting, unspecified 06/30/2023 22:34 [facility] [place]ando [place] TYPE: Emergency COMPLAINT: - [...] vomiting syndrome unrelated to migraine - Other correction (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 - Unspecified abdominal pain 06/27/2023 01:00 [facility] [place] TYPE: Emergency COMPLAINT: - ABDOMINAL PAIN DIAGNOSES: - Allergy status to narcotic agent - Allergy status to other antibiotic agents - Allergy status to other drugs, medicaments and biological substances - Allergy status to penicillin - Allergy status to sulfonamides - Left lower quadrant pain - Other correction (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 06/26/2023 07:53 ZEFERINO Sinclair [...] pain - Unspecified abdominal pain 06/23/2023 17:38 [facility] [place] [facility]: [facility] COMPLAINT: - VOMITING/ABD PAIN DIAGNOSES: - Allergy status to other antibiotic agents - Allergy status to other drugs, medicaments and biological substances - Allergy status to penicillin - Allergy status to sulfonamides - Cannabis use, unspecified, uncomplicated - Other correction (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 - Patient's noncompliance with other medical treatment and regimen for other reason - Vomiting without nausea - Vomiting, unspecified 06/22/2023 22:44 [facility] [place] TYPE: Emergency COMPLAINT: - VOMITING BLOOD DIAGNOSES: - Allergy status to narcotic agent - Allergy status to other drugs, medicaments and biological substances - Allergy status to penicillin - Allergy status to sulfonamides - Cannabis use, unspecified, uncomplicated - Nausea with vomiting, unspecified - Other correction (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 - Patient's noncompliance with other medical treatment and regimen for other reason - Vomiting without nausea 06/22/2023 10:54 [place] [place] TYPE: Emergency DIAGNOSES: - Unspecified abdominal pain - constipation 06/22/2023 02:41 [facility] [place] TYPE: Emergency COMPLAINT: - CONSTIPATED DIAGNOSES: - Allergy status to narcotic agent - Allergy status to other drugs, medicaments and biological substances - Allergy status to penicillin - Allergy status to sulfonamides - Constipation, unspecified - Other clinical lab scientist (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 - Procedure and treatment [...] - Nausea with vomiting, unspecified - Other clinical lab scientist (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 04/10/2023 04:45 [facility] [place] TYPE: Emergency COMPLAINT: - [...] - Nausea with vomiting, unspecified - Other clinical lab scientist (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 03/22/2023 13:54 [facility] [place] TYPE: Emergency COMPLAINT: [...] unrelated to migraine - Dehydration - Other correction (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 Plus 7 More Visits INPATIENT VISIT TRACKING (12 MO.) [...] - Nausea with vomiting, unspecified - Other correction (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 - Other correction (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 - Other specified anxiety [...] - Nausea with vomiting, unspecified - Other correction (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 - Other correction (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 - Other specified postprocedural states - Other specified postprocedural states - Vomiting, unspecified [email or web address]
[2023-10-26 01:26] LABS: BASOPHILS 0.1 % (0-2); EOSINOPHILS 0.1 % (0-6); HEMATOCRIT 38.9 % (35.0-50.0); HEMOGLOBIN 13.1 g/dL (12.0-18.0); LYMPHOCYTES 11.3 % (24-44); MCHC 33.7 g/dl (30-36); NEUTROPHILS 84.5 % (39-80); PLATELET COUNT 200 K/uL (140-440); RBC 4.52 M/ul (4.3-5.7); RDW 13.1 (10.5-15.0)
[2023-10-26 01:41] LABS: ALBUMIN 4.2 g/dL (3.4-5.0); ALBUMIN/GLOBULIN RATIO 1.11 (1.1-2.4); ANION GAP 22.5 (7-21); BUN/CREATININE RATIO 15.18 (6.0-28.6); CALCIUM 8.9 mg/dL (8.5-10.1); CREATININE, SERUM 0.79 mg/dL (0.55-1.02); MAGNESIUM 1.8 mg/dL (1.8-2.4); POTASSIUM 3.5 mmol/L (3.5-5.1)
[2023-10-26 02:01] VITALS: BP 110/68
[2023-10-26] MEDS ORDERED: ONDANSETRON ODT8 MG PO (23:08)
[2023-10-26] MEDS ORDERED: MELOXICAM7.5 MG PO (23:08)
[2023-10-26] MEDS ORDERED: CYCLOBENZAPRINE10 MG PO (23:08)
== END 2023-10-26 02:01 | disposition home or self-care (01) ==
LOC: ED 01:05
PROVIDERS: Family Medicine
DX: N94.6 Dysmenorrhea, unspecified (principal); Z88.0 Allergy status to penicillin; Z88.2 Allergy status to sulfonamides; Z88.5 Allergy status to narcotic agent; Z88.8 Allergy status to other drugs, medicaments and biological substances; Z79.899 Other long term (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
CPT/HCPCS: 36415; 80053; 83735; 84703; 85025; 96374; 96375; 99283-25; J1885; J2405

== ENCOUNTER 2023-10-26 17:40 | Emergency (ER) | payer OTHER ==
[~2023-10-26] VITALS: Ht 152.4 cm; Wt 41.0 kg
--- OUTSIDE RECORDS SUMMARY | 2023-10-26 17:43 | XMS ---
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 - Patient with suicidal and/or homicidal ideations eloped. - Patient eloped with IV in place. Details: Patient left AMA Elopement at [facility] 10/02/2022 11:15 - Patient eloped before treatment completed. - Patient with suicidal and/or homicidal ideations eloped. - Patient eloped with IV in place. Details: Patient left AMA. Returned to ED same day. Elopement at [facility] 09/06/2022 09:48 - Patient eloped before treatment completed. - Patient with suicidal and/or homicidal ideations eloped. - Patient eloped with IV in place. Details: PATIENT LWBS CRITERIA MET - 6 ED Visits in 6 Months - Group Notification - [facility] - 2 Visits in 30 Days [facility]Current PHONE: Unknown -Jesika- Dentist: Junior Electrical Engineer [facility] PHONE: [phone] JEREMIAH VERA Nurse Practitioner Current PHONE: Unknown [facility] Internal Medicine [facility] LAURIE PHONE: Unknown [facility] Internal Medicine Current [employer] PHONE: [phone] Jatin has no Care Guidelines for this patient. Care History Medical/Surgical 03/26/2021 [facility] - PATIENT NO SHOWED TO HER ESTABLISHING CARE APT SCHEDULED WITH DR BANUELOS. - W WILL CONTACT [facility] CASE MANAGEMENT TEAM TO DISCUSS FURTHER 03/19/2021 [facility] - CHW RECEIVED A PHONE CALL BACK FROM PATIENT- PATIENT WOULD LIKE ASSISTANCE WITH FINDING A LOCAL PCP. - CHW DISCUSSED LOCAL PRIMARY CARE OPTIONS IN THE AREA-PATIENT WOULD LIKE [facility] FOR PRIMARY CARE. - CHW CONTACTED [facility]- AN APT HAS BEEN SET TO ESTABLISH CARE WITH DR BANUELOS 03/22/2021Friday AT 11:30AM. 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 03/19/2021 [facility] - CHW CALLED PATIENT AT CONTACT NUMBER [phone] AND LEFT A VOICEMAIL. Le VISIT COUNT (12 MO[address] [facility] Han Ame[address] [place] [address] Kim Mendosa (Donna Thompson) TOTAL 28 NOTE: Visits indicate total known visits. ED/UCC VISIT TRACKING (12 MO.) 10/26/2023 17:40 [facility] [place] [facility]: Emergency COMPLAINT: - BACK PAIN 10/26/2023 01:05 [facility] [place] TYPE: Emergency COMPLAINT: - ABD PAIN 10/24/2023 09:44 [facility] [place] TYPE: Emergency COMPLAINT: - VOMITING 10/24/2023 04:58 [facility] [place] TYPE: Emergency COMPLAINT: - ABD PAIN 10/21/2023 06:52 [facility] [place] TYPE: Emergency COMPLAINT: - VOMITING, ABD PAIN DIAGNOSES: - Allergy status to narcotic agent - Allergy status to other drugs, medicaments and biological substances - Allergy status to penicillin - Allergy status to sulfonamides - Vomiting, unspecified 06/30/2023 22:34 [facility]INO Garciaony Han [place] [...] vomiting syndrome unrelated to migraine - Other director long term care (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 - Unspecified abdominal pain 06/27/2023 01:00 [facility] [place] TYPE: Emergency COMPLAINT: - ABDOMINAL PAIN DIAGNOSES: - Allergy status to narcotic agent - Allergy status to other antibiotic agents - Allergy status to other drugs, medicaments and biological substances - Allergy status to penicillin - Allergy status to sulfonamides - Left lower quadrant pain - Other nursing home (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 06/26/2023 07:53 [facility] [...] - Cannabis use, unspecified, uncomplicated - Other director long term care (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 - Patient's noncompliance with [...] - Nausea with vomiting, unspecified - Other director long term care (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 - Patient's noncompliance with other medical treatment and regimen for other reason - Vomiting without nausea 06/22/2023 10:54 [facility] Deondre Thompson) TYPE: Emergency DIAGNOSES: - Unspecified abdominal pain - constipation 06/22/2023 02:41 [facility] [place] TYPE: Emergency COMPLAINT: - CONSTIPATED DIAGNOSES: - Allergy status to narcotic agent - Allergy status to other drugs, medicaments and biological substances - Allergy status to penicillin - Allergy status to sulfonamides - Constipation, unspecified - Other nursing home (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 - Procedure and treatment not carried out because of patient's decision for other reasons 04/11/2023 15:05 ZEFERINO Smith TYPE: Emergency COMPLAINT: - VOMITING 04/10/2023 15:40 [facility] [place] [facility] COMPLAINT: - ABD PAIN, VOMITING BLOOD DIAGNOSES: - Allergy status to narcotic agent - Allergy status to other drugs, medicaments and biological substances - Allergy status to penicillin - Allergy status to sulfonamides - Cannabis use, unspecified, uncomplicated - Gastro-esophageal laceration-hemorrhage syndrome - Nausea with vomiting, unspecified - Other director long term care (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 04/10/2023 04:45 [facility] [place] [facility] COMPLAINT: - NAUSEA,VOMITING DIAGNOSES: - Allergy status to narcotic agent - Allergy status to other drugs, medicaments and biological substances - Allergy status to penicillin - Allergy status to sulfonamides - Nausea with vomiting, unspecified 04/09/2023 06:27 [facility] [place] [facility] COMPLAINT: - ABD PAIN DIAGNOSES: - Allergy status to narcotic agent - Allergy status to other drugs, medicaments and biological substances - Allergy status to penicillin - Allergy status to sulfonamides - Cyclical vomiting syndrome unrelated to migraine - Hypomagnesemia - Nausea with vomiting, unspecified - Other director long term care (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 03/22/2023 13:54 [facility] [place] TYPE: Emergency COMPLAINT: - VOMITING BLOOD, NAUSEA, VOMITING DIAGNOSES: - Allergy status to narcotic agent - Allergy status to other drugs, medicaments and biological substances - Allergy status to penicillin - Allergy status to sulfonamides - Hematemesis - Nausea with vomiting, unspecified 03/21/2023 20:39 [facility] [place] TYPE: Emergency COMPLAINT: - VOMITING BLOOD DIAGNOSES: - Allergy status to narcotic agent - Allergy status to other drugs, medicaments and biological substances - Allergy status to penicillin - Allergy status to sulfonamides - Cannabis use, unspecified, uncomplicated - Vomiting without nausea - Vomiting, unspecified 01/23/2023 15:34 [facility] [place] TYPE: Emergency COMPLAINT: - VOMITING Plus 8 More Visits INPATIENT VISIT TRACKING (12 MO.) [...] - Nausea with vomiting, unspecified - Other director long term care (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 - Other nursing home (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 - Other specified anxiety disorders - Other specified anxiety disorders - Other specified postprocedural states - Other specified postprocedural states - Personal history of other diseases of the nervous system and sense organs - Personal history of other diseases of the nervous system and sense organs - Postcholecystectomy syndrome - Postcholecystectomy syndrome 01/25/2023 12:53 [place] TYPE: Medical Surgical COMPLAINT: - CANNABIS [...] - Nausea with vomiting, unspecified - Other director long term care (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 - Other director long term care (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 - Other specified postprocedural states - Other specified postprocedural states - Vomiting, unspecified [email or web address]
[2023-10-26] MEDS ORDERED: ONDANSETRON ODT8 MG PO (23:08)
[2023-10-26] MEDS ORDERED: CYCLOBENZAPRINE10 MG PO (23:08)
[2023-10-26] MEDS ORDERED: MELOXICAM7.5 MG PO (23:08)
[2023-10-26 23:29] VITALS: BP 166/99
== END 2023-10-26 23:29 | disposition home or self-care (01) ==
LOC: ED 17:40
DX: R10.2 Pelvic and perineal pain (principal); R11.0 Nausea; Z88.0 Allergy status to penicillin; Z88.1 Allergy status to other antibiotic agents; Z88.2 Allergy status to sulfonamides; Z88.5 Allergy status to narcotic agent; Z88.8 Allergy status to other drugs, medicaments and biological substances
CPT/HCPCS: 74177; 76830; 76856; A9270; J1100; J1200; J1885; J2405; J7030; Q9967

== ENCOUNTER 2023-10-28 01:18 | Emergency (ER) | payer OTHER ==
[~2023-10-28] VITALS: Ht 152.4 cm; Wt 41.0 kg
[~2023-10-28 01:18] MED LIST changes: +CYCLOBENZAPRINE10 MG PO; +MELOXICAM7.5 MG PO
--- OUTSIDE RECORDS SUMMARY | 2023-10-28 01:21 | XMS ---
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 - Patient with suicidal and/or homicidal ideations eloped. - Patient eloped with IV in place. Details: Patient left AMA Elopement at [facility] 10/02/2022 11:15 - Patient eloped before treatment completed. - Patient with suicidal and/or homicidal ideations eloped. - Patient eloped with IV in place. Details: Patient left AMA. Returned to ED same day. Elopement at [facility] 09/06/2022 09:48 - Patient eloped before treatment completed. - Patient with suicidal and/or homicidal ideations eloped. - Patient eloped with IV in place. Details: PATIENT LWBS CRITERIA MET - 6 ED Visits in 6 Months - Group Notification - [facility] - 2 Visits in 30 Days [facility]-Current PHONE: Unknown -Jesika- Dentist: Force Dispatcher [facility] PHONE: [phone] JEREIMAH VERA Nurse Practitioner Current PHONE: Unknown [facility] Internal Medicine [facility] LAURIE PHONE: Unknown [facility] Internal Medicine Current [employer] PHONE: [phone] Jatin has no Care Guidelines for this patient. Care History Medical/Surgical 03/26/2021 [facility] - PATIENT NO SHOWED TO HER ESTABLISHING CARE APT SCHEDULED WITH DR BANUELOS. 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 03/19/2021 [facility] - CHW CALLED PATIENT AT CONTACT NUMBER [phone] AND LEFT A VOICEMAIL. Le VISIT COUNT (12 MO.) 28 [facility] Han Ame[address] [place] [address] Kim Mendosa (Donna Thompson) TOTAL 29 NOTE: Visits indicate total known visits. ED/UCC VISIT TRACKING (12 MO.) 10/28/2023 01:18 [facility] [place] [facility] COMPLAINT: - DIZZINESS 10/26/2023 17:40 [facility] TYPE: Emergency COMPLAINT: - BACK PAIN 10/26/2023 01:[address] [facility] [place] TYPE: Emergency COMPLAINT: - ABD PAIN 10/24/2023 09:44 [facility] [place] TYPE: Emergency COMPLAINT: - VOMITING DIAGNOSES: - Allergy status to narcotic agent - Allergy status to other drugs, medicaments and biological substances - Allergy status to penicillin - Allergy status to sulfonamides - Cannabis use, unspecified, uncomplicated - Nausea with vomiting, unspecified - Procedure and treatment not carried out because of patient's decision for other reasons 10/24/2023 04:58 [facility] [place] TYPE: Emergency COMPLAINT: - ABD PAIN DIAGNOSES: - Allergy status to narcotic agent - Allergy status to other drugs, medicaments and biological substances - Allergy status to penicillin - Allergy status to sulfonamides - Cyclical vomiting syndrome unrelated to migraine - Nausea with vomiting, unspecified - Other intermediate (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 10/21/2023 06:52 [facility] [place] TYPE: Emergency COMPLAINT: - VOMITING, ABD PAIN DIAGNOSES: - Allergy status to narcotic agent - Allergy status to other drugs, medicaments and biological substances - Allergy status to penicillin - Allergy status to sulfonamides - Vomiting, unspecified 06/30/2023 22:34 [facility] [place] TYPE: Emergency COMPLAINT: - ABDOMINAL [...] vomiting syndrome unrelated to migraine - Other terminal manager (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 - Unspecified abdominal pain 06/27/2023 01:00 [facility] [place] TYPE: Emergency COMPLAINT: - ABDOMINAL PAIN DIAGNOSES: - Allergy status to narcotic agent - Allergy status to other antibiotic agents - Allergy status to other drugs, medicaments and biological substances - Allergy status to penicillin - Allergy status to sulfonamides - Left lower quadrant pain - Other intermediate (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 06/26/2023 07:53 [facility] [place] TYPE: Emergency COMPLAINT: - LOWER ABD PAIN, VAGINAL BLEEDING DIAGNOSES: - Abnormal uterine and vaginal bleeding, unspecified - Allergy status to analgesic agent - Allergy status to narcotic agent - Allergy status to other drugs, medicaments and biological substances - Allergy status to penicillin - Allergy status to sulfonamides - Pelvic and perineal pain - Unspecified abdominal pain 06/23/2023 17:38 [facility] [place] TYPE: Emergency COMPLAINT: - VOMITING/ABD PAIN DIAGNOSES: - Allergy status to other antibiotic agents - Allergy status to other drugs, medicaments and biological substances - Allergy status to penicillin - Allergy status to sulfonamides - Cannabis use, unspecified, uncomplicated - Other terminal manager (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 - Patient's noncompliance with [...] Nausea with vomiting, unspecified - Other terminal manager (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 - Patient's noncompliance with other medical treatment and regimen for other reason - Vomiting without nausea 06/22/2023 10:54 [facility] DIAGNOSES: - Unspecified abdominal pain - constipation 06/22/2023 02:41 [facility] [place] TYPE: Emergency COMPLAINT: - CONSTIPATED DIAGNOSES: - Allergy status to narcotic agent - Allergy status to other drugs, medicaments and biological substances - Allergy status to penicillin - Allergy status to sulfonamides - Constipation, unspecified - Other terminal manager (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 - Procedure and treatment not carried out because of patient's decision for other reasons 04/11/2023 15:[address] [facility] [place] TYPE: Emergency COMPLAINT: - VOMITING 04/10/2023 15:[address] [facility] [place] TYPE: Emergency COMPLAINT: - ABD PAIN, VOMITING BLOOD DIAGNOSES: - Allergy status to narcotic agent - Allergy status to other drugs, medicaments and biological substances - Allergy status to penicillin - Allergy status to sulfonamides - Cannabis use, unspecified, uncomplicated - Gastro-esophageal laceration-hemorrhage syndrome - Nausea with vomiting, unspecified - Other intermediate (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 04/10/2023 04:[address] [facility] [place] TYPE: Emergency COMPLAINT: - NAUSEA,VOMITING DIAGNOSES: - Allergy status to narcotic agent - Allergy status to other drugs, medicaments and biological substances - Allergy status to penicillin - Allergy status to sulfonamides - Nausea with vomiting, unspecified 04/09/2023 06:27 [facility] Garciajose Tre[place]Armando [place] TYPE: Emergency COMPLAINT: - ABD PAIN DIAGNOSES: - Allergy status to narcotic agent - Allergy status to other drugs, medicaments and biological substances - Allergy status to penicillin - Allergy status to sulfonamides - Cyclical vomiting syndrome unrelated to migraine - Hypomagnesemia - Nausea with vomiting, unspecified - Other terminal manager (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 03/22/2023 13:54 [facility] [place] TYPE: Emergency [...] - Vomiting without nausea - Vomiting, unspecified Plus 9 More Visits INPATIENT VISIT TRACKING (12 MO.) [...] Nausea with vomiting, unspecified - Other terminal manager (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 - Other terminal manager (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 - Other specified anxiety [...] Nausea with vomiting, unspecified - Other terminal manager (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 - Other terminal manager (current) drug therapy - Other specified postprocedural states - Other specified postprocedural states - Vomiting, unspecified [email or web address]
[2023-10-28 03:48] VITALS: BP 134/96
== END 2023-10-28 03:48 | disposition home or self-care (01) ==
LOC: ED 01:18
DX: N92.1 Excessive and frequent menstruation with irregular cycle (principal); Z88.0 Allergy status to penicillin; Z88.2 Allergy status to sulfonamides; Z88.5 Allergy status to narcotic agent; Z88.8 Allergy status to other drugs, medicaments and biological substances
CPT/HCPCS: 96374; 96375; 96376; 99284-25; J1100; J1200; J1885; J2405

== ENCOUNTER 2023-12-15 08:51 | Emergency (ER) | payer OTHER ==
[~2023-12-15] VITALS: Ht 152.4 cm; Wt 45.6 kg
[2023-12-15] MEDS ORDERED: LORAZEPAM0.5 MG PO ×2 (09:04→10:14)
[2023-12-15] MEDS ORDERED: ASHLYNA 0.15-01 EACH PO (09:04)
[2023-12-15 09:12] LABS: BASOPHILS 0.2 % (0-2); EOSINOPHILS 0.1 % (0-6); HEMATOCRIT 40.8 % (35.0-50.0); HEMOGLOBIN 13.6 g/dL (12.0-18.0); MCH 29.2 (27-36); MCHC 33.3 g/dl (30-36); MCV 87.9 fl (81-99); MONOCYTES 1.7 % (0-12); PLATELET COUNT 227 K/uL (140-440); RBC 4.64 M/ul (4.3-5.7); RDW 13.9 (10.5-15.0)
[2023-12-15 09:27] LABS: ALBUMIN 3.7 g/dL (3.4-5.0); ALBUMIN/GLOBULIN RATIO 0.8 (1.1-2.4); BILIRUBIN, TOTAL 0.4 ng/dL (0.2-1.0); BUN/CREATININE RATIO 14.08 (6.0-28.6); CALCIUM 8.9 mg/dL (8.5-10.1); CREATININE, SERUM 0.71 mg/dL (0.55-1.02); PROTEIN, TOTAL 8.3 g/dL (6.4-8.2)
[2023-12-15 10:20] VITALS: BP 130/83
== END 2023-12-15 10:22 | disposition home or self-care (01) ==
LOC: ED 08:51
PROVIDERS: Emergency Medicine
DX: R11.15 Cyclical vomiting syndrome unrelated to migraine (principal); Z88.0 Allergy status to penicillin; Z88.2 Allergy status to sulfonamides; Z88.5 Allergy status to narcotic agent; Z88.8 Allergy status to other drugs, medicaments and biological substances
CPT/HCPCS: 36415; 80053; 83690; 83735; 85025; 96361; 96374; 96375; 99284-25; J1200; J2060; J7030

== ENCOUNTER 2024-03-23 05:50 | Day surgery (SDC) | payer OTHER ==
[2024-03-17 15:22] VITALS: BP 102/70
[~2024-03-23] VITALS: Ht 152.4 cm; Wt 51.4 kg
[~2024-03-23 05:50] MED LIST changes: +ALLERGY MEDICAT25 MG PO; +ASHLYNA 0.15-01 EACH PO; +LACTATED RINGER'S 1,000 ML IV SCH; +LORAZEPAM0.5 MG PO
[2024-03-23 06:05] VITALS: BP 109/77
[2024-03-23] MEDS ORDERED: propofoL 200 MG/20 ML VIAL ONE ×2 (06:34→07:32)
[2024-03-23] MEDS ORDERED: ROCURONIUM BROMIDE 50 MG/5 ML SYR ONE ×2 (06:34→07:49)
[2024-03-23] MEDS ORDERED: LIDOCAINE HCL 4% 5 ML AMP ONE (06:34)
[2024-03-23] MEDS ORDERED: DEXAMETHASONE SOD PHOS 4 MG/ML VIAL ONE ×2 (06:34→06:35)
[2024-03-23] MEDS ORDERED: LACTATED RINGER'S 1,000 ML IV ONE (06:34)
[2024-03-23] MEDS ORDERED: METOCLOPRAMIDE HCL 10 MG/2 ML SDV ONE (06:34)
[2024-03-23] MEDS ORDERED: KETOROLAC TROMETHAMINE 30 MG/ML VIAL ONE (06:34)
[2024-03-23] MEDS ORDERED: fentaNYL citrate 100 MCG/2 ML VIAL ONE (06:34)
[2024-03-23] MEDS ORDERED: FAMOTIDINE 20 MG/ 2 ML VIAL ONE (06:34)
[2024-03-23] MEDS ORDERED: ondansetron HCL 4 MG/2 ML VIAL ONE (06:34)
[2024-03-23] MEDS ORDERED: SUGAMMADEX SODIUM 200 MG/2 ML ML ONE (06:34)
[2024-03-23] MEDS ORDERED: MIDAZOLAM HCL 2 MG/2 ML VIAL ONE (06:34)
[2024-03-23] MEDS ORDERED: SUCCINYLCHOLINE IN 0.9% NACL 200 MG/10 ML SYRINGE ONE (06:34)
[2024-03-23] MEDS ORDERED: dexmedeTOMIDine HCl 200 MCG/2 ML VIAL ONE (06:35)
[2024-03-23] MEDS ORDERED: SODIUM CHLORIDE 0.9% 100 ML IV ONE (06:42)
[2024-03-23] MEDS ORDERED: LORazepam 2 MG/ML VIAL ONE (06:57)
[2024-03-23] MEDS ORDERED: CEFAZOLIN SODIUM 2 GM/20 ML SYR IV SCH (07:00)
[2024-03-23] MEDS ORDERED: IBLOOD GLUCOSE TEST STRIP 1 EA TEST VI PRN ×2 (07:00→08:30)
[2024-03-23] MEDS ORDERED: LIDOCAINE HCL 1% 5 ML SDV INJ ONE (07:00)
[2024-03-23] MEDS ORDERED: METOPROLOL TARTRATE 5 MG/5 ML VIAL ONE (08:17)
[2024-03-23] MEDS ORDERED: fentaNYL citrate 50 MCG/ML SDV IV PRN (08:30)
[2024-03-23] MEDS ORDERED: NALOXONE HCL 0.4 MG SYR IV PRN ×2 (08:30→09:45)
[2024-03-23] MEDS ORDERED: MEPERIDINE HCL 25 MG/1 ML VIAL IV PRN (08:30)
[2024-03-23] MEDS ORDERED: ondansetron HCL 4 MG/2 ML VIAL IV PRN ×2 (08:30→09:45)
[2024-03-23] MEDS ORDERED: KETAMINE in NS 50 MG/5 ML SYR ONE (08:36)
[2024-03-23] MEDS ORDERED: FLUORESCEIN SODIUM 500 MG/5 ML ML ONE (08:40)
[2024-03-23] MEDS ORDERED: OXYCODONE HCL 5 MG TAB PO PRN (09:45)
[2024-03-23] MEDS ORDERED: FAMOTIDINE 20 MG TAB PO PRN (09:45)
[2024-03-23] MEDS ORDERED: SIMETHICONE 125 MG TABLET CHEWABLE PO PRN (09:45)
[2024-03-23] MEDS ORDERED: FAMOTIDINE 20 MG/ 2 ML VIAL IV PRN (09:45)
[2024-03-23] MEDS ORDERED: MAGNESIUM HYDROXIDE/AL HYDROX 30 ML CUP PO PRN (09:45)
--- NOTE | 2024-03-23 09:50 | NUR ---
03/23/24 0950 Jaycee Islas 0917 PT ARRIVED IN PACU NON RESPONSIVE TO NOXIOUS STIMULI WITH OPA IN PLACE. CHIN LIFT HELD BY RN. 0920 REPOSITIONED PT'S HEAD TO RIGHT SIDE TO KEEP AIRWAY OPEN WITHOUT CHIN LIFT. 0935 ANESTHESIA AT BEDSIDE. NO CHANGE IN PT. 0949 PT REMAINS NON RESPONSIVE TO NOXIOUS STIMULI WITH OPA IN PLACE.
[2024-03-23 11:25] VITALS: BP 113/80
--- NOTE | 2024-03-23 11:36 | NUR ---
1125 REPORT TAKEN FROM ARIES Cm RN. PT ARRIVED TO DAY SURGERY FROM PACU VIA STRECHER. PT LETHARGIC, WILL OPEN EYES WITH PHYSICAL STIMULATION. PT REPORTS 'BEING COLD' WHEN PT IS WOKEN UP AND SHIVERS UNTIL COVERED WITH WARM BLANKETS AGAIN THEN PT FALLS BACK ASLEEP. PT BREATHING EUQAL AND UNLABORED WHILE SLEEPING. IV ASSESSED, VITALS TAKEN, PT LETHARGIC AND DOES NOT COMMUNICATE PAIN. CALL LIGHT WITHIN REACH. BED LOW AND LOCKED. CONTINUOUS PULSE OX LEFT IN PLACE.
[2024-03-23 12:25] VITALS: BP 120/89
--- NOTE | 2024-03-23 12:28 | NUR ---
1225 HOURLY ROUNDING DONE. PT SIGNIFCANT OTHER AT BEDSIDE. PT DROWSEY BUT AWAKES TO VOICE NOW. PT REPORTS NO PAIN. VITALS TAKEN IV ASSESSED. PT BREATHING EQUAL AND UNLABORED. PT GOES RIGHT BACK TO SLEEP AFTER ANSWERING WITH ONE WORD ANSWERS.
[2024-03-23] MEDS ORDERED: SIMETHICONE 125 MG TABLET CHEWABLE PO SCH (13:00)
[2024-03-23 13:30] VITALS: BP 124/93
--- NOTE | 2024-03-23 13:42 | NUR ---
1310 WENT INTO PT ROOM TO DO HOURLY ROUNDING. PT ABLE TO WAKE TO VOICE AND TOLD ME HER PAIN WAS 'UNBAREABLE'. GOT PT WATER AND CRACKERS. PT WAS ABLE TO EAT TWO CRACKERS. 1320 VITALS TAKEN, IV ASSESSED. 1325 OXYCODONE GIVEN FOR 7/10 PAIN. PT SITTING UP AND NOW IS NAUSOUS. 1337 4 MG OF ZOFRAN GIVEN IV. 1345 PT SITTING IN BED WITH BOYFRIEND AT BEDSIDE. CALL LIGHT WITHIN REACH. PERSONAL ITEMS WITHIN REACH.
--- NOTE | 2024-03-23 13:56 | NUR ---
1357 WENT INTO PT ROOM AND PT IS RESTING. PT REPORTS 5/10 PAIN, NOT TOLERABLE BUT 'GETTING BETTER'. PT REPORTS NO MORE NAUSEA. PT HAS SIGNIFICANT OTHER AT BEDSIDE. SIGNIFICANT OTHER REPORTS HELPING PT GET UP TO USE BATHROOM WHILE NURSE WAS OUT OF THE ROOM, UNABLE TO VERIFY HOW MUCH PT WAS ABLE TO URINATE. CALL LIGHT WITHIN REACH.
[2024-03-23 14:16] VITALS: BP 129/90
--- NOTE | 2024-03-23 14:25 | NUR ---
[address] ARANA IN REGARDS TO PT. PT TOLERATING PO FLUID AND SNACKS. PT 5/10 PAIN AND REQUESTING TO GO HOME. INFORMED DR ARANA PT SAID THEY VOIDED BUT THIS NURSE WAS NOT ABLE TO SEE HOW MUCH WAS VOIDED. DR ARANA OK'D THIS FOR DISCHARGE. THIS NURSE WILL INFORM PT WHAT TO WATCH FOR WITH VOIDING.
--- NOTE | 2024-03-23 14:42 | NUR ---
1435 PT GETTING DRESSED WITH BOYFRIENDS ASSISTANCE. DISCHARGE INFORMATION GONE OVER WITH BOYFRIEND AND PT. PT REQUESTING 'I JUST WANT TO GO HOME' 1440 PT DRESSED, BUT HAS BECOME NAUSOUS. PT BACK IN BED TO REST AND SEE IF NAUSEA DISIPATES. BOYFRIEND AT BEDSIDE. CALL LIGHT WITHIN REACH.
--- NOTE | 2024-03-23 14:51 | NUR ---
1450 PT RESTING IN BED. SPOKE WITH BOYFRIEND AND THIS NURSE IS GOING TO LET PT REST FOR A WHILE. PT HAS CALL LIGHT WITHIN REACH, PT HAS PERSONAL ITEMS WITHIN REACH. BOYFRIEND AT BEDSIDE.
--- NOTE | 2024-03-23 15:32 | NUR ---
1520 PT REPORTS FEELING LESS NAUSOUS AND WOULD LIKE TO GO HOME. PT DRESSED AND IN WHEELCHAIR. IV DISCONTINUED. 1526 PT WHEELED OUT TO FRONT OF HOSPTIAL TO SIGNIFICANT OTHER'S CAR.
--- NOTE | 2024-03-26 16:05 | OR ---
[facility] [address] [place], [place] [address] Signed DATE OF OPERATION: 03/23/2024 SURGEON: Gm Dillon DO PREOPERATIVE DIAGNOSES: 1. Dysmenorrhea. 2. Endometriosis. POSTOPERATIVE DIAGNOSES: 1. Dysmenorrhea. 2. Endometriosis. PROCEDURES PERFORMED: 1. Total laparoscopic hysterectomy. 2. Bilateral salpingectomy. 3. Cystoscopy. PLASMA TABLE OPERATOR: Rosa Maria Rojas MD ANESTHESIA: General. ESTIMATED BLOOD LOSS: 20 mL. SPECIMENS: Uterus, tubes, and cervix. DRAINS: Diallo to gravity. FINDINGS: Normal external genitalia with normal clitoris urethral meatus, bilateral Bethune's, Bartholin's glands. Normal vagina and cervix. On laparoscopy, normal liver and stomach. In the pelvis, status post oophorectomy, however, otherwise normal uterus, tubes, and right ovary. No gross endometriosis was noted. Hemostatic at the end of procedure with excellent apical support. Normal bladder with bilateral ureteral jets at the end the procedure. Electronically Signed By: GM DILLON DO (JD) 03/26/24 1605 PATIENT NAME: ASPEN HONG OPERATIVE REPORT DATE OF : [birth year] REPORT #: [id number] PHYSICIAN: GM DILLON DO (JD) PCP: ISABEL STEELE MD REPORT IS CONFIDENTIAL AND NOT TO BE RELEASED WITHOUT AUTHORIZATION [address] [place] [address] Signed COMPLICATIONS: None. INDICATIONS: Ms. Hong is a very pleasant 33-year-old female with a history of dysmenorrhea and endometriosis. Status post prior left oophorectomy. She had failed conservative treatments and decision was made to proceed with total laparoscopic hysterectomy, bilateral salpingectomy, and cystoscopy. Risks, benefits, and alternatives were discussed in detail with the patient. The patient understands and wished to proceed with the procedure. TECHNIQUE: The patient was taken to the OR. A time-out was performed to confirm correct patient and correct procedure. General anesthesia was adequately established. The patient was prepped and draped in dorsal lithotomy position. Her feet in Yellofin stirrups. ICPs were on running. The patient received Ancef 2 g preoperatively and no heparin was indicated. A Diallo catheter was inserted. A weighted speculum was placed in the vagina and the anterior lip of the cervix was grasped with an Allis clamp. The cervix was gently dilated using Hegar dilators. A VCare uterine manipulator was placed without difficulty. The surgeon's gloves were changed. Attention was turned to the abdomen. Just inferior to the umbilicus, a prior surgical scar was noted and this was infiltrated with 0.25% Marcaine with epinephrine. A surgical scalpel made to incise through the prior surgical scar. The fascia was grasped with hemostats, elevated, and entered sharply. The peritoneum was then entered bluntly. The stay suture of 0 Vicryl was placed in the superior and inferior edge of the fascial incision. Mario Alberto operative port was placed without difficulty. Pneumoperitoneum was established. A 5 mm assist port was placed in the left lower quadrant under direct visualization without complication. An 8 mm expanding port was placed in the right lower quadrant under direct visualization without complication. Survey of the abdomen and pelvis was performed demonstrating a normal liver, stomach, and a prior left oophorectomy. No residual gross endometriosis was noted. The left fallopian tube was grasped at the fimbriated end, elevated and dissected along the mesosalpinx using the LigaSure device. This was amputated at the cornu and sent to Pathology for further evaluation. The left round ligament was fulgurated and divided and the leaves of the broad ligament were dissected from the midportion of the round ligament to the edge of the vaginal cup anteriorly and across the superior edge of the vaginal cup and from the midportion of the round ligament to the uterosacral ligament posteriorly and across the posterior edge of the vaginal cup. The uterine vessels were identified, fulgurated and excellent hemostasis was appreciated. The process was repeated on the right side with division of the right fallopian tube along the mesosalpinx, division of the right utero-ovarian ligament with excellent hemostasis. The right round ligament was then fulgurated and divided. The leaves of the broad ligament were divided same as the contralateral side and the uterine Electronically Signed By: GM KENNEDY) DO SUMIT 03/26/24 1605 PATIENT NAME: ASPEN HONG OPERATIVE REPORT DATE OF : [birth year] REPORT #: [id number] PHYSICIAN: GM DILLON DO (JD) PCP: ISABEL STEELE MD REPORT IS CONFIDENTIAL AND NOT TO BE RELEASED WITHOUT AUTHORIZATION [address] [address] Signed vessels were identified. They were then fulgurated and divided with excellent hemostasis. The uterus was blanched and colpotomy was performed using a Sonicision device. Some brisk bleeding was noted from noted from cervical vessel on the left edge and this was quickly fulgurated with excellent hemostasis with the LigaSure device. The uterus and cervix were delivered through the vagina and sent to Pathology for further evaluation. Pneumoperitoneum was reestablished by placing a wet lap into a glove. Excellent hemostasis was appreciated and the pelvis was irrigated. The colpotomy was then repaired using V-Loc suture with an Endostitch device with careful attention to incorporate the uterosacral ligaments and the vaginal epithelium with each bite. Two sutures of V-Loc suture were used as the first broke prior to the final throw. Excellent hemostasis and apical support was noted. The pelvis was again irrigated and found to be hemostatic. Tisseel was applied to the surgical site with excellent hemostasis. Pneumoperitoneum was reduced. Trocars were removed. Infraumbilical fascia was repaired using 0 Vicryl in a running nonlocked manner. Skin was reapproximated using 4-0 Vicryl and a subcuticular stitch with excellent hemostasis, after plication of the stay sutures to reinforce the fascial incision. Attention was then turned to cystoscopy. The glove was removed from the vagina and the Diallo catheter was removed from the urethra. A 70-degree cystoscope was then placed in the urethral meatus and advanced under direct visualization of the bladder. Normal bladder with bilateral ureteral jets was appreciated. The bladder was drained. Diallo catheter was reinserted. The patient was taken to PACU in good and stable condition. Sponge, needle, instrument count was correct x2 at the end of the procedure. Dr. Rojas was present and participated in all portions of the procedure. DO KATHRIN Mcdowell/CML /[id number] Copies: ~ Electronically Signed By: GM DILLON DO (JD) 03/26/24 1605 PATIENT NAME: ASPEN HONG OPERATIVE REPORT DATE OF : [birth year] REPORT #: [id number] PHYSICIAN: GM DILLON (ROMARIO) PCP: ISABEL STEELE MD REPORT IS CONFIDENTIAL AND NOT TO BE RELEASED WITHOUT AUTHORIZATION
--- NOTE | 2024-03-30 13:43 | PATH ---
[facility] [address], [place] [address] Signed SPECIMEN(S): A CERVIX, UTERUS, BILATERAL TUBES SPECIMEN SOURCE: A. CERVIX, UTERUS, BILATERAL TUBES CLINICAL HISTORY: Dysmenorrhea; endometriosis. FINAL PATHOLOGIC DIAGNOSIS: Uterus with bilateral fallopian tubes, hysterectomy with bilateral salpingectomy: - Secretory phase endometrium; no hyperplasia or neoplasia identified - Cervix with no significant pathologic changes - Bilateral fallopian tubes with no significant pathologic changes BRP MICROSCOPIC EXAMINATION: Histologic sections of all submitted blocks are examined by light microscopy. These findings, together with the gross examination, support the pathologic diagnosis. GROSS DESCRIPTION: The specimen, labeled and designated "Saulo Hong, " and designated on the requisition "uterus, cervix, bilateral fallopian tubes," is received in formalin and consists of 70 gram uterus and cervix with fallopian tubes. The uterus is 4.1 x 3.4 x 7.5 cm (cornu-cornu x anterior-posterior x fundus-ectocervix). The serosal surface is violaceous and smooth with one subserosal nodule that is 0.3 cm in greatest dimension. The ectocervical mucosa is pale pink and smooth. Serial sectioning of the cervix fails to demonstrate any gross abnormalities. The irregular shaped endometrial cavity is lined by pink-red shaggy endometrium that has an average thickness of 0.4 cm. Sectioning through the uterus reveals a pink moderately trabeculated myometrium. The first fallopian tube is 4.7 x 0.9 cm, with delicate fimbriae. The serosa is violaceous and smooth. Cut sections reveal a pinpoint lumen. The second fallopian tube is 4.4 x 0.8 cm, with delicate fimbriae. The serosa is violaceous and smooth and inked. Cut sections reveal a pinpoint lumen. Frog Farmer sections are submitted in 6 cassettes. PATIENT NAME: ASPEN HONG PATHOLOGY DATE OF : [birth year] REPORT #: [id number] PHYSICIAN: [facility] PCP: ISABEL STEELE MD REPORT IS CONFIDENTIAL AND NOT TO BE RELEASED WITHOUT AUTHORIZATION [facility] [address] [place], [place] [address] Signed Cassette Summary: (A1) first fallopian tube (A2) second fallopian tube (A3) cervix (A4-A5) uterine wall (A6) additional sections of serosa with subserosal nodule FB (under the direct supervision of a pathologist) The Gross Description was prepared using a voice recognition system. The report was reviewed for accuracy; however, sound-alike word errors, addition and/or deletions may occur. If there is any question about this report, please contact Client Services. ADDITIONAL NOTES: Immunohistochemical and/or in situ hybridization studies if performed in this case included appropriate positive controls that reacted as expected. This test was developed and its performance characteristics determined by [facility]. It has not been cleared or approved by the U.S. Food and Drug Administration. The FDA has determined that such clearance or approval is not necessary. This test is used for clinical purposes. It should not be regarded as investigational or for research. [facility] is certified under the Clinical Laboratory Improvement Amendments of 1988 (CLIA) as qualified to perform high complexity clinical laboratory testing. PERFORMING LABORATORY: Technical component was performed by [facility], [address] [place] [id number] (CLIA# [id number]). Professional interpretation was performed by [facility] - [address] [id number] Diagnostician: Dajuan Maher MD Pathologist Electronically Signed 03/30/2024 Copies: ~ PATIENT NAME: ASPEN HONG PATHOLOGY DATE OF : [birth year] REPORT #: [id number] PHYSICIAN: MURRAY LIZAMA PCP: ISABEL STEELE MD REPORT IS CONFIDENTIAL AND NOT TO BE RELEASED WITHOUT AUTHORIZATION
== END 2024-03-23 15:26 | disposition home or self-care (01) ==
LOC: OPS 05:50 → DS 05:50 → OPS 07:30
PROVIDERS: ATTEND Obstetrics & Gynecology
PROC: 0UT94ZZ Resection of Uterus, Percutaneous Endoscopic Approach (ICD-10-PCS; principal; 2024-03-23 07:30)
PROC: 0UT74ZZ Resection of Bilateral Fallopian Tubes, Percutaneous Endoscopic Approach (ICD-10-PCS; 2024-03-23 07:30)
DX: N94.6 Dysmenorrhea, unspecified (principal); N80.00 Endometriosis of the uterus, unspecified; Z79.899 Other long term (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; Z88.0 Allergy status to penicillin; Z88.2 Allergy status to sulfonamides; Z88.5 Allergy status to narcotic agent; Z88.8 Allergy status to other drugs, medicaments and biological substances; Z88.6 Allergy status to analgesic agent; Z87.898 Personal history of other specified conditions
CPT/HCPCS: 00952; 88307; A9270; J0330; J0690; J1100; J1885; J2250; J2405; J2704; J2765; J3010; J3490; J7121

== ENCOUNTER 2024-03-24 08:21 | Emergency (ER) | payer OTHER ==
[~2024-03-24] VITALS: Ht 152.4 cm; Wt 55.0 kg
[~2024-03-24 08:21] MED LIST changes: -LACTATED RINGER'S 1,000 ML IV SCH
[2024-03-24] MEDS ORDERED: diphenhydrAMINE HCL 50 MG/ML VIAL IV ONE (09:00)
[2024-03-24] MEDS ORDERED: SODIUM CHLORIDE 0.9% 1,000 ML IV PRN (09:00)
[2024-03-24] MEDS ORDERED: METOCLOPRAMIDE HCL 10 MG/2 ML SDV IV ONE (09:00)
[2024-03-24 09:14] LABS: BASOPHILS 0.4 % (0-2); HEMATOCRIT 33.1 % (35.0-50.0); HEMOGLOBIN 11.2 g/dL (12.0-18.0); LYMPHOCYTES 7.7 % (24-44); MCH 28.8 (27-36); MCHC 33.7 g/dl (30-36); MCV 85.4 fl (81-99); MONOCYTES 6.3 % (0-12); NEUTROPHILS 85.6 % (39-80); PLATELET COUNT 186 K/uL (140-440); RBC 3.88 M/ul (4.3-5.7)
[2024-03-24 09:20] LABS: BILIRUBIN, URINE NEGATIVE (negative); BLOOD/HGB, URINE NEGATIVE (Negative); KETONE, URINE NEGATIVE (Negative); LEUK ESTERASE, URINE NEGATIVE (negative); NITRITE, URINE NEGATIVE (negative)
[2024-03-24] MEDS ORDERED: KETOROLAC TROMETHAMINE 15 MG/ML VIAL IV ONE (09:30)
[2024-03-24] MEDS ORDERED: HYDROCODONE/ACETA 5/325 TAB PO ONE (09:30)
[2024-03-24 09:31] LABS: ALBUMIN 3.6 g/dL (3.4-5.0); ALBUMIN/GLOBULIN RATIO 0.97 (1.1-2.4); ANION GAP 14.8 (7-21); BILIRUBIN, TOTAL 0.8 ng/dL (0.2-1.0); BUN/CREATININE RATIO 10.25 (6.0-28.6); CALCIUM 8.2 mg/dL (8.5-10.1); CREATININE, SERUM 0.78 mg/dL (0.55-1.02); POTASSIUM 3.8 mmol/L (3.5-5.1); PROTEIN, TOTAL 7.3 g/dL (6.4-8.2)
[2024-03-24] MEDS ORDERED: OXYCODONE HCL 5 MG TAB PO ONE (10:15)
[2024-03-24 10:33] VITALS: BP 119/84
== END 2024-03-24 10:45 | disposition home or self-care (01) ==
LOC: ED 08:21
PROVIDERS: Emergency Medicine
DX: R11.2 Nausea with vomiting, unspecified (principal); G89.18 Other acute postprocedural pain; Z88.0 Allergy status to penicillin; Z88.2 Allergy status to sulfonamides; Z91.048 Other nonmedicinal substance allergy status; Z79.899 Other long term (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
CPT/HCPCS: 36415; 80053; 81003; 85025; 96361; 96374; 96375; 99284-25; J1200; J1885; J7030

== ENCOUNTER 2024-07-04 14:38 | Emergency (ER) | payer OTHER ==
[~2024-07-04] VITALS: Ht 152.4 cm; Wt 53.7 kg
[2024-07-04 14:58] LABS: BASOPHILS 0.7 % (0-2); EOSINOPHILS 1.3 % (0-6); HEMATOCRIT 39.1 % (35.0-50.0); HEMOGLOBIN 13.3 g/dL (12.0-18.0); LYMPHOCYTES 18.2 % (24-44); MCH 28.6 (27-36); MONOCYTES 4.9 % (0-12); NEUTROPHILS 74.9 % (39-80); PLATELET COUNT 205 K/uL (140-440); RBC 4.65 M/ul (4.3-5.7); RDW 13.7 (10.5-15.0)
[2024-07-04] MEDS ORDERED: ondansetron HCL 4 MG/2 ML VIAL IV ONE (15:00)
[2024-07-04] MEDS ORDERED: diphenhydrAMINE HCL 50 MG/ML VIAL IV ONE (15:00)
[2024-07-04] MEDS ORDERED: KETOROLAC TROMETHAMINE 15 MG/ML VIAL IV ONE (15:00)
[2024-07-04] MEDS ORDERED: ONDANSETRON ODT4 MG PO (15:11)
[2024-07-04 15:14] LABS: ALBUMIN 4.2 g/dL (3.4-5.0); ALBUMIN/GLOBULIN RATIO 1.11 (1.1-2.4); ANION GAP 14.5 (7-21); BILIRUBIN, TOTAL 0.4 ng/dL (0.2-1.0); BUN/CREATININE RATIO 12.04 (6.0-28.6); CALCIUM 9.1 mg/dL (8.5-10.1); CREATININE, SERUM 0.83 mg/dL (0.55-1.02); POTASSIUM 3.5 mmol/L (3.5-5.1)
[2024-07-04] MEDS ORDERED: SODIUM CHLORIDE 0.9% 1,000 ML IV PRN (15:30)
[2024-07-04 16:17] VITALS: BP 129/81
== END 2024-07-04 16:16 | disposition home or self-care (01) ==
LOC: ED 14:38
PROVIDERS: Emergency Medicine
DX: R10.12 Left upper quadrant pain (principal); Z88.0 Allergy status to penicillin; Z88.2 Allergy status to sulfonamides; Z88.5 Allergy status to narcotic agent; Z88.8 Allergy status to other drugs, medicaments and biological substances; Z91.09 Other allergy status, other than to drugs and biological substances; Z79.899 Other long term (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
CPT/HCPCS: 36415; 80053; 83690; 85025; J1200; J1885; J2405; J7030

== ENCOUNTER 2024-07-31 06:57 | Emergency (ER) | payer OTHER ==
[~2024-07-31] VITALS: Ht 152.4 cm; Wt 54.0 kg
[2024-07-31 07:11] LABS: BASOPHILS 0.5 % (0-2); EOSINOPHILS 2.2 % (0-6); HEMATOCRIT 39.4 % (35.0-50.0); HEMOGLOBIN 13.4 g/dL (12.0-18.0); LYMPHOCYTES 31.6 % (24-44); MCH 28.7 (27-36); MCHC 33.9 g/dl (30-36); MCV 84.7 fl (81-99); MONOCYTES 5.5 % (0-12); NEUTROPHILS 60.2 % (39-80); PLATELET COUNT 218 K/uL (140-440); RBC 4.65 M/ul (4.3-5.7); RDW 14.2 (10.5-15.0)
[2024-07-31 07:27] LABS: ALBUMIN 4.2 g/dL (3.4-5.0); ALBUMIN/GLOBULIN RATIO 1.11 (1.1-2.4); ANION GAP 16.7 (7-21); BILIRUBIN, TOTAL 0.5 ng/dL (0.2-1.0); BUN/CREATININE RATIO 12.64 (6.0-28.6); CALCIUM 9.1 mg/dL (8.5-10.1); CREATININE, SERUM 0.87 mg/dL (0.55-1.02); MAGNESIUM 1.6 mg/dL (1.8-2.4); POTASSIUM 3.7 mmol/L (3.5-5.1)
[2024-07-31] MEDS ORDERED: LORazepam 2 MG/ML VIAL IV ONE (07:30)
[2024-07-31] MEDS ORDERED: ondansetron HCL 4 MG/2 ML VIAL IV ONE ×2 (07:30→08:15)
[2024-07-31] MEDS ORDERED: FAMOTIDINE 20 MG/ 2 ML VIAL IV ONE (07:30)
[2024-07-31] MEDS ORDERED: diphenhydrAMINE HCL 50 MG/ML VIAL IV ONE (07:30)
[2024-07-31] MEDS ORDERED: SODIUM CHLORIDE 0.9% 1,000 ML IV PRN (07:30)
[2024-07-31 09:51] VITALS: BP 128/70
== END 2024-07-31 09:50 | disposition home or self-care (01) ==
LOC: ED 06:57
PROVIDERS: Emergency Medicine
DX: R10.32 Left lower quadrant pain (principal); R11.2 Nausea with vomiting, unspecified; Z90.49 Acquired absence of other specified parts of digestive tract; Z88.0 Allergy status to penicillin; Z88.2 Allergy status to sulfonamides; Z91.048 Other nonmedicinal substance allergy status; Z88.8 Allergy status to other drugs, medicaments and biological substances
CPT/HCPCS: 36415; 80053; 80307; 83690; 83735; 85025; 96374; 96375; 96376; 99284-25; J1200; J2060; J2405; J7030

== ENCOUNTER 2024-08-12 06:13 | Emergency (ER) | payer OTHER ==
[~2024-08-12] VITALS: Ht 152.4 cm; Wt 50.0 kg
[2024-08-12 06:25] LABS: BASOPHILS 0.2 % (0-2); EOSINOPHILS 0.6 % (0-6); HEMATOCRIT 39.8 % (35.0-50.0); HEMOGLOBIN 13.3 g/dL (12.0-18.0); MCH 28.6 (27-36); MCHC 33.4 g/dl (30-36); MCV 85.5 fl (81-99); MONOCYTES 3.4 % (0-12); NEUTROPHILS 83.8 % (39-80); PLATELET COUNT 186 K/uL (140-440); RBC 4.66 M/ul (4.3-5.7); RDW 14.7 (10.5-15.0)
[2024-08-12] MEDS ORDERED: diphenhydrAMINE HCL 50 MG/ML VIAL IV ONE (06:30)
[2024-08-12] MEDS ORDERED: FAMOTIDINE 20 MG/ 2 ML VIAL IV ONE (06:30)
[2024-08-12] MEDS ORDERED: KETOROLAC TROMETHAMINE 30 MG/ML VIAL IV ONE (06:30)
[2024-08-12] MEDS ORDERED: LACTATED RINGER'S 1,000 ML IV ONE (06:30)
[2024-08-12 06:41] LABS: ALBUMIN 4.1 g/dL (3.4-5.0); ALBUMIN/GLOBULIN RATIO 1.11 (1.1-2.4); ANION GAP 13.7 (7-21); BILIRUBIN, TOTAL 0.5 ng/dL (0.2-1.0); BUN/CREATININE RATIO 13.25 (6.0-28.6); CALCIUM 9.3 mg/dL (8.5-10.1); CREATININE, SERUM 0.83 mg/dL (0.55-1.02); POTASSIUM 3.7 mmol/L (3.5-5.1); PROTEIN, TOTAL 7.8 g/dL (6.4-8.2)
[2024-08-12 07:00] LABS: BILIRUBIN, URINE NEGATIVE (negative); BLOOD/HGB, URINE NEGATIVE (Negative); KETONE, URINE NEGATIVE (Negative); LEUK ESTERASE, URINE TRACE (negative); NITRITE, URINE NEGATIVE (negative)
[2024-08-12 07:10] LABS: BACTERIA, URINE 1+ /hpf (negative); CASTS, URINE NONE SEEN \\lpf; COLLECTION TYPE, URINE CLEAN CATCH; CRYSTALS, URINE NONE SEEN (0-1+); EPITHELIAL CELLS, URINE SQUAMOUS 2+ /lpf (0-1+); RED BLOOD CELLS, URINE 0-1 /hpf (0-5); REFLEX CULTURE, URINE No (No)
[2024-08-12 07:21] LABS: AMPHETAMINES, URINE NEGATIVE (NEGATIVE); BARBITURATES, URINE NEGATIVE (NEGATIVE); BENZODIAZEPINE, URINE NEGATIVE (NEGATIVE); BUPRENORPHINE, URINE NEGATIVE (NEGATIVE); CANNABINOID, URINE POSITIVE (NEGATIVE); COCAINE, URINE NEGATIVE (NEGATIVE); ECSTASY, URINE NEGATIVE (NEGATIVE); FENTANYL, URINE NEGATIVE (NEGATIVE); METHADONE, URINE NEGATIVE (NEGATIVE); OPIATES, URINE NEGATIVE (NEGATIVE); OXYCODONE, URINE NEGATIVE (NEGATIVE); PHENCYCLIDINE, URINE NEGATIVE (NEGATIVE)
[2024-08-12] MEDS ORDERED: ondansetron HCL 4 MG/2 ML VIAL IV ONE (07:45)
[2024-08-12 08:09] VITALS: BP 141/89
== END 2024-08-12 08:09 | disposition home or self-care (01) ==
LOC: ED 06:13
PROVIDERS: Internal Medicine
DX: R10.12 Left upper quadrant pain (principal); R11.2 Nausea with vomiting, unspecified; Z88.0 Allergy status to penicillin; Z88.2 Allergy status to sulfonamides; Z88.5 Allergy status to narcotic agent; Z88.8 Allergy status to other drugs, medicaments and biological substances
CPT/HCPCS: 36415; 74177; 80053; 80307; 81001; 83690; 85025; 96361; 96375; 99284-25; J1200; J1885; J2405; J7121; Q9967

== ENCOUNTER 2024-08-12 13:17 | Emergency (ER) | payer OTHER ==
[~2024-08-12] VITALS: Ht 152.4 cm; Wt 49.8 kg
[2024-08-12] MEDS ORDERED: ONDANSETRON 4 MG TAB ODT SL ONE (14:15)
[2024-08-12 14:50] VITALS: BP 126/84
== END 2024-08-12 14:50 | disposition home or self-care (01) ==
LOC: ED 13:17
DX: R11.2 Nausea with vomiting, unspecified (principal); R10.9 Unspecified abdominal pain; Z79.899 Other long term (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; Z88.8 Allergy status to other drugs, medicaments and biological substances; Z91.048 Other nonmedicinal substance allergy status; Z88.2 Allergy status to sulfonamides; Z88.0 Allergy status to penicillin; Z88.5 Allergy status to narcotic agent
CPT/HCPCS: 99284; A9270

== ENCOUNTER 2024-08-14 01:07 | Emergency (ER) | payer OTHER ==
[~2024-08-14] VITALS: Ht 152.4 cm; Wt 51.2 kg
[2024-08-14] MEDS ORDERED: KETOROLAC TROMETHAMINE 30 MG/ML VIAL IV ONE (01:15)
[2024-08-14] MEDS ORDERED: diphenhydrAMINE HCL 50 MG/ML VIAL IV ONE (01:15)
[2024-08-14] MEDS ORDERED: PEPCID20 MG PO (01:15)
[2024-08-14] MEDS ORDERED: MULTIVITAMINS 10 ML,FOLIC ACID 1 MG,THIAMINE HCL 100 MG in SODIUM CHLORIDE 0.9% 1,000 ML IV ONE (01:15)
[2024-08-14] MEDS ORDERED: FAMOTIDINE 20 MG/ 2 ML VIAL IV ONE (01:15)
[2024-08-14] MEDS ORDERED: ondansetron HCL 4 MG TAB PO ONE (01:15)
[2024-08-14 01:18] LABS: BASOPHILS 0.7 % (0-2); EOSINOPHILS 0.6 % (0-6); HEMATOCRIT 39.6 % (35.0-50.0); HEMOGLOBIN 13.2 g/dL (12.0-18.0); LYMPHOCYTES 31.5 % (24-44); MCH 28.7 (27-36); MCHC 33.5 g/dl (30-36); MCV 85.7 fl (81-99); MONOCYTES 5.3 % (0-12); NEUTROPHILS 61.9 % (39-80); PLATELET COUNT 185 K/uL (140-440); RBC 4.62 M/ul (4.3-5.7); RDW 14.6 (10.5-15.0)
[2024-08-14] MEDS ORDERED: FOLIC ACID 1 MG/0.2 ML ML ONE (01:18)
[2024-08-14] MEDS ORDERED: ondansetron HCL 4 MG/2 ML VIAL IV ONE (01:30)
[2024-08-14 01:36] LABS: ALBUMIN 4.2 g/dL (3.4-5.0); ALBUMIN/GLOBULIN RATIO 1.11 (1.1-2.4); ANION GAP 17.7 (7-21); BILIRUBIN, TOTAL 1.1 ng/dL (0.2-1.0); BUN/CREATININE RATIO 15.18 (6.0-28.6); CALCIUM 9.2 mg/dL (8.5-10.1); CREATININE, SERUM 0.79 mg/dL (0.55-1.02); POTASSIUM 3.7 mmol/L (3.5-5.1)
[2024-08-14 03:03] VITALS: BP 129/88
== END 2024-08-14 03:04 | disposition home or self-care (01) ==
LOC: ED 01:07
PROVIDERS: Internal Medicine
DX: R10.10 Upper abdominal pain, unspecified (principal); R11.2 Nausea with vomiting, unspecified; Z86.74 Personal history of sudden cardiac arrest; Z88.0 Allergy status to penicillin; Z88.2 Allergy status to sulfonamides; Z91.048 Other nonmedicinal substance allergy status; Z88.8 Allergy status to other drugs, medicaments and biological substances; Z88.5 Allergy status to narcotic agent; Z88.3 Allergy status to other anti-infective agents; Z79.899 Other long term (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
CPT/HCPCS: 36415; 80053; 84703; 85025; 96374; 96375; 99284-25; J1200; J1885; J2405; J3411; J7030

== ENCOUNTER 2024-11-04 04:40 | Emergency (ER) | payer OTHER ==
[~2024-11-04] VITALS: Ht 152.4 cm; Wt 53.0 kg
[2024-11-04 04:56] LABS: HEMOGLOBIN 13.3 g/dL (12.0-18.0)
[2024-11-04 04:58] LABS: BASOPHILS 0.7 % (0-2); EOSINOPHILS 5.6 % (0-6); HEMATOCRIT 39.3 % (35.0-50.0); MCH 29.9 (27-36); MCV 88.1 fl (81-99); NEUTROPHILS 64.7 % (39-80); PLATELET COUNT 182 K/uL (140-440); RBC 4.46 M/ul (4.3-5.7); RDW 13.1 (10.5-15.0)
[2024-11-04] MEDS ORDERED: droPERidol 5 MG/2 ML VIAL IV ONE (05:00)
[2024-11-04] MEDS ORDERED: diphenhydrAMINE HCL 50 MG/ML VIAL IV ONE (05:00)
[2024-11-04 05:08] LABS: ALBUMIN 3.8 g/dL (3.4-5.0); ANION GAP 14.6 (7-21); BILIRUBIN, TOTAL 0.3 ng/dL (0.2-1.0); BUN/CREATININE RATIO 16.3 (6.0-28.6); CALCIUM 8.6 mg/dL (8.5-10.1); CREATININE, SERUM 0.92 mg/dL (0.55-1.02); MAGNESIUM 1.7 mg/dL (1.8-2.4); POTASSIUM 3.6 mmol/L (3.5-5.1); PROTEIN, TOTAL 7.6 g/dL (6.4-8.2)
[2024-11-04] MEDS ORDERED: MAGNESIUM OXIDE 400 MG TABLET PO ONE (05:30)
[2024-11-04 06:20] VITALS: BP 138/90
== END 2024-11-04 06:18 | disposition home or self-care (01) ==
LOC: ED 04:40
PROVIDERS: Family Medicine
DX: R11.15 Cyclical vomiting syndrome unrelated to migraine (principal); Z88.0 Allergy status to penicillin; Z91.09 Other allergy status, other than to drugs and biological substances; Z88.5 Allergy status to narcotic agent; Z88.8 Allergy status to other drugs, medicaments and biological substances; Z79.899 Other long term (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
CPT/HCPCS: 36415; 80053; 83735; 85025; 96374; 99284-25; J1200; J1790

== ENCOUNTER 2024-11-04 21:31 | Emergency (ER) | payer OTHER ==
[~2024-11-04] VITALS: Ht 152.4 cm; Wt 50.0 kg
[2024-11-04] MEDS ORDERED: diphenhydrAMINE HCL 50 MG/ML VIAL IV ONE (21:45)
[2024-11-04] MEDS ORDERED: droPERidol 5 MG/2 ML VIAL IV PRN (21:45)
[2024-11-04] MEDS ORDERED: SODIUM CHLORIDE 0.9% 500 ML IV PRN (21:45)
[2024-11-04] MEDS ORDERED: KETOROLAC TROMETHAMINE 30 MG/ML VIAL IV ONE (22:00)
[2024-11-04 22:01] LABS: MONOCYTES 3.2 % (0-12)
[2024-11-04 22:03] LABS: BASOPHILS 0.2 % (0-2); HEMATOCRIT 35.9 % (35.0-50.0); HEMOGLOBIN 12.3 g/dL (12.0-18.0); LYMPHOCYTES 8.1 % (24-44); MCH 29.9 (27-36); MCHC 34.2 g/dl (30-36); MCV 87.4 fl (81-99); NEUTROPHILS 88.5 % (39-80); PLATELET COUNT 168 K/uL (140-440); RDW 13.3 (10.5-15.0)
[2024-11-04 22:17] LABS: LACTIC ACID, BLOOD 1.4 mmol/L (0.4-2.0)
[2024-11-04 22:24] LABS: ALBUMIN 3.7 g/dL (3.4-5.0); BILIRUBIN, TOTAL 0.4 ng/dL (0.2-1.0); CALCIUM 8.5 mg/dL (8.5-10.1); CREATININE, SERUM 0.75 mg/dL (0.55-1.02); MAGNESIUM 1.6 mg/dL (1.8-2.4); PROTEIN, TOTAL 7.4 g/dL (6.4-8.2)
[2024-11-04 22:40] VITALS: BP 123/84
== END 2024-11-04 22:40 | disposition left against medical advice (07) ==
LOC: ED 21:31
PROVIDERS: Family Medicine
DX: R50.9 Fever, unspecified (principal); R11.15 Cyclical vomiting syndrome unrelated to migraine; Z88.0 Allergy status to penicillin; Z88.2 Allergy status to sulfonamides; Z91.048 Other nonmedicinal substance allergy status; Z88.8 Allergy status to other drugs, medicaments and biological substances; Z88.3 Allergy status to other anti-infective agents; Z79.899 Other long term (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; Z53.29 Procedure and treatment not carried out because of patient's decision for other reasons
CPT/HCPCS: 36415; 80053; 83605; 83735; 85025; 87502; 96374; 96375; 99284-25; J1200; J1790; J1885; J7040; U0002

== ENCOUNTER 2024-11-30 08:43 | Emergency (ER) | payer OTHER ==
[~2024-11-30] VITALS: Ht 152.4 cm; Wt 52.2 kg
[2024-11-30] MEDS ORDERED: BENADRYL ALLERG25 MG PO (08:49)
[2024-11-30] MEDS ORDERED: SODIUM CHLORIDE 0.9% 1,000 ML IV PRN (09:00)
[2024-11-30] MEDS ORDERED: diphenhydrAMINE HCL 50 MG/ML VIAL IV ONE ×2 (09:00→09:15)
[2024-11-30] MEDS ORDERED: ondansetron HCL 4 MG/2 ML VIAL IV ONE (09:00)
[2024-11-30 09:03] LABS: BASOPHILS 0.4 % (0-2); HEMATOCRIT 39.7 % (35.0-50.0); HEMOGLOBIN 13.7 g/dL (12.0-18.0); MCH 29.8 (27-36); MCHC 34.5 g/dl (30-36); MCV 86.4 fl (81-99); MONOCYTES 5.9 % (0-12); NEUTROPHILS 90.7 % (39-80); PLATELET COUNT 175 K/uL (140-440); RDW 12.9 (10.5-15.0)
[2024-11-30 09:13] LABS: ALBUMIN 4.2 g/dL (3.4-5.0); ALBUMIN/GLOBULIN RATIO 1.05 (1.1-2.4); ANION GAP 12.6 (7-21); BILIRUBIN, TOTAL 0.5 ng/dL (0.2-1.0); BUN/CREATININE RATIO 8.64 (6.0-28.6); CALCIUM 8.9 mg/dL (8.5-10.1); CREATININE, SERUM 0.81 mg/dL (0.55-1.02); POTASSIUM 3.6 mmol/L (3.5-5.1); PROTEIN, TOTAL 8.2 g/dL (6.4-8.2)
[2024-11-30 09:40] LABS: BILIRUBIN, URINE NEGATIVE (negative); BLOOD/HGB, URINE NEGATIVE (Negative); KETONE, URINE SMALL (Negative); LEUK ESTERASE, URINE NEGATIVE (negative); NITRITE, URINE NEGATIVE (negative); PH, URINE 6.5 (5-7)
[2024-11-30 09:50] LABS: CRYSTALS, URINE NONE SEEN (0-1+); EPITHELIAL CELLS, URINE SQUAMOUS 2+ /lpf (0-1+); RED BLOOD CELLS, URINE 0-1 /hpf (0-5); WHITE BLOOD CELLS, URINE 0-1 /HPF (0-5)
[2024-11-30 09:51] LABS: BACTERIA, URINE NONE SEEN /hpf (negative); CASTS, URINE NONE SEEN \\lpf; COLLECTION TYPE, URINE CLEAN CATCH; REFLEX CULTURE, URINE No (No)
[2024-11-30 09:54] LABS: AMPHETAMINES, URINE NEGATIVE (NEGATIVE); BARBITURATES, URINE NEGATIVE (NEGATIVE); BENZODIAZEPINE, URINE NEGATIVE (NEGATIVE); BUPRENORPHINE, URINE NEGATIVE (NEGATIVE); CANNABINOID, URINE POSITIVE (NEGATIVE); COCAINE, URINE NEGATIVE (NEGATIVE); ECSTASY, URINE NEGATIVE (NEGATIVE); FENTANYL, URINE NEGATIVE (NEGATIVE); METHADONE, URINE NEGATIVE (NEGATIVE); OPIATES, URINE NEGATIVE (NEGATIVE); OXYCODONE, URINE NEGATIVE (NEGATIVE); PHENCYCLIDINE, URINE NEGATIVE (NEGATIVE)
[2024-11-30 10:00] VITALS: BP 113/71
[2024-11-30] MEDS ORDERED: KETOROLAC TROMETHAMINE 30 MG/ML VIAL IV ONE (10:00)
[2024-11-30] MEDS ORDERED: ZYPREXA ZYDIS5 MG PO (23:34)
[2024-11-30] MEDS ORDERED: MAGNESIUM OXID400 M1 PO (23:34)
[2024-11-30] MEDS ORDERED: LEVSIN-SL0.125 MG SL (23:34)
== END 2024-11-30 10:01 | disposition home or self-care (01) ==
LOC: ED 08:43
PROVIDERS: Emergency Medicine
DX: J06.9 Acute upper respiratory infection, unspecified (principal); R11.2 Nausea with vomiting, unspecified; R19.7 Diarrhea, unspecified; Z88.0 Allergy status to penicillin; Z88.2 Allergy status to sulfonamides; Z88.1 Allergy status to other antibiotic agents; Z88.8 Allergy status to other drugs, medicaments and biological substances; Z91.048 Other nonmedicinal substance allergy status; Z79.899 Other long term (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
CPT/HCPCS: 80053; 80307; 81001; 83690; 85025; 96374; 96375; 99284-25; J1200; J2405; J7030

== ENCOUNTER 2024-11-30 19:18 | Emergency (ER) | payer OTHER ==
[~2024-11-30] VITALS: Ht 152.4 cm; Wt 49.9 kg
[~2024-11-30 19:18] MED LIST changes: +BENADRYL ALLERG25 MG PO
[2024-11-30] MEDS ORDERED: ONDANSETRON 4 MG TAB ODT SL ONE (19:45)
[2024-11-30 20:31] LABS: INFLUENZA B NAA NEGATIVE (NEGATIVE); RESPIRATORY SYNCYTIAL VIR NAA NEGATIVE (NEGATIVE)
[2024-11-30] MEDS ORDERED: droPERidol 5 MG/2 ML VIAL IV ONE (21:00)
[2024-11-30] MEDS ORDERED: SODIUM CHLORIDE 0.9% 500 ML IV PRN (21:00)
[2024-11-30] MEDS ORDERED: KETOROLAC TROMETHAMINE 30 MG/ML VIAL IV ONE (21:00)
[2024-11-30] MEDS ORDERED: ACETAMINOPHEN 500 MG TAB PO ONE (22:00)
[2024-11-30 22:11] LABS: HEMATOCRIT 36.1 % (35.0-50.0); HEMOGLOBIN 12.2 g/dL (12.0-18.0); LYMPHOCYTES 6.9 % (24-44); MCH 29.4 (27-36); MCHC 33.8 g/dl (30-36); MCV 87.1 fl (81-99); MONOCYTES 10.7 % (0-12); NEUTROPHILS 82.4 % (39-80); PLATELET COUNT 156 K/uL (140-440); RBC 4.15 M/ul (4.3-5.7); RDW 13.3 (10.5-15.0)
[2024-11-30] MEDS ORDERED: ondansetron HCL 4 MG/2 ML VIAL IV ONE (22:15)
[2024-11-30 22:24] LABS: ALBUMIN 3.8 g/dL (3.4-5.0); ALBUMIN/GLOBULIN RATIO 0.97 (1.1-2.4); ANION GAP 10.6 (7-21); BILIRUBIN, TOTAL 0.4 ng/dL (0.2-1.0); BUN/CREATININE RATIO 7.79 (6.0-28.6); CALCIUM 8.5 mg/dL (8.5-10.1); CREATININE, SERUM 0.77 mg/dL (0.55-1.02); MAGNESIUM 1.6 mg/dL (1.8-2.4); POTASSIUM 3.6 mmol/L (3.5-5.1); PROTEIN, TOTAL 7.7 g/dL (6.4-8.2)
[2024-11-30] MEDS ORDERED: DICYCLOMINE HCL 20 MG/2 ML VIAL IM ONE (22:30)
[2024-11-30] MEDS ORDERED: DEXAMETHASONE SOD PHOS 10 MG/ML VIAL IV ONE (23:00)
[2024-11-30] MEDS ORDERED: OLANZapine 10 MG VIAL IM ONE (23:00)
[2024-11-30] MEDS ORDERED: LEVSIN-SL0.125 MG SL (23:34)
[2024-11-30] MEDS ORDERED: ZYPREXA ZYDIS5 MG PO (23:34)
[2024-11-30] MEDS ORDERED: MAGNESIUM OXID400 M1 PO (23:34)
[2024-11-30] MEDS ORDERED: OSELTAMIVIR PHOSPHATE 75 MG HOME.PACK PO ONE (23:45)
[2024-11-30 23:50] VITALS: BP 112/74
== END 2024-11-30 23:50 | disposition home or self-care (01) ==
LOC: ED 19:18
PROVIDERS: Family Medicine
DX: J10.1 Influenza due to other identified influenza virus with other respiratory manifestations (principal); E83.42 Hypomagnesemia; Z88.0 Allergy status to penicillin; Z88.2 Allergy status to sulfonamides; Z91.048 Other nonmedicinal substance allergy status; Z88.5 Allergy status to narcotic agent; Z88.8 Allergy status to other drugs, medicaments and biological substances; Z79.899 Other long term (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
CPT/HCPCS: 36415; 80053; 83735; 85025; 87502; 96361; 96374; 96375; 99284-25; A9270; J0500; J1100; J1885; J2405; J7040; U0002

== ENCOUNTER 2024-12-06 23:37 | Emergency (ER) | payer OTHER ==
[~2024-12-06] VITALS: Ht 152.4 cm; Wt 50.8 kg
[~2024-12-06 23:37] MED LIST changes: +LEVSIN-SL0.125 MG SL; +MAGNESIUM OXID400 M1 PO; +ZYPREXA ZYDIS5 MG PO
[2024-12-06] MEDS ORDERED: diphenhydrAMINE HCL 50 MG/ML VIAL IV ONE (23:45)
[2024-12-06] MEDS ORDERED: FAMOTIDINE 20 MG/ 2 ML VIAL IV ONE (23:45)
[2024-12-06] MEDS ORDERED: LACTATED RINGER'S 1,000 ML IV ONE (23:45)
[2024-12-06] MEDS ORDERED: ondansetron HCL 4 MG/2 ML VIAL IV ONE (23:45)
[2024-12-07 00:08] LABS: BASOPHILS 0.3 % (0-2); EOSINOPHILS 0.2 % (0-6); HEMATOCRIT 40.5 % (35.0-50.0); HEMOGLOBIN 14.2 g/dL (12.0-18.0); LYMPHOCYTES 44.5 % (24-44); MCH 29.6 (27-36); MCHC 35.1 g/dl (30-36); MCV 84.4 fl (81-99); MONOCYTES 14.4 % (0-12); NEUTROPHILS 40.6 % (39-80); PLATELET COUNT 115 K/uL (140-440); RDW 12.8 (10.5-15.0)
[2024-12-07] MEDS ORDERED: diphenhydrAMINE HCL 50 MG/ML VIAL IV ONE ×2 (00:15→01:00)
[2024-12-07 00:20] LABS: ALBUMIN 3.9 g/dL (3.4-5.0); ALBUMIN/GLOBULIN RATIO 0.93 (1.1-2.4); ANION GAP 18.5 (7-21); BILIRUBIN, TOTAL 0.7 ng/dL (0.2-1.0); BUN/CREATININE RATIO 16.12 (6.0-28.6); CALCIUM 8.6 mg/dL (8.5-10.1); CREATININE, SERUM 0.62 mg/dL (0.55-1.02); POTASSIUM 3.5 mmol/L (3.5-5.1); PROTEIN, TOTAL 8.1 g/dL (6.4-8.2)
[2024-12-07 01:38] VITALS: BP 117/83
== END 2024-12-07 01:38 | disposition home or self-care (01) ==
LOC: ED 23:37
PROVIDERS: Internal Medicine
DX: R11.15 Cyclical vomiting syndrome unrelated to migraine (principal); R10.10 Upper abdominal pain, unspecified; Z86.74 Personal history of sudden cardiac arrest; Z88.0 Allergy status to penicillin; Z88.2 Allergy status to sulfonamides; Z91.048 Other nonmedicinal substance allergy status; Z88.8 Allergy status to other drugs, medicaments and biological substances; Z88.5 Allergy status to narcotic agent; Z88.3 Allergy status to other anti-infective agents; Z79.899 Other long term (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
CPT/HCPCS: 36415; 80053; 85025; 96361; 96374; 96375; 96376; 99284-25; J1200; J2405; J7121

== ENCOUNTER 2024-12-28 03:25 | Emergency (ER) | payer OTHER ==
[~2024-12-28] VITALS: Ht 152.4 cm; Wt 49.9 kg
[2024-12-28] MEDS ORDERED: ondansetron HCL 4 MG/2 ML VIAL IV ONE (03:30)
[2024-12-28] MEDS ORDERED: diphenhydrAMINE HCL 50 MG/ML VIAL IV ONE (03:30)
[2024-12-28] MEDS ORDERED: DEXAMETHASONE SOD PHOS 4 MG/ML VIAL IV ONE (03:30)
[2024-12-28] MEDS ORDERED: LACTATED RINGER'S 1,000 ML IV ONE (03:30)
[2024-12-28] MEDS ORDERED: KETOROLAC TROMETHAMINE 15 MG/ML VIAL IV ONE (04:00)
[2024-12-28] MEDS ORDERED: HYDROXYZINE PAM25 MG PO (04:09)
[2024-12-28] MEDS ORDERED: DICYCLOMINE HCL 20 MG/2 ML VIAL IM ONE (04:30)
[2024-12-28] MEDS ORDERED: DICYCLOMINE HCL 10 MG HOME.PACK PO ONE (04:30)
[2024-12-28 04:46] VITALS: BP 129/80
== END 2024-12-28 04:50 | disposition home or self-care (01) ==
LOC: ED 03:25
DX: R11.15 Cyclical vomiting syndrome unrelated to migraine (principal); Z88.0 Allergy status to penicillin; Z88.2 Allergy status to sulfonamides; Z88.5 Allergy status to narcotic agent; Z91.048 Other nonmedicinal substance allergy status; Z88.8 Allergy status to other drugs, medicaments and biological substances; Z79.899 Other long term (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
CPT/HCPCS: 96361; 96374; 96375; 99284-25; J0500; J1200; J1885; J2405; J7121

== ENCOUNTER 2025-01-06 08:17 | Emergency (ER) | payer OTHER ==
[~2025-01-06] VITALS: Ht 152.4 cm; Wt 49.9 kg
[2025-01-06 09:10] VITALS: BP 127/98
== END 2025-01-06 09:10 | disposition home or self-care (01) ==
LOC: ED 08:17
DX: K58.1 Irritable bowel syndrome with constipation (principal); Z88.0 Allergy status to penicillin; Z88.2 Allergy status to sulfonamides; Z91.048 Other nonmedicinal substance allergy status
CPT/HCPCS: 74018; 99283

== ENCOUNTER 2025-03-05 14:29 | Emergency (ER) | payer OTHER ==
[~2025-03-05] VITALS: Ht 152.4 cm; Wt 53.0 kg
[~2025-03-05 14:29] MED LIST changes: +CLEARLAX119 GM PO; +CVS ENEMA DISP133 ML PR; +HYDROXYZINE PAM25 MG PO
[2025-03-05] MEDS ORDERED: CYCLOBENZAPRINE10 MG PO (14:40)
[2025-03-05] MEDS ORDERED: diphenhydrAMINE HCL 50 MG/ML VIAL IV ONE (14:45)
[2025-03-05 14:53] LABS: BASOPHILS 0.7 % (0-2); EOSINOPHILS 0.3 % (0-6); HEMATOCRIT 40.2 % (35.0-50.0); HEMOGLOBIN 13.8 g/dL (12.0-18.0); LYMPHOCYTES 22.3 % (24-44); MCH 29.3 (27-36); MCHC 34.3 g/dl (30-36); MCV 85.4 fl (81-99); MONOCYTES 4.3 % (0-12); NEUTROPHILS 72.4 % (39-80); PLATELET COUNT 205 K/uL (140-440); RBC 4.71 M/ul (4.3-5.7); RDW 13.4 (10.5-15.0)
[2025-03-05 15:10] LABS: ALBUMIN 4.5 g/dL (3.4-5.0); ALBUMIN/GLOBULIN RATIO 1.15 (1.1-2.4); ANION GAP 15.7 (7-21); BILIRUBIN, TOTAL 0.5 mg/dL (0.2-1.0); BUN/CREATININE RATIO 9.63 (6.0-28.6); CALCIUM 9.4 mg/dL (8.5-10.1); CREATININE, SERUM 0.83 mg/dL (0.55-1.02); POTASSIUM 3.7 mmol/L (3.5-5.1); PROTEIN, TOTAL 8.4 g/dL (6.4-8.2)
[2025-03-05 15:37] VITALS: BP 00/00
== END 2025-03-05 15:37 | disposition left against medical advice (07) ==
LOC: ED 14:29
PROVIDERS: Emergency Medicine
DX: R10.12 Left upper quadrant pain (principal); Z53.29 Procedure and treatment not carried out because of patient's decision for other reasons; Z88.0 Allergy status to penicillin; Z88.2 Allergy status to sulfonamides; Z91.048 Other nonmedicinal substance allergy status; Z79.899 Other long term (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
CPT/HCPCS: 36415; 80053; 85025; 99284; J1200

== ENCOUNTER 2025-03-07 18:23 | Emergency (ER) | payer OTHER ==
[~2025-03-07] VITALS: Ht 152.4 cm; Wt 53.0 kg
[2025-03-07] MEDS ORDERED: SODIUM CHLORIDE 0.9% 500 ML IV ONE (19:15)
[2025-03-07 19:34] LABS: BASOPHILS 0.4 % (0-2); EOSINOPHILS 0.5 % (0-6); HEMATOCRIT 38.8 % (35.0-50.0); HEMOGLOBIN 13.3 g/dL (12.0-18.0); LYMPHOCYTES 9.3 % (24-44); MCH 29.3 (27-36); MCHC 34.2 g/dl (30-36); MCV 85.6 fl (81-99); MONOCYTES 4.7 % (0-12); NEUTROPHILS 85.1 % (39-80); PLATELET COUNT 208 K/uL (140-440); RBC 4.53 M/ul (4.3-5.7); RDW 13.2 (10.5-15.0)
[2025-03-07 19:53] LABS: ALBUMIN 4.4 g/dL (3.4-5.0); ALBUMIN/GLOBULIN RATIO 1.13 (1.1-2.4); BILIRUBIN, TOTAL 0.6 mg/dL (0.2-1.0); BUN/CREATININE RATIO 12.22 (6.0-28.6); CALCIUM 9.3 mg/dL (8.5-10.1); CREATININE, SERUM 0.9 mg/dL (0.55-1.02); MAGNESIUM 1.7 mg/dL (1.8-2.4); PROTEIN, TOTAL 8.3 g/dL (6.4-8.2)
[2025-03-07] MEDS ORDERED: LACTATED RINGER'S 1,000 ML IV ONE (20:45)
[2025-03-07] MEDS ORDERED: diphenhydrAMINE HCL 50 MG/ML VIAL IV ONE ×2 (20:45→22:30)
[2025-03-07] MEDS ORDERED: ondansetron HCL 4 MG/2 ML VIAL IV ONE (20:45)
[2025-03-07] MEDS ORDERED: KETOROLAC TROMETHAMINE 30 MG/ML VIAL IV ONE (21:30)
[2025-03-08 00:07] LABS: BILIRUBIN, URINE NEGATIVE (negative); BLOOD/HGB, URINE NEGATIVE (Negative); KETONE, URINE SMALL (Negative); LEUK ESTERASE, URINE NEGATIVE (negative); NITRITE, URINE NEGATIVE (negative)
[2025-03-08] MEDS ORDERED: LORazepam 2 MG/ML VIAL IV ONE (00:15)
[2025-03-08 00:41] LABS: AMPHETAMINES, URINE NEGATIVE (NEGATIVE); BARBITURATES, URINE NEGATIVE (NEGATIVE); BENZODIAZEPINE, URINE NEGATIVE (NEGATIVE); BUPRENORPHINE, URINE NEGATIVE (NEGATIVE); CANNABINOID, URINE POSITIVE (NEGATIVE); COCAINE, URINE NEGATIVE (NEGATIVE); ECSTASY, URINE NEGATIVE (NEGATIVE); FENTANYL, URINE NEGATIVE (NEGATIVE); METHADONE, URINE NEGATIVE (NEGATIVE); OPIATES, URINE NEGATIVE (NEGATIVE); OXYCODONE, URINE NEGATIVE (NEGATIVE); PHENCYCLIDINE, URINE NEGATIVE (NEGATIVE)
[2025-03-08 01:14] VITALS: BP 130/86
== END 2025-03-08 01:20 | disposition home or self-care (01) ==
LOC: ED 18:23
PROVIDERS: Internal Medicine
DX: R11.15 Cyclical vomiting syndrome unrelated to migraine (principal); Z88.0 Allergy status to penicillin; Z88.2 Allergy status to sulfonamides; Z91.09 Other allergy status, other than to drugs and biological substances; Z88.5 Allergy status to narcotic agent; Z88.8 Allergy status to other drugs, medicaments and biological substances; Z79.899 Other long term (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
CPT/HCPCS: 36415; 80053; 80307; 81003; 83735; 84703; 85025; 96361; 96374; 96375; 96376; 99284-25; J1200; J2060; J2405; J7040; J7121

== ENCOUNTER 2025-06-05 09:18 | Emergency (ER) | payer OTHER ==
[~2025-06-05] VITALS: Ht 152.4 cm; Wt 50.0 kg
[2025-06-05 09:59] LABS: BASOPHILS 0.9 % (0.1-1.2); EOSINOPHILS 4.6 % (0.7-5.8); LYMPHOCYTES 38.8 % (19.3-51.7); MCH 28.7 PG (25.6-32.2); MCHC 33.6 g/dL (32.2-35.5); MCV 85.4 fL (79.4-94.8); MONOCYTES 6.4 % (4.7-12.5); NEUTROPHILS 49.0 % (34.0-71.1); RBC 4.53 M/uL (3.93-5.22)
[2025-06-05 10:26] LABS: ALT (SGPT) 15.0 U/L (14-59); AST (SGOT) 13.0 U/L (15-37); GLOMERULAR FILTRATION RATE,EST 117.0 mL/min (>60); PROTEIN, TOTAL 7.7 g/dL (6.4-8.2); UREA NITROGEN 10.0 mg/dL (7-18)
[2025-06-05 11:39] VITALS: BP 129/96
--- NOTE | 2025-06-05 17:50 | EKG ---
[facility] [address] [facility] [place] [address] Signed Normal sinus rhythm Normal ECG When compared with ECG of 10-DEC-2022 06:36, Vent. rate has increased BY 28 BPM Confirmed by Patrice Coreas DO ([id number]) on 06/05/2025 5:50:43 PM Electronically Signed By: PATRICE COREAS DO 06/05/25 1750 PATIENT NAME: GELYASPEN Electrocardiogram DATE OF : 89 PHYSICIAN: PATRICE COREAS DO REPORT #: [id number] REPORT IS CONFIDENTIAL AND NOT TO BE RELEASED WITHOUT AUTHORIZATION
== END 2025-06-05 11:39 | disposition home or self-care (01) ==
LOC: ED 09:18
PROVIDERS: Emergency Medicine
DX: H53.9 Unspecified visual disturbance (principal); Z88.0 Allergy status to penicillin; Z88.2 Allergy status to sulfonamides; Z88.5 Allergy status to narcotic agent; Z88.8 Allergy status to other drugs, medicaments and biological substances; Z91.09 Other allergy status, other than to drugs and biological substances; Z79.899 Other long term (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
CPT/HCPCS: 36415; 80053; 84443; 85025; 93005; 93010; 99284

== ENCOUNTER 2025-07-25 19:11 | Emergency (ER) | payer OTHER ==
[~2025-07-25] VITALS: Ht 152.4 cm; Wt 54.6 kg
[2025-07-25] MEDS ORDERED: SUCRALFATE1 GM PO (19:28)
[2025-07-25] MEDS ORDERED: CELEBREX200 MG PO (20:23)
[2025-07-25 20:42] VITALS: BP 125/75
== END 2025-07-25 20:42 | disposition home or self-care (01) ==
LOC: ED 19:11
DX: S00.33XA Contusion of nose, initial encounter (principal); W54.1XXA Struck by dog, initial encounter; Z88.0 Allergy status to penicillin; Z88.2 Allergy status to sulfonamides; Z91.048 Other nonmedicinal substance allergy status; Z88.1 Allergy status to other antibiotic agents; Z88.8 Allergy status to other drugs, medicaments and biological substances
CPT/HCPCS: 70160; 99283

== ENCOUNTER 2025-09-26 08:55 | Emergency (ER) | payer OTHER ==
[~2025-09-26] VITALS: Ht 152.4 cm; Wt 55.5 kg
[~2025-09-26 08:55] MED LIST changes: +CELEBREX200 MG PO
[2025-09-26 10:12] VITALS: BP 112/78
== END 2025-09-26 10:13 | disposition home or self-care (01) ==
LOC: ED 08:55
DX: R42 Dizziness and giddiness (principal); R25.3 Fasciculation; Z79.2 Long term (current) use of antibiotics; Z88.8 Allergy status to other drugs, medicaments and biological substances; Z88.0 Allergy status to penicillin; Z88.2 Allergy status to sulfonamides; Z91.048 Other nonmedicinal substance allergy status; Z88.5 Allergy status to narcotic agent
CPT/HCPCS: 99284

== ENCOUNTER 2025-10-26 05:42 | Emergency (ER) | payer OTHER ==
[~2025-10-26] VITALS: Ht 152.4 cm; Wt 55.5 kg
[2025-10-26] MEDS ORDERED: LACTATED RINGER'S 1,000 ML IV ONE (06:00)
[2025-10-26] MEDS ORDERED: LORazepam 2 MG/ML VIAL IV ONE (06:15)
[2025-10-26 06:18] LABS: BASOPHILS 1.0 % (0.1-1.2); EOSINOPHILS 7.2 % (0.7-5.8); LYMPHOCYTES 42.5 % (19.3-51.7); MCH 28.7 PG (25.6-32.2); MCHC 33.6 g/dL (32.2-35.5); MCV 85.4 fL (79.4-94.8); MONOCYTES 5.4 % (4.7-12.5); NEUTROPHILS 43.6 % (34.0-71.1); RBC 4.53 M/uL (3.93-5.22)
[2025-10-26 06:39] LABS: ALT (SGPT) 13.0 U/L (14-59); AST (SGOT) 11.0 U/L (15-37); GLOMERULAR FILTRATION RATE,EST 101.0 mL/min (>60); PROTEIN, TOTAL 7.6 g/dL (6.4-8.2); UREA NITROGEN 11.0 mg/dL (7-18)
[2025-10-26 06:58] LABS: BLOOD/HGB, URINE NEGATIVE (Negative); KETONE, URINE NEGATIVE (Negative); LEUK ESTERASE, URINE NEGATIVE (negative); NITRITE, URINE NEGATIVE (negative)
[2025-10-26 07:25] VITALS: BP 111/76
== END 2025-10-26 07:25 | disposition home or self-care (01) ==
LOC: ED 05:42
PROVIDERS: Internal Medicine
DX: F41.9 Anxiety disorder, unspecified (principal); Z79.899 Other long term (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; Z88.0 Allergy status to penicillin; Z88.2 Allergy status to sulfonamides; Z91.048 Other nonmedicinal substance allergy status; Z88.5 Allergy status to narcotic agent; Z88.8 Allergy status to other drugs, medicaments and biological substances
CPT/HCPCS: 36415; 80053; 81003; 84703; 85025; 96374; 96375; 99283-25; J2060; J2405; J7121